=== PATIENT | male | born 1970 | race Caucasian/White ===

== ENCOUNTER 2016-12-31 16:00 | Outpatient (RCR) | payer MEDICARE, MEDICAID ==
[~2016-12-31 16:00] MED LIST: /TIOT18INH INH; ALBU17IN2 INH; RISP2TAB12 OR; TRAM50TA2 OR; ZOLO50TA OR
== END 2017-01-01 ==
LOC: M OUTALCOH 16:00
PROVIDERS: ATTEND Psychiatry & Neurology Psychiatry
DX: F10.20 Alcohol dependence, uncomplicated (principal); F19.10 Other psychoactive substance abuse, uncomplicated; F11.20 Opioid dependence, uncomplicated; F17.200 Nicotine dependence, unspecified, uncomplicated

== ENCOUNTER 2017-01-28 16:00 | Outpatient (RCR) | payer MEDICARE, MEDICAID | END 2017-01-29 | LOC: M OUTALCOH 16:00 | PROVIDERS: ATTEND Psychiatry & Neurology Psychiatry | DX: F19.10 Other psychoactive substance abuse, uncomplicated (principal); F11.20 Opioid dependence, uncomplicated; F10.20 Alcohol dependence, uncomplicated; F17.200 Nicotine dependence, unspecified, uncomplicated ==

== ENCOUNTER 2017-01-31 14:07 | Outpatient (RCR) | payer MEDICARE, MEDICAID | END 2017-03-01 | LOC: M OUTALCOH 14:07 | PROVIDERS: ATTEND Psychiatry & Neurology Psychiatry | DX: F19.10 Other psychoactive substance abuse, uncomplicated (principal); F11.20 Opioid dependence, uncomplicated; F10.20 Alcohol dependence, uncomplicated; F17.200 Nicotine dependence, unspecified, uncomplicated ==

== ENCOUNTER 2017-07-16 16:37 | Emergency (ER) | payer MEDICAID, MEDICARE ==
[~2017-07-16] VITALS: Ht 177.8 cm; Wt 155.0 kg
[2017-07-16 16:38] VITALS: BP 133/92
[2017-07-16] MEDS ORDERED: BREO1INH INH (16:47)
[2017-07-16] MEDS ORDERED: BUPR10TASR PO (16:47)
[2017-07-16] MEDS ORDERED: LITH300C PO (16:47)
[2017-07-16] MEDS ORDERED: PRED10TA2 PO (16:47)
[2017-07-16] MEDS ORDERED: INCR1INH IN (16:47)
[2017-07-16] MEDS ORDERED: ELIM5CRE2 TOP (17:36)
== END 2017-07-16 17:50 | disposition home or self-care (01) ==
LOC: M ED 16:37
DX: L29.9 Pruritus, unspecified (principal); J44.9 Chronic obstructive pulmonary disease, unspecified; F99 Mental disorder, not otherwise specified; F17.210 Nicotine dependence, cigarettes, uncomplicated; Z59.0 Homelessness; Z79.52 Long term (current) use of systemic steroids; Z79.899 Other long term (current) drug therapy

== ENCOUNTER 2017-07-17 19:15 | Emergency (ER) | payer MEDICAID, MEDICARE ==
[~2017-07-17] VITALS: Ht 180.3 cm; Wt 155.0 kg
[~2017-07-17 19:15] MED LIST changes: +BREO1INH INH; +BUPR10TASR PO; +ELIM5CRE2 TOP; +INCR1INH IN; +LITH300C PO; +PRED10TA2 PO
[2017-07-17 21:35] LABS: BASO # 0.1 K/mm3 (0.0-0.2); BASO % 0.7 % (0.0-1.0); EOS # 0.7 K/mm3 (0.0-0.50); EOS % 5.7 % (0.0-3.0); LARGE UNSTAINED CELL # 0.2 K/mm3 (0.0-0.4); LARGE UNSTAINED CELL % 1.5 % (0.0-4.0); LYMPH # 3.1 K/mm3 (1.5-4.5); LYMPH % 22.7 % (24.0-44.0); MEAN CORPUSCULAR HEMOGLOBIN 30.9 pg (27.0-33.0); MEAN CORPUSCULAR HGB CONC 33.7 g/dl (32.0-36.5); MEAN CORPUSCULAR VOLUME 91.5 fl (80.0-96.0); MONO # 0.7 K/mm3 (0.0-0.8); MONO % 5.2 % (0.0-5.0); NEUTROPHILS # 8.3 K/mm3 (1.8-7.7); NEUTROPHILS % 64.3 % (36.0-66.0); PLATELET COUNT, AUTOMATED 310 k/mm3 (150-450); RED CELL DISTRIBUTION WIDTH 12.9 % (11.5-14.5); WHITE BLOOD COUNT 12.9 K/mm3 (4.0-10.0)
[2017-07-17 22:03] LABS: ALBUMIN/GLOBULIN RATIO 1.38 (1.00-1.93); ALKALINE PHOSPHATASE 79 U/L (45-117); ALT/SGPT 23 U/L (12-78); ANION GAP 7 MEQ/L (8-16); AST/SGOT 15 U/L (15-37); BILIRUBIN,DIRECT 0.1 MG/DL (0.0-0.2); BILIRUBIN,TOTAL 0.4 MG/DL (0.2-1.0); BLOOD UREA NITROGEN 10 MG/DL (7-18); CALCIUM LEVEL 9.1 MG/DL (8.5-10.1); CARBON DIOXIDE LEVEL 29 MEQ/L (21-32); CHLORIDE LEVEL 105 MEQ/L (98-107); GLOMERULAR FILTRATION RATE > 60.0 (>60); GLUCOSE, FASTING 108 MG/DL (70-105); POTASSIUM SERUM 3.6 MEQ/L (3.5-5.1); SODIUM LEVEL 141 MEQ/L (136-145); TOTAL PROTEIN 6.9 GM/DL (6.4-8.2)
[2017-07-17 22:07] VITALS: BP 160/84
== END 2017-07-17 22:20 | disposition home or self-care (01) ==
LOC: M ED 19:15
DX: L29.9 Pruritus, unspecified (principal); R20.9 Unspecified disturbances of skin sensation; J44.9 Chronic obstructive pulmonary disease, unspecified; J45.909 Unspecified asthma, uncomplicated; F17.210 Nicotine dependence, cigarettes, uncomplicated; Z79.899 Other long term (current) drug therapy; Z79.52 Long term (current) use of systemic steroids; Z79.51 Long term (current) use of inhaled steroids
CPT/HCPCS: 80048; 80076; 84443; 85025; 99282; G0480

== ENCOUNTER 2017-07-24 08:58 | Emergency (ER) | payer MEDICARE ==
[~2017-07-24] VITALS: Ht 180.3 cm; Wt 70.5 kg
[2017-07-24 08:59] VITALS: BP 144/86
[2017-07-24] MEDS ORDERED: IBUP-1022 PO (09:19)
[2017-07-24] MEDS ORDERED: PENI25TA GT (09:19)
[2017-07-24] MEDS ORDERED: PENICILLIN V POTASSIUM 500 MG TAB PO ONE (09:30)
[2017-07-24] MEDS ORDERED: IBUPROFEN 800 MG TAB PO ONE (09:30)
== END 2017-07-24 09:47 | disposition home or self-care (01) ==
LOC: M ED 08:58
DX: K08.89 Other specified disorders of teeth and supporting structures (principal); Z72.0 Tobacco use

== ENCOUNTER 2017-09-22 19:51 | Emergency (ER) | payer MEDICARE ==
[~2017-09-22] VITALS: Ht 180.3 cm; Wt 65.9 kg
[~2017-09-22 19:51] MED LIST changes: +IBUP-1022 PO; +PENI25TA GT
[2017-09-22] MEDS ORDERED: OMEP20CA3 (20:11)
[2017-09-22] MEDS ORDERED: SUBO8MIS (20:11)
[2017-09-22] MEDS ORDERED: VARE1TA (20:11)
[2017-09-22] MEDS ORDERED: GEMF600T (20:11)
[2017-09-22] MEDS ORDERED: MONT10TA2 (20:11)
[2017-09-22] MEDS ORDERED: AUGM875T28 PO (21:57)
[2017-09-22 22:02] VITALS: BP 118/52
== END 2017-09-22 22:03 | disposition home or self-care (01) ==
LOC: M ED 19:51
DX: K08.89 Other specified disorders of teeth and supporting structures (principal); K05.00 Acute gingivitis, plaque induced; Z72.0 Tobacco use

== ENCOUNTER 2017-10-19 20:28 | Inpatient (IN) | payer MEDICARE ==
[~2017-10-19] VITALS: Ht 182.9 cm; Wt 68.0 kg
[~2017-10-19 20:28] MED LIST changes: +AUGM875T28 PO; +GEMF600T PO; -INCR1INH IN; +INCR1INH INH; +MONT10TA2 PO; +OMEP20CA3 PO; +SUBO8MIS SL; +VARE1TA PO
[2017-10-19 21:33] LABS: MEAN CORPUSCULAR HEMOGLOBIN 29.4 pg (27.0-33.0); MEAN CORPUSCULAR HGB CONC 32.5 g/dl (32.0-36.5); MEAN CORPUSCULAR VOLUME 90.4 fl (80.0-96.0); PLATELET COUNT, AUTOMATED 363 10^3/uL (150-450); RED CELL DISTRIBUTION WIDTH 12.7 % (11.5-14.5); WHITE BLOOD COUNT 11.3 10^3/uL (4.0-10.0)
[2017-10-19] MEDS ORDERED: LORazepam 1 MG TAB PO ONE (21:45)
--- NOTE | 2017-10-19 21:50 | REPUSA ---
CT of the head Clinical history: psychosis. Comparison: 06/18/2012. Technique: Multiple axial CT images were obtained through the head without administration of contrast . Findings: The ventricles and sulci are symmetric bilaterally. There is no evidence of acute hemorrhag e or infarct. There is no midline shift, mass effect, or extra-axial fluid collection. The osseous st ructures are unremarkable. The visualized paranasal sinuses and mastoid air cells are clear. Impression: Negative study.
[2017-10-19 22:10] LABS: ALBUMIN/GLOBULIN RATIO 1.25 (1.00-1.93); ALKALINE PHOSPHATASE 102 U/L (45-117); ALT/SGPT 22 U/L (12-78); ANION GAP 9 MEQ/L (8-16); AST/SGOT 24 U/L (7-37); BILIRUBIN,DIRECT 0.2 MG/DL (0.0-0.2); BILIRUBIN,TOTAL 0.7 MG/DL (0.2-1.0); BLOOD UREA NITROGEN 5 MG/DL (7-18); CALCIUM LEVEL 9.4 MG/DL (8.5-10.1); CARBON DIOXIDE LEVEL 25 MEQ/L (21-32); CHLORIDE LEVEL 105 MEQ/L (98-107); CREATININE FOR GFR 1.02 MG/DL (0.70-1.30); GLOMERULAR FILTRATION RATE > 60.0 (>60); GLUCOSE, FASTING 111 MG/DL (70-105); POTASSIUM SERUM 3.2 MEQ/L (3.5-5.1); SODIUM LEVEL 139 MEQ/L (136-145); TOTAL PROTEIN 7.2 GM/DL (6.4-8.2)
[2017-10-19 22:27] LABS: LITHIUM LEVEL 0.41 MEQ/L (0.60-1.20)
[2017-10-19] MEDS ORDERED: MAALOX 30 ML SUSP *UDC PO PRN (23:00)
[2017-10-19] MEDS ORDERED: MOM 30ML SUSPENSION UDC PO PRN (23:00)
[2017-10-19 23:05] LABS: METHADONE URINE NEGATIVE (NEGATIVE)
[2017-10-19] MEDS ORDERED: MAGN1TAB25 PO (23:21)
[2017-10-19] MEDS ORDERED: BUPR300T34 PO (23:21)
[2017-10-19] MEDS ORDERED: LITH45TASA PO (23:21)
[2017-10-20] MEDS: OLANZapine ORAL DISINTEGRATING TAB 5MG PO PRN (03:19)
[2017-10-20] MEDS: ACETAMINOPHEN TAB 650MG DOSE (2X325MG) PO PRN ×3 (04:32→21:19)
[2017-10-20 06:51] VITALS: BP 126/79
[2017-10-20] MEDS: PALIPERIDONE 3 MG ER TAB (INVEGA) PO SCH ×2 (08:06→20:02)
[2017-10-20] MEDS: LORazepam 1 MG TAB PO SCH ×3 (08:06→20:03)
[2017-10-20] MEDS ORDERED: ALBUTEROL 90 MCG/ACT 8GM HFA INHALER INH SCH (09:00)
[2017-10-20] MEDS: VARENICLINE 1 MG TABLET PO SCH ×2 (09:00→20:03)
--- NOTE | 2017-10-20 13:18 | MHHPEPDOC ---
General Date Of Admission: Oct 19, 2017 Legal Status: 9.39 Chief Complaint "My hands sting, i feel these bugs biting me, crawling on me". History of Present Illness HISTORY OF THE PRESENT ILLNESS: As per ED note: "Pt. states, "I'm going crazy and I need to be admitted." Pt reports over the past month, "bugs are crawling everywhere and I can't handle it." States he is unable to sleep due the severity of the sensation and is pacing throughout his house. Also presents with numerous somatic complaints and states, "nobody believes me"and is refusing to return home. Apparently, pt was seen in the ED last month for toothache and admitted to [place] "worms were coming out of my nose" Pt is requesting hospitalization due to unable to cope with tactile hallucinations and anxiety. He is a poor historian, therefore unable to obtain detailed hx. Pt is very disheveled and appears he has not been caring for himself. Pt has a hx of 2 previous hospitalizations to [facility] June and Jul(SI) mostly related to substance abuse(Bath Salts, ETOH, and Opiates) Pt adamantly denies SI and HI, able to CFS. States he was recently seen by [facility](Dr. Allen), however never informed MD of his concerns." Psychiatric Review of Systems Depression (2 or more weeks): depressed mood, anhedonia, insomnia/hypersomnia, feelings of worthlesness, decreased energy Aditi (4 or more days of): denies Psychosis: visual hallucination, delusions PTSD: denies Past Psychiatric History Previous Psychiatric Diagnosis: . Previous Psychiatric Admissions: . Suicide Attempts: . Psychiatric Follow-up: . Psychiatric medications: . 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 He suffered head trauma when he was 2 years old, he says he was in a coma for a long time. Head Injury: Yes Seizures: No Hospitalizations: Yes Surgeries: Yes Family Medical/Psychiatric HX Medical Problems Heart attacks and diabetes. Psychiatric Disorders: No Addiction: No Suicide Attemps/Completions: No Addiction History alcohol, cocaine, amphetamines, opioids, heroin Social History Childhood: He says he has been on his own since he was 13 because he didn't get along with his stepfather. he says his biological father and his mother were together only for about two years. He has two sisters, was close to them. Abuse/Trauma: Denies. Current Living Situation: Lives at a room with three other people. They are all [employer] clients. he gets charged $160.00/month and he sleeps in a loveset Education: Didn't finish HS and didn't get his GED Employment: Unemployed Social Support: None Legal: Child support. Marital: Has 2 daughters with his ex girlfriend. He says he didn't get to her because her mother interfered with everything they did. Her mother called the smocking machine operator because she went to their house to see the girls. he was 16 when his first daughter was born Mental Status Examination General Appearance: unkempt, disheveled, ds/not appear stated age, hospital scubs/clothing Build: thin Demeanor: average Eye Contact: poor Activity: slowed Behavior: cooperative Speech: reg/rate,rhythm,volume Mood: depressed Affect: constricted Thought Process: logical/linear Thought Content (Delusions): bizarre Thought Content (Other): none reported Thought Content (Aggressive): none reported Perception (Hallucinations): none reported Perception (Other): illusions Cognition (Impairment of): none reported Cognition(Intelligence Est.): average Oriented: Awake, Alert, Oriented times three Insight: poor Judgment: Poor Initial Treatment Plan 1. Patient was admitted on a [9.39] status. 2. Complete history was obtained. 3. With patients permission, family will be contacted and database will be expanded. 4. Patients medication regimen will be reviewed and changed accordingly. 5. Patient will be provided with protected environment. 6. Patient will be treated with individual, group, and milieu therapies. 7. Patient will receive supportive psych-education. 8. Discharge planning will commence immediately. 9. Outpatient follow-up treatment will be strongly recommended. 10. The initial treatment plan will focus initially on: * Depression. * Risk for suicide. * Substance abuse. ESTIMATED LENGTH OF STAY: - DAYS. TIME SPENT COUNSELING AND COORDINATING INITIAL CARE: minutes. Vital Signs Vital Signs Date Time Temp Pulse Resp B/P (MAP) Pulse Ox O2 Delivery O2 Flow Rate FiO2 10/20/17 09:51 Room Air 10/20/17 06:51 97.7 69 18 126/79 (95) 96 Laboratory Data 24H Labs Laboratory Tests 2 10/19/17 21:20: Nucleated Red Blood Cells % (auto) 0.0, Anion Gap 9, Glomerular Filtration Rate > 60.0, Calcium Level 9.4, Aspartate Amino Transf (AST/SGOT) 24, Alanine Aminotransferase (ALT/SGPT) 22, Alkaline Phosphatase 102, Total Bilirubin 0.7, Direct Bilirubin 0.2, Total Protein 7.2, Albumin 4.0, Albumin/Globulin Ratio 1.25, Thyroid Stimulating Hormone (TSH) 0.856, Salicylates Level 1.8L, Acetaminophen Level < 2.0L, [place] Level 0.41L, Ethyl Alcohol Level < 0.003 10/19/17 21:21: Urine Amphetamines Screen NEGATIVE, Urine Benzodiazepines Screen NEGATIVE, Urine Opiates Screen NEGATIVE, Urine Methadone Screen NEGATIVE, Urine Barbiturates Screen NEGATIVE, Urine Phencyclidine Screen NEGATIVE, Urine Cocaine Metabolite Screen NEGATIVE, Urine Cannabinoids Screen NEGATIVE CBC/BMP Laboratory Tests 10/19/17 21:20 Red Blood Count 4.80, Mean Corpuscular Volume 90.4, Mean Corpuscular Hemoglobin 29.4, Mean Corpuscular Hemoglobin Concent 32.5, Red Cell Distribution Width 12.7 Medications Scheduled (Incruse Ellipta) 62.5 Mcg/Inh Inh, 1 PUFF INH DAILY, (Reported) Buprenorphine/Naloxone (Suboxone 8-2 mg) 1 Mis Mis, 1 MIS SL QHS, (Reported) Bupropion HCl (Bupropion HCl Xl) 300 Mg Tab, 300 MG PO DAILY, (Reported) Fluticasone/Vilanterol (Breo Ellipta 100-25 Mcg/INH) 1 Inh Inh, 1 PUFF INH DAILY , (Reported) Gemfibrozil (Gemfibrozil) 600 Mg Tab, 600 MG PO DAILY, (Reported) [place] Carbonate ([place]ilex Carbonate ER) 450 Mg Tabcr, 900 MG PO QHS, (Reported) Magnesium Oxide (Magnesium) 400 Mg Tab, 400 MG PO DAILY, (Reported) Montelukast Sodium (Montelukast Sodium) 10 Mg Tab, 10 MG PO DAILY, (Reported) Omeprazole (Omeprazole) 20 Mg Cap, 20 MG PO DAILY, (Reported) Prednisone (Prednisone) 10 Mg Tab, 10 MG PO DAILY, (Reported) Varenicline (Chantix) 1 Mg Tab, 1 MG PO BID, (Reported) Scheduled PRN Albuterol Sulfate (Proventil Hfa) Aer, 2 PUFFS INH Q4H PRN for SHORTNESS OF BREATH, (Reported) Allergies Coded Allergies: No Known Allergies (Verified Allergy, 06/07/03) ELYSIA ROWE MD Oct 20, 2017 13:18
[2017-10-20] MEDS: predniSONE 10 MG TAB PO SCH (15:09)
[2017-10-20] MEDS: BUPRENORPHINE/NALOXONE 8-2MG SUBLINGUAL TABLET(SUBOXONE) SL SCH (15:09)
[2017-10-20] MEDS: MONTELUKAST 10 MG TAB PO SCH (15:10)
[2017-10-20] MEDS: MAGNESIUM OXIDE 400 MG TAB (MAG-OX) PO SCH (15:10)
[2017-10-20] MEDS: OMEPRAZOLE 20 MG CAP PO SCH (15:10)
[2017-10-20] MEDS: buPROPion **XL** TABLET 150MG (WELLBUTRIN XL) PO SCH (15:10)
[2017-10-20 18:00] VITALS: BP 140/80
[2017-10-20] MEDS: ALBUTEROL 90 MCG/ACT 8GM HFA INHALER INH PRN (19:55)
[2017-10-20] MEDS: FLUTICASONE HFA 110 MCG 12 GM INHALER (FLOVENT) INH SCH (20:02)
[2017-10-20] MEDS: LITHIUM CARBONATE 450 MG **CR** TAB PO SCH (20:03)
[2017-10-20] MEDS ORDERED: QUEtiapine FUMARATE 100 MG TAB PO SCH (21:00)
[2017-10-21] MEDS: ACETAMINOPHEN TAB 650MG DOSE (2X325MG) PO PRN ×2 (06:27→20:05)
[2017-10-21 06:47] VITALS: BP 141/72
[2017-10-21] MEDS: predniSONE 10 MG TAB PO SCH (08:31)
[2017-10-21] MEDS: BUPRENORPHINE/NALOXONE 8-2MG SUBLINGUAL TABLET(SUBOXONE) SL SCH (08:31)
[2017-10-21] MEDS: PALIPERIDONE 3 MG ER TAB (INVEGA) PO SCH ×2 (08:31→20:05)
[2017-10-21] MEDS: VARENICLINE 1 MG TABLET PO SCH ×2 (08:31→20:05)
[2017-10-21] MEDS: MONTELUKAST 10 MG TAB PO SCH (08:31)
[2017-10-21] MEDS: OMEPRAZOLE 20 MG CAP PO SCH (08:31)
[2017-10-21] MEDS: MAGNESIUM OXIDE 400 MG TAB (MAG-OX) PO SCH (08:31)
[2017-10-21] MEDS: LORazepam 1 MG TAB PO SCH (08:31)
[2017-10-21] MEDS: FLUTICASONE HFA 110 MCG 12 GM INHALER (FLOVENT) INH SCH ×2 (08:32→20:06)
[2017-10-21] MEDS: buPROPion **XL** TABLET 150MG (WELLBUTRIN XL) PO SCH (08:32)
[2017-10-21] MEDS: ALBUTEROL 90 MCG/ACT 8GM HFA INHALER INH PRN ×3 (08:34→20:08)
--- NOTE | 2017-10-21 09:04 | HPEPDOC ---
[facility] Medical History & Physical Date of Admission Oct 19, 2017 History and Physical PCP: COUNTS INCLUDE 234 BEDS AT THE [facility] ATTENDING: Dr. Tejas Patten Sound Equipment Mechanic. Dr Otto HPI: 46yoM admitted to [facility] for unspecified psychotic disorder, being medically examined today. No acute medical complaints today. The patient states his respiratory status is at his baseline. Denies any fevers, chills, weakness, fatigue, CANALES, CP, SOB, cough, palpitations, abdominal pain, N/V/D or changes in bowel or bladder habits. PMHx: COPD, steroid dependent. Patient does not use oxygen at home. Follows with . GERD Dyslipidemia History of substance use. On Suboxone. Dr Allen Tobacco use Anxiety Depression PSHX: Right knee arthroscopy SOCHX: Resides in: [facility] Marital Status: Single Kids: 2 Employment: Unemployed Tobacco use: Currently 3 cigarettes per day ETOH: Denies Illicit Drugs: History of opiates, marijuana. Patient states stopped 6-7 years ago. On Suboxone for the past 3-4 years. IV Drug Use: Denies Tattoos done unprofessionally: Denies FAMHX: Mother: Alive, diabetes Father: Unknown Siblings: 2 sisters Alive, well Children: Alive, well Unexpected deaths due to medical reasons: None. ROS: As noted in HPI, otherwise 11pt ROS of systems reviewed and remarkable. PE: GEN: 46 yoM, appears older than stated age. Well-nourished, well developed. No acute distress. Alert and oriented x 3. Pleasant, interactive. HEENT: Normocephalic, atraumatic. Pupils are equal, round, and reactive to light. Extraocular movements are intact. No nystagmus appreciated. Sclera are nonicteric. Conjunctiva without injection. Nose midline. Nasal turbinates without bogginess. EACs both patent BL. TMs both visualized and wang with good cone of light, no bulging or erythema. No facial asymmetry. Moist mucous membranes. Dentition fair. Pharynx pink and moist, no cobblestoning. Neck supple , trachea midline. No lymphadenopathy or thyromegaly appreciated. CHEST: Regular rate and rhythm, +S1, +S2 LUNGS: Wheezes noted scattered bilaterally. No rales, or rhonchi. Breathing appears symmetric and easy. Patient is speaking in full sentences. No accessory muscle use. ABD: Round, soft, non-tender, non-distended. +Bowel sounds throughout. No rebound or guarding. No costovertebral angle tenderness. EXT: Pulses 2+ bilaterally dorsalis pedis and radial. No lower extremity edema appreciated. SKIN: [place], dry, warm. Capillary refill <2sec. No rashes. NEURO: Alert and oriented x 3. Cranial nerves III-XII are intact. No focal deficits appreciated. EKG: Pending CT head 10/19/17 Negative study. A&P: 46yoM admitted to [facility] for unspecified psychotic disorder 1. Psych. Plan per Psychiatry. Obtain baseline EKG to assure the safety of psychiatric medications as they can prolong the QT interval. 2. Nicotine dependence. Patient remains on Chantix. 3. COPD, steroid dependent. Patient follows as outpatient with pulmonary, Dr. Otto. Continue prednisone 10 mg by mouth daily which the patient states is his baseline dose. Continue albuterol HFA 2 puffs every 4 hours as needed. Albuterol nebulizer every 2 hours if needed for shortness of breath. Continue Singulair 10 mg daily. Continue Flovent 1 puff twice a day. 4. Follow up with PCP on discharge. 5. History of Substance use. Per psychiatry. Patient remains on Suboxone. 6. Hypokalemia. Recheck BMP. 7. Leukocytosis. Possibly steroid effect. Possibly stress response. Patient is afebrile. Recheck CBC. 8. Staff member Ed present throughout exam. Vital Signs Vital Signs Date Time Temp Pulse Resp B/P (MAP) Pulse Ox O2 Delivery O2 Flow Rate FiO2 10/21/17 06:47 96.1 81 18 141/72 (95) 10/20/17 09:51 Room Air 10/20/17 06:51 96 Laboratory Data Labs 24H Item Value Date Time White Blood Count 11.3 10^3/uL H 10/19/172119 Red Blood Count 4.80 10^6/uL 10/19/172119 Hemoglobin 14.1 g/dl 10/19/172119 Hematocrit 43.4 % 10/19/172119 Mean Corpuscular Volume 90.4 fl 10/19/172119 Mean Corpuscular Hemoglobin 29.4 pg 10/19/172119 Mean Corpuscular Hemoglobin Concent 32.5 g/dl 10/19/172119 Red Cell Distribution Width 12.7 % 10/19/172119 Platelet Count 363 10^3/uL 10/19/172119 Sodium Level 139 MEQ/L 10/19/172119 Potassium Level 3.2 MEQ/L L 10/19/172119 Chloride Level 105 MEQ/L 10/19/172119 Carbon Dioxide Level 25 MEQ/L 10/19/172119 Anion Gap 9 MEQ/L 10/19/172119 Blood Urea Nitrogen 5 MG/DL L 10/19/172119 Creatinine 1.02 MG/DL 10/19/172119 Glomerular Filtration Rate > 60.0 10/19/172119 Fasting Glucose 111 MG/DL H 10/19/172119 Calcium Level 9.4 MG/DL 10/19/172119 Total Bilirubin 0.7 MG/DL 10/19/172119 Direct Bilirubin 0.2 MG/DL 10/19/172119 Aspartate Amino Transf (AST/SGOT) 24 U/L 10/19/172119 Alanine Aminotransferase (ALT/SGPT) 22 U/L 10/19/172119 Alkaline Phosphatase 102 U/L 10/19/172119 Total Protein 7.2 GM/DL 10/19/172119 Albumin 4.0 GM/DL 10/19/172119 Albumin/Globulin Ratio 1.25 10/19/172119 Thyroid Stimulating Hormone (TSH) 0.856 uIU/ML 10/19/172119 Salicylates Level 1.8 MG/DL L 10/19/172119 Urine Opiates Screen NEGATIVE 10/19/172120 Urine Methadone Screen NEGATIVE 10/19/172120 Acetaminophen Level < 2.0 UG/ML L 10/19/172119 Urine Barbiturates Screen NEGATIVE 10/19/172120 Urine Phencyclidine Screen NEGATIVE 10/19/172120 Urine Amphetamines Screen NEGATIVE 10/19/172120 Urine Benzodiazepines Screen NEGATIVE 10/19/172120 [place] Level 0.41 MEQ/L L 10/19/172119 Urine Cocaine Metabolite Screen NEGATIVE 10/19/172120 Urine Cannabinoids Screen NEGATIVE 10/19/172120 Ethyl Alcohol Level < 0.003 % 10/19/172119 Home Medications Scheduled (Incruse Ellipta) 62.5 Mcg/Inh Inh, 1 PUFF INH DAILY Buprenorphine/Naloxone (Suboxone 8-2 mg) 1 Mis Mis, 1 MIS SL QHS Bupropion HCl (Bupropion HCl Xl) 300 Mg Tab, 300 MG PO DAILY Fluticasone/Vilanterol (Breo Ellipta 100-25 Mcg/INH) 1 Inh Inh, 1 PUFF INH DAILY Gemfibrozil (Gemfibrozil) 600 Mg Tab, 600 MG PO DAILY [place] Carbonate ([place] Carbonate ER) 450 Mg Tabcr, 900 MG PO QHS Magnesium Oxide (Magnesium) 400 Mg Tab, 400 MG PO DAILY Montelukast Sodium (Montelukast Sodium) 10 Mg Tab, 10 MG PO DAILY Omeprazole (Omeprazole) 20 Mg Cap, 20 MG PO DAILY Prednisone (Prednisone) 10 Mg Tab, 10 MG PO DAILY Quetiapine Fumerate (Quetiapine Fumarate) 50 Mg Tab, 150 MG PO QHS for MOOD Varenicline (Chantix) 1 Mg Tab, 1 MG PO BID Scheduled PRN Albuterol Sulfate (Proventil Hfa) Aer, 2 PUFFS INH Q4H PRN for SHORTNESS OF BREATH Allergies Coded Allergies: No Known Allergies (Verified Allergy, 06/07/03) Diana De Leon Oct 21, 2017 09:04
[2017-10-21 10:48] LABS: MEAN CORPUSCULAR HEMOGLOBIN 29.5 pg (27.0-33.0); MEAN CORPUSCULAR HGB CONC 31.7 g/dl (32.0-36.5); PLATELET COUNT, AUTOMATED 301 10^3/uL (150-450); WHITE BLOOD COUNT 12.8 10^3/uL (4.0-10.0)
[2017-10-21 12:25] LABS: ANION GAP 6 MEQ/L (8-16); BLOOD UREA NITROGEN 12 MG/DL (7-18); CALCIUM LEVEL 8.8 MG/DL (8.5-10.1); CARBON DIOXIDE LEVEL 28 MEQ/L (21-32); CHLORIDE LEVEL 107 MEQ/L (98-107); CREATININE FOR GFR 0.82 MG/DL (0.70-1.30); GLOMERULAR FILTRATION RATE > 60.0 (>60); GLUCOSE, FASTING 113 MG/DL (70-105); POTASSIUM SERUM 3.5 MEQ/L (3.5-5.1); SODIUM LEVEL 141 MEQ/L (136-145)
[2017-10-21] MEDS: ALBUTEROL SULFATE 2.5 MG/0.5 ML INH NEB SOLN INH PRN (16:55)
[2017-10-21 18:00] VITALS: BP 136/86
--- NOTE | 2017-10-21 19:53 | IPN ---
DATE: 10/21/2017 HISTORY: 46-year-old male admitted for altered perception. The patient reported, "I am going crazy." The patient was having tactile hallucinations, feeling that bugs were crawling everywhere and he was unable to sleep. MEDICATIONS: - Seroquel 100 mg by mouth at night - Invega 3 mg by mouth twice a day - [place] 900 mg by mouth at night - Ativan 1 mg by mouth three times a day - Suboxone one tablet by mouth daily - Bupropion 300 mg by mouth in the morning SUBJECTIVE: "I am still having these feelings." OBJECTIVE: The patient is somewhat improved from the tactile hallucinations, although she continues to report them. The patient is drowsy. The patient denies using drugs or alcohol or being in withdrawal prior to admission. We discussed the fact that this tactile hallucinations are usually secondary to withdrawal from alcohol or benzodiazepine, but he denied. The patient is somewhat drowsy during the interview, although he states that he cannot sleep at night and that is the reason why he is drowsy. The patient has been taking Ativan 1 mg by mouth three times a day MENTAL STATUS EXAMINATION: The patient is dressed in [facility]. The patient is cooperative during the examination. The patient is drowsy with poor eye contact. Mood is depressed and anxious. Affect is restricted. No delusions. The patient continues to report tactile hallucinations. Memory, attention and concentration are somewhat impaired. The patient is able to contract for safety while in the hospital. Insight and judgment is limited. ASSESSMENT: 1. Altered perceptions/tactile hallucinations. 2. High anxiety. 3. Insomnia. PLAN: 1. Increase Seroquel to 200 mg by mouth at night. 2. Continue Invega 3 mg by mouth at night. 3. Discontinue Ativan. 4. Start Librium 25 mg by mouth twice a day. 5. Continue lithium 900 mg by mouth at night. 6. Continue Suboxone one tablet by mouth daily. 7. Continue Wellbutrin 300 mg by mouth in the morning.
[2017-10-21] MEDS: LITHIUM CARBONATE 450 MG **CR** TAB PO SCH (20:05)
[2017-10-21] MEDS: chlordiazePOXIDE 25 MG CAP PO SCH (20:05)
[2017-10-21] MEDS ORDERED: QUEtiapine FUMARATE 200 MG TAB PO SCH (21:00)
--- NOTE | 2017-10-21 21:19 | ECGEPIP ---
Stationary ECG Study [facility] Test Date: 2017-10-21 Pat Name: FLOYD BE Department: Room: [place] [address] Gender: M [employer]: : 1970 Requested By: Diana De Leon Order Number: [id number] Reading MD: Jarred Pryor Measurements Intervals [place] Rate: 83 P: 79 MS: 152 QRS: 37 QRSD: 106 T: 62 QT: 393 QTc: 463 Interpretive Statements Normal sinus rhythm with sinus arrhythmia Delayed anterior R wave progression Nonspecific T wave abnormality No significant change when compared to prior tracing of 07/23/2016 Electronically Signed On 10-21-2017 21:19:23 EST by Jarred Pryor
[2017-10-22] MEDS: diphenhydrAMINE 25 MG CAP PO PRN (01:12)
[2017-10-22 06:34] VITALS: BP 126/63
[2017-10-22 06:56] LABS: MEAN CORPUSCULAR HEMOGLOBIN 29.4 pg (27.0-33.0); MEAN CORPUSCULAR HGB CONC 31.6 g/dl (32.0-36.5); PLATELET COUNT, AUTOMATED 308 10^3/uL (150-450); WHITE BLOOD COUNT 11.2 10^3/uL (4.0-10.0)
[2017-10-22 07:28] LABS: ALBUMIN 3.5 GM/DL (3.2-5.2); ALBUMIN/GLOBULIN RATIO 1.25 (1.00-1.93); ALKALINE PHOSPHATASE 80 U/L (45-117); ALT/SGPT 30 U/L (12-78); ANION GAP 6 MEQ/L (8-16); AST/SGOT 54 U/L (7-37); BILIRUBIN,TOTAL 0.3 MG/DL (0.2-1.0); BLOOD UREA NITROGEN 11 MG/DL (7-18); CALCIUM LEVEL 8.8 MG/DL (8.5-10.1); CARBON DIOXIDE LEVEL 29 MEQ/L (21-32); CHLORIDE LEVEL 108 MEQ/L (98-107); CREATININE FOR GFR 0.77 MG/DL (0.70-1.30); GLOMERULAR FILTRATION RATE > 60.0 (>60); GLUCOSE, FASTING 83 MG/DL (70-105); POTASSIUM SERUM 3.4 MEQ/L (3.5-5.1); SODIUM LEVEL 143 MEQ/L (136-145); TOTAL PROTEIN 6.3 GM/DL (6.4-8.2)
[2017-10-22 07:39] LABS: LITHIUM LEVEL 0.62 MEQ/L (0.60-1.20)
[2017-10-22] MEDS: FLUTICASONE HFA 110 MCG 12 GM INHALER (FLOVENT) INH SCH ×2 (08:05→21:27)
[2017-10-22] MEDS: ALBUTEROL 90 MCG/ACT 8GM HFA INHALER INH PRN ×2 (08:09→14:19)
[2017-10-22] MEDS: BUPRENORPHINE/NALOXONE 8-2MG SUBLINGUAL TABLET(SUBOXONE) SL SCH (08:10)
[2017-10-22] MEDS: MONTELUKAST 10 MG TAB PO SCH (08:10)
[2017-10-22] MEDS: buPROPion **XL** TABLET 150MG (WELLBUTRIN XL) PO SCH (08:10)
[2017-10-22] MEDS: MAGNESIUM OXIDE 400 MG TAB (MAG-OX) PO SCH (08:10)
[2017-10-22] MEDS: OMEPRAZOLE 20 MG CAP PO SCH (08:10)
[2017-10-22] MEDS: chlordiazePOXIDE 25 MG CAP PO SCH (08:10)
[2017-10-22] MEDS: predniSONE 10 MG TAB PO SCH (08:10)
[2017-10-22] MEDS: VARENICLINE 1 MG TABLET PO SCH ×2 (08:10→20:25)
[2017-10-22] MEDS ORDERED: POTASSIUM CHLORIDE 10 MEQ SR TABLET PO ONE (10:15)
[2017-10-22] MEDS: ACETAMINOPHEN TAB 650MG DOSE (2X325MG) PO PRN (12:35)
--- NOTE | 2017-10-22 16:01 | IPN ---
DATE: 10/22/2017 HISTORY: 46-year-old male admitted for altered perception. The patient reported, "I am going crazy" and also having tactile hallucinations, feeling that bugs were crawling everywhere over his skin and he was unable to sleep. MEDICATIONS: - Seroquel 200 mg by mouth at night - Invega 3 mg by mouth twice a day - Librium 25 mg by mouth by mouth twice a day - [place] 900 mg by mouth at night - Suboxone one tablet by mouth daily - Wellbutrin 300 mg by mouth in the morning. SUBJECTIVE: "I am still feeling the bugs." OBJECTIVE: The patient has been improving slowly. The severity and frequency of the tactile hallucinations is decreasing. Patient is somewhat drowsy. Patient is denying the use of any drugs or alcohol or the fact that the is in withdrawal however the symptoms are typically due to withdrawal from alcohol or benzodiazepines. Patient is interacting a little better with other patients and the staff. MENTAL STATUS EXAMINATION: The patient is dressed in [facility]. The patient was cooperative, somewhat drowsy. He has fair eye contact. Mood is depressed and anxious. Affect is restricted. No delusions. The patient continues to report tactile hallucinations. Memory, attention and concentration are somewhat impaired. The patient is able to contract for safety while in the hospital. Insight and judgment is limited. ASSESSMENT: 1. Altered perceptions/tactile hallucinations. 2. High anxiety. 3. Insomnia. PLAN: 1. Decrease Seroquel to 150 mg by mouth at night. 2. Continue Invega 3 mg by mouth at night. 3. Decrease Librium to 10 mg by mouth twice a day. 4. Continue lithium 900 mg by mouth at night. 6. Continue Suboxone one tablet by mouth daily. 7. Continue Wellbutrin XR 300 mg by mouth in the morning.
[2017-10-22 18:00] VITALS: BP 138/86
[2017-10-22] MEDS: ALBUTEROL SULFATE 2.5 MG/0.5 ML INH NEB SOLN INH PRN ×2 (18:18→21:48)
[2017-10-22] MEDS: PALIPERIDONE 3 MG ER TAB (INVEGA) PO SCH (20:23)
[2017-10-22] MEDS: LITHIUM CARBONATE 450 MG **CR** TAB PO SCH (20:24)
[2017-10-22] MEDS: QUEtiapine FUMARATE 50 MG TAB PO SCH (20:25)
[2017-10-22] MEDS ORDERED: chlordiazePOXIDE 25 MG CAP PO SCH (21:00)
[2017-10-23] MEDS: ACETAMINOPHEN TAB 650MG DOSE (2X325MG) PO PRN ×2 (06:38→16:51)
[2017-10-23] MEDS: ALBUTEROL 90 MCG/ACT 8GM HFA INHALER INH PRN ×2 (06:48→12:35)
[2017-10-23 07:39] LABS: MEAN CORPUSCULAR HEMOGLOBIN 29.9 pg (27.0-33.0); MEAN CORPUSCULAR HGB CONC 31.5 g/dl (32.0-36.5); MEAN CORPUSCULAR VOLUME 95.1 fl (80.0-96.0); PLATELET COUNT, AUTOMATED 285 10^3/uL (150-450); RED CELL DISTRIBUTION WIDTH 13.4 % (11.5-14.5); WHITE BLOOD COUNT 15.9 10^3/uL (4.0-10.0)
[2017-10-23] MEDS: TIOTROPIUM INHALER/CAPSULE (SPIRIVA) INH SCH (08:00)
[2017-10-23] MEDS: FLUTICASONE HFA 110 MCG 12 GM INHALER (FLOVENT) INH SCH ×2 (08:04→20:39)
[2017-10-23] MEDS: MONTELUKAST 10 MG TAB PO SCH (08:04)
[2017-10-23] MEDS: buPROPion **XL** TABLET 150MG (WELLBUTRIN XL) PO SCH (08:04)
[2017-10-23] MEDS: BUPRENORPHINE/NALOXONE 8-2MG SUBLINGUAL TABLET(SUBOXONE) SL SCH (08:04)
[2017-10-23] MEDS: predniSONE 10 MG TAB PO SCH (08:04)
[2017-10-23] MEDS: VARENICLINE 1 MG TABLET PO SCH ×2 (08:04→20:38)
[2017-10-23] MEDS: OMEPRAZOLE 20 MG CAP PO SCH (08:04)
[2017-10-23] MEDS: MAGNESIUM OXIDE 400 MG TAB (MAG-OX) PO SCH (08:05)
[2017-10-23] MEDS: ADVAIR HFA 230/21MCG INHALER INH SCH ×2 (16:06→20:39)
[2017-10-23 18:11] VITALS: BP 122/71
[2017-10-23] MEDS: LITHIUM CARBONATE 450 MG **CR** TAB PO SCH (20:38)
[2017-10-23] MEDS: QUEtiapine FUMARATE 50 MG TAB PO SCH (20:38)
[2017-10-23] MEDS: diphenhydrAMINE 25 MG CAP PO PRN (21:51)
[2017-10-24] MEDS: ACETAMINOPHEN TAB 650MG DOSE (2X325MG) PO PRN ×2 (04:36→11:38)
[2017-10-24 06:40] VITALS: BP 133/58
[2017-10-24] MEDS: predniSONE 10 MG TAB PO SCH (08:27)
[2017-10-24] MEDS: BUPRENORPHINE/NALOXONE 8-2MG SUBLINGUAL TABLET(SUBOXONE) SL SCH (08:27)
[2017-10-24] MEDS: MONTELUKAST 10 MG TAB PO SCH (08:27)
[2017-10-24] MEDS: MAGNESIUM OXIDE 400 MG TAB (MAG-OX) PO SCH (08:27)
[2017-10-24] MEDS: buPROPion **XL** TABLET 150MG (WELLBUTRIN XL) PO SCH (08:27)
[2017-10-24] MEDS: OMEPRAZOLE 20 MG CAP PO SCH (08:27)
[2017-10-24] MEDS: VARENICLINE 1 MG TABLET PO SCH ×2 (08:28→20:54)
[2017-10-24] MEDS: ADVAIR HFA 230/21MCG INHALER INH SCH ×2 (08:28→20:54)
[2017-10-24] MEDS: FLUTICASONE HFA 110 MCG 12 GM INHALER (FLOVENT) INH SCH ×2 (08:28→20:54)
[2017-10-24] MEDS: TIOTROPIUM INHALER/CAPSULE (SPIRIVA) INH SCH (10:15)
[2017-10-24] MEDS: ALBUTEROL 90 MCG/ACT 8GM HFA INHALER INH PRN (13:44)
[2017-10-24 20:28] VITALS: BP 130/79
[2017-10-24] MEDS: LITHIUM CARBONATE 450 MG **CR** TAB PO SCH (20:53)
[2017-10-24] MEDS: QUEtiapine FUMARATE 50 MG TAB PO SCH (20:53)
[2017-10-24] MEDS: diphenhydrAMINE 25 MG CAP PO PRN (20:53)
[2017-10-24] MEDS: OLANZapine ORAL DISINTEGRATING TAB 5MG PO PRN (20:54)
[2017-10-25] MEDS: ACETAMINOPHEN TAB 650MG DOSE (2X325MG) PO PRN ×2 (05:10→14:34)
[2017-10-25 06:41] VITALS: BP 116/67
[2017-10-25] MEDS: BUPRENORPHINE/NALOXONE 8-2MG SUBLINGUAL TABLET(SUBOXONE) SL SCH (08:35)
[2017-10-25] MEDS: buPROPion **XL** TABLET 150MG (WELLBUTRIN XL) PO SCH (08:35)
[2017-10-25] MEDS: VARENICLINE 1 MG TABLET PO SCH ×2 (08:35→20:05)
[2017-10-25] MEDS: MONTELUKAST 10 MG TAB PO SCH (08:35)
[2017-10-25] MEDS: predniSONE 10 MG TAB PO SCH (08:35)
[2017-10-25] MEDS: TIOTROPIUM INHALER/CAPSULE (SPIRIVA) INH SCH (08:35)
[2017-10-25] MEDS: OMEPRAZOLE 20 MG CAP PO SCH (08:36)
[2017-10-25] MEDS: MAGNESIUM OXIDE 400 MG TAB (MAG-OX) PO SCH (08:36)
[2017-10-25] MEDS: ADVAIR HFA 230/21MCG INHALER INH SCH ×2 (08:36→20:06)
[2017-10-25] MEDS: FLUTICASONE HFA 110 MCG 12 GM INHALER (FLOVENT) INH SCH ×2 (08:36→20:06)
--- NOTE | 2017-10-25 11:35 | IPN ---
DATE OF SERVICE: 10/24/2017 HISTORY: 46 year old male admitted for altered perception. Patient stated that "was feeling bugs crawling everywhere over his skin and also feeing like going crazy". MEDICATIONS: - Seroquel 150 mg by mouth daily at bedtime - lithium 900 mg by mouth daily at bedtime - Suboxone one tablet by mouth daily - Wellbutrin 300 mg by mouth daily every morning SUBJECTIVE: "I am feeling a little better". Patient has improved significantly from the tactile hallucinations point of view. Patient still looks depressed with sad restricted facial expression and some psychomotor retardation. Patient reports pain in upper and lower extremities. There is no evidence of psychotic symptoms. No auditory or visual hallucinations or delusions. Patient is tolerating well the medication. MENTAL STATUS EXAMINATION: Patient is dressed in [facility]. Patient is cooperative during exam. Has fair eye contact. His speech is slow and monotone. Mood is depressed and anxious but improving. Affect is restricted. No delusions or hallucinations during the interview. Memory, attention and concentration are fair. Patient is able to contract for safety while in the hospital. Insight and judgment is limited. ASSESSMENT: 1. Altered perceptions. 2. High anxiety. 3. Insomnia. PLAN: 1. Continue lithium 900 mg by mouth daily at bedtime. 2. Continue Wellbutrin XR 300 mg by mouth daily every morning. 3. Continue Suboxone one tablet by mouth daily.
[2017-10-25 18:00] VITALS: BP 125/65
[2017-10-25] MEDS: ALBUTEROL 90 MCG/ACT 8GM HFA INHALER INH PRN (19:26)
[2017-10-25] MEDS: QUEtiapine FUMARATE 50 MG TAB PO SCH (20:05)
[2017-10-25] MEDS: diphenhydrAMINE 25 MG CAP PO PRN (20:05)
[2017-10-25] MEDS: OLANZapine ORAL DISINTEGRATING TAB 5MG PO PRN (20:05)
[2017-10-25] MEDS: LITHIUM CARBONATE 450 MG **CR** TAB PO SCH (20:06)
[2017-10-26] MEDS: ACETAMINOPHEN TAB 650MG DOSE (2X325MG) PO PRN ×2 (02:42→11:56)
--- NOTE | 2017-10-26 03:05 | MHIPN ---
DATE OF SERVICE: 10/25/2017 HISTORY: 46-year-old male admitted for altered perception. Patient was reporting bugs crawling over his skin and "feeing like going crazy." MEDICATIONS: - Seroquel 150 mg by mouth nightly - lithium 900 mg by mouth nightly - Suboxone one tablet by mouth daily - Wellbutrin 300 mg by mouth every morning SUBJECTIVE: "I am feeling a lot better." OBJECTIVE: Patient continues improving slowly. Patient does not have perceptual disturbances. Denies tactile hallucinations. Patient denies any feelings of paranoia. Denies auditory hallucinations. Patient is tolerating well the medication. MENTAL STATUS EXAMINATION: Patient is dressed in [facility]. Patient is cooperative, fair eye contact. Speech is slow and monotone. Mood is depressed and anxious, but improving. Affect is somewhat restricted. No delusions or hallucinations. Memory, attention and concentration are fair. Patient is able to contract for safety while in the hospital. Insight and judgment is fair. ASSESSMENT: 1. Altered perceptions. 2. High anxiety. 3. Insomnia. PLAN: 1. Continue lithium 900 mg by mouth nightly. 2. Wellbutrin XR 300 mg by mouth every morning. 3. Suboxone one tablet by mouth daily as per [facility] clinic.
[2017-10-26 06:29] VITALS: BP 130/82
[2017-10-26] MEDS: TIOTROPIUM INHALER/CAPSULE (SPIRIVA) INH SCH (08:13)
[2017-10-26] MEDS: OMEPRAZOLE 20 MG CAP PO SCH (08:14)
[2017-10-26] MEDS: VARENICLINE 1 MG TABLET PO SCH ×2 (08:14→20:16)
[2017-10-26] MEDS: predniSONE 10 MG TAB PO SCH (08:14)
[2017-10-26] MEDS: FLUTICASONE HFA 110 MCG 12 GM INHALER (FLOVENT) INH SCH ×2 (08:14→20:18)
[2017-10-26] MEDS: MONTELUKAST 10 MG TAB PO SCH (08:14)
[2017-10-26] MEDS: BUPRENORPHINE/NALOXONE 8-2MG SUBLINGUAL TABLET(SUBOXONE) SL SCH (08:14)
[2017-10-26] MEDS: MAGNESIUM OXIDE 400 MG TAB (MAG-OX) PO SCH (08:14)
[2017-10-26] MEDS: buPROPion **XL** TABLET 150MG (WELLBUTRIN XL) PO SCH (08:14)
[2017-10-26] MEDS: ADVAIR HFA 230/21MCG INHALER INH SCH ×2 (08:15→20:17)
[2017-10-26 18:00] VITALS: BP 128/72
[2017-10-26] MEDS: QUEtiapine FUMARATE 50 MG TAB PO SCH (20:17)
[2017-10-26] MEDS: LITHIUM CARBONATE 450 MG **CR** TAB PO SCH (20:17)
[2017-10-26] MEDS: diphenhydrAMINE 25 MG CAP PO PRN (20:21)
[2017-10-26] MEDS: OLANZapine ORAL DISINTEGRATING TAB 5MG PO PRN (21:31)
[2017-10-27] MEDS: ACETAMINOPHEN TAB 650MG DOSE (2X325MG) PO PRN ×3 (00:26→23:54)
[2017-10-27 06:36] VITALS: BP 122/81
[2017-10-27] MEDS: FLUTICASONE HFA 110 MCG 12 GM INHALER (FLOVENT) INH SCH ×2 (08:15→20:10)
[2017-10-27] MEDS: ADVAIR HFA 230/21MCG INHALER INH SCH ×2 (08:15→20:08)
[2017-10-27] MEDS: buPROPion **XL** TABLET 150MG (WELLBUTRIN XL) PO SCH (08:20)
[2017-10-27] MEDS: VARENICLINE 1 MG TABLET PO SCH ×2 (08:20→20:08)
[2017-10-27] MEDS: TIOTROPIUM INHALER/CAPSULE (SPIRIVA) INH SCH (08:20)
[2017-10-27] MEDS: OMEPRAZOLE 20 MG CAP PO SCH (08:20)
[2017-10-27] MEDS: MAGNESIUM OXIDE 400 MG TAB (MAG-OX) PO SCH (08:20)
[2017-10-27] MEDS: predniSONE 10 MG TAB PO SCH (08:20)
[2017-10-27] MEDS: MONTELUKAST 10 MG TAB PO SCH (08:20)
[2017-10-27] MEDS: BUPRENORPHINE/NALOXONE 8-2MG SUBLINGUAL TABLET(SUBOXONE) SL SCH (08:20)
--- NOTE | 2017-10-27 08:40 | MHIPN ---
DATE OF SERVICE: 10/23/2017 HISTORY: 46-year-old male admitted for altered perceptions. Patient reported feeling like "going crazy" and also reported tactile hallucinations. Patient was saying that the bugs were crawling everywhere on his skin and he was unable to sleep. MEDICATIONS: - Seroquel 150 mg by mouth nightly - Librium 10 mg by mouth twice a day - [place] 900 mg by mouth nightly - Invega 3 mg by mouth nightly - Suboxone one tablet by mouth daily - Wellbutrin XR 300 mg by mouth every morning SUBJECTIVE: "I have this feeling on the tip of my fingers." OBJECTIVE: Patient is improving slowly. The severity and frequency of the tactile hallucination has significantly decrease with the help of benzodiazepines. Patient is sleeping well with Seroquel. He is denying side effect. No evidence of delusions.. MENTAL STATUS EXAMINATION: Patient dressed in [facility]. Patient is cooperative during exam. He is less drowsy. Has fair eye contact. Mood is depressed and anxious. Affect is restricted. No delusions. Reports tactile hallucinations. Memory, attention and concentration are improving. Patient is able to contract for safety while in the hospital. Insight and judgment is still limited. ASSESSMENT: 1. Altered perceptions/tactile hallucinations. 2. High anxiety. 3. Insomnia. PLAN: 1. Continue Seroquel 150 mg by mouth at night. 2. Discontinue Invega. 3. Discontinue Librium. 4. Continue lithium 900 mg by mouth nightly. 5. Continue Suboxone one tablet by mouth daily. 6. Continue Wellbutrin XR 300 mg by mouth every morning. [facility]
[2017-10-27 18:00] VITALS: BP 152/80
[2017-10-27] MEDS: QUEtiapine FUMARATE 50 MG TAB PO SCH (20:08)
[2017-10-27] MEDS: LITHIUM CARBONATE 450 MG **CR** TAB PO SCH (20:08)
[2017-10-27] MEDS: OLANZapine ORAL DISINTEGRATING TAB 5MG PO PRN (20:12)
[2017-10-27] MEDS: diphenhydrAMINE 25 MG CAP PO PRN (20:12)
[2017-10-28 06:00] VITALS: BP 130/86
[2017-10-28] MEDS: TIOTROPIUM INHALER/CAPSULE (SPIRIVA) INH SCH (08:04)
[2017-10-28] MEDS: MONTELUKAST 10 MG TAB PO SCH (08:05)
[2017-10-28] MEDS: predniSONE 10 MG TAB PO SCH (08:05)
[2017-10-28] MEDS: MAGNESIUM OXIDE 400 MG TAB (MAG-OX) PO SCH (08:05)
[2017-10-28] MEDS: BUPRENORPHINE/NALOXONE 8-2MG SUBLINGUAL TABLET(SUBOXONE) SL SCH (08:05)
[2017-10-28] MEDS: buPROPion **XL** TABLET 150MG (WELLBUTRIN XL) PO SCH (08:05)
[2017-10-28] MEDS: VARENICLINE 1 MG TABLET PO SCH ×2 (08:05→20:06)
[2017-10-28] MEDS: OMEPRAZOLE 20 MG CAP PO SCH (08:05)
[2017-10-28] MEDS: FLUTICASONE HFA 110 MCG 12 GM INHALER (FLOVENT) INH SCH ×2 (08:06→20:09)
[2017-10-28] MEDS: ADVAIR HFA 230/21MCG INHALER INH SCH ×2 (08:06→20:08)
[2017-10-28] MEDS: ACETAMINOPHEN TAB 650MG DOSE (2X325MG) PO PRN ×2 (12:09→20:05)
[2017-10-28] MEDS: ALBUTEROL 90 MCG/ACT 8GM HFA INHALER INH PRN (14:38)
--- NOTE | 2017-10-28 16:57 | MHIPN ---
DATE: 10/28/2017 HISTORY: A 46-year-old male admitted for altered perception. The patient reported feeling like, "going crazy," and tactile hallucinations. The patient was saying that bugs were crawling everywhere on his skin and was unable to sleep. MEDICATIONS: - Seroquel 150 mg by mouth at bedtime - lithium 900 mg by mouth at bedtime - Suboxone one tablet by mouth daily - Wellbutrin XL 300 mg by mouth every morning SUBJECTIVE: "I am worried about going home." OBJECTIVE: The patient is significantly improved from admission. The patient no longer has perceptual or tactile hallucinations. The patient is euthymic, is denying suicidal or homicidal ideation. There is no evidence of other psychotic symptoms. He is tolerating well the medication. MENTAL STATUS EXAMINATION: The patient is dressed in [facility]. The patient is calm and cooperative. He has fair eye contact. Mood is euthymic. Affect is congruent with mood. No delusions. No hallucinations. Memory, attention and concentration are fair. Insight and judgment is fair. ASSESSMENT: 1. Altered perceptions/tactile hallucinations. 2. High anxiety. 3. Insomnia. PLAN: 1. Continue Seroquel 150 mg by mouth at bedtime. 2. Continue lithium 900 mg by mouth at bedtime. 3. Continue Suboxone one tablet by mouth daily. 4. Continue Wellbutrin XL 300 mg by mouth every morning.
[2017-10-28 18:07] VITALS: BP 130/79
[2017-10-28] MEDS: diphenhydrAMINE 25 MG CAP PO PRN (20:05)
[2017-10-28] MEDS: QUEtiapine FUMARATE 50 MG TAB PO SCH (20:05)
[2017-10-28] MEDS: LITHIUM CARBONATE 450 MG **CR** TAB PO SCH (20:05)
[2017-10-28] MEDS: OLANZapine ORAL DISINTEGRATING TAB 5MG PO PRN (20:05)
[2017-10-29] MEDS: ACETAMINOPHEN TAB 650MG DOSE (2X325MG) PO PRN (02:27)
[2017-10-29] MEDS: ALBUTEROL 90 MCG/ACT 8GM HFA INHALER INH PRN ×2 (05:02→10:02)
[2017-10-29 06:37] VITALS: BP 133/71
[2017-10-29] MEDS: buPROPion **XL** TABLET 150MG (WELLBUTRIN XL) PO SCH (08:28)
[2017-10-29] MEDS: MONTELUKAST 10 MG TAB PO SCH (08:28)
[2017-10-29] MEDS: predniSONE 10 MG TAB PO SCH (08:28)
[2017-10-29] MEDS: VARENICLINE 1 MG TABLET PO SCH (08:29)
[2017-10-29] MEDS: OLANZapine ORAL DISINTEGRATING TAB 5MG PO PRN (08:29)
[2017-10-29] MEDS: BUPRENORPHINE/NALOXONE 8-2MG SUBLINGUAL TABLET(SUBOXONE) SL SCH (08:30)
[2017-10-29] MEDS: OMEPRAZOLE 20 MG CAP PO SCH (08:30)
[2017-10-29] MEDS: MAGNESIUM OXIDE 400 MG TAB (MAG-OX) PO SCH (08:30)
[2017-10-29] MEDS: TIOTROPIUM INHALER/CAPSULE (SPIRIVA) INH SCH (08:31)
[2017-10-29] MEDS: FLUTICASONE HFA 110 MCG 12 GM INHALER (FLOVENT) INH SCH (08:32)
[2017-10-29] MEDS: ADVAIR HFA 230/21MCG INHALER INH SCH (08:34)
[2017-10-29] MEDS ORDERED: QUET5TAB PO (09:11)
--- NOTE | 2017-10-29 15:47 | MHDS ---
DATE OF ADMISSION: 10/19/2017 DATE OF DISCHARGE: 10/29/2017 LEGAL STATUS AT ADMISSION: 9.39 legal status. HISTORY OF PRESENT ILLNESS: The following information is according to the initial evaluation of Dr. Bansal, her progress note, and my own progress note. At admission Dr. Bansal wrote: The patient is stating "I'm going crazy." "Bugs are crawling everywhere, and I can't handle it." Patient reports that he is unable to sleep due to the severity of this sensation and is pacing through his house. Also presents with numerous medical complaints. States, "Nobody believes me." Apparently he was seen at emergency department (ED) last month, and at that time he admitted to the PA, "Worms were coming out of my nose." Patient was highly anxious, disheveled. Not appearing to be caring for himself. Patient had a history of admissions in 2011 but at that time were more related to substance abuse (bath salts, alcohol, and opiates), but he denies use of drugs or alcohol this time. He was unable to contract for safety. LABORATORY DATA AT ADMISSION: His CBC showed white blood cells of 11.3. CMP was unremarkable except potassium of 3.2. TSH within normal limits. Urine drug screen negative. Blood alcohol level negative. HOSPITAL COURSE: After the first evaluation, Dr. Basnal started the patient on Ativan 1 mg by mouth three times a day. Then was switched to Librium 25 mg by mouth three times a day that was tapered slowly and discontinued. He was restarted on Wellbutrin XL 300 mg by mouth every morning. Seroquel was slowly increased up to 150 mg by mouth at bedtime because of his insomnia, and he was also restarted on his lithium 900 mg by mouth at bedtime. With this dosage he is in a blood level of 0.6. With this medication he was stabilized. Patient also was receiving his Suboxone one tablet by mouth daily as prescribed at the Suboxone clinic. Patient's tactile hallucinations decreased slowly over the next 2-3 days. After that time, he denies the feelings that he has bugs but reports a sharp pain in distal bilateral upper and lower extremities compatible with neuropathic pain. The physician diver assistant has followed his labs, and his complete blood count (CBC) has shown a mild decline of red blood cells (RBC) from 480 to 3.91. Guaiac test was negative. His potassium was supplemented with 40 mEq of potassium chloride by mouth. Patient had no complications during his hospital admission. At the moment of discharge his perceptual disturbances/tactile hallucinations have completely disappeared. Patient has no psychotic symptoms. Patient has no auditory or visual hallucinations or delusions. His mood has significantly improved, although he is anxious about coming back to his apartment [facility] since he does not know the state of the apartment or who is he going to have to live. He was reporting that the apartment that he was living in had many deficiencies that were supposed to be fixed. He is discharged on 10/29/2017 in a stable condition with no auditory or visual hallucinations. No delusions or suicidal or homicidal ideation. MENTAL STATUS EXAMINATION AT DISCHARGE: Patient is dressed in [facility]. Patient is calm and cooperative. His speech is clear, coherent with normal rate and is spontaneous. Patient has good eye contact. Mood is euthymic. Affect is appropriate and congruent with mood. Patient is oriented to time, place, person, and situation. Maintains attention and concentration correctly. Instant recall, recent and remote memory are intact. Thought process are coherent, logical, and goal directed. Patient does not have auditory or visual hallucinations. Patient does not have paranoid, persecutory, somatic, grandiose, or restorationist delusions. Patient is denying suicidal or homicidal ideation. Judgment and insight are fair. DISCHARGE DIAGNOSES: Maupin I: Unspecified psychotic disorder, adjustment disorder with depressed and anxious mood, polysubstance dependency, by history. Maupin II: Deferred. Maupin III: Emphysema. Status post head trauma. CONDITION AT DISCHARGE: Stable. No auditory or visual hallucinations. No delusions. No suicidal or homicidal ideation. DISCHARGE MEDICATIONS: - Seroquel 150 mg by mouth at bedtime - lithium 900 mg by mouth at bedtime - Suboxone one tablet by mouth daily - Wellbutrin 300 mg by mouth every morning INSTRUCTIONS TO THE PATIENT: Patient is to continue taking his medications as prescribed and followup appointments. He is advised to maintain absolute sobriety from drugs and alcohol. Patient has scheduled appointment for medication management, individual psychotherapy, and primary care physician.
== END 2017-10-29 11:30 | disposition home or self-care (01) | DRG 885 ==
LOC: M ED 21:17 → M ED INP 23:02 → M PSY 10-20 01:56
PROVIDERS: ADMIT Psychiatry & Neurology Psychiatry; ATTEND Psychiatry & Neurology Psychiatry
DX: F29 Unspecified psychosis not due to a substance or known physiological condition (principal); F43.23 Adjustment disorder with mixed anxiety and depressed mood; J44.9 Chronic obstructive pulmonary disease, unspecified; K21.9 Gastro-esophageal reflux disease without esophagitis; E78.5 Hyperlipidemia, unspecified; F17.210 Nicotine dependence, cigarettes, uncomplicated; E87.6 Hypokalemia; Z79.899 Other long term (current) drug therapy; Z79.52 Long term (current) use of systemic steroids

== ENCOUNTER → 2017-10-31 | Outpatient (REF) | payer MEDICARE ==
[~2017-10-31] MED LIST changes: +BUPR300T34 PO; +LITH45TASA PO; +MAGN1TAB25 PO; +QUET5TAB PO
[2017-10-31 20:31] LABS: ALBUMIN 3.9 GM/DL (3.2-5.2); ALBUMIN/GLOBULIN RATIO 1.08 (1.00-1.93); ALKALINE PHOSPHATASE 108 U/L (45-117); ALT/SGPT 70 U/L (12-78); ANION GAP 5 MEQ/L (8-16); AST/SGOT 23 U/L (7-37); BILIRUBIN,TOTAL 0.4 MG/DL (0.2-1.0); BLOOD UREA NITROGEN 12 MG/DL (7-18); CALCIUM LEVEL 8.5 MG/DL (8.5-10.1); CARBON DIOXIDE LEVEL 30 MEQ/L (21-32); CHLORIDE LEVEL 102 MEQ/L (98-107); CHOLESTEROL LEVEL 209 MG/DL (<200); CREATININE FOR GFR 0.89 MG/DL (0.70-1.30); GLOMERULAR FILTRATION RATE > 60.0 (>60); GLUCOSE, FASTING 103 MG/DL (70-105); POTASSIUM SERUM 4.4 MEQ/L (3.5-5.1); SODIUM LEVEL 137 MEQ/L (136-145); TOTAL PROTEIN 7.5 GM/DL (6.4-8.2); TRIGLYCERIDES LEVEL 190 MG/DL (<150)
== END ==
LOC: M LAB REF 17:53
PROVIDERS: ATTEND Family Medicine Addiction Medicine
DX: E55.9 Vitamin D deficiency, unspecified (principal); E78.5 Hyperlipidemia, unspecified

== ENCOUNTER 2017-12-07 02:55 | Inpatient (IN) | payer MEDICARE ==
[2017-12-07 04:07] LABS: HEMATOCRIT 44.3 % (42.0-52.0); HEMOGLOBIN 14.3 g/dl (14.0-18.0); MEAN CORPUSCULAR HEMOGLOBIN 29.5 pg (27.0-33.0); MEAN CORPUSCULAR HGB CONC 32.3 g/dl (32.0-36.5); MEAN CORPUSCULAR VOLUME 91.3 fl (80.0-96.0); PLATELET COUNT, AUTOMATED 348 10^3/uL (150-450); RED BLOOD COUNT 4.85 10^6/uL (4.30-6.10); RED CELL DISTRIBUTION WIDTH 12.4 % (11.5-14.5); WHITE BLOOD COUNT 10.7 10^3/uL (4.0-10.0)
[2017-12-07 04:25] LABS: AMPHETAMINES LEVEL URINE NEGATIVE (NEGATIVE); BARBITURATES URINE NEGATIVE (NEGATIVE); BENZODIAZEPINES URINE NEGATIVE (NEGATIVE); CANNABINOIDS URINE NEGATIVE (NEGATIVE); COCAINE METABOLITE URINE NEGATIVE (NEGATIVE); METHADONE URINE NEGATIVE (NEGATIVE); OPIATES URINE NEGATIVE (NEGATIVE); PHENCYCLIDINE URINE NEGATIVE (NEGATIVE)
[2017-12-07 04:32] LABS: CPK CREATINE PHOSPHOKINASE 96 U/L (39-308)
[2017-12-07 04:35] LABS: LITHIUM LEVEL 1.34 MEQ/L (0.60-1.20)
[2017-12-07 04:36] LABS: ACETAMINOPHEN LEVEL < 2.0 UG/ML (10.0-30.0); ALBUMIN 4.2 GM/DL (3.2-5.2); ALKALINE PHOSPHATASE 87 U/L (45-117); ALT/SGPT 21 U/L (12-78); ANION GAP 5 MEQ/L (8-16); AST/SGOT 13 U/L (7-37); BILIRUBIN,DIRECT 0.1 MG/DL (0.0-0.2); BILIRUBIN,TOTAL 0.4 MG/DL (0.2-1.0); BLOOD UREA NITROGEN 9 MG/DL (7-18); CALCIUM LEVEL 9.1 MG/DL (8.5-10.1); CARBON DIOXIDE LEVEL 33 MEQ/L (21-32); CHLORIDE LEVEL 100 MEQ/L (98-107); CREATININE FOR GFR 0.99 MG/DL (0.70-1.30); ETHYL ALCOHOL (ETHANOL) 0.004 % (0.000-0.010); GLOMERULAR FILTRATION RATE > 60.0 (>60); GLUCOSE, FASTING 97 MG/DL (70-105); POTASSIUM SERUM 4.2 MEQ/L (3.5-5.1); SODIUM LEVEL 138 MEQ/L (136-145); TOTAL PROTEIN 7.7 GM/DL (6.4-8.2)
[2017-12-07] MEDS: NS 1,000 ML IV (04:55)
[2017-12-07] MEDS ORDERED: MAALOX 30 ML SUSP *UDC PO (05:15)
[2017-12-07] MEDS ORDERED: traZODone 50 MG TAB PO (05:15)
[2017-12-07] MEDS: buPROPion **XL** TABLET 150MG (WELLBUTRIN XL) PO (10:31)
[2017-12-07] MEDS: MONTELUKAST 10 MG TAB PO (10:31)
[2017-12-07] MEDS: OMEPRAZOLE 20 MG CAP PO (10:31)
[2017-12-07] MEDS: VITAMIN D 1,000 INTERNATIONAL UNITS TABLET PO ×2 (10:31→20:10)
[2017-12-07] MEDS: ALBUTEROL 90 MCG/ACT 8GM HFA INHALER INH ×2 (10:33→17:07)
[2017-12-07] MEDS: BUPRENORPHINE/NALOXONE 8-2MG SUBLINGUAL TABLET(SUBOXONE) SL (10:55)
[2017-12-07] MEDS: VARENICLINE 1 MG TABLET PO ×2 (12:52→20:10)
[2017-12-07] MEDS: GEMFIBROZIL 600 MG TAB PO (12:52)
[2017-12-07] MEDS: INCRUSE ELLIPTA 62.5 MCG INH (12:53)
[2017-12-07] MEDS: predniSONE 5 MG TAB PO (12:53)
[2017-12-07] MEDS: ACETAMINOPHEN TAB 650MG DOSE (2X325MG) PO (17:08)
[2017-12-07] MEDS ORDERED: BUPRENORPHINE/NALOXONE 8-2MG SUBLINGUAL TABLET(SUBOXONE) SL (21:00)
[2017-12-07] MEDS ORDERED: QUEtiapine FUMARATE 50 MG TAB PO (21:00)
[2017-12-07] MEDS: QUEtiapine FUMARATE 200 MG TAB PO (21:59)
[2017-12-08] MEDS: ACETAMINOPHEN TAB 650MG DOSE (2X325MG) PO ×3 (01:34→17:42)
[2017-12-08 07:28] LABS: LITHIUM LEVEL 0.55 MEQ/L (0.60-1.20)
[2017-12-08] MEDS: ALBUTEROL 90 MCG/ACT 8GM HFA INHALER INH ×3 (08:17→22:14)
[2017-12-08] MEDS: OMEPRAZOLE 20 MG CAP PO (08:20)
[2017-12-08] MEDS: INCRUSE ELLIPTA 62.5 MCG INH (08:20)
[2017-12-08] MEDS: GEMFIBROZIL 600 MG TAB PO (08:20)
[2017-12-08] MEDS: VITAMIN D 1,000 INTERNATIONAL UNITS TABLET PO ×2 (08:20→21:21)
[2017-12-08] MEDS: VARENICLINE 1 MG TABLET PO ×2 (08:21→21:20)
[2017-12-08] MEDS: MONTELUKAST 10 MG TAB PO (08:21)
[2017-12-08] MEDS: predniSONE 5 MG TAB PO (08:21)
[2017-12-08] MEDS: buPROPion **XL** TABLET 150MG (WELLBUTRIN XL) PO (08:21)
[2017-12-08] MEDS: BUPRENORPHINE/NALOXONE 8-2MG SUBLINGUAL TABLET(SUBOXONE) SL (08:22)
[2017-12-08] MEDS: LITHIUM CARBONATE 450 MG **CR** TAB PO (21:21)
[2017-12-08] MEDS: IPRATROPIUM 0.5MG/ALBUTEROL 2.5MG INH SOL UD 3ML (DUONEB)(J7620) NEB (22:15)
[2017-12-08] MEDS: QUEtiapine FUMARATE 50 MG TAB PO (22:34)
[2017-12-09] MEDS: ALBUTEROL 90 MCG/ACT 8GM HFA INHALER INH ×2 (04:08→16:06)
[2017-12-09] MEDS: IPRATROPIUM 0.5MG/ALBUTEROL 2.5MG INH SOL UD 3ML (DUONEB)(J7620) NEB (04:28)
[2017-12-09] MEDS: ACETAMINOPHEN TAB 650MG DOSE (2X325MG) PO ×3 (05:30→21:40)
[2017-12-09] MEDS: VARENICLINE 1 MG TABLET PO ×2 (08:14→20:30)
[2017-12-09] MEDS: OMEPRAZOLE 20 MG CAP PO (08:14)
[2017-12-09] MEDS: BUPRENORPHINE/NALOXONE 8-2MG SUBLINGUAL TABLET(SUBOXONE) SL (08:14)
[2017-12-09] MEDS: GEMFIBROZIL 600 MG TAB PO (08:14)
[2017-12-09] MEDS: buPROPion **XL** TABLET 150MG (WELLBUTRIN XL) PO (08:15)
[2017-12-09] MEDS: predniSONE 5 MG TAB PO (08:15)
[2017-12-09] MEDS: MONTELUKAST 10 MG TAB PO (08:15)
[2017-12-09] MEDS: VITAMIN D 1,000 INTERNATIONAL UNITS TABLET PO ×2 (08:15→20:29)
[2017-12-09] MEDS: INCRUSE ELLIPTA 62.5 MCG INH (08:17)
[2017-12-09] MEDS: QUEtiapine FUMARATE 50 MG TAB PO (20:30)
[2017-12-09] MEDS: LITHIUM CARBONATE 450 MG **CR** TAB PO (20:30)
[2017-12-10] MEDS: ALBUTEROL 90 MCG/ACT 8GM HFA INHALER INH ×3 (02:26→13:10)
[2017-12-10] MEDS: ACETAMINOPHEN TAB 650MG DOSE (2X325MG) PO ×2 (06:15→13:11)
[2017-12-10] MEDS: buPROPion **XL** TABLET 150MG (WELLBUTRIN XL) PO (08:11)
[2017-12-10] MEDS: INCRUSE ELLIPTA 62.5 MCG INH (08:11)
[2017-12-10] MEDS: predniSONE 5 MG TAB PO (08:11)
[2017-12-10] MEDS: GEMFIBROZIL 600 MG TAB PO (08:11)
[2017-12-10] MEDS: MONTELUKAST 10 MG TAB PO (08:11)
[2017-12-10] MEDS: VITAMIN D 1,000 INTERNATIONAL UNITS TABLET PO ×2 (08:11→21:18)
[2017-12-10] MEDS: OMEPRAZOLE 20 MG CAP PO (08:11)
[2017-12-10] MEDS: VARENICLINE 1 MG TABLET PO ×2 (08:12→21:18)
[2017-12-10] MEDS: BUPRENORPHINE/NALOXONE 8-2MG SUBLINGUAL TABLET(SUBOXONE) SL (09:31)
[2017-12-10] MEDS ORDERED: BENZOCAINE 7.5 % LIQ (BABY ORAJEL) TOP (15:15)
[2017-12-10] MEDS: CIPROFLOXACIN 500 MG TAB PO (15:17)
[2017-12-10] MEDS: LITHIUM CARBONATE 450 MG **CR** TAB PO (21:17)
[2017-12-10] MEDS: QUEtiapine FUMARATE 100 MG TAB PO (21:17)
[2017-12-11] MEDS: ALBUTEROL 90 MCG/ACT 8GM HFA INHALER INH ×2 (00:01→19:17)
[2017-12-11] MEDS: ACETAMINOPHEN TAB 650MG DOSE (2X325MG) PO ×4 (00:02→22:05)
[2017-12-11] MEDS: CIPROFLOXACIN 500 MG TAB PO (06:05)
[2017-12-11] MEDS: OMEPRAZOLE 20 MG CAP PO (09:24)
[2017-12-11] MEDS: VITAMIN D 1,000 INTERNATIONAL UNITS TABLET PO ×2 (09:24→22:02)
[2017-12-11] MEDS: BUPRENORPHINE/NALOXONE 8-2MG SUBLINGUAL TABLET(SUBOXONE) SL (09:24)
[2017-12-11] MEDS: predniSONE 5 MG TAB PO (09:24)
[2017-12-11] MEDS: INCRUSE ELLIPTA 62.5 MCG INH (09:24)
[2017-12-11] MEDS: VENLAFAXINE 25 MG TAB PO (09:24)
[2017-12-11] MEDS: GEMFIBROZIL 600 MG TAB PO (09:24)
[2017-12-11] MEDS: MONTELUKAST 10 MG TAB PO (09:24)
[2017-12-11] MEDS: VARENICLINE 1 MG TABLET PO ×2 (09:24→22:02)
[2017-12-11] MEDS: QUEtiapine FUMARATE 100 MG TAB PO (21:00)
[2017-12-11] MEDS: LITHIUM CARBONATE 450 MG **CR** TAB PO (22:02)
[2017-12-12] MEDS: ACETAMINOPHEN TAB 650MG DOSE (2X325MG) PO (04:06)
[2017-12-12] MEDS: CIPROFLOXACIN 500 MG TAB PO (05:54)
[2017-12-12] MEDS: MONTELUKAST 10 MG TAB PO (08:13)
[2017-12-12] MEDS: VITAMIN D 1,000 INTERNATIONAL UNITS TABLET PO ×2 (08:13→21:51)
[2017-12-12] MEDS: INCRUSE ELLIPTA 62.5 MCG INH (08:13)
[2017-12-12] MEDS: VARENICLINE 1 MG TABLET PO ×2 (08:13→21:51)
[2017-12-12] MEDS: predniSONE 5 MG TAB PO (08:13)
[2017-12-12] MEDS: GEMFIBROZIL 600 MG TAB PO (08:13)
[2017-12-12] MEDS: VENLAFAXINE 25 MG TAB PO (08:13)
[2017-12-12] MEDS: BUPRENORPHINE/NALOXONE 8-2MG SUBLINGUAL TABLET(SUBOXONE) SL (08:13)
[2017-12-12] MEDS: OMEPRAZOLE 20 MG CAP PO (08:13)
[2017-12-12] MEDS: ALBUTEROL 90 MCG/ACT 8GM HFA INHALER INH ×2 (11:17→18:13)
[2017-12-12 11:32] LABS: BASO # 0.2 10^3/uL (0.0-0.2); BASO % 1.3 % (0.0-1.0); EOS # 1.5 10^3/uL (0.0-0.50); EOS % 11.5 % (0.0-3.0); HEMATOCRIT 43.1 % (42.0-52.0); HEMOGLOBIN 13.7 g/dl (14.0-18.0); IMMATURE GRANULOCYTE # 0.2 10^3/uL (0-0); IMMATURE GRANULOCYTE % 1.3 % (0-0); LYMPH # 2.2 10^3/uL (1.5-4.5); MEAN CORPUSCULAR HEMOGLOBIN 29.5 pg (27.0-33.0); MEAN CORPUSCULAR HGB CONC 31.8 g/dl (32.0-36.5); MEAN CORPUSCULAR VOLUME 92.9 fl (80.0-96.0); MONO # 0.8 10^3/uL (0.0-0.8); MONO % 6.4 % (0.0-5.0); NEUTROPHILS # 7.9 10^3/uL (1.8-7.7); NEUTROPHILS % 62.5 % (36.0-66.0); PLATELET COUNT, AUTOMATED 333 10^3/uL (150-450); RED BLOOD COUNT 4.64 10^6/uL (4.30-6.10); WHITE BLOOD COUNT 12.7 10^3/uL (4.0-10.0)
[2017-12-12 12:01] LABS: ALBUMIN/GLOBULIN RATIO 1.11 (1.00-1.93); ALKALINE PHOSPHATASE 108 U/L (45-117); ALT/SGPT 21 U/L (12-78); ANION GAP 7 MEQ/L (8-16); AST/SGOT 19 U/L (7-37); BILIRUBIN,TOTAL 0.6 MG/DL (0.2-1.0); BLOOD UREA NITROGEN 17 MG/DL (7-18); CALCIUM LEVEL 9.4 MG/DL (8.5-10.1); CARBON DIOXIDE LEVEL 32 MEQ/L (21-32); CHLORIDE LEVEL 97 MEQ/L (98-107); CREATININE FOR GFR 0.87 MG/DL (0.70-1.30); GLOMERULAR FILTRATION RATE > 60.0 (>60); GLUCOSE, FASTING 123 MG/DL (70-105); POTASSIUM SERUM 4.7 MEQ/L (3.5-5.1); SODIUM LEVEL 136 MEQ/L (136-145); TOTAL PROTEIN 7.6 GM/DL (6.4-8.2)
[2017-12-12] MEDS: GABAPENTIN 100 MG CAP PO ×2 (13:38→21:51)
[2017-12-12] MEDS: QUEtiapine FUMARATE 100 MG TAB PO (21:51)
[2017-12-12] MEDS: LITHIUM CARBONATE 450 MG **CR** TAB PO (21:51)
[2017-12-13] MEDS: ACETAMINOPHEN TAB 650MG DOSE (2X325MG) PO ×3 (04:53→21:47)
[2017-12-13] MEDS: CIPROFLOXACIN 500 MG TAB PO (06:07)
[2017-12-13] MEDS: INCRUSE ELLIPTA 62.5 MCG INH (08:02)
[2017-12-13] MEDS: OMEPRAZOLE 20 MG CAP PO (08:02)
[2017-12-13] MEDS: GABAPENTIN 100 MG CAP PO ×2 (08:02→20:10)
[2017-12-13] MEDS: GEMFIBROZIL 600 MG TAB PO (08:03)
[2017-12-13] MEDS: VENLAFAXINE 25 MG TAB PO (08:03)
[2017-12-13] MEDS: predniSONE 5 MG TAB PO (08:03)
[2017-12-13] MEDS: VITAMIN D 1,000 INTERNATIONAL UNITS TABLET PO ×2 (08:03→20:10)
[2017-12-13] MEDS: VARENICLINE 1 MG TABLET PO ×2 (08:03→20:10)
[2017-12-13] MEDS: MONTELUKAST 10 MG TAB PO (08:03)
[2017-12-13] MEDS: BUPRENORPHINE/NALOXONE 8-2MG SUBLINGUAL TABLET(SUBOXONE) SL (08:43)
[2017-12-13] MEDS: ALBUTEROL 90 MCG/ACT 8GM HFA INHALER INH (12:01)
[2017-12-13] MEDS: MOM 30ML SUSPENSION UDC PO (15:24)
[2017-12-13] MEDS: LITHIUM CARBONATE 450 MG **CR** TAB PO (20:11)
[2017-12-13] MEDS: QUEtiapine FUMARATE 100 MG TAB PO (21:47)
[2017-12-14] MEDS: CIPROFLOXACIN 500 MG TAB PO (06:07)
[2017-12-14] MEDS: INCRUSE ELLIPTA 62.5 MCG INH (08:12)
[2017-12-14] MEDS: VENLAFAXINE 25 MG TAB PO (08:12)
[2017-12-14] MEDS: VARENICLINE 1 MG TABLET PO ×2 (08:12→20:08)
[2017-12-14] MEDS: MONTELUKAST 10 MG TAB PO (08:12)
[2017-12-14] MEDS: GABAPENTIN 100 MG CAP PO ×2 (08:13→20:08)
[2017-12-14] MEDS: OMEPRAZOLE 20 MG CAP PO (08:13)
[2017-12-14] MEDS: GEMFIBROZIL 600 MG TAB PO (08:13)
[2017-12-14] MEDS: predniSONE 5 MG TAB PO (08:13)
[2017-12-14] MEDS: VITAMIN D 1,000 INTERNATIONAL UNITS TABLET PO ×2 (08:13→20:09)
[2017-12-14] MEDS: ACETAMINOPHEN TAB 650MG DOSE (2X325MG) PO ×2 (09:53→16:33)
[2017-12-14] MEDS: BUPRENORPHINE/NALOXONE 8-2MG SUBLINGUAL TABLET(SUBOXONE) SL (11:57)
[2017-12-14] MEDS: LITHIUM CARBONATE 450 MG **CR** TAB PO (20:08)
[2017-12-14] MEDS: QUEtiapine FUMARATE 100 MG TAB PO (20:09)
[2017-12-14] MEDS: ALBUTEROL 90 MCG/ACT 8GM HFA INHALER INH (20:12)
[2017-12-15] MEDS: CIPROFLOXACIN 500 MG TAB PO (06:05)
[2017-12-15] MEDS: ACETAMINOPHEN TAB 650MG DOSE (2X325MG) PO ×2 (06:11→14:05)
[2017-12-15] MEDS: MONTELUKAST 10 MG TAB PO (08:17)
[2017-12-15] MEDS: GABAPENTIN 100 MG CAP PO ×2 (08:17→21:18)
[2017-12-15] MEDS: predniSONE 5 MG TAB PO (08:17)
[2017-12-15] MEDS: OMEPRAZOLE 20 MG CAP PO (08:17)
[2017-12-15] MEDS: VARENICLINE 1 MG TABLET PO ×2 (08:17→21:21)
[2017-12-15] MEDS: VITAMIN D 1,000 INTERNATIONAL UNITS TABLET PO ×2 (08:17→21:18)
[2017-12-15] MEDS: INCRUSE ELLIPTA 62.5 MCG INH (08:18)
[2017-12-15] MEDS: GEMFIBROZIL 600 MG TAB PO (08:18)
[2017-12-15] MEDS: VENLAFAXINE 25 MG TAB PO (08:18)
[2017-12-15] MEDS: BUPRENORPHINE/NALOXONE 8-2MG SUBLINGUAL TABLET(SUBOXONE) SL (08:47)
[2017-12-15] MEDS: QUEtiapine FUMARATE 100 MG TAB PO (21:18)
[2017-12-15] MEDS: LITHIUM CARBONATE 450 MG **CR** TAB PO (21:18)
[2017-12-16] MEDS: CIPROFLOXACIN 500 MG TAB PO (06:00)
[2017-12-16] MEDS: VARENICLINE 1 MG TABLET PO ×2 (08:18→20:07)
[2017-12-16] MEDS: VITAMIN D 1,000 INTERNATIONAL UNITS TABLET PO ×2 (08:18→20:07)
[2017-12-16] MEDS: VENLAFAXINE 25 MG TAB PO (08:18)
[2017-12-16] MEDS: predniSONE 5 MG TAB PO (08:19)
[2017-12-16] MEDS: OMEPRAZOLE 20 MG CAP PO (08:19)
[2017-12-16] MEDS: GABAPENTIN 100 MG CAP PO ×2 (08:19→20:07)
[2017-12-16] MEDS: BUPRENORPHINE/NALOXONE 8-2MG SUBLINGUAL TABLET(SUBOXONE) SL (08:19)
[2017-12-16] MEDS: GEMFIBROZIL 600 MG TAB PO (08:19)
[2017-12-16] MEDS: MONTELUKAST 10 MG TAB PO (08:19)
[2017-12-16] MEDS: INCRUSE ELLIPTA 62.5 MCG INH (08:22)
[2017-12-16] MEDS: VENLAFAXINE **XR** 37.5 MG CAPSULE PO (12:26)
[2017-12-16] MEDS: ALBUTEROL 90 MCG/ACT 8GM HFA INHALER INH (13:32)
[2017-12-16] MEDS: ACETAMINOPHEN TAB 650MG DOSE (2X325MG) PO (13:32)
[2017-12-16] MEDS: LITHIUM CARBONATE 450 MG **CR** TAB PO (20:07)
[2017-12-16] MEDS: QUEtiapine FUMARATE 100 MG TAB PO (20:07)
[2017-12-17] MEDS: OMEPRAZOLE 20 MG CAP PO (08:08)
[2017-12-17] MEDS: GABAPENTIN 100 MG CAP PO ×2 (08:08→20:33)
[2017-12-17] MEDS: GEMFIBROZIL 600 MG TAB PO (08:09)
[2017-12-17] MEDS: BUPRENORPHINE/NALOXONE 8-2MG SUBLINGUAL TABLET(SUBOXONE) SL (08:09)
[2017-12-17] MEDS: MONTELUKAST 10 MG TAB PO (08:09)
[2017-12-17] MEDS: predniSONE 5 MG TAB PO (08:09)
[2017-12-17] MEDS: VENLAFAXINE **XR** 37.5 MG CAPSULE PO (08:09)
[2017-12-17] MEDS: VITAMIN D 1,000 INTERNATIONAL UNITS TABLET PO ×2 (08:09→20:33)
[2017-12-17] MEDS: VARENICLINE 1 MG TABLET PO ×2 (08:09→20:33)
[2017-12-17] MEDS: INCRUSE ELLIPTA 62.5 MCG INH (08:12)
[2017-12-17] MEDS: ALBUTEROL 90 MCG/ACT 8GM HFA INHALER INH (11:31)
[2017-12-17] MEDS: ACETAMINOPHEN TAB 650MG DOSE (2X325MG) PO (11:32)
[2017-12-17 12:20] LABS: BASO # 0.2 10^3/uL (0.0-0.2); BASO % 1.1 % (0.0-1.0); EOS # 1.3 10^3/uL (0.0-0.50); EOS % 8.8 % (0.0-3.0); IMMATURE GRANULOCYTE # 0.4 10^3/uL (0-0); IMMATURE GRANULOCYTE % 2.4 % (0-0); LYMPH # 2.6 10^3/uL (1.5-4.5); LYMPH % 16.8 % (24.0-44.0); MEAN CORPUSCULAR HEMOGLOBIN 29.6 pg (27.0-33.0); MEAN CORPUSCULAR HGB CONC 31.7 g/dl (32.0-36.5); MEAN CORPUSCULAR VOLUME 93.4 fl (80.0-96.0); MONO # 0.7 10^3/uL (0.0-0.8); MONO % 4.5 % (0.0-5.0); NEUTROPHILS # 10.1 10^3/uL (1.8-7.7); NEUTROPHILS % 66.4 % (36.0-66.0); PLATELET COUNT, AUTOMATED 352 10^3/uL (150-450); RED BLOOD COUNT 4.39 10^6/uL (4.30-6.10); RED CELL DISTRIBUTION WIDTH 12.7 % (11.5-14.5); WHITE BLOOD COUNT 15.2 10^3/uL (4.0-10.0)
[2017-12-17] MEDS: NEPHRO-VIT TAB (NEPHROCAPS) PO (14:30)
[2017-12-17] MEDS: LITHIUM CARBONATE 450 MG **CR** TAB PO (20:33)
[2017-12-17] MEDS: QUEtiapine FUMARATE 100 MG TAB PO (20:33)
[2017-12-17] MEDS: AUGMENTIN 875 MG TAB GT (20:33)
[2017-12-18] MEDS: VENLAFAXINE **XR** 37.5 MG CAPSULE PO (08:23)
[2017-12-18] MEDS: INCRUSE ELLIPTA 62.5 MCG INH (08:23)
[2017-12-18] MEDS: GABAPENTIN 100 MG CAP PO (08:23)
[2017-12-18] MEDS: predniSONE 5 MG TAB PO (08:23)
[2017-12-18] MEDS: GEMFIBROZIL 600 MG TAB PO (08:23)
[2017-12-18] MEDS: BUPRENORPHINE/NALOXONE 8-2MG SUBLINGUAL TABLET(SUBOXONE) SL (08:23)
[2017-12-18] MEDS: AUGMENTIN 875 MG TAB GT (08:23)
[2017-12-18] MEDS: VARENICLINE 1 MG TABLET PO (08:23)
[2017-12-18] MEDS: OMEPRAZOLE 20 MG CAP PO (08:23)
[2017-12-18] MEDS: NEPHRO-VIT TAB (NEPHROCAPS) PO (08:23)
[2017-12-18] MEDS: MONTELUKAST 10 MG TAB PO (08:24)
[2017-12-18] MEDS: VITAMIN D 1,000 INTERNATIONAL UNITS TABLET PO (08:24)
[2017-12-18 08:31] LABS: LITHIUM LEVEL 0.93 MEQ/L (0.60-1.20)
[2017-12-18 09:24] LABS: REASON FOR REVIEW COMPREHENSIVE REVIEW; SLIDE REVIEW Report; SOURCE PERIPHERAL SMEAR
[2017-12-18 09:48] LABS: FOLATE 9.1 NG/ML (>5.4); VITAMIN B12 LEVEL 660 PG/ML (247-911)
[2017-12-18 09:49] LABS: FERRITIN 87 NG/ML (26-388); IRON (FE) 176 UG/DL (65-175); PERCENT SATURATION 49.9 % (19.7-50.0); TOTAL IRON BINDING CAPACITY 353 UG/DL (250-450)
== END 2017-12-18 12:10 | disposition home or self-care (01) | DRG 885 ==
LOC: M PSY 12-14 20:43 → M ED 02:55 → M ED INP 05:11 → M PSY 08:10
DX: F32.89 Other specified depressive episodes (principal); F10.10 Alcohol abuse, uncomplicated; F11.10 Opioid abuse, uncomplicated; J44.9 Chronic obstructive pulmonary disease, unspecified; E78.5 Hyperlipidemia, unspecified; F17.210 Nicotine dependence, cigarettes, uncomplicated; Z79.899 Other long term (current) drug therapy

== ENCOUNTER → 2018-06-05 | Outpatient (CLI) | payer MEDICARE | LOC: M RAD 14:43 | DX: J44.1 Chronic obstructive pulmonary disease with (acute) exacerbation (principal) | CPT/HCPCS: 71046 ==

== ENCOUNTER 2018-06-25 14:45 | Emergency (ER) | payer MEDICARE ==
[2018-06-25 15:53] LABS: BASO # 0.1 10^3/uL (0.0-0.2); BASO % 0.9 % (0.0-1.0); EOS # 1.2 10^3/uL (0.0-0.50); EOS % 14.1 % (0.0-3.0); HEMATOCRIT 40.2 % (42.0-52.0); IMMATURE GRANULOCYTE % 0.2 % (0-3.0); LYMPH # 1.7 10^3/uL (1.5-4.5); LYMPH % 19.8 % (24.0-44.0); MEAN CORPUSCULAR HEMOGLOBIN 29.7 pg (27.0-33.0); MEAN CORPUSCULAR HGB CONC 32.3 g/dl (32.0-36.5); MONO # 0.6 10^3/uL (0.0-0.8); MONO % 6.9 % (0.0-5.0); NEUTROPHILS # 5.1 10^3/uL (1.8-7.7); NEUTROPHILS % 58.1 % (36.0-66.0); PLATELET COUNT, AUTOMATED 253 10^3/uL (150-450); RED BLOOD COUNT 4.37 10^6/uL (4.30-6.10); RED CELL DISTRIBUTION WIDTH 12.4 % (11.5-14.5); WHITE BLOOD COUNT 8.8 10^3/uL (4.0-10.0)
[2018-06-25 16:16] LABS: ERYTHROCYTE SEDIMENTATION RATE 36 mm/hr (0-15)
[2018-06-25 16:21] LABS: ALBUMIN 3.4 GM/DL (3.2-5.2); ALBUMIN/GLOBULIN RATIO 1.03 (1.00-1.93); ALKALINE PHOSPHATASE 99 U/L (45-117); ALT/SGPT 21 U/L (12-78); ANION GAP 6 MEQ/L (8-16); AST/SGOT 14 U/L (7-37); BILIRUBIN,DIRECT 0.1 MG/DL (0.0-0.2); BILIRUBIN,TOTAL 0.3 MG/DL (0.2-1.0); BLOOD UREA NITROGEN 6 MG/DL (7-18); CALCIUM LEVEL 8.2 MG/DL (8.5-10.1); CARBON DIOXIDE LEVEL 29 MEQ/L (21-32); CHLORIDE LEVEL 105 MEQ/L (98-107); CREATININE FOR GFR 0.86 MG/DL (0.70-1.30); GLOMERULAR FILTRATION RATE > 60.0 (>60); GLUCOSE, FASTING 107 MG/DL (70-100); POTASSIUM SERUM 3.8 MEQ/L (3.5-5.1); SODIUM LEVEL 140 MEQ/L (136-145); TOTAL PROTEIN 6.7 GM/DL (6.4-8.2)
[2018-06-25] MEDS: CEPHALEXIN 500 MG CAP PO (16:50)
== END 2018-06-25 16:53 | disposition home or self-care (01) ==
LOC: M ED 14:45
DX: L03.116 Cellulitis of left lower limb (principal); R60.0 Localized edema; I10 Essential (primary) hypertension; J44.9 Chronic obstructive pulmonary disease, unspecified; K21.9 Gastro-esophageal reflux disease without esophagitis; F32.9 Major depressive disorder, single episode, unspecified; F41.9 Anxiety disorder, unspecified; F17.210 Nicotine dependence, cigarettes, uncomplicated; Z79.899 Other long term (current) drug therapy
CPT/HCPCS: 80076

== ENCOUNTER 2018-07-15 19:17 | Inpatient (IN) | payer MEDICARE ==
[2018-07-15 17:26] LABS: VENOUS HCO3 23.6 MEQ/L (23.0-27.0); VENOUS O2 SATURATION 97.5 % (60.0-80.0); VENOUS PARTIAL PRESSURE CO2 43.3 mmHg (38.0-50.0); VENOUS PARTIAL PRESSURE O2 101.3 mmHg (30.0-50.0); VENOUS PH 7.355 UNITS (7.330-7.430); VENOUS STANDARD HCO3 22.8 MEQ/L
[2018-07-15] MEDS: NS 1,000 ML IV ×2 (17:27→20:05)
[2018-07-15 17:29] LABS: BASO # 0.1 10^3/uL (0.0-0.2); BASO % 0.9 % (0.0-1.0); EOS # 1.6 10^3/uL (0.0-0.50); EOS % 11.9 % (0.0-3.0); HEMATOCRIT 44.8 % (42.0-52.0); HEMOGLOBIN 14.7 g/dl (13.5-17.5); IMMATURE GRANULOCYTE % 0.4 % (0-3.0); LYMPH # 3.6 10^3/uL (1.5-4.5); MEAN CORPUSCULAR HEMOGLOBIN 29.3 pg (27.0-33.0); MEAN CORPUSCULAR HGB CONC 32.8 g/dl (32.0-36.5); MEAN CORPUSCULAR VOLUME 89.4 fl (80.0-96.0); MONO # 0.7 10^3/uL (0.0-0.8); MONO % 4.9 % (0.0-5.0); NEUTROPHILS # 7.3 10^3/uL (1.8-7.7); NEUTROPHILS % 54.9 % (36.0-66.0); PLATELET COUNT, AUTOMATED 266 10^3/uL (150-450); RED BLOOD COUNT 5.01 10^6/uL (4.30-6.10); RED CELL DISTRIBUTION WIDTH 12.5 % (11.5-14.5); WHITE BLOOD COUNT 13.4 10^3/uL (4.0-10.0)
[2018-07-15 17:38] LABS: OSMOLALITY SERUM 295 MOSM/KG (275-295)
[2018-07-15 17:45] LABS: BEDSIDE GLUCOSE 88 MG/DL (70-105)
[2018-07-15 17:51] LABS: ALBUMIN 3.7 GM/DL (3.2-5.2); ALBUMIN/GLOBULIN RATIO 1.09 (1.00-1.93); ALKALINE PHOSPHATASE 106 U/L (45-117); ALT/SGPT 23 U/L (12-78); ANION GAP 9 MEQ/L (8-16); AST/SGOT 21 U/L (7-37); BILIRUBIN,DIRECT < 0.1 MG/DL (0.0-0.2); BILIRUBIN,TOTAL 0.3 MG/DL (0.2-1.0); BLOOD UREA NITROGEN 9 MG/DL (7-18); CALCIUM LEVEL 8.7 MG/DL (8.5-10.1); CARBON DIOXIDE LEVEL 25 MEQ/L (21-32); CHLORIDE LEVEL 109 MEQ/L (98-107); CPK CREATINE PHOSPHOKINASE 182 U/L (39-308); CREATININE FOR GFR 1.16 MG/DL (0.70-1.30); GLOMERULAR FILTRATION RATE > 60.0 (>60); GLUCOSE, FASTING 96 MG/DL (70-100); POTASSIUM SERUM 4.5 MEQ/L (3.5-5.1); SODIUM LEVEL 143 MEQ/L (136-145); THYROID STIMULATING HORMONE 0.636 uIU/ML (0.358-3.740); TOTAL PROTEIN 7.1 GM/DL (6.4-8.2)
[2018-07-15 17:54] LABS: ACETAMINOPHEN LEVEL < 2.0 UG/ML (10.0-30.0); ETHYL ALCOHOL (ETHANOL) < 0.003 % (0.000-0.010)
[2018-07-15 19:02] LABS: AMPHETAMINES LEVEL URINE NEGATIVE (NEGATIVE); BARBITURATES URINE NEGATIVE (NEGATIVE); BENZODIAZEPINES URINE POSITIVE (NEGATIVE); CANNABINOIDS URINE NEGATIVE (NEGATIVE); COCAINE METABOLITE URINE NEGATIVE (NEGATIVE); METHADONE URINE NEGATIVE (NEGATIVE); OPIATES URINE NEGATIVE (NEGATIVE); PHENCYCLIDINE URINE NEGATIVE (NEGATIVE)
[2018-07-15 20:11] LABS: LITHIUM LEVEL < 0.20 MEQ/L (0.60-1.20)
[2018-07-15] MEDS: GABAPENTIN 100 MG CAP PO (22:51)
[2018-07-15] MEDS: BUPRENORPHINE/NALOXONE 8-2MG SUBLINGUAL TABLET(SUBOXONE) SL (22:51)
[2018-07-15] MEDS: QUEtiapine FUMARATE 100 MG TAB PO (22:51)
[2018-07-15] MEDS: LITHIUM CARBONATE 300 MG **CR** TAB PO (22:52)
[2018-07-16] MEDS: NS 1,000 ML IV ×2 (05:29→16:10)
[2018-07-16] MEDS ORDERED: IPRATROPIUM 0.5MG/ALBUTEROL 2.5MG INH SOL UD 3ML (DUONEB)(J7620) NEB (08:15)
[2018-07-16 08:28] LABS: BASO # 0.1 10^3/uL (0.0-0.2); BASO % 0.9 % (0.0-1.0); EOS # 1.1 10^3/uL (0.0-0.50); EOS % 11.2 % (0.0-3.0); HEMATOCRIT 41.8 % (42.0-52.0); HEMOGLOBIN 13.4 g/dl (13.5-17.5); IMMATURE GRANULOCYTE % 0.3 % (0-3.0); LYMPH # 1.9 10^3/uL (1.5-4.5); LYMPH % 19.5 % (24.0-44.0); MEAN CORPUSCULAR HEMOGLOBIN 29.3 pg (27.0-33.0); MEAN CORPUSCULAR HGB CONC 32.1 g/dl (32.0-36.5); MEAN CORPUSCULAR VOLUME 91.5 fl (80.0-96.0); MONO # 0.5 10^3/uL (0.0-0.8); MONO % 5.1 % (0.0-5.0); NEUTROPHILS # 6.3 10^3/uL (1.8-7.7); PLATELET COUNT, AUTOMATED 220 10^3/uL (150-450); RED BLOOD COUNT 4.57 10^6/uL (4.30-6.10); RED CELL DISTRIBUTION WIDTH 12.9 % (11.5-14.5); WHITE BLOOD COUNT 9.9 10^3/uL (4.0-10.0)
[2018-07-16] MEDS: ADVAIR HFA 230/21MCG INHALER INH ×2 (08:45→20:33)
[2018-07-16] MEDS: GABAPENTIN 100 MG CAP PO (09:00)
[2018-07-16] MEDS ORDERED: VENLAFAXINE **XR** 75MG CAPSULE PO (09:00)
[2018-07-16] MEDS: THIAMINE 100 MG TAB PO (09:00)
[2018-07-16] MEDS: PANTOPRAZOLE 40MG TAB (PROTONIX) PO (09:00)
[2018-07-16] MEDS: MULTIVITAMINS/MINERALS THERAP 1 TAB PO (09:00)
[2018-07-16] MEDS: HEPARIN SOD (PORCINE) 5000 UNITS/ML VIAL SQ ×2 (09:00→20:46)
[2018-07-16] MEDS: MONTELUKAST 10 MG TAB PO (09:00)
[2018-07-16] MEDS: FOLIC ACID 1 MG TAB PO (09:00)
[2018-07-16] MEDS ORDERED: predniSONE 5 MG TAB PO (09:00)
[2018-07-16 09:02] LABS: ALBUMIN 3.3 GM/DL (3.2-5.2); ALKALINE PHOSPHATASE 89 U/L (45-117); ALT/SGPT 19 U/L (12-78); ANION GAP 4 MEQ/L (8-16); AST/SGOT 20 U/L (7-37); BILIRUBIN,TOTAL 0.6 MG/DL (0.2-1.0); BLOOD UREA NITROGEN 7 MG/DL (7-18); CALCIUM LEVEL 8.1 MG/DL (8.5-10.1); CARBON DIOXIDE LEVEL 28 MEQ/L (21-32); CHLORIDE LEVEL 111 MEQ/L (98-107); CREATININE FOR GFR 0.81 MG/DL (0.70-1.30); GLOMERULAR FILTRATION RATE > 60.0 (>60); GLUCOSE, FASTING 90 MG/DL (70-100); MAGNESIUM LEVEL 1.9 MG/DL (1.8-2.4); POTASSIUM SERUM 4.6 MEQ/L (3.5-5.1); SODIUM LEVEL 143 MEQ/L (136-145); TOTAL PROTEIN 6.3 GM/DL (6.4-8.2)
[2018-07-16] MEDS: FLUMAZENIL 0.5 MG/5 ML VIAL IV ×2 (09:13→09:37)
[2018-07-16 09:18] LABS: ABG BASE EXCESS -1.3 (-2.0-2.0); ABG HCO3 26.5 MEQ/L (22.0-26.0); ABG O2 SATURATION 94.9 % (95.0-99.0); ABG PARTIAL PRESSURE CO2 57.3 mmHg (35.0-45.0); ABG PARTIAL PRESSURE O2 80.7 mmHg (75.0-100.0); ABG STANDARD HCO3 23.4 MEQ/L (22.0-26.0); ABG TOTAL CO2 28.3 MEQ/L (22.0-29.0); ABG pH (ARTERIAL) 7.283 UNITS (7.350-7.450)
[2018-07-16 11:38] LABS: ABG BASE EXCESS -1.7 (-2.0-2.0); ABG HCO3 24.8 MEQ/L (22.0-26.0); ABG O2 SATURATION 91.3 % (95.0-99.0); ABG PARTIAL PRESSURE CO2 48.7 mmHg (35.0-45.0); ABG PARTIAL PRESSURE O2 62.7 mmHg (75.0-100.0); ABG STANDARD HCO3 22.9 MEQ/L (22.0-26.0); ABG TOTAL CO2 26.3 MEQ/L (22.0-29.0); ABG pH (ARTERIAL) 7.324 UNITS (7.350-7.450)
[2018-07-16] MEDS: IPRATROPIUM 0.5MG/ALBUTEROL 2.5MG INH SOL UD 3ML (DUONEB)(J7620) NEB ×2 (14:59→20:00)
[2018-07-16] MEDS: BUPRENORPHINE/NALOXONE 8-2MG SUBLINGUAL TABLET(SUBOXONE) SL (20:46)
[2018-07-16] MEDS: BUPRENORPHINE/NALOXONE 2-0.5MG SUBLINGUAL TABLET(SUBOXONE) SL (20:53)
[2018-07-17] MEDS: NS 1,000 ML IV (01:03)
[2018-07-17] MEDS: IPRATROPIUM 0.5MG/ALBUTEROL 2.5MG INH SOL UD 3ML (DUONEB)(J7620) NEB ×4 (01:55→20:00)
[2018-07-17 05:34] LABS: HEMATOCRIT 38.7 % (42.0-52.0); HEMOGLOBIN 12.1 g/dl (13.5-17.5); MEAN CORPUSCULAR HEMOGLOBIN 29.2 pg (27.0-33.0); MEAN CORPUSCULAR HGB CONC 31.3 g/dl (32.0-36.5); MEAN CORPUSCULAR VOLUME 93.3 fl (80.0-96.0); PLATELET COUNT, AUTOMATED 195 10^3/uL (150-450); RED BLOOD COUNT 4.15 10^6/uL (4.30-6.10); RED CELL DISTRIBUTION WIDTH 12.6 % (11.5-14.5); WHITE BLOOD COUNT 8.8 10^3/uL (4.0-10.0)
[2018-07-17 05:48] LABS: ANION GAP 5 MEQ/L (8-16); BLOOD UREA NITROGEN 6 MG/DL (7-18); CALCIUM LEVEL 7.6 MG/DL (8.5-10.1); CARBON DIOXIDE LEVEL 27 MEQ/L (21-32); CHLORIDE LEVEL 110 MEQ/L (98-107); CREATININE FOR GFR 0.88 MG/DL (0.70-1.30); GLOMERULAR FILTRATION RATE > 60.0 (>60); GLUCOSE, FASTING 123 MG/DL (70-100); MAGNESIUM LEVEL 1.6 MG/DL (1.8-2.4); POTASSIUM SERUM 3.9 MEQ/L (3.5-5.1); SODIUM LEVEL 142 MEQ/L (136-145)
[2018-07-17] MEDS: PANTOPRAZOLE 40MG TAB (PROTONIX) PO (08:23)
[2018-07-17] MEDS: MAG SULF 1GM/100ML (MAG RUN) 1 GM in APPROPRIATE DILUENT 1 EA IV (08:23)
[2018-07-17] MEDS: FOLIC ACID 1 MG TAB PO (08:23)
[2018-07-17] MEDS: MONTELUKAST 10 MG TAB PO (08:23)
[2018-07-17] MEDS: HEPARIN SOD (PORCINE) 5000 UNITS/ML VIAL SQ ×2 (08:23→21:00)
[2018-07-17] MEDS: MULTIVITAMINS/MINERALS THERAP 1 TAB PO (08:23)
[2018-07-17] MEDS: THIAMINE 100 MG TAB PO (08:23)
[2018-07-17] MEDS: ADVAIR HFA 230/21MCG INHALER INH ×2 (08:53→21:31)
[2018-07-17] MEDS: GABAPENTIN 100 MG CAP PO (17:37)
[2018-07-17] MEDS: BUPRENORPHINE/NALOXONE 8-2MG SUBLINGUAL TABLET(SUBOXONE) SL (20:59)
== END 2018-07-17 21:44 | DRG 917 ==
LOC: M ICU 07-16 11:42 → M ED 19:17 → M ED INP 19:50 → M MSPAV 21:37
DX: T42.4X1A Poisoning by benzodiazepines, accidental (unintentional), initial encounter (principal); J96.02 Acute respiratory failure with hypercapnia; F32.9 Major depressive disorder, single episode, unspecified; J44.9 Chronic obstructive pulmonary disease, unspecified; J45.909 Unspecified asthma, uncomplicated; Z87.891 Personal history of nicotine dependence; Z79.899 Other long term (current) drug therapy

== ENCOUNTER 2018-07-17 22:04 | Inpatient (IN) | payer MEDICARE ==
[2018-07-17] MEDS ORDERED: MOM 30ML SUSPENSION UDC PO (23:00)
[2018-07-17] MEDS ORDERED: MAALOX 30 ML SUSP *UDC PO (23:00)
[2018-07-17] MEDS ORDERED: traZODone 50 MG TAB PO (23:00)
[2018-07-17] MEDS: QUEtiapine FUMARATE 200 MG TAB PO (23:13)
[2018-07-17] MEDS: ACETAMINOPHEN TAB 650MG DOSE (2X325MG) PO (23:13)
[2018-07-17] MEDS: LITHIUM CARBONATE 300 MG **CR** TAB PO (23:13)
[2018-07-17] MEDS: IPRATROPIUM 0.5MG/ALBUTEROL 2.5MG INH SOL UD 3ML (DUONEB)(J7620) NEB (23:28)
[2018-07-18] MEDS: ACETAMINOPHEN TAB 650MG DOSE (2X325MG) PO ×2 (05:45→17:09)
[2018-07-18] MEDS: IPRATROPIUM 0.5MG/ALBUTEROL 2.5MG INH SOL UD 3ML (DUONEB)(J7620) NEB ×3 (08:00→20:00)
[2018-07-18] MEDS: PANTOPRAZOLE 40MG TAB (PROTONIX) PO (08:20)
[2018-07-18] MEDS: MULTIVITAMINS/MINERALS THERAP 1 TAB PO (08:20)
[2018-07-18] MEDS: MONTELUKAST 10 MG TAB PO (08:20)
[2018-07-18] MEDS: ADVAIR HFA 230/21MCG INHALER INH ×2 (08:20→22:06)
[2018-07-18] MEDS: FOLIC ACID 1 MG TAB PO (08:20)
[2018-07-18] MEDS: GABAPENTIN 100 MG CAP PO ×2 (08:21→22:05)
[2018-07-18] MEDS: THIAMINE 100 MG TAB PO (08:21)
[2018-07-18] MEDS: VENLAFAXINE **XR** 37.5 MG CAPSULE PO (12:03)
[2018-07-18] MEDS: BUPRENORPHINE/NALOXONE 8-2MG SUBLINGUAL TABLET(SUBOXONE) SL (12:03)
[2018-07-18] MEDS: QUEtiapine FUMARATE 200 MG TAB PO (22:05)
[2018-07-18] MEDS: LITHIUM CARBONATE 300 MG **CR** TAB PO (22:05)
[2018-07-19] MEDS: IPRATROPIUM 0.5MG/ALBUTEROL 2.5MG INH SOL UD 3ML (DUONEB)(J7620) NEB ×5 (01:48→22:15)
[2018-07-19] MEDS: ACETAMINOPHEN TAB 650MG DOSE (2X325MG) PO (03:23)
[2018-07-19] MEDS: GABAPENTIN 100 MG CAP PO ×2 (08:06→22:31)
[2018-07-19] MEDS: BUPRENORPHINE/NALOXONE 8-2MG SUBLINGUAL TABLET(SUBOXONE) SL (08:06)
[2018-07-19] MEDS: THIAMINE 100 MG TAB PO (08:06)
[2018-07-19] MEDS: MULTIVITAMINS/MINERALS THERAP 1 TAB PO (08:06)
[2018-07-19] MEDS: MONTELUKAST 10 MG TAB PO (08:06)
[2018-07-19] MEDS: VENLAFAXINE **XR** 37.5 MG CAPSULE PO (08:06)
[2018-07-19] MEDS: PANTOPRAZOLE 40MG TAB (PROTONIX) PO (08:06)
[2018-07-19] MEDS: FOLIC ACID 1 MG TAB PO (08:06)
[2018-07-19] MEDS ORDERED: BUPRENORPHINE/NALOXONE 8-2MG SUBLINGUAL TABLET(SUBOXONE) SL (09:00)
[2018-07-19] MEDS: ADVAIR HFA 230/21MCG INHALER INH ×2 (10:46→22:33)
[2018-07-19] MEDS: QUEtiapine FUMARATE 200 MG TAB PO (22:31)
[2018-07-19] MEDS: LITHIUM CARBONATE 300 MG **CR** TAB PO (22:31)
[2018-07-20] MEDS: IPRATROPIUM 0.5MG/ALBUTEROL 2.5MG INH SOL UD 3ML (DUONEB)(J7620) NEB ×5 (02:00→20:26)
[2018-07-20] MEDS: ACETAMINOPHEN TAB 650MG DOSE (2X325MG) PO ×2 (05:43→13:31)
[2018-07-20 07:56] LABS: LITHIUM LEVEL 0.48 MEQ/L (0.60-1.20)
[2018-07-20] MEDS: GABAPENTIN 100 MG CAP PO ×2 (08:10→21:49)
[2018-07-20] MEDS: FOLIC ACID 1 MG TAB PO (08:10)
[2018-07-20] MEDS: MULTIVITAMINS/MINERALS THERAP 1 TAB PO (08:10)
[2018-07-20] MEDS: PANTOPRAZOLE 40MG TAB (PROTONIX) PO (08:10)
[2018-07-20] MEDS: VENLAFAXINE **XR** 37.5 MG CAPSULE PO (08:10)
[2018-07-20] MEDS: MONTELUKAST 10 MG TAB PO (08:10)
[2018-07-20] MEDS: THIAMINE 100 MG TAB PO (08:10)
[2018-07-20] MEDS: BUPRENORPHINE/NALOXONE 8-2MG SUBLINGUAL TABLET(SUBOXONE) SL (08:10)
[2018-07-20] MEDS: ADVAIR HFA 230/21MCG INHALER INH ×2 (10:44→21:50)
[2018-07-20] MEDS: QUEtiapine FUMARATE 200 MG TAB PO (21:49)
[2018-07-20] MEDS: LITHIUM CARBONATE 300 MG **CR** TAB PO (21:50)
[2018-07-21] MEDS: IPRATROPIUM 0.5MG/ALBUTEROL 2.5MG INH SOL UD 3ML (DUONEB)(J7620) NEB ×4 (01:15→19:45)
[2018-07-21] MEDS: MONTELUKAST 10 MG TAB PO (08:03)
[2018-07-21] MEDS: PANTOPRAZOLE 40MG TAB (PROTONIX) PO (08:03)
[2018-07-21] MEDS: THIAMINE 100 MG TAB PO (08:03)
[2018-07-21] MEDS: VENLAFAXINE **XR** 37.5 MG CAPSULE PO (08:03)
[2018-07-21] MEDS: FOLIC ACID 1 MG TAB PO (08:03)
[2018-07-21] MEDS: MULTIVITAMINS/MINERALS THERAP 1 TAB PO (08:03)
[2018-07-21] MEDS: GABAPENTIN 100 MG CAP PO ×2 (08:03→20:59)
[2018-07-21] MEDS: ACETAMINOPHEN TAB 650MG DOSE (2X325MG) PO (09:09)
[2018-07-21] MEDS: ADVAIR HFA 230/21MCG INHALER INH ×2 (09:55→20:59)
[2018-07-21] MEDS: BUPRENORPHINE/NALOXONE 8-2MG SUBLINGUAL TABLET(SUBOXONE) SL (09:55)
[2018-07-21] MEDS ORDERED: PILL CRUSHER/CUTTER 1 EACH XX (10:45)
[2018-07-21] MEDS: QUEtiapine FUMARATE 200 MG TAB PO (20:59)
[2018-07-21] MEDS: LITHIUM CARBONATE 300 MG **CR** TAB PO (20:59)
[2018-07-22] MEDS: IPRATROPIUM 0.5MG/ALBUTEROL 2.5MG INH SOL UD 3ML (DUONEB)(J7620) NEB ×3 (00:45→14:21)
[2018-07-22] MEDS: ACETAMINOPHEN TAB 650MG DOSE (2X325MG) PO (03:49)
[2018-07-22] MEDS: VENLAFAXINE **XR** 37.5 MG CAPSULE PO (08:07)
[2018-07-22] MEDS: MULTIVITAMINS/MINERALS THERAP 1 TAB PO (08:07)
[2018-07-22] MEDS: FOLIC ACID 1 MG TAB PO (08:07)
[2018-07-22] MEDS: GABAPENTIN 100 MG CAP PO (08:07)
[2018-07-22] MEDS: THIAMINE 100 MG TAB PO (08:07)
[2018-07-22] MEDS: MONTELUKAST 10 MG TAB PO (08:07)
[2018-07-22] MEDS: PANTOPRAZOLE 40MG TAB (PROTONIX) PO (08:07)
[2018-07-22] MEDS: BUPRENORPHINE/NALOXONE 8-2MG SUBLINGUAL TABLET(SUBOXONE) SL (09:11)
[2018-07-22] MEDS: ADVAIR HFA 230/21MCG INHALER INH (09:24)
== END 2018-07-22 14:57 | disposition home or self-care (01) | DRG 881 ==
LOC: M PSY 22:04
PROVIDERS: Psychiatry & Neurology Psychiatry
DX: F32.9 Major depressive disorder, single episode, unspecified (principal); Z91.5 Personal history of self-harm; Z79.899 Other long term (current) drug therapy; J44.9 Chronic obstructive pulmonary disease, unspecified; K21.9 Gastro-esophageal reflux disease without esophagitis; E78.5 Hyperlipidemia, unspecified; M54.9 Dorsalgia, unspecified; F17.210 Nicotine dependence, cigarettes, uncomplicated; J30.9 Allergic rhinitis, unspecified

== ENCOUNTER 2019-08-21 13:16 | Inpatient (IN) | payer MEDICARE, MEDICAID ==
[~2019-08-21] VITALS: Ht 182.9 cm; Wt 62.5 kg
[~2019-08-21 13:16] MED LIST changes: -/TIOT18INH INH; +AMOX875T2 GT; +AMOX875T2 PO; +BREO1INH3 INH; +GABA-1171 PO; -GEMF600T PO; +GEMF600T5 PO; +IPRA0.00 INH; +KEFL500C17 PO; +LITH1TAB PO; -MAGN1TAB25 PO; +MAGN1TAB26 PO; +NEPH5CAP PO; -OMEP20CA3 PO; +OMEP20CA4 PO; +PANT40TA3 PO; +PRED5TA PO; +PROT1TAB2 PO; +QUET1TAB10 PO; +QUET1TAB8 PO; +SERO200T PO; +SERO50TA PO; +SPIR1CAP INH; +VENL150C43 PO; +VENL37.52 PO; +VENL37.598 PO; +VITA100066 PO
[2019-08-21] MEDS ORDERED: PRAZ2CAP (13:59)
[2019-08-21] MEDS ORDERED: [UNRECOGNIZED DRUG - OTHER] (13:59)
[2019-08-21] MEDS ORDERED: BUPR150T5 (13:59)
[2019-08-21] MEDS ORDERED: ZOLP5TAB PO (13:59)
[2019-08-21] MEDS ORDERED: GABA-843 PO (13:59)
[2019-08-21 14:06] LABS: HEMATOCRIT 44.2 % (42.0-52.0); HEMOGLOBIN 14.2 g/dl (13.5-17.5); MEAN CORPUSCULAR HEMOGLOBIN 30.7 pg (27.0-33.0); MEAN CORPUSCULAR HGB CONC 32.1 g/dl (32.0-36.5); MEAN CORPUSCULAR VOLUME 95.5 fl (80.0-96.0); PLATELET COUNT, AUTOMATED 318 10^3/uL (150-450); RED BLOOD COUNT 4.63 10^6/uL (4.30-6.10); WHITE BLOOD COUNT 10.3 10^3/uL (4.0-10.0)
[2019-08-21] MEDS ORDERED: IPRATROPIUM 0.5MG/ALBUTEROL 2.5MG INH SOL UD 3ML (DUONEB)(J7620) NEB ONE (14:45)
[2019-08-21 15:00] LABS: ACETAMINOPHEN LEVEL < 2.0 UG/ML (10.0-30.0); ALBUMIN 3.9 GM/DL (3.2-5.2); ALT/SGPT 20 U/L (12-78); BILIRUBIN,DIRECT < 0.1 MG/DL (0.0-0.2); BILIRUBIN,TOTAL 0.3 MG/DL (0.2-1.0); BLOOD UREA NITROGEN 9 MG/DL (7-18); CALCIUM LEVEL 8.8 MG/DL (8.5-10.1); CARBON DIOXIDE LEVEL 26 MEQ/L (21-32); CHLORIDE LEVEL 102 MEQ/L (98-107); CREATININE FOR GFR 0.93 MG/DL (0.70-1.30); ETHYL ALCOHOL (ETHANOL) < 0.003 % (0.000-0.010); GLOMERULAR FILTRATION RATE > 60.0 (>56); GLUCOSE, FASTING 169 MG/DL (70-100); POTASSIUM SERUM 3.9 MEQ/L (3.5-5.1); SALICYLATE LEVEL 2.7 MG/DL (5.0-30.0); SODIUM LEVEL 138 MEQ/L (136-145); TOTAL PROTEIN 7.3 GM/DL (6.4-8.2)
[2019-08-21 15:23] LABS: AMPHETAMINES LEVEL URINE NEGATIVE (NEGATIVE); BARBITURATES URINE NEGATIVE (NEGATIVE); BENZODIAZEPINES URINE NEGATIVE (NEGATIVE); CANNABINOIDS URINE NEGATIVE (NEGATIVE); COCAINE METABOLITE URINE NEGATIVE (NEGATIVE); METHADONE URINE NEGATIVE (NEGATIVE); OPIATES URINE NEGATIVE (NEGATIVE); PHENCYCLIDINE URINE NEGATIVE (NEGATIVE)
[2019-08-21] MEDS ORDERED: VENTAER INH (17:13)
[2019-08-21] MEDS ORDERED: SUBO8MIS SL (17:30)
[2019-08-21] MEDS ORDERED: BUPR-365 PO (17:30)
[2019-08-21] MEDS ORDERED: COMMENTS (17:32)
[2019-08-21] MEDS ORDERED: traZODone 50 MG TAB PO PRN (18:45)
[2019-08-21] MEDS ORDERED: MOM 30ML SUSPENSION UDC PO PRN (18:45)
[2019-08-21] MEDS ORDERED: MAALOX 30 ML SUSP *UDC PO PRN (18:45)
[2019-08-21] MEDS ORDERED: BUPRENORPHINE/NALOXONE 8-2MG SUBLINGUAL TABLET(SUBOXONE) SL ONE (21:30)
[2019-08-21 21:35] VITALS: BP 122/84
[2019-08-21] MEDS: ALBUTEROL 90 MCG/ACT 8GM HFA INHALER INH PRN (22:23)
[2019-08-22] MEDS: IPRATROPIUM 0.5MG/ALBUTEROL 2.5MG INH SOL UD 3ML (DUONEB)(J7620) INH PRN ×2 (04:01→18:03)
[2019-08-22] MEDS: ACETAMINOPHEN TAB 650MG DOSE (2X325MG) PO PRN (05:35)
[2019-08-22 06:16] VITALS: BP 122/61
[2019-08-22] MEDS: BUPRENORPHINE/NALOXONE 8-2MG SUBLINGUAL TABLET(SUBOXONE) SL SCH (08:32)
[2019-08-22] MEDS: ALBUTEROL 90 MCG/ACT 8GM HFA INHALER INH PRN ×2 (09:54→20:07)
[2019-08-22 11:01] VITALS: BP 110/74
[2019-08-22] MEDS: buPROPion **XL** TABLET 150MG (WELLBUTRIN XL) PO SCH (15:54)
[2019-08-22 16:24] VITALS: BP_SYST 116; BP_SYST 147; BP_DIAS 63; BP_DIAS 64
[2019-08-22] MEDS: GABAPENTIN 300 MG CAP PO SCH (21:00)
[2019-08-22] MEDS: ADVAIR HFA 115/21MCG INHALER INH SCH (22:02)
[2019-08-22] MEDS: zolPIDEM TARTRATE 5 MG TAB PO PRN (22:51)
[2019-08-23] MEDS: IPRATROPIUM 0.5MG/ALBUTEROL 2.5MG INH SOL UD 3ML (DUONEB)(J7620) INH PRN (05:20)
[2019-08-23 06:39] VITALS: BP 108/60
[2019-08-23] MEDS: TIOTROPIUM INHALER/CAPSULE (SPIRIVA) INH SCH (07:30)
[2019-08-23] MEDS: ACETAMINOPHEN TAB 650MG DOSE (2X325MG) PO PRN (07:30)
--- NOTE | 2019-08-23 08:36 | MHHPE ---
DATE OF ADMISSION: 08/21/2019 CHIEF COMPLAINT: Feels depressed. SUBJECTIVE: He is 48 years old, lives on his own, has a history of being depressed, says has been diagnosed with bipolar disorder, attends the outpatient [facility] ([facility]). He was there yesterday, for a scheduled visit, was depressed, suicidal, with plans, says had thought of overdosing, and they asked him to come over here for admission. He says he has not been doing well for a while now, vague on this, possibly months, concerned about his deteriorating health, has chronic obstructive pulmonary disease (COPD) as well as emphysema, has been seeing pulmonology, Dr. Otto. He says he does not expect getting better and has felt hopeless, increasingly so lately, which has not helped. Also suggests Dr. Otto had told him that if he continues to deteriorate, he may want to think in terms of a lung transplant, but he is not very hopeful about it. He stays on his own, says keeps to himself, and suggests he may have family in the area, but not much contact with them. PAST PSYCHIATRIC HISTORY: He has been hospitalized in the past, had taken an overdose in the past, as well, and was admitted here last year, Dr. Rosenberg saw him, please seen the summary for details. He is seen as an outpatient, at [facility], says is on lithium, is not sure of the dose, but he says he brought in a list from there, but somehow the staff has not been able to trace it. He thinks it may be 300 mg daily. He is also on Wellbutrin, has not taken it for the last couple of days, it was at 150 mg daily, and says doctor increased it to 300 mg daily, in the last few days, in the hope that it helps with his mood, as well as with stopping smoking. Says he continues to smoke, a few cigarettes a day. MEDICAL HISTORY: Has COPD, emphysema, sees Dr. Otto, does not have a primary home care companion. SOCIAL HISTORY: Stays on his own, says does not associate much with other people. He suggests he has family in the area, but is not in contact with them. MENTAL STATUS EXAMINATION: Fair hygiene. He is quite thin. Fair eye contact. Generally cooperative, no agitation. No psychomotor retardation. Mostly gives short but logical and coherent answers. Denies any thoughts of arming anyone else. No active suicidal thoughts at present, though they have been significant lately, and he denies any active plans as such. No evidence of any psychosis. Does not appear to be internally preoccupied. Cognition grossly intact. Intellect is average. Judgment is good. Insight is fair. ASSESSMENT: Bipolar disorder, current episode depressed, severe. Chronic obstructive pulmonary disease. Emphysema. Poor social supports. He is increasingly depressed, worried about deteriorating health, has poor socials support. PLAN: Admitted to the inpatient psychiatry unit, placed on relative precautions. The Wellbutrin is increased to 300 mg daily, which was the dose that he was supposed to be on since his last visit at the psychiatrist. We will look at obtaining the correct lithium dose, and also a lithium level. Further recommendations will be made depending on that, as with the others. I would suggest that he is involved in activities on the unit as best as possible. We will ask the hospitalist to see him during his stay here. It is also to help with coordinating what he should be on as regards the COPD. He will be discharged with followup once he is stable. I would anticipate a 5-7 day stay.
[2019-08-23] MEDS: ADVAIR HFA 115/21MCG INHALER INH SCH ×2 (08:42→22:09)
[2019-08-23] MEDS: buPROPion **XL** TABLET 150MG (WELLBUTRIN XL) PO SCH (08:42)
[2019-08-23] MEDS: BUPRENORPHINE/NALOXONE 8-2MG SUBLINGUAL TABLET(SUBOXONE) SL SCH (08:45)
[2019-08-23] MEDS ORDERED: FLUBLOK(EGG FREE)(QUAD)INFLUENZA VACC 0.5ML SYRINGE (90682)18YRS&OLDER IM ONE (09:00)
--- NOTE | 2019-08-23 10:50 | HPE ---
DATE OF ADMISSION: 08/21/2019 Date of consultation: 08/22/2019 at 4:30 pm CHIEF COMPLAINT: Patient is seen for inpatient psychiatry medical history and physical. HISTORY OF PRESENT ILLNESS: Mr. Ni is a 48-year-old gentleman who has history of non-oxygen or steroid dependent COPD. He still smokes a few cigarettes. He has history of hyperlipidemia, gastroesophageal reflux disease (GERD), substance abuse for which he is currently on Suboxone. He previously snorted heroin. He has not used in some months. He also has history of chronic depression, bipolar disorder. The patient presented to the emergency room with complaints of suicidal ideation, not feeling that his life is worth living and he wanted to end it all. He was admitted to inpatient psychiatry for further psychiatric care. We were asked to see him for medical evaluation. ALLERGIES: No known drug allergies. HOME MEDICATIONS: - albuterol inhaler - Suboxone - Wellbutrin XL - Breo Ellipta - gabapentin - DuoNebs - Incruse Ellipta - Ambien PAST MEDICAL HISTORY: Notable for GERD, hyperlipidemia, substance abuse, anxiety/depression, COPD, ongoing tobacco use disorder, bipolar disorder. PAST SURGICAL HISTORY: Notable for right knee arthroscopy. SOCIAL HISTORY: Patient currently lives with his friend. He is on Social Security Disability secondary to his COPD. He does not use alcohol or illicit drugs. Patient does not list a surrogate medical decision maker. Code status is unclear at this time. REVIEW OF SYSTEMS: Patient reports having shortness of breath with walking, which is his normal. He has a chronic smoker's cough. He denies having any fevers, chills, headaches, blurry vision, oral sores. He reports that he has lost a significant amount of weight over the last several years. He denies any trouble with his voice or hoarseness, denies any night sweats, fevers or hemoptysis. Denies any chest discomfort. Denies abdominal pain, nausea, vomiting, diarrhea, melena or hematochezia. Denies having trouble urinating. Denies having joint swelling or inflammation. Denies having any skin changes or nonhealing wounds. PHYSICAL EXAMINATION: The patient's temperature is 98.9, pulse is 84 and regular. Respirations 18. Blood pressure is 130/96, oxygen saturation is 95% on room air. GENERAL: The patient is a middle-aged appearing man who appears depressed. He is in no respiratory distress. He is acyanotic. HEAD: Atraumatic. His pupils are symmetric and reactive to light. He has no scleral icterus. Oropharynx is clear without exudate, erythema or thrush. NECK: Supple. No palpable lymphadenopathy. Trachea is midline. No audible stridor. No audible carotid bruits. LUNGS: Sounds appreciated bilaterally. He has end-expiratory mild wheezing. HEART: S1, S2, no audible rubs or gallops. ABDOMEN: Scaphoid in appearance, nontender, nondistended with active bowel sounds. No palpable organomegaly or masses. EXTREMITIES: Without any significant cyanosis, clubbing or edema. Dorsalis pedis pulses are 2+ and symmetric. NEUROLOGICAL: Cranial nerves II-XII appear to be grossly intact. No focal lateralizing neurological deficits. His speech is fluid. He has no facial asymmetry. Gait is normal. DIAGNOSTIC STUDIES: White count 10.3, hemoglobin is 14.2, hematocrit is 44.2, platelet count 318. Sodium 138, potassium 2.9, chloride 102, bicarbonate is 26. Na is 10, BUN is 9, creatinine is 0.93. Calcium is 8.8. AST is 14, ALT is 20, alkaline phosphatase is 111. Albumin is 3.9. TSH is 1.53. Urine drug screen was negative. Salicylates was 2.7. Acetaminophen was less than 2. ETOH was less than 0.003. No imaging studies were done in the ER prior to transfer to inpatient psychiatry. IMPRESSION: 1. Chronic COPD which is stable. 2. Chronic GERD. 3. Substance abuse. 4. Major depression. 5. Anxiety disorder. RECOMMENDATIONS: Resume the patient's Suboxone, therapeutic substitutions have been made for the patient's Incruse as well as Breo Ellipta. Patient is medically stable from my standpoint and does not necessitate acute treatment for his chronic conditions. Thank you for allowing me to participate in the care of this patient. Please contact me if there is any issue that arise during his hospitalization in the inpatient psych unit.
--- NOTE | 2019-08-23 14:08 | IPNPDOC ---
Subjective Date Seen The patient was seen on 08/23/19. Subjective Chief Complaint/HPI reports that his breathing is at baseline. Objective Physical Examination General Exam: Positive: Alert, Cooperative, No Acute Distress Chest Exam: Positive: Normal air movement, Wheezing Heart Exam: Positive: Regular Rhythm, Normal S1, Normal S2; Negative: Rate Normal, Tachycardic, Bradycardic, Irregular Rhythm, Gallops, Murmurs, Rubs, Other Abdomen Exam: Positive: Normal bowel sounds, Soft; Negative: Tenderness, Hepatospenomegaly Skin Exam: Positive: Nl turgor and temperature; Negative: Rash, Breakdown, Pruritus Neuro Exam: Positive: Normal Gait, Normal Speech, Strength at 5/5 X4 ext Psych Exam: Positive: Other (depression) Assessment /Plan Assessment 1. Chronic COPD which is stable. 2. Chronic GERD. 3. Substance abuse. 4. Major depression. 5. Anxiety disorder. Plan - add prednisone 10 mg daily, I will confirm with Dr. Otto office in the morning - continue ventolin and spirva, advair, and nebs - continue suboxone, no signs of withdrawals noted. - remainder of mgmt per psychiatry service Plan/VTE VTE Prophylaxis Ordered?: No VTE Exclusion Mechanical Proph: Low Risk for VTE VTE Exclusion Pharmacological: At Low Risk for VTE VS, I&O, 24H, Fishbone Vital Signs/I&O Vital Signs Date Time Temp Pulse Resp B/P (MAP) Pulse Ox O2 Delivery O2 Flow Rate FiO2 08/23/19 06:39 98.7 61 16 108/60 (76) 08/22/19 11:01 94 08/21/19 20:03 Room Air SENDY DOBBS MD Aug 23, 2019 14:08
--- NOTE | 2019-08-23 14:46 | MHIPN ---
DATE: 08/23/2019 CHIEF COMPLAINT: "I'm here." SUBJECTIVE: Seen for followup in the presence of staff. Says had a difficult night because of his breathing. Did receive a couple of treatments. Mood is low. Appetite fair. He does say he has had lithium, prednisone, prazosin, which he has not received here. We had tried finding out from the pharmacy yesterday and apparently he had not picked up any lithium since last October, but the patient suggests that he has been apparently getting it from a friend. Says gets the prednisone and the prazosin from the same friend as well. Suggests he himself has not had insurance, therefore had not got them, but that he has been taking them. MENTAL STATUS EXAMINATION: Neat, cooperative. He is neater than yesterday. He is coherent, affect a bit broader. Denies active suicidal thoughts or intents, but suggests feels hopeless. No homicidal ideas or intents. No evidence of any psychosis. Cognition grossly intact. His judgment is fair, as is insight. ASSESSMENT: 1. Bipolar disorder, current episode depressed, severe. 2. Chronic obstructive pulmonary disease. He is depressed, but I am concerned he suggests that he has been taking medications regularly from a friend and I would question the regularity. PLAN: Continue current care. Will obtain collateral information regarding his medication regimen and the hospitalist has seen him. Their help will be appreciated. We will defer to them whether he needs resumption of prednisone and further management. He ought to be referred to Dr. Otto as well upon discharge. He says he has not had any primary career specialist for a while and that ought to be looked at as well. He will be seeing the treatment team and the assigned psychiatrist tomorrow. VITAL SIGNS: Blood pressure 108/60, pulse 61, temperature 98.7.
[2019-08-23 16:02] VITALS: BP 108/66
[2019-08-23] MEDS: GABAPENTIN 300 MG CAP PO SCH (21:00)
[2019-08-23] MEDS: zolPIDEM TARTRATE 5 MG TAB PO PRN (22:17)
[2019-08-24] MEDS: ACETAMINOPHEN TAB 650MG DOSE (2X325MG) PO PRN ×2 (01:34→12:20)
[2019-08-24 06:23] VITALS: BP 113/87
[2019-08-24] MEDS ORDERED: predniSONE 10 MG TAB PO SCH (09:00)
[2019-08-24] MEDS: TIOTROPIUM INHALER/CAPSULE (SPIRIVA) INH SCH (09:06)
[2019-08-24] MEDS: BUPRENORPHINE/NALOXONE 8-2MG SUBLINGUAL TABLET(SUBOXONE) SL SCH (09:06)
[2019-08-24] MEDS: buPROPion **XL** TABLET 150MG (WELLBUTRIN XL) PO SCH (09:06)
[2019-08-24] MEDS: ADVAIR HFA 115/21MCG INHALER INH SCH ×2 (09:07→22:43)
[2019-08-24] MEDS: LITHIUM CARBONATE 300 MG **CR** TAB PO SCH (10:43)
--- NOTE | 2019-08-24 10:56 | MHIPNPDOC ---
[facility] Progress Note Progress Note DATE OF SERVICE: 08/24/19 HISTORY: He is 48 years old, lives on his own, has a history of being depressed, says has been diagnosed with bipolar disorder, attends the outpatient [facility] ([facility]). He was there yesterday, for a scheduled visit, was depressed, suicidal, with plans, says had thought of overdosing, and they asked him to come over here for admission. He says he has not been doing well for a while now, vague on this, possibly months, concerned about his deteriorating health, has chronic obstructive pulmonary disease (COPD) as well as emphysema, has been seeing pulmonology, Dr. Otto. He says he does not expect getting better and has felt hopeless, increasingly so lately, which has not helped. He stays on his own, says keeps to himself, and suggests he may have family in the area, but not much contact with them. He has been hospitalized in the past, had taken an overdose in the past, as well, and was admitted here last year, Dr. Rosenberg saw him, please seen the summary for details. He is seen as an outpatient, at [facility], says is on lithium, is not sure of the dose, but he says he brought in a list from there, but somehow the staff has not been able to trace it. He thinks it may be 300 mg daily. He is also on Wellbutrin, has not taken it for the last couple of days, it was at 150 mg daily, and says doctor increased it to 300 mg daily, in the last few days, in the hope that it helps with his mood, as well as with stopping smoking. Says he continues to smoke, a few cigarettes a day. Seen for followup in the presence of staff. Says had a difficult night because of his breathing. Did receive a couple of treatments. Mood is low. Appetite fair. He does say he has had lithium, prednisone, prazosin, which he has not received here. We had tried finding out from the pharmacy yesterday and apparently he had not picked up any lithium since last October, but the patient suggests that he has been apparently getting it from a friend. Says gets the prednisone and the prazosin from the same friend as well. Suggests he himself has not had insurance, therefore had not got them, but that he has been taking them. VITAL SIGNS: See below. NEW TEST RESULTS: see below. CURRENT MEDICATIONS: See below. MENTAL STATUS EXAMINATION: General Appearance: dishelved, unkempt, appears older than stated age Build: average Demeanor: withdrawn, guarded Eye Contact: fair Activity: slow Behavior: withdrawn, cooperative Speech: slow, low in volume Mood: depressed Mood "not great" Affect: flat, non-engaged Thought Process: slow, intact, appropriate Thought Content (Delusions): denies SI/HI/AVH Thought Content (Other): none reported Thought Content (Aggressive): none reported Perception (Hallucinations): none reported Perception (Other): none reported Cognition (Impairment of): none reported Cognition(Intelligence Est.): average Oriented: Awake, Alert, Oriented times three Insight: fair Judgment: fair Psychosis: Denies DIAGNOSES: 1. Bipolar disorder, current episode depressed, severe ASSESSMENT: Patient seen today and reports he is not feeling great. He is still depressed and reports he hasn't been sleeping well. He is tolerating the Wellbutrin, but does not feel much increase in mood. He has been attending and been active in groups and plans to continue attending group activities. He showed me pictures that he has been coloring which looked very nice, as though he had really taken his time on them. He is agreeable to starting Prozac for mood, and restarting his prazosin for sleep. He denies Si/HI/AVH, and feels safe here. MANAGEMENT PLAN: Wellbutrin 300 mg daily prazosin 2mg qhs prozac 20mg daily Garvin 600mg qhs TIME SPENT: 30 minutes. Vital Signs Vital Signs Date Time Temp Pulse Resp B/P (MAP) Pulse Ox O2 Delivery O2 Flow Rate FiO2 08/24/19 10:42 Room Air 08/24/19 06:23 97.7 72 17 113/87 (96) 08/23/19 16:02 94 Current Medications Current Medications Medications (Trade) Dose Ordered Sig/Donna Route PRN Reason Start Time Stop Time Status Last Admin Dose Admin Acetaminophen (Tylenol Tab) 650 mg Q6HP PRN PO HEADACHE or DISCOMFORT 08/21/19 18:45 08/24/19 01:34 Al Hydrox/Mg Hydrox/Simethicone (Mylanta) 30 ml Q4HP PRN PO HEARTBURN/INDIGESTION 08/21/19 18:45 Albuterol Sulfate (Proventil, Ventolin Hfa) 2 puff Q4H PRN INH wheezing 08/21/19 21:30 08/22/19 09:54 Albuterol/ Ipratropium (Duoneb (Ipr 0.5mg/Alb 2.5mg)) 3 ml QID PRN INH SHORTNESS OF BREATH 08/21/19 21:30 08/23/19 05:20 Buprenorphine/ Naloxone (Suboxone 8/2mg) 1 tab DAILY SL 08/22/19 09:00 08/24/19 09:06 Bupropion HCl (Wellbutrin Xl) 300 mg DAILY PO 08/22/19 16:00 08/24/19 09:06 Gabapentin (Neurontin) 600 mg QHS PO 08/22/19 21:00 Home Med (Med Rec Complete!) ASDIRECTED XX 08/21/19 17:45 08/21/19 17:45 DC Garvin Carbonate (Lithobid Cr) 600 mg DAILY PO 08/24/19 09:00 08/24/19 10:43 Magnesium Hydroxide (Milk Of Magnesia) 30 ml DAILYPRN PRN PO CONSTIPATION 08/21/19 18:45 Prazosin HCl (Minipress) 2 mg QHS PO 08/24/19 21:00 Prednisone (Deltasone) 10 mg DAILY PO 08/24/19 09:00 08/24/19 09:06 Salmeterol Xinafoate/ Fluticasone (Advair Hfa 115/ 21) 2 puff BID INH 08/22/19 21:00 08/24/19 09:07 Tiotropium Bison (Spiriva Handihaler) 1 inhalation DAILY@08 INH 08/23/19 08:00 08/24/19 09:06 Trazodone HCl (Desyrel) 50 mg QHSP PRN PO INSOMNIA 08/21/19 18:45 Cancel Zolpidem Tartrate (Ambien) 5 mg QHSP PRN PO INSOMNIA 08/21/19 21:30 08/23/19 22:17 Allergies Coded Allergies: No Known Allergies (Verified , 12/07/17) SHAYY GANN DO Aug 24, 2019 10:56
[2019-08-24] MEDS ORDERED: FLUoxetine 20 MG CAP PO ONE (12:00)
[2019-08-24 15:30] VITALS: BP 111/73
[2019-08-24] MEDS: ALBUTEROL 90 MCG/ACT 8GM HFA INHALER INH PRN (16:16)
[2019-08-24] MEDS: GABAPENTIN 300 MG CAP PO SCH (21:00)
[2019-08-24] MEDS: zolPIDEM TARTRATE 5 MG TAB PO PRN (22:44)
[2019-08-24] MEDS: PRAZOSIN 1 MG CAP PO SCH (22:45)
--- NOTE | 2019-08-24 22:49 | IPNPDOC ---
Text Note Date of Service The patient was seen on 08/24/19. NOTE I spoke to Dr. Otto and we reviewed Lobo's last office pulm note from 1 year ago, he had previously been on prednisone 5 mg daily. He lost his insurance and stopped making visits to the pulm office, he has been self- medicating with prednisone that he obtains from his friend. I will reduce his prednisone to 5 mg daily. He can follow up with Dr. Otto as an outpatient. SENDY DOBBS MD Aug 24, 2019 22:49
[2019-08-25 06:38] VITALS: BP 130/74
--- NOTE | 2019-08-25 08:54 | MHIPNPDOC ---
[facility] Progress Note Progress Note DATE OF SERVICE: 08/25/19 HISTORY: He is 48 years old, lives on his own, has a history of being depressed, says has been diagnosed with bipolar disorder, attends the outpatient [facility] ([facility] He was there yesterday, for a scheduled visit, was depressed, suicidal, with plans, says had thought of overdosing, and they asked him to come over here for admission. He says he has not been doing well for a while now, vague on this, possibly months, concerned about his deteriorating health, has chronic obstructive pulmonary disease (COPD) as well as emphysema, has been seeing pulmonology, Dr. Otto. He says he does not expect getting better and has felt hopeless, increasingly so lately, which has not helped. He stays on his own, says keeps to himself, and suggests he may have family in the area, but not much contact with them. He has been hospitalized in the past, had taken an overdose in the past, as well, and was admitted here last year, Dr. Rosenberg saw him, please seen the summary for details. He is seen as an outpatient, at [facility], says is on lithium, is not sure of the dose, but he says he brought in a list from there, but somehow the staff has not been able to trace it. He thinks it may be 300 mg daily. He is also on Wellbutrin, has not taken it for the last couple of days, it was at 150 mg daily, and says doctor increased it to 300 mg daily, in the last few days, in the hope that it helps with his mood, as well as with stopping smoking. Says he continues to smoke, a few cigarettes a day. Seen for followup in the presence of staff. Says had a difficult night because of his breathing. Did receive a couple of treatments. Mood is low. Appetite fair. He does say he has had lithium, prednisone, prazosin, which he has not received here. We had tried finding out from the pharmacy yesterday and apparently he had not picked up any lithium since last October, but the patient suggests that he has been apparently getting it from a friend. Says gets the prednisone and the prazosin from the same friend as well. Suggests he himself has not had insurance, therefore had not got them, but that he has been taking them. VITAL SIGNS: See below. NEW TEST RESULTS: see below. CURRENT MEDICATIONS: See below. MENTAL STATUS EXAMINATION: General Appearance: disheveled, unkempt, appears older than stated age Build: average Demeanor: withdrawn, guarded Eye Contact: poor Activity: slow Behavior: withdrawn, cooperative Speech: slow, low in volume Mood: depressed Mood "tired" Affect: flat, non-engaged, depressed, fatigued Thought Process: slow, intact, appropriate, depressed Thought Content (Delusions): denies SI/HI/AVH Thought Content (Other): none reported Thought Content (Aggressive): none reported Perception (Hallucinations): none reported Perception (Other): none reported Cognition (Impairment of): none reported Cognition(Intelligence Est.): average Oriented: Awake, Alert, Oriented times three Insight: fair Judgment: fair Psychosis: Denies DIAGNOSES: 1. Bipolar disorder, current episode depressed, severe ASSESSMENT: Patient seen today and reports he's been sleeping most of the day yesterday and feels very tired today, possibly due to one of his medications. Pt is not on any medications that are very sedating. He may be having some morning sedation from prozac, started yesterday, although it usually causes insomnia. Regardless, will change prozac to nightly dosing to see if morning fatigue improves. He is still depressed and appears depressed. He is tolerating the Wellbutrin, but does not feel much increase in mood. He has been attending and been active in groups and plans to continue attending group activities. HHe denies Si/HI/AVH, and feels safe here. MANAGEMENT PLAN: change prozac to nightly Wellbutrin 300 mg daily prazosin 2mg qhs prozac 20mg qhs [place] 600mg qhs suboxone 8/2 SL daily gabapentin 600mg qhs ambien 5mg qhs TIME SPENT: 30 minutes. Vital Signs Vital Signs Date Time Temp Pulse Resp B/P (MAP) Pulse Ox O2 Delivery O2 Flow Rate FiO2 08/25/19 06:38 97.2 65 16 130/74 (92) 08/24/19 10:42 Room Air 08/23/19 16:02 94 Current Medications Current Medications Medications (Trade) Dose Ordered Sig/Donna Route PRN Reason Start Time Stop Time Status Last Admin Dose Admin Acetaminophen (Tylenol Tab) 650 mg Q6HP PRN PO HEADACHE or DISCOMFORT 08/21/19 18:45 08/24/19 12:20 Al Hydrox/Mg Hydrox/Simethicone (Mylanta) 30 ml Q4HP PRN PO HEARTBURN/INDIGESTION 08/21/19 18:45 Albuterol Sulfate (Proventil, Ventolin Hfa) 2 puff Q4H PRN INH wheezing 08/21/19 21:30 08/24/19 16:16 Albuterol/ Ipratropium (Duoneb (Ipr 0.5mg/Alb 2.5mg)) 3 ml QID PRN INH SHORTNESS OF BREATH 08/21/19 21:30 08/23/19 05:20 Buprenorphine/ Naloxone (Suboxone 8/2mg) 1 tab DAILY SL 08/22/19 09:00 08/24/19 09:06 Bupropion HCl (Wellbutrin Xl) 300 mg DAILY PO 08/22/19 16:00 08/24/19 09:06 Fluoxetine HCl (PROzac) 20 mg DAILY PO 08/25/19 09:00 Gabapentin (Neurontin) 600 mg QHS PO 08/22/19 21:00 Home Med (Med Rec Complete!) ASDIRECTED XX 08/21/19 17:45 08/21/19 17:45 DC [place] Carbonate (Lithobid Cr) 600 mg DAILY PO 08/24/19 09:00 08/24/19 10:43 Magnesium Hydroxide (Milk Of Magnesia) 30 ml DAILYPRN PRN PO CONSTIPATION 08/21/19 18:45 Prazosin HCl (Minipress) 2 mg QHS PO 08/24/19 21:00 08/24/19 22:45 Prednisone (Deltasone) 5 mg DAILY PO 08/25/19 09:00 Prednisone (Deltasone) 10 mg DAILY PO 08/24/19 09:00 08/24/19 22:45 DC 08/24/19 09:06 Salmeterol Xinafoate/ Fluticasone (Advair Hfa 115/ 21) 2 puff BID INH 08/22/19 21:00 08/24/19 22:43 Tiotropium [place] (Spiriva Handihaler) 1 inhalation DAILY@08 INH 08/23/19 08:00 08/24/19 09:06 Trazodone HCl (Desyrel) 50 mg QHSP PRN PO INSOMNIA 08/21/19 18:45 Cancel Zolpidem Tartrate (Ambien) 5 mg QHSP PRN PO INSOMNIA 08/21/19 21:30 08/24/19 22:44 Allergies Coded Allergies: No Known Allergies (Verified , 12/07/17) SHAYY GANN DO Aug 25, 2019 8:54 am
[2019-08-25] MEDS: ALBUTEROL 90 MCG/ACT 8GM HFA INHALER INH PRN (08:58)
[2019-08-25] MEDS: BUPRENORPHINE/NALOXONE 8-2MG SUBLINGUAL TABLET(SUBOXONE) SL SCH (08:58)
[2019-08-25] MEDS: TIOTROPIUM INHALER/CAPSULE (SPIRIVA) INH SCH (08:58)
[2019-08-25] MEDS: predniSONE 10 MG TAB PO SCH (08:59)
[2019-08-25] MEDS: ADVAIR HFA 115/21MCG INHALER INH SCH ×2 (08:59→22:45)
[2019-08-25] MEDS: buPROPion **XL** TABLET 150MG (WELLBUTRIN XL) PO SCH (08:59)
[2019-08-25] MEDS ORDERED: FLUoxetine 20 MG CAP PO SCH (09:00)
[2019-08-25] MEDS: LITHIUM CARBONATE 300 MG **CR** TAB PO SCH (09:01)
[2019-08-25 16:02] VITALS: BP 115/59
[2019-08-25] MEDS: GABAPENTIN 300 MG CAP PO SCH (21:00)
[2019-08-25] MEDS: FLUoxetine 20 MG CAP PO SCH (21:27)
[2019-08-25] MEDS: PRAZOSIN 1 MG CAP PO SCH (21:28)
[2019-08-26 06:00] VITALS: BP 113/71
[2019-08-26] MEDS: LITHIUM CARBONATE 300 MG **CR** TAB PO SCH (08:39)
[2019-08-26] MEDS: ADVAIR HFA 115/21MCG INHALER INH SCH ×2 (08:39→21:23)
[2019-08-26] MEDS: BUPRENORPHINE/NALOXONE 8-2MG SUBLINGUAL TABLET(SUBOXONE) SL SCH (08:39)
[2019-08-26] MEDS: buPROPion **XL** TABLET 150MG (WELLBUTRIN XL) PO SCH (08:39)
[2019-08-26] MEDS: predniSONE 10 MG TAB PO SCH (08:39)
[2019-08-26] MEDS: TIOTROPIUM INHALER/CAPSULE (SPIRIVA) INH SCH (08:39)
[2019-08-26] MEDS: ALBUTEROL 90 MCG/ACT 8GM HFA INHALER INH PRN (11:36)
[2019-08-26 15:26] VITALS: BP 120/71
[2019-08-26] MEDS: GABAPENTIN 300 MG CAP PO SCH (21:00)
[2019-08-26] MEDS: PRAZOSIN 1 MG CAP PO SCH (21:24)
[2019-08-26] MEDS: FLUoxetine 20 MG CAP PO SCH (21:24)
[2019-08-27 06:24] VITALS: BP 109/58
[2019-08-27] MEDS: predniSONE 10 MG TAB PO SCH (08:06)
[2019-08-27] MEDS: buPROPion **XL** TABLET 150MG (WELLBUTRIN XL) PO SCH (08:06)
[2019-08-27] MEDS: LITHIUM CARBONATE 300 MG **CR** TAB PO SCH (08:06)
[2019-08-27] MEDS: BUPRENORPHINE/NALOXONE 8-2MG SUBLINGUAL TABLET(SUBOXONE) SL SCH (08:06)
[2019-08-27] MEDS: TIOTROPIUM INHALER/CAPSULE (SPIRIVA) INH SCH (08:06)
[2019-08-27] MEDS: ADVAIR HFA 115/21MCG INHALER INH SCH ×2 (08:07→21:04)
--- NOTE | 2019-08-27 10:39 | MHIPNPDOC ---
[facility] Progress Note Progress Note DATE OF SERVICE: 08/27/19 HISTORY: He is 48 years old, lives on his own, has a history of being depressed, says has been diagnosed with bipolar disorder, attends the outpatient [facility] ([facility]). He was there yesterday, for a scheduled visit, was depressed, suicidal, with plans, says had thought of overdosing, and they asked him to come over here for admission. He says he has not been doing well for a while now, vague on this, possibly months, concerned about his deteriorating health, has chronic obstructive pulmonary disease (COPD) as well as emphysema, has been seeing pulmonology, Dr. Otto. He says he does not expect getting better and has felt hopeless, increasingly so lately, which has not helped. He stays on his own, says keeps to himself, and suggests he may have family in the area, but not much contact with them. He has been hospitalized in the past, had taken an overdose in the past, as well, and was admitted here last year, Dr. Rosenberg saw him, please seen the summary for details. He is seen as an outpatient, at [facility], says is on lithium, is not sure of the dose, but he says he brought in a list from there, but somehow the staff has not been able to trace it. He thinks it may be 300 mg daily. He is also on Wellbutrin, has not taken it for the last couple of days, it was at 150 mg daily, and says doctor increased it to 300 mg daily, in the last few days, in the hope that it helps with his mood, as well as with stopping smoking. Says he continues to smoke, a few cigarettes a day. Seen for followup in the presence of staff. Says had a difficult night because of his breathing. Did receive a couple of treatments. Mood is low. Appetite fair. He does say he has had lithium, prednisone, prazosin, which he has not received here. We had tried finding out from the pharmacy yesterday and apparently he had not picked up any lithium since last October, but the patient suggests that he has been apparently getting it from a friend. Says gets the prednisone and the prazosin from the same friend as well. Suggests he himself has not had insurance, therefore had not got them, but that he has been taking them. VITAL SIGNS: See below. NEW TEST RESULTS: see below. CURRENT MEDICATIONS: See below. MENTAL STATUS EXAMINATION: General Appearance: disheveled, unkempt, appears older than stated age Build: average Demeanor: very figety Eye Contact: fair Activity: anxious Behavior: restless cooperative Speech: reg rate/rhythm/volume, clear Mood "tired" Affect: full, incongruent, anxious Thought Process: rapid, intact, appropriate Thought Content (Delusions): denies SI/HI/AVH Thought Content (Other): none reported Thought Content (Aggressive): none reported Perception (Hallucinations): none reported Perception (Other): none reported Cognition (Impairment of): none reported Cognition(Intelligence Est.): average Oriented: Awake, Alert, Oriented times three Insight: fair Judgment: fair Psychosis: Denies DIAGNOSES: 1. Bipolar disorder, current episode depressed, severe ASSESSMENT: Patient seen today and reports he feels "very tired and discouraged" today. He is concerned about his lithium level and when we will be checking it, because he believes this is what is causing him to be so tired. He is also anxious about his Suboxone and is med seeking for more. He reports he occasionally is able to get an extra one from a friend that he takes before bed, and wishes to be prescribed more than just one a day. He has been sleeping well at night, as well as through the day without having needed to take the Ambien. He also reports "screwed up" dreams. These dreams involve being chased, getting killed, nightmare like dreams. he is on prazosin which he states is beneficial for them. He is laughing at times and making jokes during the encounter and appears better mood hernandez. He has not noticed an improvement in the daytime sleepiness since switching the Prozac to qhs. He is tolerating the Wellbutrin, but does not feel much increase in mood. he endorses increased anxiety and is agreeable to start vistaril prn anxiety, risks/benefits discussed. He has been attending and been active in groups whenever he is not too tired to attend. He plans to continue attending group activities. He is very fidgety and has resting tremors in both hands. He denies SI/HI/AVH, and feels safe here. MANAGEMENT PLAN: start vistaril prn anxiety Wellbutrin 300 mg daily prazosin 2mg qhs prozac 20mg qhs [place] 600mg qhs suboxone 8/2 SL daily gabapentin 600mg qhs ambien 5mg qhs vistaril 50mg q4hr prn anxiety TIME SPENT: 30 minutes. Vital Signs Vital Signs Date Time Temp Pulse Resp B/P (MAP) Pulse Ox O2 Delivery O2 Flow Rate FiO2 08/27/19 08:46 Room Air 08/27/19 06:24 98.8 77 18 109/58 (75) 08/23/19 16:02 94 Current Medications Current Medications Medications (Trade) Dose Ordered Sig/Donna Route PRN Reason Start Time Stop Time Status Last Admin Dose Admin Acetaminophen (Tylenol Tab) 650 mg Q6HP PRN PO HEADACHE or DISCOMFORT 08/21/19 18:45 08/24/19 12:20 Al Hydrox/Mg Hydrox/Simethicone (Mylanta) 30 ml Q4HP PRN PO HEARTBURN/INDIGESTION 08/21/19 18:45 08/25/19 10:35 Albuterol Sulfate (Proventil, Ventolin Hfa) 2 puff Q4H PRN INH wheezing 08/21/19 21:30 08/26/19 11:36 Albuterol/ Ipratropium (Duoneb (Ipr 0.5mg/Alb 2.5mg)) 3 ml QID PRN INH SHORTNESS OF BREATH 08/21/19 21:30 08/23/19 05:20 Buprenorphine/ Naloxone (Suboxone 8/2mg) 1 tab DAILY SL 08/22/19 09:00 08/27/19 08:06 Bupropion HCl (Wellbutrin Xl) 300 mg DAILY PO 08/22/19 16:00 08/27/19 08:06 Fluoxetine HCl (PROzac) 20 mg DAILY PO 08/25/19 09:00 Cancel Fluoxetine HCl (PROzac) 20 mg QHS PO 08/25/19 21:00 08/26/19 21:24 Gabapentin (Neurontin) 600 mg QHS PO 08/22/19 21:00 Home Med (Med Rec Complete!) ASDIRECTED XX 08/21/19 17:45 08/21/19 17:45 DC [place] Carbonate (Lithobid Cr) 600 mg DAILY PO 08/24/19 09:00 08/27/19 08:06 Magnesium Hydroxide (Milk Of Magnesia) 30 ml DAILYPRN PRN PO CONSTIPATION 08/21/19 18:45 Prazosin HCl (Minipress) 2 mg QHS PO 08/24/19 21:00 08/26/19 21:24 Prednisone (Deltasone) 5 mg DAILY PO 08/25/19 09:00 08/27/19 08:06 Prednisone (Deltasone) 10 mg DAILY PO 08/24/19 09:00 08/24/19 22:45 DC 08/24/19 09:06 Salmeterol Xinafoate/ Fluticasone (Advair Hfa 115/ 21) 2 puff BID INH 08/22/19 21:00 08/27/19 08:07 Tiotropium [place] (Spiriva Handihaler) 1 inhalation DAILY@08 INH 08/23/19 08:00 08/27/19 08:06 Trazodone HCl (Desyrel) 50 mg QHSP PRN PO INSOMNIA 08/21/19 18:45 Cancel Zolpidem Tartrate (Ambien) 5 mg QHSP PRN PO INSOMNIA 08/21/19 21:30 08/24/19 22:44 Allergies Coded Allergies: No Known Allergies (Verified , 12/07/17) SHAYY GANN DO Aug 27, 2019 10:39 am
[2019-08-27] MEDS: ALBUTEROL 90 MCG/ACT 8GM HFA INHALER INH PRN (13:34)
[2019-08-27] MEDS: ACETAMINOPHEN TAB 650MG DOSE (2X325MG) PO PRN (15:36)
[2019-08-27 18:39] VITALS: BP 117/75
[2019-08-27] MEDS: GABAPENTIN 300 MG CAP PO SCH (21:00)
[2019-08-27] MEDS: FLUoxetine 20 MG CAP PO SCH (21:00)
[2019-08-27] MEDS: PRAZOSIN 1 MG CAP PO SCH (21:00)
[2019-08-27] MEDS: hydrOXYzine 50 MG TAB PO PRN (21:06)
[2019-08-28 03:01] VITALS: BP 120/72
[2019-08-28] MEDS: hydrOXYzine 50 MG TAB PO PRN ×4 (03:17→20:21)
[2019-08-28] MEDS: IPRATROPIUM 0.5MG/ALBUTEROL 2.5MG INH SOL UD 3ML (DUONEB)(J7620) INH PRN (03:34)
[2019-08-28 06:03] VITALS: BP 114/73
[2019-08-28] MEDS: buPROPion **XL** TABLET 150MG (WELLBUTRIN XL) PO SCH (08:10)
[2019-08-28] MEDS: BUPRENORPHINE/NALOXONE 8-2MG SUBLINGUAL TABLET(SUBOXONE) SL SCH (08:10)
[2019-08-28] MEDS: LITHIUM CARBONATE 300 MG **CR** TAB PO SCH (08:10)
[2019-08-28] MEDS: predniSONE 10 MG TAB PO SCH (08:10)
[2019-08-28] MEDS: TIOTROPIUM INHALER/CAPSULE (SPIRIVA) INH SCH (08:13)
[2019-08-28] MEDS: ADVAIR HFA 115/21MCG INHALER INH SCH ×2 (08:14→20:21)
--- NOTE | 2019-08-28 10:35 | MHIPNPDOC ---
[facility] Progress Note Progress Note DATE OF SERVICE: 08/28/19 HISTORY: He is 48 years old, lives on his own, has a history of being depressed, says has been diagnosed with bipolar disorder, attends the outpatient [facility] ([facility]). He was there yesterday, for a scheduled visit, was depressed, suicidal, with plans, says had thought of overdosing, and they asked him to come over here for admission. He says he has not been doing well for a while now, vague on this, possibly months, concerned about his deteriorating health, has chronic obstructive pulmonary disease (COPD) as well as emphysema, has been seeing pulmonology, Dr. Otto. He says he does not expect getting better and has felt hopeless, increasingly so lately, which has not helped. He stays on his own, says keeps to himself, and suggests he may have family in the area, but not much contact with them. He has been hospitalized in the past, had taken an overdose in the past, as well, and was admitted here last year, Dr. Rosenberg saw him, please seen the summary for details. He is seen as an outpatient, at [facility], says is on lithium, is not sure of the dose, but he says he brought in a list from there, but somehow the staff has not been able to trace it. He thinks it may be 300 mg daily. He is also on Wellbutrin, has not taken it for the last couple of days, it was at 150 mg daily, and says doctor increased it to 300 mg daily, in the last few days, in the hope that it helps with his mood, as well as with stopping smoking. Says he continues to smoke, a few cigarettes a day. Seen for followup in the presence of staff. Says had a difficult night because of his breathing. Did receive a couple of treatments. Mood is low. Appetite fair. He does say he has had lithium, prednisone, prazosin, which he has not received here. We had tried finding out from the pharmacy yesterday and apparently he had not picked up any lithium since last October, but the patient suggests that he has been apparently getting it from a friend. Says gets the prednisone and the prazosin from the same friend as well. Suggests he himself has not had insurance, therefore had not got them, but that he has been taking them. VITAL SIGNS: See below. NEW TEST RESULTS: see below. CURRENT MEDICATIONS: See below. MENTAL STATUS EXAMINATION: General Appearance: clean, appears older than stated age Build: average Demeanor: cooperative Eye Contact: fair Activity: less anxious Behavior: cooperative Speech: reg rate/rhythm/volume, clear Mood "alright" Affect: full, mildly flat yet anxious, congruent, Thought Process:linear/logical, intact, appropriate Thought Content (Delusions): denies SI/HI/AVH Thought Content (Other): none reported Thought Content (Aggressive): none reported Perception (Hallucinations): none reported Perception (Other): none reported Cognition (Impairment of): none reported Cognition(Intelligence Est.): average Oriented: Awake, Alert, Oriented times three Insight: fair Judgment: fair Psychosis: Denies DIAGNOSES: 1. Bipolar disorder, current episode depressed, severe ASSESSMENT: Patient seen today and reports he feels "alright" today. States he's tolerating his medication and feels the vistaril he started yesterday is beneficial for his anxiety. He states his mood improves thru out the day and is good in the afternoon. States he doesn't think his mood is as good in the morni ng as it is in the afternoon mostly due to mild morning fatigue due to getting up for day. Denies that he is overtly depressed though. Denies SI. He is on prazosin which he states is beneficial for his nightmares and is tolerating well. Denies any nightmares last night. He has not noticed an improvement in the daytime sleepiness since switching the Prozac to qhs. He is tolerating the Wellbutrin, and feels that it with prozac are benefiting his mood. He has been attending and been active in groups whenever he is not too tired to attend and finds them helpful. He plans to continue attending group activities. He denies SI/HI/AVH, and feels safe here. MANAGEMENT PLAN: start vistaril prn anxiety Wellbutrin 300 mg daily prazosin 2mg qhs prozac 20mg qhs [place] 600mg qhs suboxone 8/2 SL daily gabapentin 600mg qhs ambien 5mg qhs vistaril 50mg q4hr prn anxiety TIME SPENT: 30 minutes. Vital Signs Vital Signs Date Time Temp Pulse Resp B/P (MAP) Pulse Ox O2 Delivery O2 Flow Rate FiO2 08/28/19 06:03 97.4 66 16 114/73 (87) 08/28/19 03:01 94 08/27/19 08:46 Room Air Laboratory Data 24H Labs Laboratory Tests 2 08/28/19 06:57: Current Medications Current Medications Medications (Trade) Dose Ordered Sig/Donna Route PRN Reason Start Time Stop Time Status Last Admin Dose Admin Acetaminophen (Tylenol Tab) 650 mg Q6HP PRN PO HEADACHE or DISCOMFORT 08/21/19 18:45 08/27/19 15:36 Al Hydrox/Mg Hydrox/Simethicone (Mylanta) 30 ml Q4HP PRN PO HEARTBURN/INDIGESTION 08/21/19 18:45 08/25/19 10:35 Albuterol Sulfate (Proventil, Ventolin Hfa) 2 puff Q4H PRN INH wheezing 08/21/19 21:30 08/27/19 13:34 Albuterol/ Ipratropium (Duoneb (Ipr 0.5mg/Alb 2.5mg)) 3 ml QID PRN INH SHORTNESS OF BREATH 08/21/19 21:30 08/28/19 03:34 Buprenorphine/ Naloxone (Suboxone 8/2mg) 1 tab DAILY SL 08/22/19 09:00 08/28/19 08:10 Bupropion HCl (Wellbutrin Xl) 300 mg DAILY PO 08/22/19 16:00 08/28/19 08:10 Fluoxetine HCl (PROzac) 20 mg DAILY PO 08/25/19 09:00 Cancel Fluoxetine HCl (PROzac) 20 mg QHS PO 08/25/19 21:00 08/27/19 21:00 Gabapentin (Neurontin) 600 mg QHS PO 08/22/19 21:00 Home Med (Med Rec Complete!) ASDIRECTED XX 08/21/19 17:45 08/21/19 17:45 DC Hydroxyzine HCl (Atarax) 50 mg Q4HP PRN PO ANXIETY/AGITATION 08/27/19 10:45 08/28/19 08:10 [place] Carbonate (Lithobid Cr) 600 mg DAILY PO 08/24/19 09:00 08/28/19 08:10 Magnesium Hydroxide (Milk Of Magnesia) 30 ml DAILYPRN PRN PO CONSTIPATION 08/21/19 18:45 Prazosin HCl (Minipress) 2 mg QHS PO 08/24/19 21:00 08/27/19 21:00 Prednisone (Deltasone) 5 mg DAILY PO 08/25/19 09:00 08/28/19 08:10 Prednisone (Deltasone) 10 mg DAILY PO 08/24/19 09:00 08/24/19 22:45 DC 08/24/19 09:06 Salmeterol Xinafoate/ Fluticasone (Advair Hfa 115/ 21) 2 puff BID INH 08/22/19 21:00 08/28/19 08:14 Tiotropium [place] (Spiriva Handihaler) 1 inhalation DAILY@08 INH 08/23/19 08:00 08/28/19 08:13 Trazodone HCl (Desyrel) 50 mg QHSP PRN PO INSOMNIA 08/21/19 18:45 Cancel Zolpidem Tartrate (Ambien) 5 mg QHSP PRN PO INSOMNIA 08/21/19 21:30 08/24/19 22:44 Allergies Coded Allergies: No Known Allergies (Verified , 12/07/17) SHAYY GANN DO Aug 28, 2019 10:01 am
[2019-08-28] MEDS: ALBUTEROL 90 MCG/ACT 8GM HFA INHALER INH PRN (11:43)
[2019-08-28] MEDS: CEPACOL LOZENGE PO PRN ×3 (15:43→22:55)
[2019-08-28 18:15] VITALS: BP 129/70
[2019-08-28] MEDS: GABAPENTIN 300 MG CAP PO SCH (20:19)
[2019-08-28] MEDS: FLUoxetine 20 MG CAP PO SCH (20:21)
[2019-08-28] MEDS: PRAZOSIN 1 MG CAP PO SCH (20:23)
[2019-08-28] MEDS: zolPIDEM TARTRATE 5 MG TAB PO PRN (22:55)
[2019-08-29] MEDS: CEPACOL LOZENGE PO PRN ×3 (00:42→21:30)
[2019-08-29] MEDS: hydrOXYzine 50 MG TAB PO PRN ×4 (01:42→19:00)
[2019-08-29 06:32] VITALS: BP 115/73
[2019-08-29] MEDS: TIOTROPIUM INHALER/CAPSULE (SPIRIVA) INH SCH (07:17)
[2019-08-29] MEDS: ALBUTEROL 90 MCG/ACT 8GM HFA INHALER INH PRN (08:28)
[2019-08-29] MEDS: ADVAIR HFA 115/21MCG INHALER INH SCH ×2 (08:28→20:29)
[2019-08-29] MEDS: LITHIUM CARBONATE 300 MG **CR** TAB PO SCH (08:28)
[2019-08-29] MEDS: buPROPion **XL** TABLET 150MG (WELLBUTRIN XL) PO SCH (08:29)
[2019-08-29] MEDS: predniSONE 10 MG TAB PO SCH (08:29)
[2019-08-29] MEDS: BUPRENORPHINE/NALOXONE 8-2MG SUBLINGUAL TABLET(SUBOXONE) SL SCH (08:29)
[2019-08-29 15:50] VITALS: BP 135/83
[2019-08-29 20:27] VITALS: BP 113/63
[2019-08-29] MEDS: FLUoxetine 20 MG CAP PO SCH (20:28)
[2019-08-29] MEDS: PRAZOSIN 1 MG CAP PO SCH (20:28)
[2019-08-29] MEDS: GABAPENTIN 300 MG CAP PO SCH (20:28)
[2019-08-29] MEDS: zolPIDEM TARTRATE 5 MG TAB PO PRN (22:14)
[2019-08-30] MEDS: hydrOXYzine 50 MG TAB PO PRN ×4 (00:34→23:36)
[2019-08-30 06:36] VITALS: BP 125/63
[2019-08-30] MEDS: ADVAIR HFA 115/21MCG INHALER INH SCH ×2 (08:10→20:05)
[2019-08-30] MEDS: buPROPion **XL** TABLET 150MG (WELLBUTRIN XL) PO SCH (08:10)
[2019-08-30] MEDS: BUPRENORPHINE/NALOXONE 8-2MG SUBLINGUAL TABLET(SUBOXONE) SL SCH (08:10)
[2019-08-30] MEDS: TIOTROPIUM INHALER/CAPSULE (SPIRIVA) INH SCH (08:10)
[2019-08-30] MEDS: predniSONE 10 MG TAB PO SCH (08:11)
[2019-08-30] MEDS: LITHIUM CARBONATE 300 MG **CR** TAB PO SCH (08:11)
[2019-08-30] MEDS: ACETAMINOPHEN TAB 650MG DOSE (2X325MG) PO PRN (14:06)
[2019-08-30 15:38] VITALS: BP 117/60
--- NOTE | 2019-08-30 17:45 | CR.PDOC ---
General Date of Consultation: Aug 30, 2019 Consultation REASON FOR CONSULTATION/CHIEF COMPLAINT: Cough, shortness of breath, positive sputum culture HISTORY OF PRESENT ILLNESS: Patient is 48 years old male with past medical history of panlobular emphysema, opiod abuse on Suboxone, tobacco abuse, asthma presented hospital with acute depression. During hospital stay patient developed increased cough with greenish sputum production associated with weakness and subjective fever. Sputum culture was done and showed many gram negative coccobacillus, few gram-positive cocci in pairs and clusters. Patient denies headache, palpitations, diarrhea or dysuria ALLERGIES: Please see below. HOME MEDICATIONS: Please see below. PAST MEDICAL HISTORY: 1 panlobular emphysema Depression Asthma Tobacco abuse Opiod abuse PAST SURGICAL HISTORY: None FAMILY HISTORY: Father: Asthma Mother: Diabetes mellitus type 2 SOCIAL HISTORY: Current tobacco smoker Doesn't drink alcohol Opiod abuse on Suboxone 10 point review of system is negative except as listed above PHYSICAL EXAMINATION: Objective:VITAL SIGNS: Please see below. GENERAL APPEARANCE: not in apparent distress HEENT: Normocephalic, atraumatic. Mucous members moist and pink CARDIOVASCULAR: Regular rate and rhythm. No murmurs, rubs or gallops. Radial pulses are intact. There is no lower extremity edema LUNGS: . Diminished lung sounds, mildly coarse lung sounds bilaterally ABDOMEN: Bowel sounds are hypoactive. Abdomen is soft and nontender. MUSCULOSKELETAL: Range of motion is intact in all 4 extremities NEUROLOGICAL: Cranial nerves II-12 are grossly intact. Speech is not dysarthric LABORATORY DATA: Please see below. ASSESSMENT/PLAN: Patient is 48 years old male with past medical history of panlobular emphysema, opiod abuse on Suboxone, tobacco abuse, asthma presented hospital with acute depression. During hospital stay patient developed increased cough with greenish sputum production associated with weakness and subjective fever. COPD exacerbation Chest x-ray Repeat sputum culture Levaquin 750 mg daily Admitting Officer consult Incentive spirometry Acapella CBC, BMP, blood culture Respiratory panel Continue inhalers Urine antigen for Streptococcus and Legionella Vital Signs/I&O Vital Signs Date Time Temp Pulse Resp B/P (MAP) Pulse Ox O2 Delivery O2 Flow Rate FiO2 08/30/19 15:38 97.3 75 16 117/60 (79) 08/29/19 20:27 93 08/27/19 08:46 Room Air Laboratory Data Microbiology Microbiology 08/29/19 Gram Stain - Final, Resulted 08/29/19 Sputum Culture, Resulted Pending Allergies Coded Allergies: No Known Allergies (Verified , 12/07/17) Home Medications Scheduled Buprenorphine HCl/Naloxone HCl (Suboxone 8 mg-2 mg Sl Film) 1 Each Film, 1 STRIP SL DAILY, (Reported) PT STATES IT HAS BEEN "A COUPLE DAYS" SINCE LAST DOSE Bupropion HCl (Bupropion Xl) 150 Mg Tab.er.24h, 150 MG PO DAILY, (Reported) Fluticasone/Vilanterol (Breo Ellipta 200-25 Mcg INH) 1 Inh Inh, 1 PUFF INH D AILY, (Reported) Gabapentin (Gabapentin) 300 Mg Capsule, 600 MG PO QHS, (Reported) Umeclidinium [place] (Incruse Ellipta) 62.5 Mcg/Inh Inh, 1 PUFF INH DAILY, (Reported) Scheduled PRN Albuterol Sulfate (Ventolin Hfa) 18 Gm Hfa.aer.ad, 2 PUFF INH Q4H PRN for wheezing, (Reported) Ipratropium/Albuterol Sulfate (Iprat-Albut 0.5-3(2.5) mg/3 ml) 1 Radha Radha, 1 VIAL INH QID PRN for SHORTNESS OF BREATH, (Reported) Zolpidem Tartrate (Zolpidem Tartrate) 5 Mg Tablet, 5 MG PO QHS PRN for SLEEP, (Reported) Miscellaneous Medications [Comments] , (Reported) PT IS A POOR HISTORIAN. MED REC TAKEN FROM [facility]. WHEN ASKED ABOUT WHEN A LAST DOSE WAS TAKEN HE COULD NOT REMEMBER. MIGUEL KHALIL DO Aug 30, 2019 17:45
[2019-08-30] MEDS: LevoFLOXacin 750 MG TABLET PO SCH (18:24)
[2019-08-30] MEDS: FLUoxetine 20 MG CAP PO SCH (20:06)
[2019-08-30] MEDS: PRAZOSIN 1 MG CAP PO SCH (20:06)
[2019-08-30] MEDS: GABAPENTIN 300 MG CAP PO SCH (20:07)
[2019-08-30 20:50] LABS: BLOOD UREA NITROGEN 12 MG/DL (7-18); CALCIUM LEVEL 8.6 MG/DL (8.5-10.1); CARBON DIOXIDE LEVEL 28 MEQ/L (21-32); CHLORIDE LEVEL 105 MEQ/L (98-107); CREATININE FOR GFR 0.86 MG/DL (0.70-1.30); GLOMERULAR FILTRATION RATE > 60.0 (>56); GLUCOSE, FASTING 93 MG/DL (70-100); POTASSIUM SERUM 4.2 MEQ/L (3.5-5.1); SODIUM LEVEL 138 MEQ/L (136-145)
[2019-08-30] MEDS: zolPIDEM TARTRATE 5 MG TAB PO PRN (23:36)
[2019-08-31] MEDS: ALBUTEROL 90 MCG/ACT 8GM HFA INHALER INH PRN ×2 (02:38→21:56)
[2019-08-31] MEDS: hydrOXYzine 50 MG TAB PO PRN ×3 (03:55→21:35)
[2019-08-31 06:32] VITALS: BP 130/69
[2019-08-31] MEDS: TIOTROPIUM INHALER/CAPSULE (SPIRIVA) INH SCH (07:28)
[2019-08-31] MEDS: ADVAIR HFA 115/21MCG INHALER INH SCH ×2 (08:08→21:56)
[2019-08-31] MEDS: BUPRENORPHINE/NALOXONE 8-2MG SUBLINGUAL TABLET(SUBOXONE) SL SCH (08:09)
[2019-08-31] MEDS: LITHIUM CARBONATE 300 MG **CR** TAB PO SCH (08:09)
[2019-08-31] MEDS: predniSONE 5 MG TAB PO SCH (08:09)
[2019-08-31] MEDS: buPROPion **XL** TABLET 150MG (WELLBUTRIN XL) PO SCH (08:09)
--- NOTE | 2019-08-31 08:35 | REP ---
CHEST PA AND LATERAL: 08/30/2019: Clinical history: COPD with exacerbation. Comparison: Chest 06/05/2018, 08/14/2016; CT 08/16/2014. Findings: There is hyperinflation with flattening of the diaphragms, increased AP diameter and prominence of retrosternal clear space. A mild pectus carinatum appearance is suggested on the lateral view. There is emphysematous changes in the mid and upper lung zones. Some underlying minor fibrotic change and peribronchial thickening is noted that may reflect reactive airway disease or bronchitis. Some apical pleuroparenchymal scarring is again seen. This is unchanged. Heart size not enlarged. Aorta is normal for age. Airway intact. No widened mediastinum. The bony thorax shows no focal lesion. Impression: 1. COPD with pulmonary artery hypertension, emphysematous changes and fibrotic appearance. There is peribronchial thickening that may reflect bronchitis or reactive airway disease. No dense consolidation, effusion, edema or other acute finding. 2. Hyperinflation with increased AP diameter and prominence of the retrosternal clear space along with a pectus carinatum appearance. Electronically Signed by Baldev Carranza MD 08/31/2019 10:07 A
--- NOTE | 2019-08-31 08:52 | MHIPNPDOC ---
[facility] Progress Note Progress Note DATE OF SERVICE: 08/31/19 HISTORY: He is 48 years old, lives on his own, has a history of being depressed, says has been diagnosed with bipolar disorder, attends the outpatient [facility] of [facility] ([facility]). He was there yesterday, for a scheduled visit, was depressed, suicidal, with plans, says had thought of overdosing, and they asked him to come over here for admission. He says he has not been doing well for a while now, vague on this, possibly months, concerned about his deteriorating health, has chronic obstructive pulmonary disease (COPD) as well as emphysema, has been seeing pulmonology, Dr. Otto. He says he does not expect getting better and has felt hopeless, increasingly so lately, which has not helped. He stays on his own, says keeps to himself, and suggests he may have family in the area, but not much contact with them. He has been hospitalized in the past, had taken an overdose in the past, as well, and was admitted here last year, Dr. Rosenberg saw him, please seen the summary for details. He is seen as an outpatient, at [facility], says is on lithium, is not sure of the dose, but he says he brought in a list from there, but somehow the staff has not been able to trace it. He thinks it may be 300 mg daily. He is also on Wellbutrin, has not taken it for the last couple of days, it was at 150 mg daily, and says doctor increased it to 300 mg daily, in the last few days, in the hope that it helps with his mood, as well as with stopping smoking. Says he continues to smoke, a few cigarettes a day. Seen for followup in the presence of staff. Says had a difficult night because of his breathing. Did receive a couple of treatments. Mood is low. Appetite fair. He does say he has had lithium, prednisone, prazosin, which he has not received here. We had tried finding out from the pharmacy yesterday and apparently he had not picked up any lithium since last October, but the patient suggests that he has been apparently getting it from a friend. Says gets the prednisone and the prazosin from the same friend as well. Suggests he himself has not had insurance, therefore had not got them, but that he has been taking them. VITAL SIGNS: See below. NEW TEST RESULTS: see below. CURRENT MEDICATIONS: See below. MENTAL STATUS EXAMINATION: General Appearance: clean, appears older than stated age, appears very upset and depressed Build: average Demeanor: cooperative Eye Contact: fair Activity: slow Behavior: cooperative Speech: reg rate/rhythm/volume, clear Mood "really down" Affect: very dysthymic Thought Process:linear/logical, intact Thought Content (Delusions): denies HI/AVH, positive passive SI with no plan/intent Thought Content (Other): none reported Thought Content (Aggressive): none reported Perception (Hallucinations): none reported Perception (Other): none reported Cognition (Impairment of): none reported Cognition(Intelligence Est.): average Oriented: Awake, Alert, Oriented times three Insight: poor Judgment: poor Psychosis: Denies DIAGNOSES: 1. Bipolar disorder, current episode depressed, severe ASSESSMENT: Patient seen today and reports he feels "very down" today after meeting with Medical doctor yesterday for f/u on COPD exasperation with gram-pos sputum production who told him he may need a lung transplant, only has 6 yrs to live, and is basically dying in the pt's words even though not written in the medical doctor's note. Feels like "what's the point in living" today and very depressed along with also having bronchial congestion and feeling like he can't breathe well. He appears very depressed and upset today with positive passive SI. States he's tolerating his psychiatric medication and feels it's beneficial. States Vistaril helping his anxiety. He is on prazosin which he states is beneficial for his nightmares and is tolerating well. Denies any nightmares last night. He has not noticed an improvement in the daytime sleepiness since switching the Prozac to qhs. He is tolerating the Wellbutrin, and feels that it with prozac are benefiting his mood. He has been attending and been active in groups whenever he is not too tired to attend and finds them helpful. He plans to continue attending group activities. He denies SI/HI/AVH, and feels safe here. MANAGEMENT PLAN: continue plan. Pt awaiting pulmonary consult per medical doctor order. Wellbutrin 300 mg daily prazosin 2mg qhs prozac 20mg qhs [place] 600mg qhs suboxone 8/2 SL daily gabapentin 600mg qhs ambien 5mg qhs vistaril 50mg q4hr prn anxiety TIME SPENT: 30 minutes. Vital Signs Vital Signs Date Time Temp Pulse Resp B/P (MAP) Pulse Ox O2 Delivery O2 Flow Rate FiO2 08/31/19 06:32 97.9 78 14 130/69 (89) 08/29/19 20:27 93 08/27/19 08:46 Room Air Laboratory Data 24H Labs Laboratory Tests 2 08/30/19 20:26: Anion Gap 5L, Glomerular Filtration Rate > 60.0, Blood Urea Nitrogen 12, Creatinine 0.86, Sodium Level 138, Potassium Level 4.2, Chloride Level 105, Carbon Dioxide Level 28, Calcium Level 8.6 CBC/BMP Laboratory Tests 08/30/19 20:26 Calcium Level 8.6 Current Medications Current Medications Medications (Trade) Dose Ordered Sig/Donna Route PRN Reason Start Time Stop Time Status Last Admin Dose Admin Acetaminophen (Tylenol Tab) 650 mg Q6HP PRN PO HEADACHE or DISCOMFORT 08/21/19 18:45 08/30/19 14:06 Al Hydrox/Mg Hydrox/Simethicone (Mylanta) 30 ml Q4HP PRN PO HEARTBURN/INDIGESTION 08/21/19 18:45 08/25/19 10:35 Albuterol Sulfate (Proventil, Ventolin Hfa) 2 puff Q4H PRN INH wheezing 08/21/19 21:30 08/31/19 02:38 Albuterol/ Ipratropium (Duoneb (Ipr 0.5mg/Alb 2.5mg)) 3 ml QID PRN INH SHORTNESS OF BREATH 08/21/19 21:30 08/28/19 03:34 Buprenorphine/ Naloxone (Suboxone 8/2mg) 1 tab DAILY SL 08/22/19 09:00 08/31/19 08:09 Bupropion HCl (Wellbutrin Xl) 300 mg DAILY PO 08/22/19 16:00 08/31/19 08:09 Cetylpyridinium Chloride (Cepacol) 1 dax Q2HP PRN PO SORE THROAT 08/28/19 15:45 08/29/19 21:30 Fluoxetine HCl (PROzac) 20 mg DAILY PO 08/25/19 09:00 Cancel Fluoxetine HCl (PROzac) 20 mg QHS PO 08/25/19 21:00 08/30/19 20:06 Gabapentin (Neurontin) 600 mg QHS PO 08/22/19 21:00 Home Med (Med Rec Complete!) ASDIRECTED XX 08/21/19 17:45 08/21/19 17:45 DC Hydroxyzine HCl (Atarax) 50 mg Q4HP PRN PO ANXIETY/AGITATION 08/27/19 10:45 08/31/19 03:55 Levofloxacin (Levaquin) 750 mg DAILY@1800 PO 08/30/19 18:00 08/30/19 18:24 [place] Carbonate (Lithobid Cr) 600 mg DAILY PO 08/24/19 09:00 08/31/19 08:09 Magnesium Hydroxide (Milk Of Magnesia) 30 ml DAILYPRN PRN PO CONSTIPATION 08/21/19 18:45 Prazosin HCl (Minipress) 2 mg QHS PO 08/24/19 21:00 08/30/19 20:06 Prednisone (Deltasone) 5 mg DAILY PO 08/25/19 09:00 08/30/19 17:58 DC 08/30/19 08:11 Prednisone (Deltasone) 5 mg DAILY PO 08/31/19 09:00 08/31/19 08:09 Prednisone (Deltasone) 10 mg DAILY PO 08/24/19 09:00 08/24/19 22:45 DC 08/24/19 09:06 Salmeterol Xinafoate/ Fluticasone (Advair Hfa 115/ 21) 2 puff BID INH 08/22/19 21:00 08/31/19 08:08 Tiotropium [place] (Spiriva Handihaler) 1 inhalation DAILY@08 INH 08/23/19 08:00 08/31/19 07:28 Trazodone HCl (Desyrel) 50 mg QHSP PRN PO INSOMNIA 08/21/19 18:45 Cancel Zolpidem Tartrate (Ambien) 5 mg QHSP PRN PO INSOMNIA 08/21/19 21:30 08/30/19 23:36 Allergies Coded Allergies: No Known Allergies (Verified , 12/07/17) SHAYY GANN DO Aug 31, 2019 8:52 am
[2019-08-31] MEDS: LevoFLOXacin 750 MG TABLET PO SCH (17:31)
[2019-08-31 18:00] VITALS: BP 127/83
[2019-08-31] MEDS: GABAPENTIN 300 MG CAP PO SCH (21:00)
[2019-08-31] MEDS: FLUoxetine 20 MG CAP PO SCH (21:36)
[2019-08-31] MEDS: PRAZOSIN 1 MG CAP PO SCH (21:37)
[2019-08-31] MEDS: zolPIDEM TARTRATE 5 MG TAB PO PRN (22:54)
[2019-09-01 06:39] VITALS: BP 110/69
[2019-09-01] MEDS: BUPRENORPHINE/NALOXONE 8-2MG SUBLINGUAL TABLET(SUBOXONE) SL SCH (08:00)
[2019-09-01] MEDS: predniSONE 5 MG TAB PO SCH (08:00)
[2019-09-01] MEDS: LITHIUM CARBONATE 300 MG **CR** TAB PO SCH (08:00)
[2019-09-01] MEDS: buPROPion **XL** TABLET 150MG (WELLBUTRIN XL) PO SCH (08:00)
[2019-09-01] MEDS: hydrOXYzine 50 MG TAB PO PRN ×3 (08:03→17:06)
[2019-09-01] MEDS: ALBUTEROL 90 MCG/ACT 8GM HFA INHALER INH PRN (08:05)
[2019-09-01] MEDS: TIOTROPIUM INHALER/CAPSULE (SPIRIVA) INH SCH (08:48)
[2019-09-01] MEDS: ADVAIR HFA 115/21MCG INHALER INH SCH ×2 (08:48→20:38)
--- NOTE | 2019-09-01 09:56 | MHIPNPDOC ---
[facility] Progress Note Progress Note DATE OF SERVICE: 09/01/19 HISTORY: He is 48 years old, lives on his own, has a history of being depressed, says has been diagnosed with bipolar disorder, attends the outpatient [facility] ([facility]). He was there yesterday, for a scheduled visit, was depressed, suicidal, with plans, says had thought of overdosing, and they asked him to come over here for admission. He says he has not been doing well for a while now, vague on this, possibly months, concerned about his deteriorating health, has chronic obstructive pulmonary disease (COPD) as well as emphysema, has been seeing pulmonology, Dr. Otto. He says he does not expect getting better and has felt hopeless, increasingly so lately, which has not helped. He stays on his own, says keeps to himself, and suggests he may have family in the area, but not much contact with them. He has been hospitalized in the past, had taken an overdose in the past, as well, and was admitted here last year, Dr. Rosenberg saw him, please seen the summary for details. He is seen as an outpatient, at [facility], says is on lithium, is not sure of the dose, but he says he brought in a list from there, but somehow the staff has not been able to trace it. He thinks it may be 300 mg daily. He is also on Wellbutrin, has not taken it for the last couple of days, it was at 150 mg daily, and says doctor increased it to 300 mg daily, in the last few days, in the hope that it helps with his mood, as well as with stopping smoking. Says he continues to smoke, a few cigarettes a day. Seen for followup in the presence of staff. Says had a difficult night because of his breathing. Did receive a couple of treatments. Mood is low. Appetite fair. He does say he has had lithium, prednisone, prazosin, which he has not received here. We had tried finding out from the pharmacy yesterday and apparently he had not picked up any lithium since last October, but the patient suggests that he has been apparently getting it from a friend. Says gets the prednisone and the prazosin from the same friend as well. Suggests he himself has not had insurance, therefore had not got them, but that he has been taking them. VITAL SIGNS: See below. NEW TEST RESULTS: see below. CHEST PA AND LATERAL: 08/30/2019: Clinical history: COPD with exacerbation. Comparison: Chest 06/05/2018, 08/14/2016; CT 08/16/2014. Findings: There is hyperinflation with flattening of the diaphragms, increased AP diameter and prominence of retrosternal clear space. A mild pectus carinatum appearance is suggested on the lateral view. There is emphysematous changes in the mid and upper lung zones. Some underlying minor fibrotic change and peribronchial thickening is noted that may reflect reactive airway disease or bronchitis. Some apical pleuroparenchymal scarring is again seen. This is unchanged. Heart size not enlarged. Aorta is normal for age. Airway intact. No widened mediastinum. The bony thorax shows no focal lesion. Impression: 1. COPD with pulmonary artery hypertension, emphysematous changes and fibrotic appearance. There is peribronchial thickening that may reflect bronchitis or reactive airway disease. No dense consolidation, effusion, edema or other acute finding. 2. Hyperinflation with increased AP diameter and prominence of the retrosternal clear space along with a pectus carinatum appearance. CURRENT MEDICATIONS: See below. MENTAL STATUS EXAMINATION: General Appearance: clean, appears older than stated age, appears very upset and depressed Build: average Demeanor: cooperative Eye Contact: fair Activity: trembling visibly when seen by myself but when not being seen by me was not trembling at all but sitting calmly Behavior: cooperative Speech: reg rate/rhythm/volume, clear Mood "I feel shaky" Affect: anxious, euthymic Thought Process:linear/logical, intact Thought Content (Delusions): denies HI/AVH, positive passive SI with no plan/intent Thought Content (Other): none reported Thought Content (Aggressive): none reported Perception (Hallucinations): none reported Perception (Other): none reported Cognition (Impairment of): none reported Cognition(Intelligence Est.): average Oriented: Awake, Alert, Oriented times three Insight: poor Judgment: poor Psychosis: Denies DIAGNOSES: 1. Bipolar disorder, current episode depressed, severe ASSESSMENT: Patient seen today and reports he feels "very shaky" today and is still having difficulty breathing (doesn't appear to have difficulty breathing and was sitting in groups calmly prior to being seen and not tremulous) due to COPD exasperation. Continues to endorse depressed mood and passive SI (appears euthymic though). Pt possibly malingering at this point. States he's tolerating his psychiatric medication and feels it's beneficial. States Vistaril helping his anxiety. He is on prazosin which he states is beneficial for his nightmares and is tolerating well. Denies any nightmares last night. He is tolerating the Wellbutrin, and feels that it with prozac are benefiting his mood. He has been attending and been active in groups and finds them helpful. He plans to continue attending group activities. He denies SI/HI/AVH, and feels safe here. MANAGEMENT PLAN: continue plan. Pt awaiting pulmonary consult per medical doctor order. Wellbutrin 300 mg daily prazosin 2mg qhs prozac 20mg qhs [place] 600mg qhs suboxone 8/2 SL daily gabapentin 600mg qhs ambien 5mg qhs vistaril 50mg q4hr prn anxiety TIME SPENT: 30 minutes. Vital Signs Vital Signs Date Time Temp Pulse Resp B/P (MAP) Pulse Ox O2 Delivery O2 Flow Rate FiO2 09/01/19 06:39 97.3 63 16 110/69 (83) 08/31/19 13:35 Room Air 08/29/19 20:27 93 Current Medications Current Medications Medications (Trade) Dose Ordered Sig/Donna Route PRN Reason Start Time Stop Time Status Last Admin Dose Admin Acetaminophen (Tylenol Tab) 650 mg Q6HP PRN PO HEADACHE or DISCOMFORT 08/21/19 18:45 08/30/19 14:06 Al Hydrox/Mg Hydrox/Simethicone (Mylanta) 30 ml Q4HP PRN PO HEARTBURN/INDIGESTION 08/21/19 18:45 08/25/19 10:35 Albuterol Sulfate (Proventil, Ventolin Hfa) 2 puff Q4H PRN INH wheezing 08/21/19 21:30 09/01/19 08:05 Albuterol/ Ipratropium (Duoneb (Ipr 0.5mg/Alb 2.5mg)) 3 ml QID PRN INH SHORTNESS OF BREATH 08/21/19 21:30 08/28/19 03:34 Buprenorphine/ Naloxone (Suboxone 8/2mg) 1 tab DAILY SL 08/22/19 09:00 09/01/19 08:00 Bupropion HCl (Wellbutrin Xl) 300 mg DAILY PO 08/22/19 16:00 09/01/19 08:00 Cetylpyridinium Chloride (Cepacol) 1 dax Q2HP PRN PO SORE THROAT 08/28/19 15:45 08/29/19 21:30 Fluoxetine HCl (PROzac) 20 mg DAILY PO 08/25/19 09:00 Cancel Fluoxetine HCl (PROzac) 20 mg QHS PO 08/25/19 21:00 08/31/19 21:36 Gabapentin (Neurontin) 600 mg QHS PO 08/22/19 21:00 Home Med (Med Rec Complete!) ASDIRECTED XX 08/21/19 17:45 08/21/19 17:45 DC Hydroxyzine HCl (Atarax) 50 mg Q4HP PRN PO ANXIETY/AGITATION 08/27/19 10:45 09/01/19 08:03 Levofloxacin (Levaquin) 750 mg DAILY@1800 PO 08/30/19 18:00 08/31/19 17:31 [place] Carbonate (Lithobid Cr) 600 mg DAILY PO 08/24/19 09:00 09/01/19 08:00 Magnesium Hydroxide (Milk Of Magnesia) 30 ml DAILYPRN PRN PO CONSTIPATION 08/21/19 18:45 Prazosin HCl (Minipress) 2 mg QHS PO 08/24/19 21:00 08/31/19 21:37 Prednisone (Deltasone) 5 mg DAILY PO 08/25/19 09:00 08/30/19 17:58 DC 08/30/19 08:11 Prednisone (Deltasone) 5 mg DAILY PO 08/31/19 09:00 09/01/19 08:00 Prednisone (Deltasone) 10 mg DAILY PO 08/24/19 09:00 08/24/19 22:45 DC 08/24/19 09:06 Salmeterol Xinafoate/ Fluticasone (Advair Hfa 115/ 21) 2 puff BID INH 08/22/19 21:00 09/01/19 08:48 Tiotropium [place] (Spiriva Handihaler) 1 inhalation DAILY@08 INH 08/23/19 08:00 09/01/19 08:48 Trazodone HCl (Desyrel) 50 mg QHSP PRN PO INSOMNIA 08/21/19 18:45 Cancel Zolpidem Tartrate (Ambien) 5 mg QHSP PRN PO INSOMNIA 08/21/19 21:30 08/31/19 22:54 Allergies Coded Allergies: No Known Allergies (Verified , 12/07/17) SHAYY GANN DO Sep 01, 2019 9:03 am
[2019-09-01] MEDS: ACETAMINOPHEN TAB 650MG DOSE (2X325MG) PO PRN ×2 (10:53→17:13)
[2019-09-01] MEDS: LEVALBUTEROL 1.25 MG/0.5 ML CONCENTRATE NEB INH SCH ×2 (16:00→19:44)
--- NOTE | 2019-09-01 16:39 | IPNPDOC ---
Text Note Date of Service The patient was seen on 09/01/19. NOTE Subjective: Patient is 48 -year-old male with a PMHx of Panlobular emphysema, Opioid abuse on Suboxone, Tobacco abuse, Asthma presented hospital with acute Depression. During hospital stay patient developed increased cough with greenish sputum production associated with weakness and subjective fever. Sputum culture was done and showed many gram negative coccobacillus, few gram-positive cocci in pairs and clusters. Patient denies headache, palpitations, diarrhea or dysuria Patient was seen and examined at the bedside. Patient reports that he still experiences some shortness of breath. Denies any significant cough. Denies chest pain or palpitations. Has not experience any nausea, vomiting, abdominal pain, diarrhea, or urinary discomfort. Objective: Vitals (See below) General: Lying in bed, no acute distress, comfortable, AAOx3 HEENT: NC, AT CVS: RRR, +S1S2 Lungs: Fair air entry b/l, mild wheezing at bases appreciated Abdomen: Soft, ND, NT Extremities: No evidence of LE edema, - Calf tenderness Assessment and plan: COPD exacerbation / Bronchitis - likely 2/2 haemophilus influenza - Patient reports shortness of breath without any significant productive cough - Sensory well on room air is able to ambulate without any difficulty - Sputum cultures positive for Haemophilus influenza - CXR 08/31: 1. COPD with pulmonary artery hypertension, emphysematous changes and fibrotic appearance. There is peribronchial thickening that may reflect bronchitis or reactive airway disease. No dense consolidation, effusion, edema or other acute finding. 2. Hyperinflation with increased AP diameter and prominence of the retrosternal clear space along with a pectus carinatum appearance. - Will adjust antibiotic coverage for narrow spectrum treatment of Haemophilus influenza - Will increase corticosteroid therapy and continue taper - Will just inhaled therapy with Xopenex - Continue with additional inhaled therapy as ordered - Continue with Acapella and incentive spirometry Please contact hospitalist service as needed VS,Olenae, I+O VS, Olenae, I+O Vital Signs Date Time Temp Pulse Resp B/P (MAP) Pulse Ox O2 Delivery O2 Flow Rate FiO2 09/01/19 09:00 Room Air 09/01/19 06:39 97.3 63 16 110/69 (83) 08/29/19 20:27 93 LETTY HILLS MD Sep 01, 2019 16:39
[2019-09-01 16:42] VITALS: BP 131/93
[2019-09-01] MEDS: predniSONE 20 MG TAB PO SCH (17:10)
[2019-09-01] MEDS: LEVALBUTEROL 1.25 MG/0.5 ML CONCENTRATE NEB INH PRN (17:30)
[2019-09-01] MEDS: GABAPENTIN 300 MG CAP PO SCH (20:33)
[2019-09-01] MEDS: FLUoxetine 20 MG CAP PO SCH (20:39)
[2019-09-01] MEDS: AUGMENTIN 875 MG TAB PO SCH (20:39)
[2019-09-01] MEDS: PRAZOSIN 1 MG CAP PO SCH (20:41)
[2019-09-02] MEDS: LEVALBUTEROL 1.25 MG/0.5 ML CONCENTRATE NEB INH PRN ×4 (00:04→05:53)
[2019-09-02] MEDS: ACETAMINOPHEN TAB 650MG DOSE (2X325MG) PO PRN ×3 (00:07→23:44)
[2019-09-02] MEDS: zolPIDEM TARTRATE 5 MG TAB PO PRN ×2 (00:23→23:06)
[2019-09-02] MEDS: hydrOXYzine 50 MG TAB PO PRN ×4 (00:23→23:07)
[2019-09-02 06:23] VITALS: BP 146/88
[2019-09-02] MEDS: TIOTROPIUM INHALER/CAPSULE (SPIRIVA) INH SCH (07:50)
[2019-09-02] MEDS: LEVALBUTEROL 1.25 MG/0.5 ML CONCENTRATE NEB INH SCH ×5 (08:05→22:30)
[2019-09-02] MEDS: AUGMENTIN 875 MG TAB PO SCH ×2 (08:29→20:17)
[2019-09-02] MEDS: buPROPion **XL** TABLET 150MG (WELLBUTRIN XL) PO SCH (08:29)
[2019-09-02] MEDS: predniSONE 20 MG TAB PO SCH (08:29)
[2019-09-02] MEDS: LITHIUM CARBONATE 300 MG **CR** TAB PO SCH (08:30)
--- NOTE | 2019-09-02 08:54 | MHIPNPDOC ---
[facility] Progress Note Progress Note DATE OF SERVICE: 09/02/19 HISTORY: He is 48 years old, lives on his own, has a history of being depressed, says has been diagnosed with bipolar disorder, attends the outpatient [facility] ([facility] He was there yesterday, for a scheduled visit, was depressed, suicidal, with plans, says had thought of overdosing, and they asked him to come over here for admission. He says he has not been doing well for a while now, vague on this, possibly months, concerned about his deteriorating health, has chronic obstructive pulmonary disease (COPD) as well as emphysema, has been seeing pulmonology, Dr. Otto. He says he does not expect getting better and has felt hopeless, increasingly so lately, which has not helped. He stays on his own, says keeps to himself, and suggests he may have family in the area, but not much contact with them. He has been hospitalized in the past, had taken an overdose in the past, as well, and was admitted here last year, Dr. Rosenberg saw him, please seen the summary for details. He is seen as an outpatient, at [facility], says is on lithium, is not sure of the dose, but he says he brought in a list from there, but somehow the staff has not been able to trace it. He thinks it may be 300 mg daily. He is also on Wellbutrin, has not taken it for the last couple of days, it was at 150 mg daily, and says doctor increased it to 300 mg daily, in the last few days, in the hope that it helps with his mood, as well as with stopping smoking. Says he continues to smoke, a few cigarettes a day. Seen for followup in the presence of staff. Says had a difficult night because of his breathing. Did receive a couple of treatments. Mood is low. Appetite fair. He does say he has had lithium, prednisone, prazosin, which he has not received here. We had tried finding out from the pharmacy yesterday and apparently he had not picked up any lithium since last October, but the patient suggests that he has been apparently getting it from a friend. Says gets the prednisone and the prazosin from the same friend as well. Suggests he himself has not had insurance, therefore had not got them, but that he has been taking them. VITAL SIGNS: See below. NEW TEST RESULTS: see below. CHEST PA AND LATERAL: 08/30/2019: Clinical history: COPD with exacerbation. Comparison: Chest 06/05/2018, 08/14/2016; CT 08/16/2014. Findings: There is hyperinflation with flattening of the diaphragms, increased AP diameter and prominence of retrosternal clear space. A mild pectus carinatum appearance is suggested on the lateral view. There is emphysematous changes in the mid and upper lung zones. Some underlying minor fibrotic change and peribronchial thickening is noted that may reflect reactive airway disease or bronchitis. Some apical pleuroparenchymal scarring is again seen. This is unchanged. Heart size not enlarged. Aorta is normal for age. Airway intact. No widened mediastinum. The bony thorax shows no focal lesion. Impression: 1. COPD with pulmonary artery hypertension, emphysematous changes and fibrotic appearance. There is peribronchial thickening that may reflect bronchitis or reactive airway disease. No dense consolidation, effusion, edema or other acute finding. 2. Hyperinflation with increased AP diameter and prominence of the retrosternal clear space along with a pectus carinatum appearance. CURRENT MEDICATIONS: See below. MENTAL STATUS EXAMINATION: General Appearance: clean, appears older than stated age, appears very upset and depressed Build: average Demeanor: cooperative Eye Contact: fair Activity: trembling visibly when seen by myself but when not being seen by me was not trembling at all but sitting calmly Behavior: cooperative Speech: reg rate/rhythm/volume, clear Mood "I feel shaky" Affect: anxious, euthymic Thought Process:linear/logical, intact Thought Content (Delusions): denies HI/AVH, positive passive SI with no plan/intent Thought Content (Other): none reported Thought Content (Aggressive): none reported Perception (Hallucinations): none reported Perception (Other): none reported Cognition (Impairment of): none reported Cognition(Intelligence Est.): average Oriented: Awake, Alert, Oriented times three Insight: poor Judgment: poor Psychosis: Denies DIAGNOSES: 1. Bipolar disorder, current episode depressed, severe ASSESSMENT: Patient seen today and shaking with anger stating "I had to wait for my breathing treatments when I couldn't breath last night and they (respiratory team) took my inhaler to help me!" Attempted to explain to pt that the respiratory team are caring for respiratory problems thru out the hospital so treatment can be delayed if someone is in need of them more emergently than he is (ICU pts). This made him more upset and appears to want what he wants when he wants it with no exceptions. States he's going to figure everything out with plan to d/c home tomorrow. Continues to endorse depressed mood and passive SI (appears euthymic though) mostly due to respiratory problems. Pt possibly malingering at this point for respiratory treatment and care. States he's tolerating his psychiatric medication and feels it's beneficial. States Vistaril helping his anxiety. He is on prazosin which he states is beneficial for his nightmares and is tolerating well. Denies any nightmares last night. He is tolerating the Wellbutrin, and feels that it with prozac are benefiting his mood. He has been attending and been active in groups and finds them helpful. He plans to continue attending group activities. He denies HI/AVH, and feels safe here. MANAGEMENT PLAN: continue plan. Will reorder albuterol inhaler 4hr SOB for pt. Wellbutrin 300 mg daily prazosin 2mg qhs prozac 20mg qhs [place] 600mg qhs suboxone / SL daily gabapentin 600mg qhs ambien 5mg qhs vistaril 50mg q4hr prn anxiety TIME SPENT: 30 minutes. Vital Signs Vital Signs Date Time Temp Pulse Resp B/P (MAP) Pulse Ox O2 Delivery O2 Flow Rate FiO2 09/02/19 06:23 97.9 82 16 146/88 (107) 09/01/19 09:00 Room Air 08/29/19 20:27 93 Current Medications Current Medications Medications (Trade) Dose Ordered Sig/Donna Route PRN Reason Start Time Stop Time Status Last Admin Dose Admin Acetaminophen (Tylenol Tab) 650 mg Q6HP PRN PO HEADACHE or DISCOMFORT 08/21/19 18:45 09/02/19 06:24 Al Hydrox/Mg Hydrox/Simethicone (Mylanta) 30 ml Q4HP PRN PO HEARTBURN/INDIGESTION 08/21/19 18:45 08/25/19 10:35 Albuterol Sulfate (Proventil, Ventolin Hfa) 2 puff Q4H PRN INH wheezing 08/21/19 21:30 09/01/19 16:32 DC 09/01/19 08:05 Albuterol/ Ipratropium (Duoneb (Ipr 0.5mg/Alb 2.5mg)) 3 ml QID PRN INH SHORTNESS OF BREATH 08/21/19 21:30 09/01/19 16:32 DC 08/28/19 03:34 Amoxicillin/ Clavulanate Potassium (Augmentin) 875 mg BID PO 09/01/19 21:00 09/02/19 08:29 Buprenorphine/ Naloxone (Suboxone 8/2mg) 1 tab DAILY SL 08/22/19 09:00 09/01/19 08:00 Bupropion HCl (Wellbutrin Xl) 300 mg DAILY PO 08/22/19 16:00 09/02/19 08:29 Cetylpyridinium Chloride (Cepacol) 1 dax Q2HP PRN PO SORE THROAT 08/28/19 15:45 08/29/19 21:30 Fluoxetine HCl (PROzac) 20 mg DAILY PO 08/25/19 09:00 Cancel Fluoxetine HCl (PROzac) 20 mg QHS PO 08/25/19 21:00 09/01/19 20:39 Gabapentin (Neurontin) 600 mg QHS PO 08/22/19 21:00 Home Med (Med Rec Complete!) ASDIRECTED XX 08/21/19 17:45 08/21/19 17:45 DC Hydroxyzine HCl (Atarax) 50 mg Q4HP PRN PO ANXIETY/AGITATION 08/27/19 10:45 09/02/19 05:06 Levalbuterol HCl (Xopenex Neb) 1.25 mg Q2HP PRN INH SOB/WHEEZING 09/01/19 16:30 09/02/19 05:53 Levalbuterol HCl (Xopenex Neb) 1.25 mg RQID INH 09/01/19 16:00 09/02/19 08:05 Levofloxacin (Levaquin) 750 mg DAILY@1800 PO 08/30/19 18:00 09/01/19 14:28 DC 08/31/19 17:31 Castana Carbonate (Lithobid Cr) 600 mg DAILY PO 08/24/19 09:00 09/02/19 08:30 Magnesium Hydroxide (Milk Of Magnesia) 30 ml DAILYPRN PRN PO CONSTIPATION 08/21/19 18:45 Prazosin HCl (Minipress) 2 mg QHS PO 08/24/19 21:00 09/01/19 20:41 Prednisone (Deltasone) 5 mg DAILY PO 08/25/19 09:00 08/30/19 17:58 DC 08/30/19 08:11 Prednisone (Deltasone) 5 mg DAILY PO 08/31/19 09:00 09/01/19 16:32 DC 09/01/19 08:00 Prednisone (Deltasone) 10 mg DAILY PO 08/24/19 09:00 08/24/19 22:45 DC 08/24/19 09:06 Prednisone (Deltasone) 10 mg DAILY PO 09/10/19 09:00 09/12/19 09:01 Prednisone (Deltasone) 20 mg DAILY PO 09/07/19 09:00 09/09/19 09:01 Prednisone (Deltasone) 40 mg DAILY PO 09/04/19 09:00 09/06/19 09:01 Prednisone (Deltasone) 60 mg DAILY PO 09/01/19 09:00 09/03/19 09:01 09/02/19 08:29 Salmeterol Xinafoate/ Fluticasone (Advair Hfa 115/ 21) 2 puff BID INH 08/22/19 21:00 09/01/19 20:38 Tiotropium [place] (Spiriva Handihaler) 1 inhalation DAILY@08 INH 08/23/19 08:00 09/02/19 07:50 Trazodone HCl (Desyrel) 50 mg QHSP PRN PO INSOMNIA 08/21/19 18:45 Cancel Zolpidem Tartrate (Ambien) 5 mg QHSP PRN PO INSOMNIA 08/21/19 21:30 09/02/19 00:23 Allergies Coded Allergies: No Known Allergies (Verified , 12/07/17) SHAYY GANN DO Sep 02, 2019 08:54
[2019-09-02] MEDS ORDERED: ALBUTEROL 90 MCG/ACT 8GM HFA INHALER INH PRN (09:00)
[2019-09-02] MEDS: BUPRENORPHINE/NALOXONE 8-2MG SUBLINGUAL TABLET(SUBOXONE) SL SCH (09:54)
[2019-09-02] MEDS: ADVAIR HFA 115/21MCG INHALER INH SCH ×2 (09:54→20:17)
[2019-09-02 16:09] VITALS: BP 136/80
[2019-09-02 20:17] VITALS: BP 136/80
[2019-09-02] MEDS: GABAPENTIN 300 MG CAP PO SCH (20:17)
[2019-09-02] MEDS: FLUoxetine 20 MG CAP PO SCH (20:17)
[2019-09-02] MEDS: PRAZOSIN 1 MG CAP PO SCH (20:17)
[2019-09-02] MEDS: CEPACOL LOZENGE PO PRN (21:28)
[2019-09-03] MEDS: LEVALBUTEROL 1.25 MG/0.5 ML CONCENTRATE NEB INH PRN ×3 (00:34→06:20)
[2019-09-03 06:00] VITALS: BP 140/83
[2019-09-03] MEDS: hydrOXYzine 50 MG TAB PO PRN (06:30)
[2019-09-03] MEDS: ACETAMINOPHEN TAB 650MG DOSE (2X325MG) PO PRN (06:31)
[2019-09-03] MEDS: ADVAIR HFA 115/21MCG INHALER INH SCH (08:13)
[2019-09-03] MEDS: AUGMENTIN 875 MG TAB PO SCH (08:13)
[2019-09-03] MEDS: buPROPion **XL** TABLET 150MG (WELLBUTRIN XL) PO SCH (08:13)
[2019-09-03] MEDS: LITHIUM CARBONATE 300 MG **CR** TAB PO SCH (08:14)
[2019-09-03] MEDS: TIOTROPIUM INHALER/CAPSULE (SPIRIVA) INH SCH (08:14)
[2019-09-03] MEDS: predniSONE 20 MG TAB PO SCH (08:14)
[2019-09-03] MEDS: BUPRENORPHINE/NALOXONE 8-2MG SUBLINGUAL TABLET(SUBOXONE) SL SCH (08:14)
[2019-09-03] MEDS ORDERED: MEDR1TAB PO (08:43)
[2019-09-03] MEDS ORDERED: HYDR50TA70 PO (08:43)
[2019-09-03] MEDS ORDERED: LITH1TAB PO (08:43)
[2019-09-03] MEDS ORDERED: BUPR150T3 PO (08:43)
[2019-09-03] MEDS ORDERED: MINI1CAP PO (08:43)
[2019-09-03] MEDS ORDERED: FLUO20CA19 PO (08:43)
[2019-09-03] MEDS ORDERED: AMOX875T2 PO (08:43)
--- NOTE | 2019-09-03 08:44 | MHDSPDOC ---
[facility] Discharge Summary Discharge Summary DATE OF ADMISSION: Aug 21, 2019 at 6:39 pm DATE OF DISCHARGE: Sep 03, 2019 DISCHARGE DIAGNOSES: 1. Bipolar disorder, current episode depressed, severe REASON FOR ADMISSION: He is 48 years old, lives on his own, has a history of being depressed, says has been diagnosed with bipolar disorder, attends the outpatient [facility]). He was there yesterday, for a scheduled visit, was depressed, suicidal, with plans, says had thought of overdosing, and they asked him to come over here for admission. He says he has not been doing well for a while now, vague on this, possibly months, concerned about his deteriorating health, has chronic obstructive pulmonary disease (COPD) as well as emphysema, has been seeing pulmonology, Dr. Otto. He says he does not expect getting better and has felt hopeless, increasingly so lately, which has not helped. He stays on his own, says keeps to himself, and suggests he may have family in the area, but not much contact with them. He has been hospitalized in the past, had taken an overdose in the past, as well, and was admitted here last year, Dr. Rosenbegr saw him, please seen the summary for details. He is seen as an outpatient, at [facility], says is on lithium, is not sure of the dose, but he says he brought in a list from there, but somehow the staff has not been able to trace it. He thinks it may be 300 mg daily. He is also on Wellbutrin, has not taken it for the last couple of days, it was at 150 mg daily, and says doctor increased it to 300 mg daily, in the last few days, in the hope that it helps with his mood, as well as with stopping smoking. Says he continues to smoke, a few cigarettes a day. Seen for followup in the presence of staff. Says had a difficult night because of his breathing. Did receive a couple of treatments. Mood is low. Appetite fair. He does say he has had lithium, prednisone, prazosin, which he has not received here. We had tried finding out from the pharmacy yesterday and apparently he had not picked up any lithium since last October, but the patient suggests that he has been apparently getting it from a friend. Says gets the prednisone and the prazosin from the same friend as well. Suggests he himself has not had insurance, therefore had not got them, but that he has been taking them. CONSULTANTS INVOLVED: medicine and pulmonoogy for COPD exacerbation TEST RESULTS: see below. CHEST PA AND LATERAL: 08/30/2019: Clinical history: COPD with exacerbation. Comparison: Chest 06/05/2018, 08/14/2016; CT 08/16/2014. Findings: There is hyperinflation with flattening of the diaphragms, increased AP diameter and prominence of retrosternal clear space. A mild pectus carinatum appearance is suggested on the lateral view. There is emphysematous changes in the mid and upper lung zones. Some underlying minor fibrotic change and peribronchial thickening is noted that may reflect reactive airway disease or bronchitis. Some apical pleuroparenchymal scarring is again seen. This is unchanged. Heart size not enlarged. Aorta is normal for age. Airway intact. No widened mediastinum. The bony thorax shows no focal lesion. Impression: 1. COPD with pulmonary artery hypertension, emphysematous changes and fibrotic appearance. There is peribronchial thickening that may reflect bronchitis or reactive airway disease. No dense consolidation, effusion, edema or other acute finding. 2. Hyperinflation with increased AP diameter and prominence of the retrosternal clear space along with a pectus carinatum appearance. TREATMENT AND PROGRESS ON THE UNIT : Pt was admitted to [facility], seen for psychiatric assessment and restarted on his outpatient medication prazosin 2mg qhs, [place] 600mg qhs, suboxone 8/2 SL daily, gabapentin 600mg qhs, and ambien 5mg qhs. His Wellbutrin XL with increased to 300mg daily and he was started on prozac 20mg daily for mood. He was provided vistaril 5mg q6hr prn anxiety. Pt found his medications beneficial and tolerated them well. Pt was seen by medicine who consulted pulmonology regarding COPD exacerbation and they started him on nebulizer treaments daily, prednisone, and and antibiotic for gram neg bacteria found in his sputum and his symptoms of SOB improved with treatment. He attended groups daily during his stay. His depression symptoms improved with treatment. On day of discharge he denied depression, anxiety, insomnia, SI/HI, hallucinations, delusions. He was discharged home with follow-up at [facility]. He felt safe for discharge. DISCHARGE ASSESSMENT: Patient seen today and states he feels "fine, I'm breathing better," and is looking forward to going home today. States his depression has improved with treatment, denies SI, and feels like his medications for mood are beneficial and he's tolerating them well. States Vistaril helping his anxiety. Denies any nightmares and is sleeping well at night. He is tolerating the Wellbutrin, and feels that it with prozac are benefiting his mood. He has been attending and active in groups and finds them helpful. He denies depression, anxiety, insomnia, SI/HI, hallucinations, delusions. He felt safe for discharge home today. MENTAL STATUS EXAMINATION ON DISCHARGE: General Appearance: clean, appears older than stated age Build: average Demeanor: cooperative Eye Contact: fair Activity: trembling visibly when seen by myself but when not being seen by me was not trembling at all but sitting calmly Behavior: cooperative Speech: reg rate/rhythm/volume, clear Mood "fine" Affect: less anxious, euthymic, full Thought Process:linear/logical, intact Thought Content (Delusions): denies HI/AVH, positive passive SI with no plan/intent Thought Content (Other): none reported Thought Content (Aggressive): none reported Perception (Hallucinations): none reported Perception (Other): none reported Cognition (Impairment of): none reported Cognition(Intelligence Est.): average Oriented: Awake, Alert, Oriented times three Insight: fair-good Judgment: fair-good Psychosis: Denies MEDICATIONS ON DISCHARGE: Wellbutrin 300 mg daily prazosin 2mg qhs prozac 20mg qhs [place] 600mg qhs suboxone 8/2 SL daily gabapentin 600mg qhs ambien 5mg qhs vistaril 50mg q4hr prn anxiety Medical meds foro COPD exacerbation PLAN/FOLLOWUP ARRANGEMENTS: D/c home with follow-up at [facility]. The amount of time spent in the coordination of care for this patient was approximately 30 minutes. Vital Signs/I&Os Vital Signs Date Time Temp Pulse Resp B/P (MAP) Pulse Ox O2 Delivery O2 Flow Rate FiO2 09/03/19 06:00 98.3 97 18 140/83 (102) 09/03/19 00:10 Room Air 09/02/19 16:09 95 Laboratory Data Labs 24H Laboratory Tests 2 09/03/19 07:25: Bedside Glucose (Misc Panel) 120H Microbiology Microbiology 08/30/19 Blood Culture - Preliminary, Resulted No Growth after 72 hours. All specime... 08/29/19 Gram Stain - Final, Complete 08/29/19 Sputum Culture - Final, Complete Haemophilus Influenzae Medications Scheduled Buprenorphine HCl/Naloxone HCl (Suboxone 8 mg-2 mg Sl Film) 1 Each Film, 1 STRIP SL DAILY, (Reported) PT STATES IT HAS BEEN "A COUPLE DAYS" SINCE LAST DOSE Bupropion HCl (Bupropion Xl) 150 Mg Tab.er.24h, 150 MG PO DAILY, (Reported) Fluticasone/Vilanterol (Breo Ellipta 200-25 Mcg INH) 1 Inh Inh, 1 PUFF INH DAILY, (Reported) Gabapentin (Gabapentin) 300 Mg Capsule, 600 MG PO QHS, (Reported) Umeclidinium [place] (Incruse Ellipta) 62.5 Mcg/Inh Inh, 1 PUFF INH DAILY, (Reported) Scheduled PRN Albuterol Sulfate (Ventolin Hfa) 18 Gm Hfa.aer.ad, 2 PUFF INH Q4H PRN for wheezing, (Reported) Ipratropium/Albuterol Sulfate (Iprat-Albut 0.5-3(2.5) mg/3 ml) 1 Radha Radha, 1 VIAL INH QID PRN for SHORTNESS OF BREATH, (Reported) Zolpidem Tartrate (Zolpidem Tartrate) 5 Mg Tablet, 5 MG PO QHS PRN for SLEEP, (Reported) Miscellaneous Medications [Comments] , (Reported) PT IS A POOR HISTORIAN. MED REC TAKEN FROM [facility]. WHEN ASKED ABOUT WHEN A LAST DOSE WAS TAKEN HE COULD NOT REMEMBER. Allergies Coded Allergies: No Known Allergies (Verified , 12/07/17) SHAYY GANN DO Sep 03, 2019 8:44 am
[2019-09-04] MEDS ORDERED: predniSONE 20 MG TAB PO SCH (09:00)
[2019-09-07] MEDS ORDERED: predniSONE 20 MG TAB PO SCH (09:00)
[2019-09-10] MEDS ORDERED: predniSONE 10 MG TAB PO SCH (09:00)
== END 2019-09-03 11:45 | disposition home or self-care (01) | DRG 885 ==
LOC: M ED 13:16 → M ED INP 18:39 → M PSY 20:29
PROVIDERS: ADMIT Psychiatry & Neurology Psychiatry; ATTEND Psychiatry & Neurology Psychiatry
DX: F31.4 Bipolar disorder, current episode depressed, severe, without psychotic features (principal); R45.851 Suicidal ideations; J44.9 Chronic obstructive pulmonary disease, unspecified; Z60.9 Problem related to social environment, unspecified; Z91.5 Personal history of self-harm; Z79.899 Other long term (current) drug therapy; F17.210 Nicotine dependence, cigarettes, uncomplicated; Z91.14 Patient's other noncompliance with medication regimen; K21.9 Gastro-esophageal reflux disease without esophagitis; E78.5 Hyperlipidemia, unspecified; F11.11 Opioid abuse, in remission; Z79.891 Long term (current) use of opiate analgesic; F41.9 Anxiety disorder, unspecified; B96.3 Hemophilus influenzae [H. influenzae] as the cause of diseases classified elsewhere

== ENCOUNTER → 2019-11-17 | Outpatient (CLI) | payer MEDICAID, MEDICARE ==
[~2019-11-17] MED LIST changes: +BUPR-365 PO; +BUPR150T3 PO; +BUPR150T5; +COMMENTS; +FLUO20CA19 PO; +GABA-843 PO; +HYDR50TA70 PO; +MEDR1TAB PO; +MINI1CAP PO; +OMEP-172 PO; -OMEP20CA4 PO; +PRAZ2CAP; +VENTAER INH; +ZOLP5TAB PO; +[UNRECOGNIZED DRUG - OTHER]
--- NOTE | 2019-11-17 13:11 | REP ---
CT CHEST WITHOUT IV CONTRAST: CT chest performed without IV contrast. Sagittal and coronal reconstruction images are performed. Comparison made with prior study 08/16/2014. Once again there are scattered areas of pleural thickening similar to prior exam, predominantly in the apices bilaterally. There are areas of parenchymal scarring which for the most part appear unchanged. There is diffuse bronchiectasis. There is diffuse mild thickening of the [place] of the bronchioles. Inspissated secretions are seen in peripheral left lower lobe bronchioles, but this has improved since the prior study. There is mild increase in the mild interstitial parenchymal opacities in the left lower lobe. No suspicious nodule or mass is seen. No definite mediastinal adenopathy or axillary adenopathy is seen. Thoracic aorta is normal in caliber with no aneurysm. There is no evidence of cardiomegaly. There is no pleural or pericardial effusion. There is increased AP diameter of the chest again noted. Visualized upper abdominal structures are grossly unremarkable. IMPRESSION: No suspicious mass or adenopathy identified. Chronic pleural and parenchymal changes in both lungs with bronchiectasis. For the most part these findings are stable. However, there is decreased amount of inspissated secretions in the dilated left lower lobe bronchioles. There is mild increase in the mild left lower lobe interstitial opacities. Electronically Signed by Roman Spear MD 11/17/2019 04:23 P
== END ==
LOC: M RAD 09:50
PROVIDERS: ATTEND Internal Medicine Pulmonary Disease
DX: R63.4 Abnormal weight loss (principal); J47.9 Bronchiectasis, uncomplicated

== ENCOUNTER → 2019-11-26 | Outpatient (CLI) | payer MEDICARE ==
[2019-12-02 00:10] LABS: ASPERGILLUS FLAVUS ABY Negative (Neg:<1:1); ASPERGILLUS FUMIGATUS ABY Negative (Neg:<1:1); ASPERGILLUS NIGER ABY Negative (Neg:<1:1)
[2019-12-04 00:06] LABS: A1A FOR PHENOTYPE 149 mg/dL (101-187)
== END ==
LOC: M LAB 12:11
PROVIDERS: ATTEND Internal Medicine Pulmonary Disease
DX: J43.1 Panlobular emphysema (principal)

== ENCOUNTER → 2020-01-07 | Outpatient (CLI) | payer MEDICARE ==
[~2020-01-07] MED LIST changes: -BUPR300T34 PO; +BUPR300T92 PO; -OMEP-172 PO; +OMEP1CAP73 PO
[2020-01-07 12:05] LABS: HEMATOCRIT 41.7 % (42.0-52.0); HEMOGLOBIN 12.5 g/dl (13.5-17.5); MEAN CORPUSCULAR HEMOGLOBIN 28.9 pg (27.0-33.0); MEAN CORPUSCULAR VOLUME 96.5 fl (80.0-96.0); PLATELET COUNT, AUTOMATED 329 10^3/uL (150-450); RED BLOOD COUNT 4.32 10^6/uL (4.30-6.10); WHITE BLOOD COUNT 15.2 10^3/uL (4.0-10.0)
[2020-01-07 12:55] LABS: ALT/SGPT 18 U/L (12-78); BILIRUBIN,TOTAL 0.4 MG/DL (0.2-1.0); BLOOD UREA NITROGEN 21 MG/DL (7-18); CALCIUM LEVEL 9.3 MG/DL (8.5-10.1); CARBON DIOXIDE LEVEL 30 MEQ/L (21-32); CHLORIDE LEVEL 101 MEQ/L (98-107); CREATININE FOR GFR 0.78 MG/DL (0.70-1.30); GLOMERULAR FILTRATION RATE > 60.0 (>56); GLUCOSE, FASTING 88 MG/DL (70-100); POTASSIUM SERUM 4.8 MEQ/L (3.5-5.1); SODIUM LEVEL 137 MEQ/L (136-145); TOTAL PROTEIN 7.6 GM/DL (6.4-8.2)
[2020-01-07 13:33] LABS: CHLAMYDIA DNA AMPLIFICATION NEGATIVE (NEGATIVE); GC DNA AMPLIFICATION NEGATIVE (NEGATIVE)
[2020-01-08 13:17] LABS: HEPATITIS B SURFACE ANTIGEN NEGATIVE (NEGATIVE)
[2020-01-08 13:45] LABS: HEPATITIS C VIRUS ABY INDEX < 0.0 INDEX (<0.8)
[2020-01-08 13:46] LABS: HIV 1&2 SCREEN CENTAUR NEGATIVE (NEGATIVE)
--- NOTE | 2020-01-08 20:05 | ECGEPIP ---
[facility] Test Date: 2020-01-07 Pat Name: FLOYD BE Department: Room: - Gender: Male Director Blood Bank: TATIANA : 1970 Requested By: Roman Garcia Order Number: [id number] Reading MD: Jaimie Woo Measurements Intervals [place] Rate: 77 P: 85 GA: 151 QRS: -87 QRSD: 87 T: 72 QT: 383 QTc: 435 Interpretive Statements SINUS RHYTHM WITH OCCASIONAL SUPRAVENTRICULAR PREMATURE COMPLEXES MARKED LEFT AXIS DEVIATION POOR R WAVE PROGRESSION SIMILAR TO 07/15/18 Electronically Signed on 01-08-2020 20:05:34 EST by Jaimie Woo
== END ==
LOC: M LAB 10:28
PROVIDERS: ATTEND Family Medicine
DX: F11.20 Opioid dependence, uncomplicated (principal); I49.1 Atrial premature depolarization

== ENCOUNTER 2021-03-20 13:18 | Inpatient (IN) | payer MEDICARE ==
[2021-03-20] VITALS (8 sets, daily range): BP systolic 119–138; BP diastolic 75–98
[~2021-03-20] VITALS: Ht 182.9 cm; Wt 59.0 kg
[~2021-03-20 13:18] MED LIST changes: +BUPR150T12 PO; -BUPR150T3 PO; -FLUO20CA19 PO; +FLUO20CA22 PO; +GABA-282 PO; -GABA-843 PO; +MONT10TA10 PO; -MONT10TA2 PO; +PANT40TA29 PO; -PANT40TA3 PO; +QUET100T2 PO; -QUET1TAB10 PO; -QUET1TAB8 PO; +QUET300T2 PO; +QUET50TA3 PO; -QUET5TAB PO
[2021-03-20] MEDS ORDERED: PRED10TA2 PO (14:07)
[2021-03-20] MEDS ORDERED: CEFD1CAP8 (14:07)
[2021-03-20 14:10] LABS: BASO # 0.1 10^3/uL (0.0-0.2); BASO % 0.7 % (0.0-1.0); EOS # 0.6 10^3/uL (0.0-0.5); EOS % 5.7 % (0.0-3.0); HEMATOCRIT 49.8 % (42.0-52.0); HEMOGLOBIN 15.3 g/dl (13.5-17.5); LYMPH # 1.7 10^3/uL (1.5-5.0); LYMPH % 16.2 % (24.0-44.0); MEAN CORPUSCULAR HEMOGLOBIN 30.1 pg (27.0-33.0); MEAN CORPUSCULAR HGB CONC 30.7 g/dl (32.0-36.5); MEAN CORPUSCULAR VOLUME 97.8 fl (80.0-96.0); MONO # 0.6 10^3/uL (0.0-0.8); MONO % 5.6 % (2.0-8.0); NEUTROPHILS # 7.5 10^3/uL (1.5-8.5); NEUTROPHILS % 71.4 % (36.0-66.0); PLATELET COUNT, AUTOMATED 293 10^3/uL (150-450); RED BLOOD COUNT 5.09 10^6/uL (4.30-6.10); WHITE BLOOD COUNT 10.5 10^3/uL (4.0-10.0)
--- NOTE | 2021-03-20 14:15 | REP ---
INDICATION: DYSPNEA/COUGH COMPARISON: 08/30/2019 TECHNIQUE: Portable AP view of the chest FINDINGS: Advanced chronic COPD/emphysematous changes with scattered scarring. Left-sided pneumothorax with contralateral mediastinal shift versus large left-sided bullae cannot be excluded or differentiated. IMPRESSION: 1. Advanced COPD/emphysematous changes. 2. Findings suspicious for irregular large left pneumothorax with suspected contralateral mediastinal shift. <Electronically signed by Sudheer Jaeger > 03/20/21 [id number]
[2021-03-20 14:42] LABS: ALBUMIN 3.3 GM/DL (3.2-5.2); ALT/SGPT 23 U/L (12-78); BILIRUBIN,DIRECT 0.1 MG/DL (0.0-0.2); BILIRUBIN,TOTAL 0.4 MG/DL (0.2-1.0); BLOOD UREA NITROGEN 22 MG/DL (7-18); CALCIUM LEVEL 8.7 MG/DL (8.5-10.1); CARBON DIOXIDE LEVEL 32 MEQ/L (21-32); CHLORIDE LEVEL 106 MEQ/L (98-107); CK-MB VALUE MASS 12.6 NG/ML (<3.6); CPK CREATINE PHOSPHOKINASE 113 U/L (39-308); GLOMERULAR FILTRATION RATE > 60.0 (>56); GLUCOSE, FASTING 118 MG/DL (70-100); MB/CK RELATIVE INDEX 11.15 (< OR =4); POTASSIUM SERUM 4.7 MEQ/L (3.5-5.1); SODIUM LEVEL 140 MEQ/L (136-145); TOTAL PROTEIN 6.9 GM/DL (6.4-8.2); TROPONIN I < 0.02 NG/ML (< 0.10)
[2021-03-20] MEDS ORDERED: BUPRENORPHINE/NALOXONE 8-2MG SUBLINGUAL TABLET(SUBOXONE) SL STA (14:44)
--- NOTE | 2021-03-20 15:44 | ECGEPIP ---
[facility] - ED Test Date: 2021-03-20 Pat Name: FLOYD BE Department: Room: - Gender: Male [employer]: ALFREDA : [id number] Requested By: Rome Leiva Order Number: [id number] Reading MD: Tejas Patten Measurements Intervals [place] Rate: 97 P: 84 HI: 128 QRS: 259 QRSD: 72 T: 73 QT: 352 QTc: 447 Interpretive Statements Normal sinus rhythm Delayed anterior R wave progression Similar to tracing done 01-07-20 Electronically Signed on 03-20-2021 15:44:23 EDT by Tejas Patten
[2021-03-20] MEDS ORDERED: ISOVUE-370 76% 100ML VIAL As Ordered ONE (15:52)
--- NOTE | 2021-03-20 16:31 | REP ---
INDICATION: further evaluate SOB; ?left pneumothorax COMPARISON: None TECHNIQUE: Axial contrast enhanced images from the thoracic inlet to the upper abdomen with coronal and sagittal reformations using 75 ml Isovue 370 intravenous contrast material. This CT examination was performed using the following dose reduction techniques: Automated exposure control, adjustment of mA and/or kv according to the patient's size, and use of iterative reconstruction technique. FINDINGS: There is a large left pneumothorax with mild contralateral mediastinal shift. Lung pedraza demonstrate diffuse underlying chronic COPD/emphysematous changes with scattered bronchiectasis and scarring/interstitial changes. Mediastinum demonstrates atherosclerotic changes to the thoracic aorta and coronary arteries without aortic aneurysm, dissection or cardiomegaly. No pericardial effusion. No significant axillary, hilar, or mediastinal adenopathy. Musculoskeletal structures appear intact. IMPRESSION: 1. Large left pneumothorax with mild contralateral mediastinal shift. 2. Underlying diffuse chronic COPD/emphysematous changes with scattered bronchiectasis, scarring and interstitial changes. <Electronically signed by Sudheer Jaeger > 03/20/21 [id number]
[2021-03-20] MEDS ORDERED: BISACODYL 10 MG SUPP PR PRN (16:55)
[2021-03-20] MEDS ORDERED: ONDANSETRON 4MG/2ML VIAL IV PRN (16:55)
[2021-03-20] MEDS ORDERED: LEVALBUTEROL 1.25 MG/0.5 ML CONCENTRATE NEB NEB PRN (16:55)
[2021-03-20] MEDS ORDERED: PERCOCET 5MG/325MG TAB PO PRN ×2 (16:55)
[2021-03-20] MEDS ORDERED: KCL 20MEQ IN D5/NS 1000ML 1,000 ML IV SCH (16:55)
[2021-03-20] MEDS ORDERED: NORCO, ANEXSIA 5/325MG TABLET (HYDROcodone/ACETAMINOPHEN) PO PRN (16:55)
[2021-03-20] MEDS ORDERED: flumazeniL 0.5 MG/5 ML VIAL As Ordered ONE (17:15)
[2021-03-20] MEDS ORDERED: MIDAZOLAM INJ 2MG/2ML VIAL (J2250 PER 1MG) As Ordered ONE (17:16)
[2021-03-20] MEDS ORDERED: LIDOCAINE 1% MDV 20ML VIAL As Ordered ONE (17:17)
[2021-03-20 17:26] LABS: ABG BASE EXCESS 4.2 (-2.0-2.0); ABG HCO3 33.8 MEQ/L (22.0-26.0); ABG O2 SATURATION 93.9 % (95.0-99.0); ABG PARTIAL PRESSURE O2 76.4 mmHg (75.0-100.0); ABG STANDARD HCO3 28.1 MEQ/L (22.0-26.0); ABG TOTAL CO2 36.2 MEQ/L (22.0-29.0); ABG pH (ARTERIAL) 7.266 UNITS (7.350-7.450)
[2021-03-20 17:28] LABS: ABG PARTIAL PRESSURE CO2 76.1 mmHg (35.0-45.0)
[2021-03-20] MEDS ORDERED: LIDOCAINE 1% MDV 20ML VIAL SC ONE (18:05)
[2021-03-20] MEDS ORDERED: MIDAZOLAM INJ 2MG/2ML VIAL (J2250 PER 1MG) IV ONE (18:05)
[2021-03-20] MEDS: KETOROLAC 30 MG/ML 1ML VIAL IV SCH (18:31)
--- NOTE | 2021-03-20 18:45 | REP ---
INDICATION: after chest tube inserrtion COMPARISON: 03/20/2021 at 1:59 p.m. TECHNIQUE: Portable AP view of the chest FINDINGS: A left-sided chest tube has been placed and there has been subsequent re-expansion to the previously noted large left pneumothorax with normal position to the mediastinal structures. Diffuse chronic COPD/emphysematous changes are noted. Left lower lobe/retrocardiac atelectasis cannot be excluded. No effusion. Skeletal structures intact. IMPRESSION: 1. Left chest tube placement with resolution to the previous left pneumothorax. 2. Chronic COPD/emphysematous changes. Cannot exclude left lower lobe/retrocardiac atelectasis. <Electronically signed by Sudheer Jaeger > 03/20/21 [id number]
[2021-03-20] MEDS: ADVAIR HFA 115/21MCG INHALER INH SCH (20:00)
[2021-03-20] MEDS: LEVALBUTEROL 1.25 MG/0.5 ML CONCENTRATE NEB NEB SCH (20:20)
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
[2021-03-20] MEDS: HEPARIN SOD (PORCINE) 5000UNITS/ML 1ML VIAL/SYRINGE SC SCH (20:30)
[2021-03-20] MEDS: DOCUSATE SODIUM 100MG CAPSULE PO SCH (20:31)
[2021-03-20] MEDS ORDERED: FLUoxetine 20 MG CAP PO SCH (21:00)
[2021-03-21] VITALS (7 sets, daily range): BP systolic 118–131; BP diastolic 55–78
[2021-03-21] MEDS: KETOROLAC 30 MG/ML 1ML VIAL IV SCH ×4 (00:45→18:00)
[2021-03-21] MEDS: LEVALBUTEROL 1.25 MG/0.5 ML CONCENTRATE NEB NEB SCH ×4 (01:40→20:00)
[2021-03-21 05:54] LABS: BASO # 0.1 10^3/uL (0.0-0.2); BASO % 0.9 % (0.0-1.0); EOS # 0.9 10^3/uL (0.0-0.5); EOS % 7.7 % (0.0-3.0); HEMATOCRIT 48.3 % (42.0-52.0); HEMOGLOBIN 14.4 g/dl (13.5-17.5); LYMPH # 2.1 10^3/uL (1.5-5.0); LYMPH % 18.3 % (24.0-44.0); MEAN CORPUSCULAR HEMOGLOBIN 29.5 pg (27.0-33.0); MEAN CORPUSCULAR HGB CONC 29.8 g/dl (32.0-36.5); MONO # 1.1 10^3/uL (0.0-0.8); MONO % 9.6 % (2.0-8.0); NEUTROPHILS # 7.1 10^3/uL (1.5-8.5); NEUTROPHILS % 63.2 % (36.0-66.0); PLATELET COUNT, AUTOMATED 262 10^3/uL (150-450); RED BLOOD COUNT 4.88 10^6/uL (4.30-6.10); WHITE BLOOD COUNT 11.2 10^3/uL (4.0-10.0)
[2021-03-21 06:14] LABS: BLOOD UREA NITROGEN 21 MG/DL (7-18); CALCIUM LEVEL 8.2 MG/DL (8.5-10.1); CARBON DIOXIDE LEVEL 36 MEQ/L (21-32); CHLORIDE LEVEL 105 MEQ/L (98-107); CREATININE FOR GFR 0.71 MG/DL (0.70-1.30); GLOMERULAR FILTRATION RATE > 60.0 (>56); GLUCOSE, FASTING 101 MG/DL (70-100); POTASSIUM SERUM 5.1 MEQ/L (3.5-5.1); SODIUM LEVEL 140 MEQ/L (136-145)
[2021-03-21] MEDS: TIOTROPIUM INHALER/CAPSULE (SPIRIVA) INH SCH (08:00)
[2021-03-21] MEDS: ADVAIR HFA 115/21MCG INHALER INH SCH ×2 (08:14→20:27)
--- NOTE | 2021-03-21 08:19 | REP ---
INDICATION: after chest tube inserrtion COMPARISON: 03/20/2021 TECHNIQUE: PA and lateral. FINDINGS: Left-sided chest tube in stable position. Satisfactory re-expansion to the left hemithorax without obvious residual pneumothorax. Diffuse bilateral COPD/emphysematous changes noted. No obvious effusion. Mediastinum and cardiac silhouette stable. IMPRESSION: 1. No obvious residual left pneumothorax. 2. Advanced chronic diffuse COPD/emphysematous disease. <Electronically signed by Sudheer Jaeger > 03/21/21 [id number]
--- NOTE | 2021-03-21 08:29 | CR ---
CONSULTATION DATE: 03/20/2021 REASON FOR CONSULTATION: The patient is seen at the request of the emergency room for a pneumothorax. I received a call and I was told that he was in stable condition. When I got to see him, he was in near respiratory arrest hardly able to speak in half sentences. I immediately placed a chest tube in him with relief of his extreme dyspnea. As a result, the history is abbreviated. HISTORY OF PRESENT ILLNESS: Mr. Ni is a 50-year-old white male who in actuality is not very cooperative; however, I suspect it is because he is very short of breath. I asked him what happened to him today and he said he could not breathe. I then asked him how long has that been going on and he said since 1967. He would not elaborate any further on that. He also has accompanying chest pain, which he says has been around for a couple of weeks. He is brought to the emergency room by EMS upon the request of his brother. On chest x-ray, he has a pneumothorax with a mediastinal shift to the right. He denies fevers, chills, or sweats. He looks cachectic, but denies weight loss. PAST MEDICAL HISTORY: 1. Psychiatric history of bipolar disorder with depression. 2. Narcotic drug abuse now on Suboxone. 3. COPD. 4. Asthma by his mother's report. PAST SURGICAL HISTORY: None that he recalls. HABITS: Smokes cigarettes all of his life he says now four to five a day. Denies alcohol intake. Denies current use of illicit drugs. EMPLOYMENT HISTORY: He worked as a [employer] for nearly 40 years. 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 No convincing asbestos exposure. ALLERGIES: None. EXPOSURES: No dogs, birds, or cats at home. TRAVEL HISTORY: Not taken. HOME MEDICATIONS: 1. Ventolin two puffs q. 4 hours p.r.n. wheezing. 2. Suboxone 8 mg film one strip q. day. 3. Bupropion XL 300 mg q. day. 4. Cefdinir 300 mg given in the emergency room. 5. Fluoxetine 20 mg q. h.s. 6. Breo Ellipta 200/25 one puff q. day. 7. Ipratropium. 8. Albuterol one nebulizer q.i.d. p.r.n. shortness of breath. 9. Methylprednisolone 4 mg q. day for five days. 10. Prednisone 10 mg q. day as a new order. 11. Incruse Ellipta 62.5 mg inhaled one q. day. FAMILY HISTORY: Not pertinent to the acute situation. REVIEW OF SYSTEMS: Not obtainable. PHYSICAL EXAMINATION: GENERAL: An underweight cachectic white male in severe respiratory distress. Not able to speak in full sentences. VITAL SIGNS: Heart rate of 82 in a sinus rhythm. Respiratory rate that is recorded as 22, but it is more like 40. Blood pressure is 148/86. He is 97% saturated on 2 liters nasal cannula and his temperature is 95.8. HEAD: Normocephalic. EYES: Pupils equal, round, reactive to light. Extraocular movements intact. Sclerae nonicteric. NOSE: Without deformity. MOUTH: Edentulous. Mucous membranes are pink and moist. Lips and commisures without lesions and no thrush. NECK: Supple. There is no jugular venous distention and no subcutaneous emphysema. Trachea is midline. He has 2+ carotid upstrokes. LUNGS: Show markedly decreased breath sounds on the left side with expiratory wheezing on both sides. His chest is hyperresonant to percussion on both sides, more on the left than the right. CARDIAC: Shows distant heart sounds. I cannot feel his PMI. S1, S2 are normal. Her has pectus carinatum. ABDOMEN: Soft and nontender. Bowel sounds are hypoactive, but positive. EXTREMITIES: Show no pretibial edema and no calf tenderness. SKIN: Cool, but dry with some mottling around the knees. NEUROLOGIC: Shows 2 through 12 intact. Normal gross motor. Gross sensation intact. Gait is not tested. PSYCHIATRIC: Shows him to be in acute respiratory distress and fairly uncooperative with regards to giving me a history. INVESTIGATIONS: White count is 10.5 with a hemoglobin and hematocrit of 15.3 and 49.8 with a platelet count of 293,000. Differential shows 31% neutrophils, 16% lymphocytes, and 5% monocytes. There are no immature forms and no toxic granulations. Electrolytes are normal with a BUN and creatinine of 22 and 0.70. Calcium is 8.7 with an albumin of 3.3. Blood gases after the chest tube shows a pH of 7.26, pCO2 of 76, pO2 of also 76 with base excess of 4.2. Chest x-ray shows a left-sided pneumothorax with a mediastinal shift to the right with hyperinflated lungs. Chest CT was obtained in the emergency room, which confirms the pneumothorax on the right side. He has numerous emphysematous and bullous changes. There is compression of vessels on the left side secondary to the pneumothorax and lung compression. The pectus carinatum is well seen on the CT scan. IMPRESSION: 1. Near respiratory failure. 2. Tension pneumothorax. 3. Emphysema. 4. Probable chronic obstructive pulmonary disease (COPD). 5. History of narcotic drug abuse now on Suboxone. 6. Bipolar disorder. PLAN AND DISCUSSION: I will place a chest tube immediately. We will treat him with nebulizers. Depending upon how long he has been on his prednisone, I would like to discontinue that unless it has been a long time and then it will have to be weaned. It will only interfere with the inflammatory response that I will need for the chest tube to adhere to the chest wall. I think this is his first pneumothorax and hopefully this will seal and he will escape a trip to the operating room.
--- NOTE | 2021-03-21 08:38 | RO ---
OPERATIVE NOTE DATE OF OPERATION: 03/20/2021 PREPROCEDURE DIAGNOSIS: Left tension pneumothorax. POSTPROCEDURE DIAGNOSIS: Left tension pneumothorax. PROCEDURE: Insertion of an anterior-superior chest tube with conscious sedation. SURGEON: Jordan Lynne M.D. HADOOP DEVELOPER: None. ANESTHESIA: Conscious sedation 2 mg Versed. DESCRIPTION OF PROCEDURE: Under satisfactory conscious sedation achieved with 2 mg of Versed, the patient was prepped and draped in the usual sterile fashion. Incision was made over the second rib with a tunnel being created into the first intercostal space. A large hiss of air was obtained after creating the tunnel. A #20 chest tube was placed without difficulty. It was secured to the chest wall with a #2 Tevdek suture and attached to the Pleur-Evac. There was a very large air leak, which after the first gush continued. The patient tolerated the procedure well and a chest x-ray is pending.
[2021-03-21] MEDS ORDERED: BUPRENORPHINE/NALOXONE 8-2MG SUBLINGUAL TABLET(SUBOXONE) SL SCH (09:00)
[2021-03-21] MEDS ORDERED: buPROPion **XL** TABLET 150MG (WELLBUTRIN XL) PO SCH (09:00)
[2021-03-21] MEDS: DOCUSATE SODIUM 100MG CAPSULE PO SCH ×2 (09:47→21:00)
[2021-03-21] MEDS: PANTOPRAZOLE 40MG TAB (PROTONIX) PO SCH (09:47)
[2021-03-21] MEDS: MOM 30ML SUSPENSION UDC PO SCH (09:47)
[2021-03-21] MEDS: HEPARIN SOD (PORCINE) 5000UNITS/ML 1ML VIAL/SYRINGE SC SCH ×2 (09:48→20:11)
--- NOTE | 2021-03-21 16:34 | IPN ---
PROGRESS NOTE DATE: 03/21/2021 Mr. Ni continues to have an air leak. It is fairly significant. Looks to be continuous. He is complaining of pain at the chest tube insertion site. He is taking minimal pain medications for it, however, and refusing them. His vital signs show a maximum temperature of 98.5 with a heart rate that ranges between 70-83 in a sinus rhythm, respiratory rate of 18-22 without the use of accessory muscles, who is 92%-100% saturated on 2 liters nasal cannula and whose blood pressure is ranging between 130/67 to 118/55. His intake and output for the past 24 hours has been recorded as 475 in and nothing out. He has not put out anything from the chest tube up until 12 midnight and only 15 mL since midnight. His weight today is 58.8 kg compared to 73.73 kg yesterday. I think one of the weighs is spurious. PHYSICAL EXAMINATION: He has bilateral wheezing, particularly during expiration, on either side. Percussion note is full to the diaphragm. Cardiac exam is without murmurs, clicks, gallops, or rubs. I cannot feel his point of maximal impulse (PMI). S1 and S2 are normal. Abdomen is soft and nontender. Bowel sounds are positive. There is no hepatomegaly. No costovertebral angle (CVA) tenderness. Extremities show no pretibial edema, no calf tenderness, no differential swelling of the upper extremities. Skin is warm, dry, and perfused without cyanosis or mottling, including that of the nailbeds and knees. Neck is supple. There is no jugular venous distention. No subcutaneous emphysema. Trachea is midline. Mouth shows the mucous membranes to be pink and moist. Lips and commissures without lesions. No thrush. Eyes show his pupils to be equal and reactive. Extraocular motion intact. Sclerae anicteric. Neurologic shows II-XII intact. Normal gross motor, gross sensation intact. Gait is not tested. Psychiatric shows him to be awake, alert, and oriented times three with appropriate mood and affect and conversational. His white count today is 11.2 with hemoglobin and hematocrit of 14.4 and 48.3, respectively. Platelet count is 262. Differential shows 63% neutrophils, 18% lymphocytes, and 9% monocytes. There are no immature forms or toxic granulations. He does have an eosinophilia of 7.7. Electrolytes are normal with a total CO2 elevated to 36. BUN and creatinine are 21 and 0.71 with a glucose of 101 and a calcium of 8.2. His blood gases were not drawn today, I suspect because he probably refused. His chest x-ray showed his lung fully expanded to the chest wall. There is not a lot of parenchymal tissue left in his lungs, either on the right or the left side, more in the left than the right, however. He has post compression atelectasis in the upper left hemithorax. I see no subcutaneous emphysema. IMPRESSION: 1. Spontaneous pneumothorax, left side, resolve with chest tube. 2. Bronchopleural fistula, continuing. 3. Psychiatric history of bipolar disorder with depression. 4. Narcotic drug abuse, now on Suboxone. 5. Chronic obstructive pulmonary disease (COPD). PLAN AND DISCUSSION: I will continue him on suction. I have indicated to him today that I will give him 5 days to stop the leak, and if not my hand will be forced to take him to the operating room. I will obtain a CT of his chest tomorrow to look at the underlying parenchyma. Judging from his overall attitude, I do not think he is going to be a very cooperative patient. I have asked the nurses to place the pulsatile sequential stockings on him. He still has his jeans on from yesterday.
[2021-03-21] MEDS ORDERED: BUPRENORPHINE/NALOXONE 8-2MG SUBLINGUAL TABLET(SUBOXONE) SL ONE (18:20)
--- NOTE | 2021-03-21 20:22 | IPNPDOC ---
Subjective Date Seen The patient was seen on 03/21/21. Subjective Chief Complaint/HPI Mr. Ni is a 50 year old long time smoker who presents with worsening dyspnea. Patient was seen in the morning. He tells me he feels able the same. Otherwise, he has a leak. Dr. Lynne is aware. Will be watching for 5 days before deciding on OR. Objective Physical Examination General Exam: Positive: Alert Eye Exam: Positive: EOMI; Negative: Sclera icteric ENT Exam: Positive: Atraumatic Neck Exam: Positive: Supple Chest Exam: Positive: Other (course) Heart Exam: Positive: Tachycardic, Regular Rhythm Abdomen Exam: Negative: Soft (gaurding) Extremity Exam: Negative: Edema Neuro Exam: Positive: Normal Speech, Strength at 5/5 X4 ext, Cranial Nerves 3- 12 NL Psych Exam: Positive: Mental status NL, Anxiety Assessment /Plan Assessment Mr. Ni is a 50 year old long time smoker who presents with worsening dyspnea and found to have a large left pneumothorax. Patient is a long time smoker and has blebs which may have caused his pneumothorax. Dr. Lynne has been consulted and placed a chest tube on 03/20/2021. If he continues to have a leak for 5 days, he may need to go down to the OR. Plan/VTE VTE Prophylaxis Ordered?: Yes Plan 1. Large right pneumothorax -Dr. Lynne consulted, recommendations appreciated -Chest tube placed on 03/20/2021 -CXR daily 2. Opioid abuse -Continue Suboxone 3. COPD -Substitute Breo Ellipta with Advair -Substitute Incruse Ellipta with Spiriva -Xopenex as needed 4. Anxiety/Depression -Continue Bupropion and Fluoxetine 5. DVT ppx -Heparin subQ Disposition: pending clinical improvement. May need to go to OR if continues to leak for 5 days VS, I&O, 24H, Fishbone Vital Signs/I&O Vital Signs Date Time Temp Pulse Resp B/P (MAP) Pulse Ox O2 Delivery O2 Flow Rate FiO2 03/21/21 19:21 98.0 82 19 129/71 (90) 95 Nasal Cannula 4.0 I&O- Last 24 Hours up to 6 AM 03/21/21 06:00 Intake Total 1275 ml Output Total 0 ml Balance 1275 ml Laboratory Data 24H LABS Laboratory Tests 2 03/21/21 05:33: Immature Granulocyte % (Auto) 0.3, Neutrophils (%) (Auto) 63.2, Lymphocytes (%) (Auto) 18.3L, Monocytes (%) (Auto) 9.6H, Eosinophils (%) (Auto) 7.7H, Basophils (%) (Auto) 0.9, Neutrophils # (Auto) 7.1, Lymphocytes # (Auto) 2.1, Monocytes # (Auto) 1.1H, Eosinophils # (Auto) 0.9H, Basophils # (Auto) 0.1, Nucleated Red Blood Cells % (auto) 0.0, Anion Gap , Glomerular Filtration Rate > 60.0, Calcium Level 8.2L CBC/BMP Laboratory Tests 03/21/21 05:33 Microbiology Microbiology 03/20/21 Respiratory Virus Panel (PCR) ([facility]) - Final, Complete MASTER DAVALOS DO Mar 21, 2021 20:22
[2021-03-21 22:20] LABS: ABG BASE EXCESS 9.4 (-2.0-2.0); ABG HCO3 39.4 MEQ/L (22.0-26.0); ABG O2 SATURATION 98.5 % (95.0-99.0); ABG STANDARD HCO3 33.2 MEQ/L (22.0-26.0); ABG TOTAL CO2 41.9 MEQ/L (22.0-29.0); ABG pH (ARTERIAL) 7.292 UNITS (7.350-7.450)
--- NOTE | 2021-03-21 22:23 | REPVR ---
PROCEDURE INFORMATION: Exam: XR Chest Exam date and time: 03/21/2021 10:14 PM Age: 50 years old Clinical indication: Other: Hypoxia TECHNIQUE: Imaging protocol: XR of the chest. Views: 1 view. COMPARISON: CR Chest, 2 view PA, Lat 03/21/2021 7:52 AM FINDINGS: Tubes, catheters and devices: Left chest tube extending into the left thoracic apex is unchanged. Lungs: Pulmonary interstitial scarring is unchanged. Small airspace infiltrate in the left mid lung zone is unchanged. Pleural spaces: No pneumothorax. Heart/Mediastinum: No cardiomegaly. Bones/joints: Unremarkable. IMPRESSION: Stable chest. No residual pneumothorax. Electronically signed by: Tima Lewis On 03/21/2021 22:23:04 PM
[2021-03-21 22:25] LABS: ABG PARTIAL PRESSURE CO2 83.4 mmHg (35.0-45.0)
[2021-03-22] MEDS: LEVALBUTEROL 1.25 MG/0.5 ML CONCENTRATE NEB NEB SCH ×4 (02:19→20:00)
[2021-03-22 04:00] VITALS: BP 137/88
[2021-03-22] MEDS: KETOROLAC 30 MG/ML 1ML VIAL IV SCH ×4 (06:08→18:12)
[2021-03-22 06:09] LABS: BASO # 0.1 10^3/uL (0.0-0.2); BASO % 0.4 % (0.0-1.0); EOS % 6.5 % (0.0-3.0); HEMATOCRIT 46.1 % (42.0-52.0); HEMOGLOBIN 13.7 g/dl (13.5-17.5); LYMPH # 1.7 10^3/uL (1.5-5.0); MEAN CORPUSCULAR HEMOGLOBIN 29.8 pg (27.0-33.0); MEAN CORPUSCULAR HGB CONC 29.7 g/dl (32.0-36.5); MEAN CORPUSCULAR VOLUME 100.2 fl (80.0-96.0); MONO % 6.6 % (2.0-8.0); NEUTROPHILS # 11.2 10^3/uL (1.5-8.5); NEUTROPHILS % 75.1 % (36.0-66.0); PLATELET COUNT, AUTOMATED 262 10^3/uL (150-450)
[2021-03-22 06:33] LABS: BLOOD UREA NITROGEN 18 MG/DL (7-18); CALCIUM LEVEL 8.9 MG/DL (8.5-10.1); CARBON DIOXIDE LEVEL 35 MEQ/L (21-32); CHLORIDE LEVEL 100 MEQ/L (98-107); CREATININE FOR GFR 0.63 MG/DL (0.70-1.30); GLOMERULAR FILTRATION RATE > 60.0 (>56); GLUCOSE, FASTING 97 MG/DL (70-100); POTASSIUM SERUM 5.4 MEQ/L (3.5-5.1); SODIUM LEVEL 138 MEQ/L (136-145)
[2021-03-22 08:00] VITALS: BP 127/80
[2021-03-22] MEDS: ADVAIR HFA 115/21MCG INHALER INH SCH ×2 (08:32→20:00)
[2021-03-22] MEDS: TIOTROPIUM INHALER/CAPSULE (SPIRIVA) INH SCH (08:33)
[2021-03-22] MEDS: HEPARIN SOD (PORCINE) 5000UNITS/ML 1ML VIAL/SYRINGE SC SCH ×4 (09:00→21:08)
[2021-03-22] MEDS: DOCUSATE SODIUM 100MG CAPSULE PO SCH ×2 (09:07→21:00)
[2021-03-22] MEDS: MOM 30ML SUSPENSION UDC PO SCH (09:07)
[2021-03-22] MEDS: PANTOPRAZOLE 40MG TAB (PROTONIX) PO SCH (09:07)
--- NOTE | 2021-03-22 10:05 | REP ---
INDICATION: after chest tube inserrtion COMPARISON: 03/21/2021 TECHNIQUE: PA and lateral. FINDINGS: Left chest tube in stable position. Small residual left apical pneumothorax suggested. Subtle bibasilar atelectasis and small pleural effusions are suggested on current examination. Underlying stable chronic interstitial changes. Mediastinum and cardiac silhouette stable and within normal limits. Skeletal structures intact. IMPRESSION: Current examination suggests small residual left apical pneumothorax and minimal new bibasilar atelectasis and small pleural effusions (left greater than right). <Electronically signed by Sudheer Jaeger > 03/22/21 1002
[2021-03-22] MEDS: BUPRENORPHINE/NALOXONE 8-2MG SUBLINGUAL TABLET(SUBOXONE) SL SCH (10:16)
[2021-03-22] MEDS: ACETAMINOPHEN TAB 650MG DOSE (2X325MG) PO PRN (10:16)
--- NOTE | 2021-03-22 11:56 | IPN ---
PROGRESS NOTE DATE: 03/22/2021 Mr. Ni had some difficulty breathing last night. He is reticent to use his face mask. His saturations dropped last night. Blood gases show him to have severe CO2 retention. Today he is sitting up comfortably. His vital signs show a maximum temperature of 98.0 with a heart rate that ranges between 88-97 with a respiratory rate that varies between 18-19 without the use of accessory muscles, who is 91%-97% saturated now on 5 liters nasal cannula. He was up to 10 liters non-rebreather face mask last night. His intake and output for the past 24 hours have been recorded as 1250 in and 765 out for a positivity of 485 mL. He has put 15 mL out the chest tube, and there is still a continuous air leak on suction. His weight is pending today. PHYSICAL EXAMINATION: His lung show equal breath sounds on either side. He still has expiratory wheezing, but it is better than it was yesterday. Wheezing is noted on both sides. Percussion note is full to the diaphragm. There is no subcutaneous emphysema over the chest wall. Cardiac exam is without murmurs, clicks, gallops, or rubs. I cannot feel his point of maximal impulse (PMI). S1 and S2 are normal. Abdomen is soft and nontender. Bowel sounds are positive. There is no hepatomegaly. No costovertebral angle (CVA) tenderness. Extremities show no pretibial edema, no calf tenderness, no differential swelling of the upper extremities. Skin is warm, dry, and perfused without cyanosis or mottling, including that of the nailbeds and knees. Neck is supple. There is no jugular venous distention. No subcutaneous emphysema. Trachea is midline. Mouth shows his mucous membranes to be pink and moist. Lips and commissures without lesions. No thrush. Eyes show his pupils to be equal and reactive. Extraocular motion intact. Sclerae anicteric. Neurologic shows II-XII intact. Normal gross motor, gross sensation intact. Gait is not tested. Psychiatric shows him to be awake, alert, and oriented times three with appropriate mood and affect and conversational. His white count today is 15.0 with a hemoglobin and hematocrit of 13.7 and 46.1, respectively. Platelet count is 262 and stable, and differential shows 75% neutrophils, 11% lymphocytes, 6% monocytes, and 6% eosinophils. His chemistries today show a sodium of 138 with a potassium of 5.4. BUN and creatinine are 18 and 0.63, respectively, with a glucose of 97 and a calcium 8.9. Blood gases last night showed a pH of 7.29 with a pCO2 of 83, a pO2 of 125 on 10 liters non-rebreather with a base excess of 9.4. His chest x-ray today shows the lung fully expanded to the chest wall. Chest tube is in good place. I do not see any subcutaneous emphysema. Costophrenic angles are sharp. I do not see any overt infiltrates. Cardiac silhouette is normal. IMPRESSION: 1. Spontaneous pneumothorax, left side, resolved with a chest tube. 2. Bronchopleural fistula, continuing. 3. Psychiatric history of bipolar disorder and depression. 4. Narcotic drug abuse, now on Suboxone. 5. Severe chronic obstructive pulmonary disease (COPD). PLAN AND DISCUSSION: I will again continue his chest tube on suction. Mr. iN is a bit obstreperous, and I have encouraged him to wear his oxygen. I am giving him a full 5 days from the presentation of his pneumothorax to make a decision as to whether to take him to the operating room. I am quite reticent to take him to the operating room (OR). I will obtain a CT scan on him today to look at the underlying lung parenchyma.
[2021-03-22 11:57] VITALS: BP 112/66
--- NOTE | 2021-03-22 12:42 | REP ---
INDICATION: status of underlying lung parachyma. COMPARISON: Multiple the latest 03/20/2021 TECHNIQUE: Standard helical technique without the administration of intravenous contrast FINDINGS: Although the mediastinum and pulmonary vinicio are seen in a limited fashion without the administration of intravenous contrast there does not appear to be a significant change compared to the prior exam. No gross mass or adenopathy has developed. Borderline hilar lymph nodes were seen on the prior exam which was performed after the administration of intravenous contrast. Small pleural effusions are seen bilaterally. There is no evidence of a pericardial effusion. There is no significant change in the appearance of the imaged upper abdomen or imaged osseous structures. Evaluation of the lung pedraza shows significant improvement in the previously present left-sided pneumothorax. Only a small residual pneumothorax is seen anteriorly. A thoracotomy tube has been placed in the left hemithorax the tip of which is in the apical region medially. Once again, there are chronic emphysematous lung changes status quo and seen in conjunction with bronchiectasis primarily of the cylindrical type. There are patchy bibasilar opacities with nodularity and having the appearance of inspissated mucus within multiple bronchioles. IMPRESSION: 1. Significantly improved left pneumothorax status post chest tube placement as described above. 2. Small bilateral pleural effusions left greater than right. 3. Chronic lung field changes as described above. 4. Abnormal appearing basilar bronchioles as described above. <Electronically signed by Robert Culelar > 03/22/21 [id number]
[2021-03-22 16:00] VITALS: BP 129/74
[2021-03-22] MEDS ORDERED: FUROSEMIDE 20MG/2ML VIAL (J1940) IV ONE (16:50)
[2021-03-22] MEDS ORDERED: SOD POLYSTYRENE SULFONATE SUSP 15 GM/60 ML UD PO ONE (16:50)
--- NOTE | 2021-03-22 16:51 | IPNPDOC ---
Subjective Date Seen The patient was seen on 03/22/21. Subjective Chief Complaint/HPI Mr. Ni is a 50 year old long time smoker who presents with worsening dyspnea and found to have large left pneumothorax. Chest tube placed on 03/20/2021. Last evening, patient's oxygen dropped, but patient has been non- compliant with nasal canula. Using non-rebreather to provide oxygen. Otherwise, his lungs do not sound wheezy, but course and rhonchus. Objective Physical Examination General Exam: Positive: Alert Eye Exam: Positive: EOMI; Negative: Sclera icteric ENT Exam: Positive: Atraumatic Neck Exam: Positive: Supple Chest Exam: Positive: Other (course) Heart Exam: Positive: Rate Normal, Regular Rhythm Abdomen Exam: Negative: Soft (gaurding) Extremity Exam: Negative: Edema Neuro Exam: Positive: Normal Speech, Strength at 5/5 X4 ext, Cranial Nerves 3- 12 NL Psych Exam: Positive: Mental status NL, Anxiety Assessment /Plan Assessment Mr. Ni is a 50 year old long time smoker who presents with worsening dyspnea and found to have a large left pneumothorax. Patient is a long time smoker and has blebs which may have caused his pneumothorax. Dr. Lynne has been consulted and placed a chest tube on 03/20/2021. If he continues to have a leak for 5 days, he may need to go down to the OR. Plan/VTE VTE Prophylaxis Ordered?: Yes Plan 1. Large right pneumothorax -Dr. Lynne consulted, recommendations appreciated -Chest tube placed on 03/20/2021 -CXR daily 2. Opioid abuse -Continue Suboxone 3. COPD -Substitute Breo Ellipta with Advair -Substitute Incruse Ellipta with Spiriva -Xopenex as needed 4. Anxiety/Depression -Continue Bupropion and Fluoxetine 5. DVT ppx -Heparin subQ Disposition: pending clinical improvement. May need to go to OR if continues to leak for 5 days VS, I&O, 24H, Fishbone Vital Signs/I&O Vital Signs Date Time Temp Pulse Resp B/P (MAP) Pulse Ox O2 Delivery O2 Flow Rate FiO2 03/22/21 16:00 97.5 70 18 129/74 (92) 96 Non-Rebreather 03/22/21 12:15 5.0 03/21/21 21:30 33 I&O- Last 24 Hours up to 6 AM 03/22/21 06:00 Intake Total 450 ml Output Total 1475 ml Balance -1025 ml Laboratory Data 24H LABS Laboratory Tests 2 03/21/21 22:15: Blood Gas Bicarbonate Standard 33.2H, Arterial Blood pH 7.292L, Arterial Blood Partial Pressure CO2 83.4*H, Arterial Blood Partial Pressure O2 125.0H, Arterial Blood Total CO2 41.9H, Arterial Blood HCO3 39.4H, Arterial Blood Base Excess 9.4H, Arterial Blood Oxygen Saturation 98.5 03/22/21 05:42: Immature Granulocyte % (Auto) 0.4, Neutrophils (%) (Auto) 75.1H, Lymphocytes (%) (Auto) 11.0L, Monocytes (%) (Auto) 6.6, Eosinophils (%) (Auto) 6.5H, Basophils (%) (Auto) 0.4, Neutrophils # (Auto) 11.2H, Lymphocytes # (Auto) 1.7, Monocytes # (Auto) 1.0H, Eosinophils # (Auto) 1.0H, Basophils # (Auto) 0.1, Nucleated Red Blood Cells % (auto) 0.0, Anion Gap 3L, Glomerular Filtration Rate > 60.0, Calcium Level 8.9 CBC/BMP Laboratory Tests 03/22/21 05:42 Microbiology Microbiology 03/20/21 Respiratory Virus Panel (PCR) ([facility]) - Final, Complete MASTER DAVALOS DO Mar 22, 2021 16:51
[2021-03-22 20:00] VITALS: BP 105/63
[2021-03-23] VITALS (8 sets, daily range): BP systolic 100–147; BP diastolic 55–77; PULSE 81
[2021-03-23] MEDS: KETOROLAC 30 MG/ML 1ML VIAL IV SCH ×5 (00:08→23:36)
[2021-03-23] MEDS: LEVALBUTEROL 1.25 MG/0.5 ML CONCENTRATE NEB NEB SCH ×4 (02:00→20:45)
[2021-03-23 07:05] LABS: BASO # 0.1 10^3/uL (0.0-0.2); BASO % 0.3 % (0.0-1.0); EOS # 0.8 10^3/uL (0.0-0.5); EOS % 4.1 % (0.0-3.0); HEMOGLOBIN 13.3 g/dl (13.5-17.5); LYMPH # 0.7 10^3/uL (1.5-5.0); LYMPH % 3.3 % (24.0-44.0); MEAN CORPUSCULAR HEMOGLOBIN 29.2 pg (27.0-33.0); MEAN CORPUSCULAR HGB CONC 29.6 g/dl (32.0-36.5); MEAN CORPUSCULAR VOLUME 98.9 fl (80.0-96.0); MONO # 1.2 10^3/uL (0.0-0.8); MONO % 6.1 % (2.0-8.0); NEUTROPHILS # 17.1 10^3/uL (1.5-8.5); NEUTROPHILS % 85.7 % (36.0-66.0); PLATELET COUNT, AUTOMATED 219 10^3/uL (150-450); RED BLOOD COUNT 4.55 10^6/uL (4.30-6.10); WHITE BLOOD COUNT 19.9 10^3/uL (4.0-10.0)
[2021-03-23 07:24] LABS: BLOOD UREA NITROGEN 14 MG/DL (7-18); CALCIUM LEVEL 8.4 MG/DL (8.5-10.1); CARBON DIOXIDE LEVEL 43 MEQ/L (21-32); CHLORIDE LEVEL 99 MEQ/L (98-107); CREATININE FOR GFR 0.49 MG/DL (0.70-1.30); GLOMERULAR FILTRATION RATE > 60.0 (>56); GLUCOSE, FASTING 92 MG/DL (70-100); POTASSIUM SERUM 4.7 MEQ/L (3.5-5.1); SODIUM LEVEL 140 MEQ/L (136-145)
[2021-03-23] MEDS: TIOTROPIUM INHALER/CAPSULE (SPIRIVA) INH SCH (07:27)
[2021-03-23] MEDS: ADVAIR HFA 115/21MCG INHALER INH SCH ×2 (07:27→20:45)
[2021-03-23] MEDS: MOM 30ML SUSPENSION UDC PO SCH (08:26)
[2021-03-23] MEDS: PANTOPRAZOLE 40MG TAB (PROTONIX) PO SCH (08:26)
[2021-03-23] MEDS: BUPRENORPHINE/NALOXONE 8-2MG SUBLINGUAL TABLET(SUBOXONE) SL SCH (08:26)
[2021-03-23] MEDS: HEPARIN SOD (PORCINE) 5000UNITS/ML 1ML VIAL/SYRINGE SC SCH ×2 (08:26→20:04)
[2021-03-23] MEDS: DOCUSATE SODIUM 100MG CAPSULE PO SCH ×2 (08:26→20:03)
--- NOTE | 2021-03-23 08:38 | REP ---
INDICATION: after chest tube inserrtion. COMPARISON: Comparison chest x-ray 03/22/2021. TECHNIQUE: Two views.. FINDINGS: A left chest tube remains in place. There is a tiny sliver of left apical pleural air and some type small amount of fluid is seen at the left lateral pleural angle. Platelike atelectasis versus fibrosis left base. Pleural angle blunting is improved from yesterday's radiograph. There increased markings in the lower lobes bilaterally seen on lateral radiograph unchanged. An area of pleuroparenchymal fibrosis is seen in the right mid lung zone unchanged. IMPRESSION: Left chest tube in place. Decreased amount of pleural fluid at the left lateral pleural angle. Increased markings in the lower lobes unchanged.. <Electronically signed by Sukhdev Savage > 03/23/21 [id number]
--- NOTE | 2021-03-23 11:10 | REP ---
INDICATION: chest pain. COMPARISON: Earlier today TECHNIQUE: Portable FINDINGS: The technique utilized in obtaining the radiograph has magnified the cardiac silhouette and accentuated the interstitial markings. The cardiomediastinal silhouette appears unchanged. There is a left-sided thoracotomy tube which is unchanged. The left pleural effusion seen previously has decreased. Patchy lung field opacities appear stable with a slight increase in curvilinear opacities seen in the left lower lobe. There is no change in the osseous structures. IMPRESSION: 1. Decreased left pleural effusion. 2. Abnormal lung field opacities as described above. Interstitial lung disease again noted. Whether there is concomitant pneumonia would need to be evaluated for clinically. The curvilinear left lower lobe opacities seen are likely secondary to subsegmental atelectatic changes. 3. Unchanged left-sided thoracotomy tube. 4. Chronic pulmonary arterial enlargement. <Electronically signed by Robert Cuellar > 03/23/21 [id number]
--- NOTE | 2021-03-23 14:21 | IPNPDOC ---
Subjective Date Seen The patient was seen on 03/23/21. Subjective Chief Complaint/HPI Mr. Ni is a 50 year old long time smoker who presents with worsening dyspnea and found to have large left pneumothorax. This morning, patient reported chest pain and lightheadedness. 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 He could not describe the pain. Not pleuritic. He said the pain was where the chest tube was. He did not have the pain before. Ordered EKG. Appears similar to previous EKG. Initial troponin negative. Repeated a portable CXR which did not demonstrate any new changes around the chest tube. Objective Physical Examination General Exam: Positive: Alert Eye Exam: Positive: EOMI; Negative: Sclera icteric ENT Exam: Positive: Atraumatic Neck Exam: Positive: Supple Chest Exam: Positive: Other (course) Heart Exam: Positive: Rate Normal, Regular Rhythm Abdomen Exam: Negative: Soft (gaurding) Extremity Exam: Negative: Edema Neuro Exam: Positive: Normal Speech, Strength at 5/5 X4 ext, Cranial Nerves 3- 12 NL Psych Exam: Positive: Mental status NL, Anxiety Assessment /Plan Assessment Mr. Ni is a 50 year old long time smoker who presents with worsening dyspnea and found to have a large left pneumothorax. Patient is a long time smoker and has blebs which may have caused his pneumothorax. Dr. Lynne has been consulted and placed a chest tube on 03/20/2021. If he continues to have a leak for 5 days, he may need to go down to the OR. Plan/VTE VTE Prophylaxis Ordered?: Yes Plan 1. Large right pneumothorax -Dr. Lynne consulted, recommendations appreciated -Chest tube placed on 03/20/2021 -CXR daily 2. Opioid abuse -Continue Suboxone 3. COPD -Substitute Breo Ellipta with Advair -Substitute Incruse Ellipta with Spiriva -Xopenex as needed 4. Anxiety/Depression -Continue Bupropion and Fluoxetine 5. DVT ppx -Heparin subQ Disposition: pending clinical improvement. May need to go to OR if continues to leak for 5 days VS, I&O, 24H, Fishbone Vital Signs/I&O Vital Signs Date Time Temp Pulse Resp B/P (MAP) Pulse Ox O2 Delivery O2 Flow Rate FiO2 03/23/21 12:00 97.6 77 18 108/70 (83) 95 Nasal Cannula 4.0 03/21/21 21:30 33 I&O- Last 24 Hours up to 6 AM 03/23/21 06:00 Intake Total 960 ml Output Total 1123 ml Balance -163 ml Laboratory Data 24H LABS Laboratory Tests 2 03/23/21 06:08: Immature Granulocyte % (Auto) 0.5, Neutrophils (%) (Auto) 85.7H, Lymphocytes (%) (Auto) 3.3L, Monocytes (%) (Auto) 6.1, Eosinophils (%) (Auto) 4.1H, Basophils (%) (Auto) 0.3, Neutrophils # (Auto) 17.1H, Lymphocytes # (Auto) 0.7L, Monocytes # (Auto) 1.2H, Eosinophils # (Auto) 0.8H, Basophils # (Auto) 0.1, Nucleated Red Blood Cells % (auto) 0.0, Anion Gap , Glomerular Filtration Rate > 60.0, Calcium Level 8.4L 03/23/21 10:48: Troponin I < 0.02 CBC/BMP Laboratory Tests 03/23/21 06:08 Microbiology Microbiology 03/20/21 Respiratory Virus Panel (PCR) ([facility]) - Final, Complete MASTER DAVALOS DO Mar 23, 2021 14:21
[2021-03-23] MEDS ORDERED: MIRALAX *UNIT DOSE* 17GM PACKET PO PRN (14:25)
--- NOTE | 2021-03-23 20:29 | ECGEPIP ---
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
[2021-03-24] VITALS: BP 115/62
[2021-03-24] MEDS: LEVALBUTEROL 1.25 MG/0.5 ML CONCENTRATE NEB NEB SCH ×4 (02:00→20:00)
[2021-03-24 04:00] VITALS: BP 111/68
[2021-03-24 05:47] LABS: BASO # 0.1 10^3/uL (0.0-0.2); BASO % 0.4 % (0.0-1.0); EOS # 1.1 10^3/uL (0.0-0.5); EOS % 8.9 % (0.0-3.0); HEMATOCRIT 41.9 % (42.0-52.0); HEMOGLOBIN 12.7 g/dl (13.5-17.5); LYMPH # 1.3 10^3/uL (1.5-5.0); LYMPH % 10.8 % (24.0-44.0); MEAN CORPUSCULAR HEMOGLOBIN 29.7 pg (27.0-33.0); MEAN CORPUSCULAR HGB CONC 30.3 g/dl (32.0-36.5); MEAN CORPUSCULAR VOLUME 98.1 fl (80.0-96.0); MONO # 1.1 10^3/uL (0.0-0.8); NEUTROPHILS # 8.5 10^3/uL (1.5-8.5); NEUTROPHILS % 70.6 % (36.0-66.0); PLATELET COUNT, AUTOMATED 206 10^3/uL (150-450); RED BLOOD COUNT 4.27 10^6/uL (4.30-6.10); WHITE BLOOD COUNT 12.1 10^3/uL (4.0-10.0)
[2021-03-24] MEDS: KETOROLAC 30 MG/ML 1ML VIAL IV SCH ×3 (05:51→18:00)
[2021-03-24 06:15] LABS: BLOOD UREA NITROGEN 18 MG/DL (7-18); CALCIUM LEVEL 8.7 MG/DL (8.5-10.1); CARBON DIOXIDE LEVEL 40 MEQ/L (21-32); CHLORIDE LEVEL 98 MEQ/L (98-107); CREATININE FOR GFR 0.51 MG/DL (0.70-1.30); GLOMERULAR FILTRATION RATE > 60.0 (>56); GLUCOSE, FASTING 134 MG/DL (70-100); POTASSIUM SERUM 4.3 MEQ/L (3.5-5.1); SODIUM LEVEL 138 MEQ/L (136-145)
[2021-03-24] MEDS: TIOTROPIUM INHALER/CAPSULE (SPIRIVA) INH SCH (07:58)
[2021-03-24] MEDS: ADVAIR HFA 115/21MCG INHALER INH SCH ×2 (07:58→20:29)
[2021-03-24 08:00] VITALS: BP 122/85
--- NOTE | 2021-03-24 08:49 | REP ---
INDICATION: after chest tube inserrtion. COMPARISON: Comparison March 22 and March 23 2021. TECHNIQUE: Two views.. FINDINGS: A left apical chest tube remains in place. There is a small quantity of left ache apical pleural air again noted. There is slight blunting of the left lateral pleural angle. Interstitial markings remain prominent in the bases on the lateral radiograph and there is some streaky opacity suspected in the left upper lobe. Heart is not enlarged. IMPRESSION: Left chest tube remains in place. Small apical collection pleural air persists. Interstitial markings remain prominent in the bases and suspected in the left upper lobe. Basilar interstitial markings may be somewhat improved from March 23, 2021.. <Electronically signed by Sukhdev Savage > 03/24/21 [id number]
[2021-03-24] MEDS: MOM 30ML SUSPENSION UDC PO SCH (09:00)
--- NOTE | 2021-03-24 09:18 | IPN ---
PROGRESS NOTE DATE: 03/23/2021 SUBJECTIVE: Mr. Ni is still leaking from his chest tube on the left side. It is a fairly constant leak exacerbated with exhalation and coughing up. His pain is fairly well-controlled at the chest tube insertion site although he does complain of some pain. OBJECTIVE: His vital signs shows a T-max of 99.0 with a heart rate that ranges between 77 and 93, is in sinus rhythm, respiratory rate is 18 to 20 without any use of accessory muscles. He was 89 to 97% saturated on 2 liters nasal cannula. His blood pressure is ranging between 125/88 to 100/58. His intake and output over the past 24 hours has been recorded as 960 in and 1273 out for a negative of 313 ml. He has put out 23 ml out of the chest tube and there is still an air leak. His weight is pending today. On physical examination he has equal breath sounds on either side. He still has the expiratory wheezing towards the end of expiration with very coarse rhonchi throughout the respiratory cycle. Percussion is full to the diaphragm. I feel no subcutaneous emphysema. Cardiac exam is without murmurs, clicks, gallops or rubs. I cannot feel his PMI. S1 and S2 are normal. Abdomen is soft, nontender. Bowel sounds are positive. There is no hepatomegaly. No CVA tenderness. Extremities show no pretibial edema. No calf tenderness. No differential swelling of the upper extremities. Skin is warm, dry and perfused without cyanosis or mottling including the nailbeds and knees. Neck is supple. There is no jugular venous distention. No subcutaneous emphysema. Trachea is midline. Mouth shows the mucous membranes to be pink and moist, lips without scabs or lesions and no thrush. Eyes show pupils were equal and reactive. Extraocular movements intact. Sclerae nonicteric. Neuro: Shows II-XII intact. Normal gross motor, gross sensation. Gait is not tested. Psychiatric shows he is awake, alert, oriented x3 with appropriate mood and affect and conversational. LABORATORY DATA: His white count today is 19.9 with a hemoglobin and hematocrit of 13.3 and 45 respectively. Platelet count is 219,000 stable. Differential shows 85% neutrophils, 3% lymphocytes and 6% monocytes. He has 4% eosinophils. His chemistries shows normal electrolytes except for an elevated total CO2 of 43. BUN and creatinine are 14 and 0.49 with a glucose of 92 and a calcium of 8.4. In response to his complaints of chest pain, the Hospitalist service ordered troponins which were all negative, less than 0.02. His pain is secondary to his chest tubes and inflammation. His chest x-ray shows his lung fully expanded to the chest wall. Costophrenic angles are sharp but his diaphragms are flat. There looks to be a small pleural effusion at the very base of the left lung. The anterior chest tube would not drain that as it is not posterior. There may be some residual compression atelectasis in the lower left hemithorax on the lateral film posteriorly. IMPRESSION: 1. Spontaneous pneumothorax left side resolved with chest tube. 2. Bronchopleural fistula continuing. 3. Psychiatric history of bipolar disorder and depression. 4. Narcotic drug abuse, now on Suboxone. 5. Severe COPD. PLAN AND DISCUSSION: I did obtain a CT of his chest today. He has apical bulla more on the left than the right. I suspect this is where he is leaking. I really would like to avoid taking him to the Operating Room as he is a high risk candidate. Nonetheless, if he does not stop leaking by the beginning of next week I will be forced to take him to the OR. I have scheduled him for Saturday and I have reserved a spot for him should I need to take him to the OR. At that point, I would undertake a stapled wedge resection of bulla and a talc pleurodesis.
[2021-03-24] MEDS: HEPARIN SOD (PORCINE) 5000UNITS/ML 1ML VIAL/SYRINGE SC SCH ×2 (09:20→20:43)
[2021-03-24] MEDS: BUPRENORPHINE/NALOXONE 8-2MG SUBLINGUAL TABLET(SUBOXONE) SL SCH (09:20)
[2021-03-24] MEDS: DOCUSATE SODIUM 100MG CAPSULE PO SCH ×2 (09:20→20:42)
[2021-03-24] MEDS: PANTOPRAZOLE 40MG TAB (PROTONIX) PO SCH (09:20)
--- NOTE | 2021-03-24 10:55 | IPN ---
PROGRESS NOTE DATE: 03/24/2021 SUBJECTIVE: Mr. Ni is still leaking from his chest tube. He is breathing well and is understandably frustrated. OBJECTIVE: VITAL SIGNS: Show a T-max of 98.1 with a heart rate that ranges between 80 to 84 in sinus rhythm. Respiratory rate of 17 to 20 without the use of accessory muscles who is 94% to 98% saturated on 2 liters nasal cannula and whose blood pressure is ranging between 122/85 to 111/68. INTAKE AND OUTPUT: Over the past 24 hours has been recorded as 590 in and 1115 out for a negativity of 525 mL. He has put out 15 mL in the chest tube and there is still the above aforementioned air leak. RESPIRATORY: He still has some expiratory wheezing, although it is improving on both sides. Percussion notes are full to the diaphragm. There is no subcutaneous emphysema over the chest wall. CARDIAC: Without murmurs, clicks, gallops, or rubs. I cannot feel his PMI. S1 and S2 are normal. ABDOMEN: Soft and nontender. Bowel sounds are positive. There is no hepatomegaly. No CVA tenderness. EXTREMITIES: Show no pretibial edema. No calf tenderness. No differential swelling of the upper extremities. SKIN: Warm, dry, and perfused without cyanosis or mottling, including that of the nail beds and knees. NECK: Supple. There is no jugular venous distention. No subcutaneous emphysema. Trachea is midline. MOUTH: Shows his mucous membranes to be pink and moist. Lips and commisures are without lesions and no thrush. EYES: Show his pupils equal and reactive. Extraocular muscles are intact. Sclerae nonicteric. NEUROLOGIC: Shows II through XII intact. Normal gross motor, gross sensation intact. Gait is not tested. PSYCHIATRIC: Shows him to be awake, alert, and oriented x3 with appropriate mood and affect and conversational. LABORATORY DATA: His white count today is 12.1 down from 19.9 yesterday. Hemoglobin and hematocrit are 12.7 and 41.9 slightly down from 13.3 and 45.0 yesterday. Platelet count is 206,000 and differential shows 70% neutrophils, 10% lymphocytes, 9% monocytes, and 8% eosinophils. There are no immature forms and no toxic granulations. His electrolytes show normal except for an increased total CO2 of 40 consistent with his COPD. BUN and creatinine are 18 and 0.51 respectively with a glucose of 134 and a calcium of 8.7. IMAGING DATA: His chest x-ray today shows the lungs fully expand to the chest wall. There is a small, a very, very small, almost imperceptible, airspace in the medial cupula of the left lung. He does have what looks to be an air fluid level at the very bottom of his hemithorax consistent with a small pleural effusion, which is not being drained as the chest tube is anterior. IMPRESSION: 1. Spontaneous pneumothorax left side resolved with a chest tube. 2. Bronchopleural fistula continuing. 3. Psychiatric history of bipolar and depression. 4. Narcotic drug abuse now on Suboxone. 5. Severe chronic obstructive pulmonary disease (COPD). PLAN AND DISCUSSION: I will continue him on -20 cm of suction. I do have that sinking feeling that he is not going to resolve and I have therefore, booked him in the OR for talc pleurodesis and wedge resection on Saturday should he not stop by then.
[2021-03-24 12:00] VITALS: BP 112/70
--- NOTE | 2021-03-24 14:05 | IPNPDOC ---
Subjective Date Seen The patient was seen on 03/24/21. Subjective Chief Complaint/HPI Mr. Ni is a 50 year old long time smoker who presents with worsening dyspnea and found to have large left pneumothorax. This morning, he feels about the same, still has chest discomfort. There is still a leak. Objective Physical Examination General Exam: Positive: Alert Eye Exam: Positive: EOMI; Negative: Sclera icteric ENT Exam: Positive: Atraumatic Neck Exam: Positive: Supple Chest Exam: Positive: Other (course) Heart Exam: Positive: Rate Normal, Regular Rhythm Abdomen Exam: Negative: Soft (gaurding) Extremity Exam: Negative: Edema Neuro Exam: Positive: Normal Speech, Strength at 5/5 X4 ext, Cranial Nerves 3- 12 NL Psych Exam: Positive: Mental status NL, Anxiety Assessment /Plan Assessment Mr. Ni is a 50 year old long time smoker who presents with worsening dyspnea and found to have a large left pneumothorax. Patient is a long time smoker and has blebs which may have caused his pneumothorax. Dr. Lynne has been consulted and placed a chest tube on 03/20/2021. If he continues to leak, plan to go to OR on Saturday. Plan/VTE VTE Prophylaxis Ordered?: Yes Plan 1. Large right pneumothorax -Dr. Lynne consulted, recommendations appreciated -Chest tube placed on 03/20/2021 -CXR daily 2. Opioid abuse -Continue Suboxone 3. COPD -Substitute Breo Ellipta with Advair -Substitute Incruse Ellipta with Spiriva -Xopenex as needed 4. Anxiety/Depression -Continue Bupropion and Fluoxetine 5. DVT ppx -Heparin subQ Disposition: Pending clinical improvement. Leak is still present. If continues to be present, plan for OR on Saturday. VS, I&O, 24H, Fishbone Vital Signs/I&O Vital Signs Date Time Temp Pulse Resp B/P (MAP) Pulse Ox O2 Delivery O2 Flow Rate FiO2 03/24/21 12:00 3.0 03/24/21 12:00 96.9 77 20 112/70 (84) 97 Nasal Cannula 03/21/21 21:30 33 I&O- Last 24 Hours up to 6 AM 03/24/21 06:00 Intake Total 830 ml Output Total 936 ml Balance -106 ml Laboratory Data 24H LABS Laboratory Tests 2 03/23/21 15:41: Troponin I < 0.02 03/24/21 05:26: Immature Granulocyte % (Auto) 0.3, Neutrophils (%) (Auto) 70.6H, Lymphocytes (%) (Auto) 10.8L, Monocytes (%) (Auto) 9.0H, Eosinophils (%) (Auto) 8.9H, Basophils (%) (Auto) 0.4, Neutrophils # (Auto) 8.5, Lymphocytes # (Auto) 1.3L, Monocytes # (Auto) 1.1H, Eosinophils # (Auto) 1.1H, Basophils # (Auto) 0.1, Nucleated Red Blood Cells % (auto) 0.0, Anion Gap 0L, Glomerular Filtration Rate > 60.0, Calcium Level 8.7 CBC/BMP Laboratory Tests 03/24/21 05:26 Microbiology Microbiology 03/20/21 Respiratory Virus Panel (PCR) ([facility]) - Final, Complete MASTER DAVALOS DO Mar 24, 2021 14:05
[2021-03-24 16:00] VITALS: BP 138/75
[2021-03-24 20:00] VITALS: BP 139/79
[2021-03-25] VITALS: BP 113/69
[2021-03-25] MEDS: LEVALBUTEROL 1.25 MG/0.5 ML CONCENTRATE NEB NEB SCH ×4 (01:45→19:50)
[2021-03-25 04:00] VITALS: BP 125/82
[2021-03-25 05:11] LABS: BASO # 0.1 10^3/uL (0.0-0.2); BASO % 0.5 % (0.0-1.0); EOS # 1.1 10^3/uL (0.0-0.5); EOS % 10.9 % (0.0-3.0); HEMATOCRIT 44.5 % (42.0-52.0); HEMOGLOBIN 13.5 g/dl (13.5-17.5); LYMPH # 1.4 10^3/uL (1.5-5.0); LYMPH % 13.6 % (24.0-44.0); MEAN CORPUSCULAR HEMOGLOBIN 29.5 pg (27.0-33.0); MEAN CORPUSCULAR HGB CONC 30.3 g/dl (32.0-36.5); MEAN CORPUSCULAR VOLUME 97.2 fl (80.0-96.0); MONO # 0.9 10^3/uL (0.0-0.8); MONO % 9.1 % (2.0-8.0); NEUTROPHILS # 6.6 10^3/uL (1.5-8.5); NEUTROPHILS % 65.5 % (36.0-66.0); PLATELET COUNT, AUTOMATED 223 10^3/uL (150-450); RED BLOOD COUNT 4.58 10^6/uL (4.30-6.10)
[2021-03-25 05:31] LABS: BLOOD UREA NITROGEN 16 MG/DL (7-18); CALCIUM LEVEL 9.4 MG/DL (8.5-10.1); CARBON DIOXIDE LEVEL 37 MEQ/L (21-32); CHLORIDE LEVEL 100 MEQ/L (98-107); CREATININE FOR GFR 0.51 MG/DL (0.70-1.30); GLOMERULAR FILTRATION RATE > 60.0 (>56); GLUCOSE, FASTING 99 MG/DL (70-100); POTASSIUM SERUM 4.8 MEQ/L (3.5-5.1); SODIUM LEVEL 138 MEQ/L (136-145)
[2021-03-25] MEDS: KETOROLAC 30 MG/ML 1ML VIAL IV SCH ×3 (05:53→13:41)
[2021-03-25] MEDS: ADVAIR HFA 115/21MCG INHALER INH SCH ×2 (08:00→19:51)
[2021-03-25] MEDS: TIOTROPIUM INHALER/CAPSULE (SPIRIVA) INH SCH (08:00)
[2021-03-25 08:03] VITALS: BP 124/71
--- NOTE | 2021-03-25 08:07 | REP ---
INDICATION: after chest tube inserrtion COMPARISON: 03/24/2020 TECHNIQUE: PA and lateral. FINDINGS: Left-sided chest tube in stable position. No obvious residual pneumothorax identified. Diffuse bilateral pleuroparenchymal changes primarily noted in the right upper lobe and bilateral lower lobes (right greater than left) remain essentially stable. The diaphragmatic surfaces demonstrate improved appearance to the left costophrenic angle suggesting decreased left pleural effusion. IMPRESSION: 1. Mildly decreased left pleural fluid suggested. 2. Otherwise stable appearance of the bilateral lung pedraza. <Electronically signed by Sudheer Jaeger > 03/25/21 0885
[2021-03-25] MEDS: DOCUSATE SODIUM 100MG CAPSULE PO SCH ×2 (09:00→20:41)
[2021-03-25] MEDS: MOM 30ML SUSPENSION UDC PO SCH (09:00)
[2021-03-25] MEDS: BUPRENORPHINE/NALOXONE 8-2MG SUBLINGUAL TABLET(SUBOXONE) SL SCH (09:04)
[2021-03-25] MEDS: PANTOPRAZOLE 40MG TAB (PROTONIX) PO SCH (09:04)
[2021-03-25] MEDS: HEPARIN SOD (PORCINE) 5000UNITS/ML 1ML VIAL/SYRINGE SC SCH ×2 (09:05→20:41)
[2021-03-25] MEDS: ACETAMINOPHEN TAB 650MG DOSE (2X325MG) PO PRN (09:12)
--- NOTE | 2021-03-25 10:09 | IPNPDOC ---
Subjective Date Seen The patient was seen on 03/25/21. Subjective Chief Complaint/HPI Mr. Ni is a 50 year old long time smoker who presents with worsening dyspnea and found to have large left pneumothorax. No events overnight. Chest discomfort and dyspnea unchanged. Still has air leak Objective Physical Examination General Exam: Positive: Alert Eye Exam: Positive: EOMI; Negative: Sclera icteric ENT Exam: Positive: Atraumatic Neck Exam: Positive: Supple Chest Exam: Positive: Other (course) Heart Exam: Positive: Rate Normal, Regular Rhythm Abdomen Exam: Negative: Soft (gaurding) Extremity Exam: Negative: Edema Neuro Exam: Positive: Normal Speech, Strength at 5/5 X4 ext, Cranial Nerves 3- 12 NL Psych Exam: Positive: Mental status NL, Anxiety Assessment /Plan Assessment Mr. Ni is a 50 year old long time smoker who presents with worsening dyspnea and found to have a large left pneumothorax. Patient is a long time smoker and has blebs which may have caused his pneumothorax. Dr. Lynne has been consulted and placed a chest tube on 03/20/2021. If he continues to leak, plan to go to OR on Saturday. Plan/VTE VTE Prophylaxis Ordered?: Yes Plan 1. Large right pneumothorax -Dr. Lynne consulted, recommendations appreciated -Chest tube placed on 03/20/2021 -CXR daily 2. Opioid abuse -Continue Suboxone 3. COPD -Substitute Breo Ellipta with Advair -Substitute Incruse Ellipta with Spiriva -Xopenex as needed 4. Anxiety/Depression -Continue Bupropion and Fluoxetine 5. DVT ppx -Heparin subQ Disposition: Pending clinical improvement. Leak is still present, most likely will need to go to OR on Saturday. VS, I&O, 24H, Fishbone Vital Signs/I&O Vital Signs Date Time Temp Pulse Resp B/P (MAP) Pulse Ox O2 Delivery O2 Flow Rate FiO2 03/25/21 08:03 98.5 90 20 124/71 (88) 96 Nasal Cannula 3.0 03/21/21 21:30 33 I&O- Last 24 Hours up to 6 AM 03/25/21 06:00 Intake Total 360 ml Output Total 712 ml Balance -352 ml Laboratory Data 24H LABS Laboratory Tests 2 03/25/21 04:50: Immature Granulocyte % (Auto) 0.4, Neutrophils (%) (Auto) 65.5, Lymphocytes (%) (Auto) 13.6L, Monocytes (%) (Auto) 9.1H, Eosinophils (%) (Auto) 10.9H, Basophils (%) (Auto) 0.5, Neutrophils # (Auto) 6.6, Lymphocytes # (Auto) 1.4L, Monocytes # (Auto) 0.9H, Eosinophils # (Auto) 1.1H, Basophils # (Auto) 0.1, Nucleated Red Blood Cells % (auto) 0.0, Anion Gap 1L, Glomerular Filtration Rate > 60.0, Calcium Level 9.4 CBC/BMP Laboratory Tests 03/25/21 04:50 Microbiology Microbiology 03/20/21 Respiratory Virus Panel (PCR) ([facility]) - Final, Complete MASTER DAVALOS DO Mar 25, 2021 10:09
[2021-03-25 12:00] VITALS: BP 120/84
--- NOTE | 2021-03-25 12:29 | IPN ---
PROGRESS NOTE DATE: 03/25/2021 Mr. Ni is physiologically doing well, except he still has his air leak. Nurses have come to me noting that he is abusing them with a lot of foul language. I have therefore had a very house talk with Mr. Ni. He is not very happy. He claims that he does not understand why he is leaking. I have explained to him the situation numerous times. I just do not know if he is listening. His vital signs show a maximum temperature of 98.5 with a heart rate that ranges between 70-90 in a sinus rhythm, respiratory rate 18-20 without the use of accessory muscles, who is 94%-96% saturated on 3 liters nasal cannula and whose blood pressure is ranging between 125/82 to 113/69. His intake and output for the past 24 hours is recorded as 610 in and 1093 out, for a negativity of 493 mL. He has put 18 mL out of the chest tube, and he weighs 57.2 kg today compared to 59.1 kg yesterday. PHYSICAL EXAMINATION: He has some faint wheezing on the right side. Percussion note is full to the diaphragm. Cardiac exam is without murmurs, clicks, gallops, or rubs. I cannot feel his point of maximal impulse (PMI). S1 and S2 are normal. Abdomen is soft and nontender. Bowel sounds are positive. There is no hepatomegaly. No costovertebral angle (CVA) tenderness. Extremities show no pretibial edema, no calf tenderness, no differential swelling of the upper extremities. Skin is warm, dry, and perfused without cyanosis or mottling, including that of the nailbeds and knees. Neck is supple. There is no jugular venous distention. No subcutaneous emphysema. Trachea is midline. Mouth shows his mucous membranes to be pink and moist. Lips and commissures without lesions. No thrush. Eyes show his pupils to be equal and reactive. Extraocular motion intact. Sclerae anicteric. Neurologic shows II-XII intact. Normal gross motor, gross sensation intact. Gait is not tested. Psychiatric shows him to be awake, alert, and oriented times three with appropriate mood and affect and conversational. His white count today is 10.0 with a hemoglobin and hematocrit of 13.5 and 44.5, respectively. Platelet count is 223. His differential shows 65% neutrophils, 13% lymphocytes, 9% monocytes. There are no immature forms or toxic granulations. His electrolytes are normal except for an elevated total CO2 of 37. BUN and creatinine are 16 and 0.51 with a glucose of 99 and a calcium of 9.4. His chest x-ray shows his lungs to be fully expanded to the chest wall. There is no subcutaneous emphysema. Costophrenic angles are sharp. IMPRESSION: 1. Spontaneous pneumothorax, left side, resolved with a chest tube. 2. Bronchopleural fistula, continuing. 3. Psychiatric history of bipolar and depression. 4. Narcotic abuse, now on Suboxone. 5. Severe chronic obstructive pulmonary disease (COPD). 6. Exposure to COVID. PLAN AND DISCUSSION: In addition to his suboptimal behavior, he has been exposed to COVID by a staff member. He claims that no one answers his call robin, and if they do it is after about 15 minutes. I have indicated to Mr. Ni that the nurses are not his handmaidens. He is to curb his foul language. I am concerned that I now have an adversarial relationship with Mr. Ni, and I am facing having to take him to the operating room on Saturday, because his air leak has not stopped. This could be an untenable situation for him and me, and it might be best if we transfer him to [facility] for treatment of his underlying bronchopleural fistula. I will make that decision some time over the weekend.
[2021-03-25 16:00] VITALS: BP 113/77
[2021-03-25 20:00] VITALS: BP 122/82
[2021-03-26] VITALS (7 sets, daily range): BP systolic 109–122; BP diastolic 67–79
[2021-03-26] MEDS: ACETAMINOPHEN TAB 650MG DOSE (2X325MG) PO PRN ×2 (00:38→08:00)
[2021-03-26] MEDS: LEVALBUTEROL 1.25 MG/0.5 ML CONCENTRATE NEB NEB SCH ×4 (01:21→20:54)
[2021-03-26 06:11] LABS: BASO # 0.1 10^3/uL (0.0-0.2); BASO % 0.7 % (0.0-1.0); EOS # 1.2 10^3/uL (0.0-0.5); EOS % 12.2 % (0.0-3.0); HEMATOCRIT 44.8 % (42.0-52.0); HEMOGLOBIN 13.6 g/dl (13.5-17.5); LYMPH # 1.4 10^3/uL (1.5-5.0); MEAN CORPUSCULAR HEMOGLOBIN 28.9 pg (27.0-33.0); MEAN CORPUSCULAR HGB CONC 30.4 g/dl (32.0-36.5); MEAN CORPUSCULAR VOLUME 95.3 fl (80.0-96.0); MONO # 0.8 10^3/uL (0.0-0.8); MONO % 8.7 % (2.0-8.0); NEUTROPHILS # 6.2 10^3/uL (1.5-8.5); NEUTROPHILS % 64.1 % (36.0-66.0); PLATELET COUNT, AUTOMATED 264 10^3/uL (150-450); WHITE BLOOD COUNT 9.7 10^3/uL (4.0-10.0)
[2021-03-26 06:39] LABS: BLOOD UREA NITROGEN 27 MG/DL (7-18); CALCIUM LEVEL 8.9 MG/DL (8.5-10.1); CARBON DIOXIDE LEVEL 36 MEQ/L (21-32); CHLORIDE LEVEL 100 MEQ/L (98-107); CREATININE FOR GFR 0.62 MG/DL (0.70-1.30); GLOMERULAR FILTRATION RATE > 60.0 (>56); GLUCOSE, FASTING 88 MG/DL (70-100); POTASSIUM SERUM 4.8 MEQ/L (3.5-5.1); SODIUM LEVEL 138 MEQ/L (136-145)
[2021-03-26] MEDS: ADVAIR HFA 115/21MCG INHALER INH SCH ×2 (07:48→20:54)
[2021-03-26] MEDS: TIOTROPIUM INHALER/CAPSULE (SPIRIVA) INH SCH (07:48)
[2021-03-26] MEDS: BUPRENORPHINE/NALOXONE 8-2MG SUBLINGUAL TABLET(SUBOXONE) SL SCH (07:59)
[2021-03-26] MEDS: DOCUSATE SODIUM 100MG CAPSULE PO SCH ×2 (08:00→20:30)
[2021-03-26] MEDS: MOM 30ML SUSPENSION UDC PO SCH (08:00)
[2021-03-26] MEDS: PANTOPRAZOLE 40MG TAB (PROTONIX) PO SCH (08:00)
[2021-03-26] MEDS: HEPARIN SOD (PORCINE) 5000UNITS/ML 1ML VIAL/SYRINGE SC SCH ×2 (08:00→20:30)
--- NOTE | 2021-03-26 09:10 | REP ---
INDICATION: after chest tube inserrtion COMPARISON: 03/25/2021 TECHNIQUE: PA and lateral. FINDINGS: Left-sided chest tube and diffuse bilateral pleuroparenchymal changes are again noted and relatively unchanged. The cardiac silhouette is stable and within normal limits. Skeletal structures are intact. IMPRESSION: Stable chest x-ray. No obvious new acute process appreciated. <Electronically signed by Sudheer Jaeger > 03/26/21 0906
[2021-03-26] MEDS: methylPREDNISolone 40MG 1ML VIAL IV SCH (12:26)
[2021-03-26] MEDS: KETOROLAC 30 MG/ML 1ML VIAL IV SCH ×2 (12:26→18:00)
--- NOTE | 2021-03-26 14:09 | IPNPDOC ---
Subjective Date Seen The patient was seen on 03/26/21. Subjective Chief Complaint/HPI Mr. Ni is a 50 year old long time smoker who presents with worsening dyspnea and found to have large left pneumothorax. This morning, he feels about the same in terms of his chest pain and dyspnea. He still has an air leak. Objective Physical Examination General Exam: Positive: Alert Eye Exam: Positive: EOMI; Negative: Sclera icteric ENT Exam: Positive: Atraumatic Neck Exam: Positive: Supple Chest Exam: Positive: Other (course) Heart Exam: Positive: Rate Normal, Regular Rhythm Abdomen Exam: Negative: Soft (gaurding) Extremity Exam: Negative: Edema Neuro Exam: Positive: Normal Speech, Strength at 5/5 X4 ext, Cranial Nerves 3- 12 NL Psych Exam: Positive: Mental status NL, Anxiety Assessment /Plan Assessment Mr. Ni is a 50 year old long time smoker who presents with worsening dyspnea and found to have a large left pneumothorax. Patient is a long time smoker and has blebs which may have caused his pneumothorax. Dr. Lynne has been consulted and placed a chest tube on 03/20/2021. If he continues to leak, plan to go to OR on Saturday. Plan/VTE VTE Prophylaxis Ordered?: Yes Plan 1. Large right pneumothorax -Dr. Lynne consulted, recommendations appreciated -Chest tube placed on 03/20/2021 -CXR daily 2. Opioid abuse -Continue Suboxone 3. COPD -Substitute Breo Ellipta with Advair -Substitute Incruse Ellipta with Spiriva -Xopenex as needed 4. Anxiety/Depression -Continue Bupropion and Fluoxetine 5. DVT ppx -Heparin subQ Disposition: Pending clinical improvement. Leak is still present, most likely will need to go to OR on Saturday. VS, I&O, 24H, Benjibone Vital Signs/I&O Vital Signs Date Time Temp Pulse Resp B/P (MAP) Pulse Ox O2 Delivery O2 Flow Rate FiO2 03/26/21 12:00 3.0 03/26/21 12:00 98.3 73 18 114/68 (83) 93 Nasal Cannula 03/21/21 21:30 33 I&O- Last 24 Hours up to 6 AM 03/26/21 05:59 Intake Total 660 ml Output Total 1158 ml Balance -498 ml Laboratory Data 24H LABS Laboratory Tests 2 03/26/21 05:35: Immature Granulocyte % (Auto) 0.3, Neutrophils (%) (Auto) 64.1, Lymphocytes (%) (Auto) 14.0L, Monocytes (%) (Auto) 8.7H, Eosinophils (%) (Auto) 12.2H, Basophils (%) (Auto) 0.7, Neutrophils # (Auto) 6.2, Lymphocytes # (Auto) 1.4L, Monocytes # (Auto) 0.8, Eosinophils # (Auto) 1.2H, Basophils # (Auto) 0.1, Nucleated Red Blood Cells % (auto) 0.0, Anion Gap 2L, Glomerular Filtration Rate > 60.0, Calcium Level 8.9 CBC/BMP Laboratory Tests 03/26/21 05:35 Microbiology Microbiology 03/20/21 Respiratory Virus Panel (PCR) ([facility]) - Final, Complete MASTER DAVALOS DO Mar 26, 2021 14:09
[2021-03-27] MEDS: methylPREDNISolone 40MG 1ML VIAL IV SCH ×3 (00:59→23:32)
[2021-03-27] MEDS: KETOROLAC 30 MG/ML 1ML VIAL IV SCH ×3 (01:00→17:55)
[2021-03-27] MEDS: LEVALBUTEROL 1.25 MG/0.5 ML CONCENTRATE NEB NEB SCH ×4 (02:13→20:00)
[2021-03-27 03:59] VITALS: BP 107/61
[2021-03-27 05:32] LABS: HEMATOCRIT 44.8 % (42.0-52.0); HEMOGLOBIN 13.9 g/dl (13.5-17.5); MEAN CORPUSCULAR HEMOGLOBIN 29.4 pg (27.0-33.0); MEAN CORPUSCULAR VOLUME 94.9 fl (80.0-96.0); PLATELET COUNT, AUTOMATED 289 10^3/uL (150-450); RED BLOOD COUNT 4.72 10^6/uL (4.30-6.10); WHITE BLOOD COUNT 14.9 10^3/uL (4.0-10.0)
[2021-03-27 05:50] LABS: BLOOD UREA NITROGEN 34 MG/DL (7-18); CALCIUM LEVEL 9.6 MG/DL (8.5-10.1); CARBON DIOXIDE LEVEL 32 MEQ/L (21-32); CHLORIDE LEVEL 98 MEQ/L (98-107); CREATININE FOR GFR 0.74 MG/DL (0.70-1.30); GLOMERULAR FILTRATION RATE > 60.0 (>56); GLUCOSE, FASTING 214 MG/DL (70-100); POTASSIUM SERUM 4.9 MEQ/L (3.5-5.1); SODIUM LEVEL 136 MEQ/L (136-145)
[2021-03-27 06:11] VITALS: O2SAT 95
[2021-03-27] MEDS: TIOTROPIUM INHALER/CAPSULE (SPIRIVA) INH SCH (06:11)
[2021-03-27] MEDS: ADVAIR HFA 115/21MCG INHALER INH SCH ×2 (06:11→20:34)
[2021-03-27 07:16] VITALS: BP 119/72
--- NOTE | 2021-03-27 07:53 | IPN ---
PROGRESS NOTE DATE: 03/26/2021 SUBJECTIVE: The nurses tell me that Mr. Ni is behaving a lot better since yesterday. He is still leaking from his chest tube. He is very frustrated and understandably so. OBJECTIVE: VITAL SIGNS: Show a T-max of 97.6 with a heart rate that ranges between 70 and 82 in sinus rhythm. Respiratory rate of 18 to 20 without the use of accessory muscles who is 92% to 96% saturated on 3 liters nasal cannula and whose blood pressure is ranging between 122/75 to 109/67. INTAKE AND OUTPUT: Over the past 24 hours has been recorded as 669 in and 1158out for a negativity of 500 mL. He has put 8 mL out the chest tube and there is still an air leak. He weights 56.1 kg today compared to 57.2 kg yesterday. RESPIRATORY: He has bilateral wheezing on either side. The wheezing is heard at mid to end expiration. Percussion notes are full to the diaphragm. There is no subcutaneous emphysema over the chest wall. CARDIAC: Without murmurs, clicks, gallops, or rubs. I cannot feel his PMI. S1 and S2 are normal. ABDOMEN: Soft and nontender. Bowel sounds are positive. There is no hepatomegaly. No CVA tenderness. EXTREMITIES: Show no pretibial edema. No calf tenderness. No differential swelling of the upper extremities. SKIN: Warm, dry, and perfused without cyanosis or mottling, including that of the nail beds and knees. NECK: Supple. There is no jugular venous distention. No subcutaneous emphysema. Trachea is midline. MOUTH: Shows his mucous membranes to be pink and moist. Lips and commisures are without lesions and no thrush. EYES: Show his pupils equal and reactive. Extraocular muscles are intact. Sclerae nonicteric. NEUROLOGIC: Shows II through XII intact. Normal gross motor, gross sensation intact. Gait is not tested. PSYCHIATRIC: Shows him to be awake, alert, and oriented x3 with appropriate mood and affect and conversational. LABORATORY DATA: His white count today is 9.7 with a hemoglobin and hematocrit of 13.6 and 44.8, platelets is 267,000, and differential shows 64% neutrophils, 14% lymphocytes, and 8% monocytes. There are no immature forms and no toxic granulations. His chemistries today show normal electrolytes except for an increased total CO2 of 36. BUN and creatinine are 27 and 0.62 respectively. Glucose is 88 with a calcium of 8.9. IMAGING DATA: His chest x-ray shows his lungs fully expand to the chest wall. Costophrenic angle angles are flat and he shows hyperinflation. IMPRESSION: 1. Spontaneous pneumothorax left side resolved with a chest tube. 2. Bronchopleural fistula continuing. 3. Psychiatric history of bipolar and depression. 4. Narcotic abuse now on Suboxone. 5. Severe chronic obstructive pulmonary disease (COPD). 6. Exposure to COVID. PLAN AND DISCUSSION: I have had again an extensive talk with Mr. Ni regarding the planned operation. I have offered to send him down to [place] if he did not want to stay here at the hospital and he declines to do so and wishes to proceed. I have explained to him the procedure including the complications of bleeding, infection, and mortality along with continued air leak. He will be here a minimum of six days after the surgery. He is scheduled for 8:30 on Saturday. We will use an epidural. I am a bit concerned about his wheezing and I am going to start him on steroids today.
--- NOTE | 2021-03-27 08:49 | IPNPDOC ---
Subjective Date Seen The patient was seen on 03/27/21. Subjective Chief Complaint/HPI Mr. Ni is a 50 year old long time smoker who presents with worsening dyspnea and found to have large left pneumothorax. He still has an air leak. Plan to go to OR tomorrow morning with Dr. Lynne. Otherwise, he feels the same. No change in dyspnea or chest pain. Objective Physical Examination General Exam: Positive: Alert Eye Exam: Positive: EOMI; Negative: Sclera icteric ENT Exam: Positive: Atraumatic Neck Exam: Positive: Supple Chest Exam: Positive: Other (course) Heart Exam: Positive: Rate Normal, Regular Rhythm Abdomen Exam: Negative: Soft (gaurding) Extremity Exam: Negative: Edema Neuro Exam: Positive: Normal Speech, Strength at 5/5 X4 ext, Cranial Nerves 3- 12 NL Psych Exam: Positive: Mental status NL, Anxiety Assessment /Plan Assessment Mr. Ni is a 50 year old long time smoker who presents with worsening dyspnea and found to have a large left pneumothorax. Patient is a long time smoker and has blebs which may have caused his pneumothorax. Dr. Lynne has been consulted and placed a chest tube on 03/20/2021. OR tomorrow. He will be staying here a minimum of 6 days after OR. Plan/VTE VTE Prophylaxis Ordered?: Yes Plan 1. Large right pneumothorax -Dr. Lynne consulted, recommendations appreciated -Chest tube placed on 03/20/2021 -CXR daily -Still has leak, OR tomorrow 2. Opioid abuse -Continue Suboxone 3. COPD -Substitute Breo Ellipta with Advair -Substitute Incruse Ellipta with Spiriva -Xopenex as needed -IV solumedrol 4. Anxiety/Depression -Continue Bupropion and Fluoxetine 5. DVT ppx -Heparin subQ Disposition: Leak still present. Plan for OR tomorrow. Minimum of 6 day stay after OR per Dr. Lynne VS, I&O, 24H, Fishbone Vital Signs/I&O Vital Signs Date Time Temp Pulse Resp B/P (MAP) Pulse Ox O2 Delivery O2 Flow Rate FiO2 03/27/21 07:16 97.4 88 18 119/72 (88) 94 Nasal Cannula 3.0 03/21/21 21:30 33 I&O- Last 24 Hours up to 6 AM 03/27/21 05:59 Intake Total 690 ml Output Total 1409 ml Balance -719 ml Laboratory Data 24H LABS Laboratory Tests 2 03/27/21 04:59: Nucleated Red Blood Cells % (auto) 0.0, Anion Gap 6L, Glomerular Filtration Rate > 60.0, Calcium Level 9.6 CBC/BMP Laboratory Tests 03/27/21 04:59 Microbiology Microbiology 03/20/21 Respiratory Virus Panel (PCR) ([facility]) - Final, Complete MASTER DAVALOS DO Mar 27, 2021 08:49
[2021-03-27] MEDS: MOM 30ML SUSPENSION UDC PO SCH ×2 (09:00→09:24)
--- NOTE | 2021-03-27 09:04 | REP ---
INDICATION: after chest tube inserrtion. COMPARISON: 04/24/2021 TECHNIQUE: PA and lateral FINDINGS: The cardiomediastinal silhouette is unchanged. Left-sided thoracotomy tube is stable. The lung pedraza are unchanged. There are no new abnormal opacities. IMPRESSION: No significant change <Electronically signed by Robert Cuellar > 03/27/21 0900
[2021-03-27] MEDS: BUPRENORPHINE/NALOXONE 8-2MG SUBLINGUAL TABLET(SUBOXONE) SL SCH (09:24)
[2021-03-27] MEDS: PANTOPRAZOLE 40MG TAB (PROTONIX) PO SCH (09:24)
[2021-03-27] MEDS: HEPARIN SOD (PORCINE) 5000UNITS/ML 1ML VIAL/SYRINGE SC SCH ×2 (09:24→23:32)
[2021-03-27] MEDS: DOCUSATE SODIUM 100MG CAPSULE PO SCH ×2 (09:24→21:00)
[2021-03-27 11:36] VITALS: BP 104/61
--- NOTE | 2021-03-27 14:01 | IPN ---
PROGRESS NOTE DATE: 03/27/2021 SUBJECTIVE: Mr. Ni is feeling a bit tired today, but he is doing well. There is no shortness of breath. He still has his air leak. OBJECTIVE: VITAL SIGNS: Show a T-max of 97.8 with a heart rate that ranges between 76 and 88 in sinus rhythm. Respiratory rate of 16 to 18 without the use of accessory muscles who is 90% to 96% saturated on 3 liters nasal cannula and whose blood pressure is ranging between 104/61 to 119/71. INTAKE AND OUTPUT: Over the past 24 hours has been recorded as 550 in and 125 out for a negativity of 700 mL. He has put 9 mL out the chest tube and there is the above air leak, which has not abated. RESPIRATORY: His lungs show equal breath sounds on either side. His wheezing is gone. Percussion notes are full to the diaphragm. CARDIAC: Without murmurs, clicks, gallops, or rubs. I cannot feel his PMI. S1 and S2 are normal. ABDOMEN: Soft and nontender. Bowel sounds are positive. There is no hepatomegaly. No CVA tenderness. EXTREMITIES: Show no pretibial edema. No calf tenderness. No differential swelling of the upper extremities. SKIN: Warm, dry, and perfused without cyanosis or mottling, including that of the nail beds and knees. NECK: Supple. There is no jugular venous distention. No subcutaneous emphysema. Trachea is midline. MOUTH: Shows the mucous membranes to be pink and moist. Lips and commisures are without lesions and no thrush. EYES: Show his pupils equal and reactive. Extraocular muscles are intact. Sclerae nonicteric. NEUROLOGIC: Shows II through XII intact. Normal gross motor, gross sensation intact. Gait is not tested. PSYCHIATRIC: Shows him to be awake, alert, and oriented x3 with appropriate mood and affect and conversational. LABORATORY DATA: His white count today is 14.9 up from 9.7 yesterday. Hemoglobin and hematocrit are 13.9 and 44.8 respectively with a platelet count of 289,000. Electrolytes are normal with normalization of his total CO2. BUN and creatinine are 34 and 0.74 respectively with a glucose of 214 and a calcium of 9.6. IMAGING DATA: His chest x-ray shows his lungs fully expand to the chest wall. Costophrenic angles are sharp, but his diaphragms are quite flat. I see no infiltrates. IMPRESSION: 1. Spontaneous pneumothorax left side resolved with a chest tube. 2. Bronchopleural fistula continuing. 3. Psychiatric history of bipolar disease and depression. 4. Narcotic abuse now on Suboxone. 5. Chronic obstructive pulmonary disease (COPD), severe. 6. Exposure to COVID. PLAN: I will take him to the operating room tomorrow and undertake a talc pleurodesis and a wedge resection of his bulla in the cupula of the left upper lobe. Yesterday I fully explained the risks and benefits and he wishes to proceed.
[2021-03-27 15:19] VITALS: BP 114/63
[2021-03-27 20:00] VITALS: BP 127/61
[2021-03-28] VITALS: BP 111/62
[2021-03-28] MEDS: LEVALBUTEROL 1.25 MG/0.5 ML CONCENTRATE NEB NEB SCH ×3 (02:00→14:00)
[2021-03-28] MEDS: KETOROLAC 30 MG/ML 1ML VIAL IV SCH ×3 (03:23→18:32)
[2021-03-28 04:00] VITALS: BP 115/66
[2021-03-28 05:15] LABS: HEMATOCRIT 42.2 % (42.0-52.0); MEAN CORPUSCULAR HEMOGLOBIN 29.2 pg (27.0-33.0); MEAN CORPUSCULAR HGB CONC 30.8 g/dl (32.0-36.5); MEAN CORPUSCULAR VOLUME 94.8 fl (80.0-96.0); PLATELET COUNT, AUTOMATED 281 10^3/uL (150-450); RED BLOOD COUNT 4.45 10^6/uL (4.30-6.10); WHITE BLOOD COUNT 12.4 10^3/uL (4.0-10.0)
[2021-03-28 05:44] LABS: BLOOD UREA NITROGEN 33 MG/DL (7-18); CARBON DIOXIDE LEVEL 33 MEQ/L (21-32); CHLORIDE LEVEL 99 MEQ/L (98-107); CREATININE FOR GFR 0.64 MG/DL (0.70-1.30); GLOMERULAR FILTRATION RATE > 60.0 (>56); GLUCOSE, FASTING 117 MG/DL (70-100); POTASSIUM SERUM 5.4 MEQ/L (3.5-5.1); SODIUM LEVEL 136 MEQ/L (136-145)
[2021-03-28] MEDS ORDERED: ceFAZolin SOD 2 GM in IV 1 EA IV ONE (06:00)
[2021-03-28] MEDS ORDERED: fentaNYL 100 MCG/2 ML INJECTION (J3010) IV PRN (07:01)
[2021-03-28] MEDS ORDERED: MIDAZOLAM INJ 2MG/2ML VIAL (J2250 PER 1MG) IV PRN (07:01)
[2021-03-28] MEDS ORDERED: LACRILUBE (AKWA TEARS) OPHTH OINT 3.5 GM As Ordered ONE (07:18)
[2021-03-28] MEDS ORDERED: LIDOCAINE 1% MDV 20ML VIAL IM ONE (07:25)
[2021-03-28] MEDS ORDERED: propofoL 200 MG/20 ML VIAL As Ordered ONE ×2 (07:29→10:45)
[2021-03-28] MEDS ORDERED: ROCURONIUM BROMIDE 50 MG/5 ML VIAL As Ordered ONE ×3 (07:29→10:49)
[2021-03-28] MEDS ORDERED: LIDOCAINE 2% 100MG/5ML SDV (FOR ANES.) As Ordered ONE (07:29)
[2021-03-28] MEDS ORDERED: ONDANSETRON 4MG/2ML VIAL As Ordered ONE (07:30)
[2021-03-28] MEDS ORDERED: dexameTHASONE 4 MG/ML 1ML VIAL (J1100 PER 1MG) As Ordered ONE (07:30)
[2021-03-28] MEDS ORDERED: fentaNYL 100 MCG/2 ML INJECTION (J3010) As Ordered ONE (07:30)
[2021-03-28] MEDS ORDERED: BUPIVACAINE HCL 0.25% 30ML VIAL As Ordered ONE (07:31)
[2021-03-28] MEDS ORDERED: CETACAINE SPRAY 5GM As Ordered ONE ×2 (07:33→09:21)
[2021-03-28] MEDS ORDERED: BUPIVACAINE LIPOSOME/PF 1.3% 20ML VIAL (13.3MG/ML)(EXPAREL)(C9290 PER1MG) As Ordered ONE (07:33)
[2021-03-28] MEDS ORDERED: BUPIVACAINE HCL 0.5% 10ML VIAL As Ordered ONE (07:33)
[2021-03-28] MEDS: ADVAIR HFA 115/21MCG INHALER INH SCH ×2 (08:00→20:00)
[2021-03-28] MEDS: TIOTROPIUM INHALER/CAPSULE (SPIRIVA) INH SCH (08:00)
[2021-03-28] MEDS ORDERED: MUPIROCIN 2% OINT 22 GM TUBE As Ordered ONE (08:32)
[2021-03-28 08:40] LABS: BLOOD UREA NITROGEN 32 MG/DL (7-18); CALCIUM LEVEL 8.9 MG/DL (8.5-10.1); CARBON DIOXIDE LEVEL 34 MEQ/L (21-32); CHLORIDE LEVEL 100 MEQ/L (98-107); GLOMERULAR FILTRATION RATE > 60.0 (>56); GLUCOSE, FASTING 99 MG/DL (70-100); POTASSIUM SERUM 5.5 MEQ/L (3.5-5.1); SODIUM LEVEL 137 MEQ/L (136-145)
[2021-03-28] MEDS: BUPRENORPHINE/NALOXONE 8-2MG SUBLINGUAL TABLET(SUBOXONE) SL SCH (09:00)
[2021-03-28] MEDS: PANTOPRAZOLE 40MG TAB (PROTONIX) PO SCH (09:00)
[2021-03-28] MEDS: HEPARIN SOD (PORCINE) 5000UNITS/ML 1ML VIAL/SYRINGE SC SCH ×2 (09:00→20:29)
[2021-03-28] MEDS ORDERED: EPIDURAL/PCA KEYS XX PRN (09:00)
[2021-03-28] MEDS ORDERED: WALLBOXKEY XX PRN (09:00)
[2021-03-28] MEDS: DOCUSATE SODIUM 100MG CAPSULE PO SCH ×2 (09:00→20:29)
[2021-03-28] MEDS: MOM 30ML SUSPENSION UDC PO SCH (09:00)
[2021-03-28] MEDS ORDERED: ONDANSETRON 4MG/2ML VIAL IV PRN ×2 (09:00→14:30)
[2021-03-28] MEDS ORDERED: METOCLOPRAMIDE INJ 10MG/2ML VIAL (J2765 PER 1) IV PRN ×2 (09:00→14:30)
[2021-03-28] MEDS ORDERED: NALOXONE INJ 0.4MG/1ML VIAL (J2310 PER 1MG) IV PRN (09:00)
--- NOTE | 2021-03-28 10:05 | REP ---
INDICATION: RULE OUT PNEUMO FOR SURGICAL PROCEDURE. COMPARISON: 03/27/2021. TECHNIQUE: SINGLE PORTABLE AP VIEW OF THE CHEST WAS PERFORMED. FINDINGS: A left chest tube is again noted. There is no pneumothorax. The lungs appear essentially unchanged. The heart and mediastinum are unchanged. There is an endotracheal tube with the distal tip in the left mainstem bronchus. IMPRESSION: No pneumothorax, lung pedraza appear unchanged. Endotracheal tube tip is in the left mainstem bronchus. <Electronically signed by Roman Spear > 03/28/21 1001
[2021-03-28] MEDS ORDERED: PHENYLephrine 500MCG 5ML (100MCG/ML) SYRINGE As Ordered ONE (10:29)
[2021-03-28] MEDS ORDERED: ePHEDrine SULFATE 25 MG/5 ML(5MG/ML) SYRINGE As Ordered ONE ×3 (10:29→13:32)
[2021-03-28] MEDS ORDERED: ACETAMINOPHEN 1000MG 100ML IV BTL (OFIRMEV) (J0131 PER 10MG) As Ordered ONE (11:29)
[2021-03-28] MEDS ORDERED: SUGAMMADEX SODIUM 500 MG/5 ML VIAL (BRIDION) As Ordered ONE (11:44)
[2021-03-28] MEDS: TALCAIR POWDER BLOWER (CAN ONLY BE USED WITH 3GM TALC VIAL) XX ONE ×2 (11:58→12:37)
[2021-03-28] MEDS: STERILE TALC POWDER 3GM VIAL As Ordered ONE ×2 (11:58→12:37)
[2021-03-28] MEDS ORDERED: KCL 20MEQ IN D5/NS 1000ML 1,000 ML IV SCH (13:10)
[2021-03-28] MEDS ORDERED: ALBUTEROL 6.7GM INHALER **FOR ANES. CART/OMNICELL ONLY As Ordered ONE (13:46)
[2021-03-28 14:19] LABS: ABG O2 SATURATION 99.7 % (95.0-99.0); ABG PARTIAL PRESSURE O2 254.7 mmHg (75.0-100.0); ABG STANDARD HCO3 25.4 MEQ/L (22.0-26.0); ABG TOTAL CO2 30.8 MEQ/L (22.0-29.0); ABG pH (ARTERIAL) 7.293 UNITS (7.350-7.450)
[2021-03-28 14:22] LABS: ABG PARTIAL PRESSURE CO2 61.2 mmHg (35.0-45.0)
--- NOTE | 2021-03-28 14:25 | REP ---
INDICATION: pneumothx. COMPARISON: Comparison radiographs are March 26, 2021 and March 27 and 06/20/2021. The most recent exam is from 28 March 2021 at 9:44 a.m.. TECHNIQUE: Two views. Upright portable sitting chest x-ray time stamp 2:09 p.m... FINDINGS: There are 2 left apical chest tubes noted. There is pleural air at the left apex and left base consistent with left-sided pneumothorax. There are surgical sutures at the apex of the lung on the pleural margin consistent with resection. There is discoid atelectasis in the left base. The right lung shows mildly prominent interstitial markings. No right-sided pneumothorax is seen. There is an epidural catheter noted in place. Monitoring electrodes are seen. The endotracheal tube is withdrawn.. IMPRESSION: Left-sided pneumothorax at the apex and base postthoracotomy changes on the left with 2 left apical chest tubes.. <Electronically signed by Sukhdev Savage > 03/28/21 [id number]
--- NOTE | 2021-03-28 14:28 | RO ---
OPERATIVE NOTE DATE OF OPERATION: 03/28/2021 PREOPERATIVE DIAGNOSES: 1. Bronchopleural fistula. 2. Chronic obstructive pulmonary disease. 3. Spontaneous pneumothorax. POSTOPERATIVE DIAGNOSES: 1. Bronchopleural fistula. 2. Chronic obstructive pulmonary disease. 3. Spontaneous pneumothorax. PROCEDURES: Thoracoscopic wedge resection of bullae, extensive lysis of adhesions, 5-level rib block, bronchoscopy, talc pleurodesis. SURGEON: Dr. Jordan Lynne FINDINGS: The bronchoscopy revealed an intact and normal branching tracheobronchial tree. He had increased secretions. These were suction aspirated. There were no mucous plugs. The thoracoscopy showed the upper cupula in and around the large bullae to be densely adherent to the chest wall, which had to be taken down before I could resect the bullae. He had an additional bulla in the posterior segment, which was also stapled and resected. Talc was uniformly insufflated into the chest. At the end of the procedure he still had a very large air leak. Furthermore, anesthesia noted that inhalation and expiration volumes were quite different with inhalation being more and exhalation being less. Therefore, the ports were replaced and the chest thoroughly explored with the lung being covered with water and it being inflated under insufflation. I could not find an air leak. He did have a large air leak from the anterior-superior chest tube, which was removed prior to the surgery, and that was stapled with the air leak stopping. Anesthesia's imbalance in inspiration and expiration also equalized. DESCRIPTION OF PROCEDURE: After satisfactory general anesthesia and single-lumen tube endotracheal intubation, bronchoscope was placed in the tracheobronchial tree. Patient was suction aspirated. The above findings were noted. He had normal branching segmental anatomy. Each segment and subsegment was thoroughly inspected, and there were no endobronchial lesions. There were no true mucous plugs but copious amounts of thin secretions. The patient then underwent double-lumen tube intubation, being confirmed with a bronchoscope. Patient was then turned into the right lateral decubitus position and prepped and draped in the usual sterile fashion. Four thoracoscopy incisions were made eventually, two of each in the midline and anterior and posterior axillary lines and one more inferior, as his chest deformity from the pectus carinatum precluded getting a good angle for the Harmonic scalpel and graspers. The above findings were noted after placement of the ports, and therein a long dissection, removing the very adherent cupular adhesions, was undertaken with the Harmonic scalpel. Eventually these were all removed. There were some adhesions right up against the subclavian artery, which were carefully divided without injuring the artery itself. After lysing these adhesions, which took quite a long time, the lung was grasped with a grasper, and a very generous wedge resection was undertaken of the upper lobe to include all the bullae and dissected areas. There was an additional bulla in the posterior segment of the upper lobe, and that was also stapled. Surprisingly, this last bulla bled and was cauterized with the Harmonic scalpel. Talc was insufflated to cover the entire chest wall surface. Two chest tubes were placed, #24 curved and straight, and the lung reinflated. The incisions were closed with running 0 Vicryl suture and running 4-0 Monopril subcuticular suture. We then noted a very large air leak from both the chest tube, Pleur-evac, and the imbalance of inspiration/expiration that anesthesia noted. Therefore two of the incisions were reopened and ports replaced and the lung thoroughly inspected, as noted above. Tisseel was used to cover the staple lines. Talc was reinsufflated, as I had covered the lung with water to look for active air leaks, and it resulted in washing away the previously insuflfated talc. Talc was again reinsufflated and the two chest tubes replaced. Lung was then again reinflated with an equalization of inspiration and expiration volumes. The air leak was also much less after having stapled the skin on the previously placed anterior-superior chest tube. A 5-level rib block was then undertaken with a mixture of Marcaine and Exparel. Patient tolerated the procedure well and left the operating room in satisfactory condition to the recovery room. CLAY
[2021-03-28] MEDS ORDERED: LR 1,000 ML IV SCH (14:30)
[2021-03-28] MEDS ORDERED: KETOROLAC 30 MG/ML 1ML VIAL IV PRN (14:30)
[2021-03-28] MEDS ORDERED: ACETAMINOPHEN 500 MG TAB PO SCH (14:35)
[2021-03-28 14:56] LABS: HEMATOCRIT 41.8 % (42.0-52.0); HEMOGLOBIN 13.3 g/dl (13.5-17.5); MEAN CORPUSCULAR HEMOGLOBIN 30.6 pg (27.0-33.0); MEAN CORPUSCULAR HGB CONC 31.8 g/dl (32.0-36.5); MEAN CORPUSCULAR VOLUME 96.1 fl (80.0-96.0); PLATELET COUNT, AUTOMATED 284 10^3/uL (150-450); RED BLOOD COUNT 4.35 10^6/uL (4.30-6.10); WHITE BLOOD COUNT 18.4 10^3/uL (4.0-10.0)
[2021-03-28 15:21] LABS: ALT/SGPT 53 U/L (12-78); BILIRUBIN,TOTAL 0.3 MG/DL (0.2-1.0); BLOOD UREA NITROGEN 33 MG/DL (7-18); CALCIUM LEVEL 8.8 MG/DL (8.5-10.1); CARBON DIOXIDE LEVEL 34 MEQ/L (21-32); CHLORIDE LEVEL 100 MEQ/L (98-107); CREATININE FOR GFR 0.68 MG/DL (0.70-1.30); GLOMERULAR FILTRATION RATE > 60.0 (>56); GLUCOSE, FASTING 105 MG/DL (70-100); POTASSIUM SERUM 5.4 MEQ/L (3.5-5.1); SODIUM LEVEL 137 MEQ/L (136-145); TOTAL PROTEIN 6.8 GM/DL (6.4-8.2)
[2021-03-28 16:20] VITALS: BP 141/67
[2021-03-28] MEDS: BUPIVACAINE/NACL BAG 250 ML EPIDURAL SCH (16:31)
[2021-03-28] MEDS: methylPREDNISolone 40MG 1ML VIAL IV SCH (16:52)
[2021-03-28] MEDS: D5W/0.9% SODIUM CHLORIDE 1,000 ML IV SCH (16:53)
[2021-03-28] MEDS: ceFAZolin SOD 1 GM in D5W MINI-BAG PLUS 50 ML IV SCH ×2 (17:01→20:29)
[2021-03-28 18:00] VITALS: BP 144/65
--- NOTE | 2021-03-28 18:55 | IPNPDOC ---
Text Note Date of Service The patient was seen on 03/28/21. NOTE Subjective: Patient was seen in the ICU after thoracoscopic wedge resection of bullae, extensive lysis of adhesions. Objective: GENERAL APPEARANCE: NAD HEENT: no scleral icterus, no JVD, EOMI CARDIOVASCULAR: S1S2 LUNGS: Diminished lung sounds bilaterally, left chest pain in place ABDOMEN: soft & not tender w palpitation MUSCULOSKELETAL: no cyanosis, no swelling INTEGUMENT: no generalized pallor NEUROLOGICAL: cranial nerve function from 2-12 intact intact, follows commands, speech not dysarthric Assessment and plan Pt is a 50 year old long time smoker who presents with worsening dyspnea and found to have a large left pneumothorax. Patient is a long time smoker and has blebs which may have caused his pneumothorax. Dr. Lynne has been consulted and placed a chest tube on 03/20/2021. Thoracoscopic wedge resection of bullae, extensive lysis of adhesions, 5-level rib block, bronchoscopy, talc pleurodesis was done on 03/28/21. Large right pneumothorax Thoracoscopic wedge resection of bullae, extensive lysis of adhesions, 5-level rib block, bronchoscopy, talc pleurodesis was done on 03/28/21. Day [address] Lynne follows the patient Opioid abuse Continue Suboxone Dyspnea Most likely secondary to pneumothorax and advanced COPD Continue inhalers, by mouth prednisone Anxiety/depression Continue bupropion and fluoxetine Exposure to COVID 2 tests was negative Continue isolation VS,Fishbone, I+O VS, Fishbone, I+O Laboratory Tests 03/28/21 04:54 03/28/21 08:02 03/28/21 14:00 Vital Signs Date Time Temp Pulse Resp B/P (MAP) Pulse Ox O2 Delivery O2 Flow Rate FiO2 03/28/21 18:00 99.0 76 22 144/65 (91) 97 Nasal Cannula 2.0 I&O- Last 24 Hours up to 6 AM 03/28/21 06:00 Intake Total 1600 ml Output Total 509 ml Balance 1091 ml MIGUEL KHALIL DO Mar 28, 2021 18:55
[2021-03-28 20:00] VITALS: BP 146/67
[2021-03-28] MEDS ORDERED: BUPRENORPHINE/NALOXONE 8-2MG SUBLINGUAL TABLET(SUBOXONE) SL ONE (21:15)
[2021-03-28 22:00] VITALS: BP 131/52
[2021-03-29] VITALS (9 sets, daily range): BP systolic 107–143; BP diastolic 50–80; O2SAT 98
[2021-03-29] MEDS: KETOROLAC 30 MG/ML 1ML VIAL IV SCH ×4 (01:34→21:48)
[2021-03-29 05:03] LABS: ABG BASE EXCESS 3.9 (-2.0-2.0); ABG HCO3 31.2 MEQ/L (22.0-26.0); ABG O2 SATURATION 95.3 % (95.0-99.0); ABG PARTIAL PRESSURE CO2 59.9 mmHg (35.0-45.0); ABG PARTIAL PRESSURE O2 79.1 mmHg (75.0-100.0); ABG STANDARD HCO3 27.9 MEQ/L (22.0-26.0); ABG pH (ARTERIAL) 7.334 UNITS (7.350-7.450)
[2021-03-29] MEDS ORDERED: ceFAZolin 1GM VIAL (J0690 PER 500MG) As Ordered ONE (05:03)
[2021-03-29 05:17] LABS: HEMATOCRIT 36.1 % (42.0-52.0); MEAN CORPUSCULAR HEMOGLOBIN 29.8 pg (27.0-33.0); PLATELET COUNT, AUTOMATED 257 10^3/uL (150-450); RED BLOOD COUNT 3.76 10^6/uL (4.30-6.10); WHITE BLOOD COUNT 16.9 10^3/uL (4.0-10.0)
[2021-03-29] MEDS: ceFAZolin SOD 1 GM in D5W MINI-BAG PLUS 50 ML IV SCH ×3 (05:21→21:49)
[2021-03-29] MEDS: D5W/0.9% SODIUM CHLORIDE 1,000 ML IV SCH ×2 (05:21→18:05)
[2021-03-29 05:31] LABS: HEMOGLOBIN 11.2 g/dl (13.5-17.5)
[2021-03-29 05:42] LABS: BLOOD UREA NITROGEN 27 MG/DL (7-18); CALCIUM LEVEL 8.1 MG/DL (8.5-10.1); CARBON DIOXIDE LEVEL 32 MEQ/L (21-32); CHLORIDE LEVEL 102 MEQ/L (98-107); CREATININE FOR GFR 0.59 MG/DL (0.70-1.30); GLOMERULAR FILTRATION RATE > 60.0 (>56); GLUCOSE, FASTING 128 MG/DL (70-100); MAGNESIUM LEVEL 1.6 MG/DL (1.8-2.4); POTASSIUM SERUM 4.4 MEQ/L (3.5-5.1); SODIUM LEVEL 138 MEQ/L (136-145)
[2021-03-29] MEDS: ADVAIR HFA 115/21MCG INHALER INH SCH ×2 (07:57→19:46)
[2021-03-29] MEDS: TIOTROPIUM INHALER/CAPSULE (SPIRIVA) INH SCH (07:57)
[2021-03-29] MEDS: MOM 30ML SUSPENSION UDC PO SCH (09:00)
[2021-03-29] MEDS: DOCUSATE SODIUM 100MG CAPSULE PO SCH ×2 (09:29→20:11)
[2021-03-29] MEDS: BUPRENORPHINE/NALOXONE 8-2MG SUBLINGUAL TABLET(SUBOXONE) SL SCH ×2 (09:29→20:11)
[2021-03-29] MEDS: predniSONE 20 MG TAB PO SCH (09:29)
[2021-03-29] MEDS: MAGNESIUM GLUCONATE 500 MG TAB PO SCH (09:30)
[2021-03-29] MEDS: HEPARIN SOD (PORCINE) 5000UNITS/ML 1ML VIAL/SYRINGE SC SCH ×2 (09:30→20:11)
[2021-03-29] MEDS: PANTOPRAZOLE 40MG TAB (PROTONIX) PO SCH (09:30)
--- NOTE | 2021-03-29 09:31 | REP ---
INDICATION: pneumothx. COMPARISON: Comparison chest x-ray 03/28/2021. TECHNIQUE: Two views.. FINDINGS: Two left apical chest tubes remain in place. Small left apical and small left posterior base pneumothorax. Blunting of the left lateral and posterior pleural angles is seen. Interstitial infiltrates persist. Heart is not enlarged. No new infiltrate is seen. An epidural catheter an EKG monitoring electrodes are seen. IMPRESSION: Small left-sided pneumothorax somewhat improved from yesterday's radiograph. Two left chest tubes remain in place.. <Electronically signed by Sukhdev Savage > 03/29/21 0933
--- NOTE | 2021-03-29 12:44 | IPN ---
PROGRESS NOTE DATE: 03/29/2021 SUBJECTIVE: This is now the first postoperative day for Mr. Ni who had had a stable night after surgery. He is complaining of pain throughout his left chest. The epidural only contains bupivacaine as his Suboxone counteracts narcotic analgesia. He remains on Toradol, which I have increased to q. 6 hours. Yesterday, he was found with a quantity of Cocaine, which was turned over to the police for destruction. The reported observation was that this was a quantity of more than needed for personal use. OBJECTIVE: VITAL SIGNS: Show a T-max of 98.9 with a heart rate that ranges between 81 and 69 in sinus rhythm. Respiratory rate of 20 to 22 without the use of accessory muscles who is 93% to 98% saturated on 2 liters nasal cannula. His blood pressure is ranging between 143/70 to 121/50. INTAKE AND OUTPUT: Over the past 24 hours has been recorded as 3190 in and 1095 out for a positivity of 2095 mL. He has put 195 out the chest tube and he still has considerable air leak. Weight today is 59 kg compared to 56.1 kg on 03/26. RESPIRATORY: He is still on COVID precautions as he was exposed. He has bilateral wheezing on either side with rales and rhonchi throughout the entire respiratory cycle. He cannot have nebulizers. He is on Advair and Spiriva, but no short-acting inhaler. I will put him on Ventolin. ABDOMEN: Soft and nontender. Bowel sounds are positive. There is no hepatomegaly. No CVA tenderness. EXTREMITIES: Show no pretibial edema. No calf tenderness. No differential swelling of the upper extremities. SKIN: Warm, dry, and perfused without cyanosis or mottling, including that of the nail beds and knees. NECK: Supple. There is no jugular venous distention. No subcutaneous emphysema. Trachea is midline. MOUTH: Shows the mucous membranes to be pink and moist. Lips and commisures are without lesions and no thrush. EYES: Show his pupils equal and reactive. Extraocular muscles are intact. Sclerae nonicteric. NEUROLOGIC: Shows II through XII intact. Normal gross motor, gross sensation intact. Gait is not tested. PSYCHIATRIC: Shows him to be awake, alert, and oriented x3 with appropriate mood and affect and conversational. LABORATORY DATA: His white count is 16.9 with hemoglobin and hematocrit of 11.2 and 36.1. Platelet count is 257,000. Chemistries today show normal electrolytes including a normalized total CO2 of 32. BUN and creatinine are 27 and 0.59 respectively with a glucose of 128 and a calcium of 8.1. Magnesium is 1.6. Blood gases this morning show a pH of 7.33, pCO2 of 59, and a pO2 of 79 on the 3 liters nasal cannula. Base excess is 3.9. IMAGING DATA: His chest x-ray shows an apical airspace on the top of the left lung adjacent to the staple lines. Otherwise, the lungs fully expand to the chest wall. Chest tubes are in good place. There is no subcutaneous emphysema. I see no infiltrates. IMPRESSION: 1. Spontaneous pneumothorax left side resolved with a chest tube. Bronchopleural fistula addressed with talc pleurodesis and wedge resection still continuing. 2. Psychiatric history of bipolar disease and depression. 3. Narcotic abuse now on Suboxone. 4. Cocaine abuse. 5. Chronic obstructive pulmonary disease (COPD) severe. 6. Exposure to COVID. PLAN AND DISCUSSION: I will continue his chest tube on suction. I will not diurese him today. I have increased his Toradol for better pain control. I will start him on Ventolin as a short-acting inhaler. I will leave his Suboxone management to the medical service.
[2021-03-29] MEDS: BUPIVACAINE/NACL BAG 250 ML EPIDURAL SCH (14:11)
--- NOTE | 2021-03-29 14:57 | IPNPDOC ---
Text Note Date of Service The patient was seen on 03/29/21. NOTE Subjective: No any acute events overnight. Patient complains of left-sided chest pain. He remains afebrile. Objective: GENERAL APPEARANCE: NAD HEENT: no scleral icterus, no JVD, EOMI CARDIOVASCULAR: S1S2 LUNGS: Diminished lung sounds bilaterally, coarse lung sounds on the left side, left chest tube in place, mild wheezes bilaterally ABDOMEN: soft & not tender w palpitation MUSCULOSKELETAL: no cyanosis, no swelling INTEGUMENT: no generalized pallor NEUROLOGICAL: cranial nerve function from 2-12 intact intact, follows commands, speech not dysarthric Assessment and plan Pt is a 50 year old long time smoker who presents with worsening dyspnea and found to have a large left pneumothorax. Patient is a long time smoker and has blebs which may have caused his pneumothorax. Dr. Lynne has been consulted and placed a chest tube on 03/20/2021. Thoracoscopic wedge resection of bullae, extensive lysis of adhesions, 5-level rib block, bronchoscopy, talc pleurodesis was done on 03/28/21. Large right pneumothorax Thoracoscopic wedge resection of bullae, extensive lysis of adhesions, 5-level rib block, bronchoscopy, talc pleurodesis was done on 03/28/21. Day [address] Lynne follows the patient Continue chest tube on suction The Toradol dose was increased I increased the dose of Suboxone for better pain control as Suboxone partial agonist antagonist of mu and kappa receptors Opioid abuse Continue Suboxone Dyspnea Most likely secondary to pneumothorax and advanced COPD Continue inhalers, by mouth prednisone Anxiety/depression Continue bupropion and fluoxetine Exposure to COVID 2 tests was negative Continue isolation VS,Fishbone, I+O VS, Fishbone, I+O Laboratory Tests 03/29/21 04:51 Vital Signs Date Time Temp Pulse Resp B/P (MAP) Pulse Ox O2 Delivery O2 Flow Rate FiO2 03/29/21 12:00 98.5 100 20 129/61 (83) 91 Nasal Cannula 2.0 03/29/21 08:27 33 I&O- Last 24 Hours up to 6 AM 03/29/21 06:00 Intake Total 4580 ml Output Total 2295 ml Balance 2285 ml MIGUEL KHALIL DO Mar 29, 2021 14:57
[2021-03-29] MEDS: diphenhydrAMINE 50MG/ML VIAL (J1200) IV PRN (20:13)
[2021-03-30] VITALS: BP 127/74
[2021-03-30 04:00] VITALS: BP 127/74
[2021-03-30] MEDS: KETOROLAC 30 MG/ML 1ML VIAL IV SCH ×4 (04:18→21:09)
[2021-03-30 05:06] LABS: HEMATOCRIT 36.6 % (42.0-52.0); MEAN CORPUSCULAR HEMOGLOBIN 29.1 pg (27.0-33.0); MEAN CORPUSCULAR HGB CONC 30.1 g/dl (32.0-36.5); MEAN CORPUSCULAR VOLUME 96.8 fl (80.0-96.0); PLATELET COUNT, AUTOMATED 249 10^3/uL (150-450); RED BLOOD COUNT 3.78 10^6/uL (4.30-6.10); WHITE BLOOD COUNT 15.3 10^3/uL (4.0-10.0)
[2021-03-30 05:27] LABS: BLOOD UREA NITROGEN 26 MG/DL (7-18); CALCIUM LEVEL 8.1 MG/DL (8.5-10.1); CARBON DIOXIDE LEVEL 35 MEQ/L (21-32); CHLORIDE LEVEL 103 MEQ/L (98-107); CREATININE FOR GFR 0.45 MG/DL (0.70-1.30); GLOMERULAR FILTRATION RATE > 60.0 (>56); GLUCOSE, FASTING 78 MG/DL (70-100); MAGNESIUM LEVEL 1.8 MG/DL (1.8-2.4); POTASSIUM SERUM 4.3 MEQ/L (3.5-5.1); SODIUM LEVEL 139 MEQ/L (136-145)
[2021-03-30] MEDS: ceFAZolin SOD 1 GM in D5W MINI-BAG PLUS 50 ML IV SCH ×3 (06:02→21:08)
[2021-03-30 08:00] VITALS: BP 114/74
[2021-03-30] MEDS: LEVALBUTEROL 1.25 MG/0.5 ML CONCENTRATE NEB NEB SCH (08:00)
[2021-03-30] MEDS: ADVAIR HFA 115/21MCG INHALER INH SCH ×2 (08:00→20:05)
[2021-03-30] MEDS: TIOTROPIUM INHALER/CAPSULE (SPIRIVA) INH SCH (08:00)
[2021-03-30] MEDS: MOM 30ML SUSPENSION UDC PO SCH (08:48)
[2021-03-30] MEDS: PANTOPRAZOLE 40MG TAB (PROTONIX) PO SCH (08:50)
[2021-03-30] MEDS: DOCUSATE SODIUM 100MG CAPSULE PO SCH ×2 (08:50→19:59)
[2021-03-30] MEDS: MAGNESIUM GLUCONATE 500 MG TAB PO SCH (08:50)
[2021-03-30] MEDS: predniSONE 20 MG TAB PO SCH (08:50)
[2021-03-30] MEDS: BUPRENORPHINE/NALOXONE 8-2MG SUBLINGUAL TABLET(SUBOXONE) SL SCH ×2 (08:51→19:59)
[2021-03-30] MEDS: HEPARIN SOD (PORCINE) 5000UNITS/ML 1ML VIAL/SYRINGE SC SCH ×2 (08:51→19:59)
--- NOTE | 2021-03-30 09:21 | REP ---
INDICATION: pneumothx. COMPARISON: Comparison chest x-ray 29 March 2021. TECHNIQUE: Two views.. FINDINGS: Epidural catheter, 2 left chest tubes, and EKG leads are again noted. There is a small left apical pneumothorax slightly increased in size from yesterday's chest x-ray on the frontal view. A tiny air-fluid level is visible in the lateral pleural angle and posteriorly in the left chest. The right lower lobe infiltrate appears somewhat improved today. Increased markings in the left lower lobe are unchanged. No new infiltrate is seen. IMPRESSION: Postoperative changes on the left with 2 left chest tubes. Small left-sided hydropneumothorax.. <Electronically signed by Sukhdev Savage > 03/30/21 0918
[2021-03-30] MEDS: BUPIVACAINE/NACL BAG 250 ML EPIDURAL SCH (11:54)
[2021-03-30 12:00] VITALS: BP 119/68
[2021-03-30] MEDS ORDERED: FUROSEMIDE 40MG/4ML VIAL (J1940) IV ONE (12:30)
[2021-03-30] MEDS: ALBUTEROL 90 MCG/ACT 8GM HFA INHALER INH SCH ×3 (12:59→20:00)
--- NOTE | 2021-03-30 13:57 | IPN ---
PROGRESS NOTE DATE: 03/30/2021 This is now the second postoperative day for Mr. Ni. He is still complaining of discomfort. The bupivacaine in the epidural was running, and the medicine service has increased the Suboxone. His vital signs show a maximum temperature of 99.0 with a heart rate that ranges between 77-98 in a sinus rhythm, respiratory rate of 16-20 without the use of accessory muscles, who is 92%-97% saturated on 2 liters nasal cannula and whose blood pressure is ranging between 127/74 to 114/74. His intake and output for the past 24 hours has been recorded as 4212 in and 2155 out, for a positivity of 2 liters. He has put out 430 mL from the chest tube, and he still has an air leak. His weight today is 60.7 kg compared to 59 kg yesterday. PHYSICAL EXAMINATION: He has bilateral expiratory wheezing. Percussion note is full to the diaphragm. Cardiac exam is without murmurs, clicks, gallops, or rubs. I cannot feel his point of maximal impulse (PMI). S1 and S2 are normal. Abdomen is soft and nontender. Bowel sounds are positive. There is no hepatomegaly. No costovertebral angle (CVA) tenderness. Extremities show no pretibial edema, no calf tenderness, no differential swelling of the upper extremities. Skin is warm, dry, and perfused without cyanosis or mottling, including that of the nailbeds and knees. Neck is supple. There is no jugular venous distention. No subcutaneous emphysema. Trachea is midline. Mouth shows the mucous membranes to be pink and moist. Lips and commissures without lesions. No thrush. Eyes show his pupils to be equal and reactive. Extraocular motion intact. Sclerae anicteric. Neurologic shows II-XII intact. Normal gross motor, gross sensation intact. Gait is not tested. Psychiatric shows him to be awake, alert, and oriented times three with appropriate mood and affect and conversational. His white count today is 15.3 with a hemoglobin and hematocrit of 11.0 and 36.6, respectively. This is essentially unchanged from yesterday. Platelet count is 249. Electrolytes are normal except for a marginally elevated total CO2 of 35. BUN and creatinine are 26 and 0.45, and he remains on Toradol. Glucose is 78 with a calcium of 8.1 and a magnesium of 1.8. His chest x-ray today shows an apical airspace in the left upper lobe secondary to the generous wedge resection. There is no subcutaneous emphysema. I see no infiltrates. Costophrenic angle is minimally blunted on the left side, sharp on the right side. IMPRESSION: 1. Postoperative day #2, status post talc pleurodesis and generous wedge resection of left upper lobe. 2. Severe chronic obstructive pulmonary disease (COPD). 3. Psychiatric history of bipolar disease. 4. Bronchopleural fistula, continuing, probably now from the staple lines. 5. Narcotic abuse, on Suboxone. 6. Cocaine abuse. 7. COPD. 8. Exposure to COVID. PLAN AND DISCUSSION: I will continue on suction today. I will also diurese him today. I will start Ventolin today, as I did not write the order yesterday.
--- NOTE | 2021-03-30 15:45 | IPNPDOC ---
Text Note Date of Service The patient was seen on 03/30/21. NOTE Subjective: Patient complains of left-sided chest pain, stated that 6 out of 10. No fever or chills overnight. Postoperative day 2 Objective: GENERAL APPEARANCE: Cachectic male HEENT: no scleral icterus, no JVD, EOMI CARDIOVASCULAR: S1S2 LUNGS: Diminished lung sounds bilaterally, coarse lung sounds on the left side, left chest tube in place, mild wheezes bilaterally ABDOMEN: soft & not tender w palpitation MUSCULOSKELETAL: no cyanosis, no swelling INTEGUMENT: no generalized pallor NEUROLOGICAL: cranial nerve function from 2-12 intact intact, follows commands, speech not dysarthric Assessment and plan Pt is a 50 year old long time smoker who presents with worsening dyspnea and found to have a large left pneumothorax. Patient is a long time smoker and has blebs which may have caused his pneumothorax. Dr. Lynne has been consulted and placed a chest tube on 03/20/2021. Thoracoscopic wedge resection of bullae, extensive lysis of adhesions, 5-level rib block, bronchoscopy, talc pleurodesis was done on 03/28/21. Large right pneumothorax Thoracoscopic wedge resection of bullae, extensive lysis of adhesions, 5-level rib block, bronchoscopy, talc pleurodesis was done on 03/28/21. Day [address] 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
[2021-03-30 16:00] VITALS: BP 125/77
[2021-03-30 20:00] VITALS: BP 129/76
[2021-03-31] VITALS (7 sets, daily range): BP systolic 123–138; BP diastolic 69–99; O2SAT 98
[2021-03-31] MEDS: diphenhydrAMINE 50MG/ML VIAL (J1200) IV PRN ×2 (01:03→16:36)
[2021-03-31] MEDS: ACETAMINOPHEN TAB 650MG DOSE (2X325MG) PO PRN (01:03)
[2021-03-31] MEDS: KETOROLAC 30 MG/ML 1ML VIAL IV SCH ×4 (04:14→21:42)
[2021-03-31] MEDS: ceFAZolin SOD 1 GM in D5W MINI-BAG PLUS 50 ML IV SCH ×3 (05:07→21:42)
[2021-03-31 05:24] LABS: HEMATOCRIT 35.6 % (42.0-52.0); HEMOGLOBIN 10.7 g/dl (13.5-17.5); MEAN CORPUSCULAR HEMOGLOBIN 29.2 pg (27.0-33.0); MEAN CORPUSCULAR HGB CONC 30.1 g/dl (32.0-36.5); PLATELET COUNT, AUTOMATED 275 10^3/uL (150-450); RED BLOOD COUNT 3.67 10^6/uL (4.30-6.10); WHITE BLOOD COUNT 15.7 10^3/uL (4.0-10.0)
[2021-03-31 05:50] LABS: BLOOD UREA NITROGEN 28 MG/DL (7-18); CALCIUM LEVEL 8.4 MG/DL (8.5-10.1); CARBON DIOXIDE LEVEL 35 MEQ/L (21-32); CHLORIDE LEVEL 101 MEQ/L (98-107); CREATININE FOR GFR 0.57 MG/DL (0.70-1.30); GLOMERULAR FILTRATION RATE > 60.0 (>56); GLUCOSE, FASTING 75 MG/DL (70-100); MAGNESIUM LEVEL 1.8 MG/DL (1.8-2.4); POTASSIUM SERUM 4.1 MEQ/L (3.5-5.1); SODIUM LEVEL 139 MEQ/L (136-145)
[2021-03-31] MEDS: TIOTROPIUM INHALER/CAPSULE (SPIRIVA) INH SCH (07:36)
[2021-03-31] MEDS: ALBUTEROL 90 MCG/ACT 8GM HFA INHALER INH SCH ×4 (07:37→20:43)
[2021-03-31] MEDS: ADVAIR HFA 115/21MCG INHALER INH SCH ×2 (07:37→20:43)
[2021-03-31] MEDS: BUPRENORPHINE/NALOXONE 8-2MG SUBLINGUAL TABLET(SUBOXONE) SL SCH (08:02)
[2021-03-31] MEDS: predniSONE 20 MG TAB PO SCH (08:03)
[2021-03-31] MEDS: DOCUSATE SODIUM 100MG CAPSULE PO SCH ×2 (08:03→20:08)
[2021-03-31] MEDS: MAGNESIUM GLUCONATE 500 MG TAB PO SCH (08:03)
[2021-03-31] MEDS: MOM 30ML SUSPENSION UDC PO SCH ×2 (08:04→09:00)
[2021-03-31] MEDS: HEPARIN SOD (PORCINE) 5000UNITS/ML 1ML VIAL/SYRINGE SC SCH ×2 (08:04→20:08)
[2021-03-31] MEDS: PANTOPRAZOLE 40MG TAB (PROTONIX) PO SCH (08:04)
--- NOTE | 2021-03-31 08:59 | REP ---
INDICATION: pneumothx. COMPARISON: Comparison chest x-ray March 30, 2021. TECHNIQUE: Two views.. FINDINGS: Two left apical chest tubes remain in place unchanged. Small left-sided pneumothorax is a gradually decreasing. There is blunting of the left lateral pleural angle. Platelike atelectasis is seen in the right base today. Sutures are noted in the left apex and amy project in the left perihilar region. IMPRESSION: Left-sided pneumothorax gradually decreasing. Two left chest tubes remain in place.. <Electronically signed by Sukhdev Savage > 03/31/21 [id number]
[2021-03-31] MEDS ORDERED: FUROSEMIDE 40MG/4ML VIAL (J1940) IV ONE (09:25)
[2021-03-31] MEDS: BUPIVACAINE/NACL BAG 250 ML EPIDURAL SCH (10:19)
--- NOTE | 2021-03-31 12:24 | IPN ---
PROGRESS NOTE DATE: 03/31/2021 SUBJECTIVE: This is now the third postoperative day for Mr. Ni. He is still complaining of some pain and difficulty sleeping after his Suboxone dose in the evening. His Suboxone dose is helping his pain, however. OBJECTIVE: VITAL SIGNS: Show a T-max of 99.5 with a heart rate that ranges between 78 and 96 in sinus rhythm. Respiratory rate that is constant 18 who is 94% to 95% saturated on 2 liters nasal cannula and whose blood pressure is ranging between 123/69 to 131/83. INTAKE AND OUTPUT: Over the past 24 hours has been recorded as 2876 in and 2965 out for a negativity of 90 mL. He has put 255 mL out the chest tube and there is still a considerable air leak. Weight today is 60.1 kg compared to 60.7 kg yesterday. He has put out 2700 mL in urine and taken in 2400 mL in oral intake. RESPIRATORY: He has bilateral wheezes and rhonchi throughout the respiratory cycle with the wheezes occurring during expiration. Percussion notes are full to the diaphragm. There is no subcutaneous emphysema over the chest wall. CARDIAC: Without murmurs, clicks, gallops, or rubs. I cannot feel his PMI. S1 and S2 are normal. ABDOMEN: Soft and nontender. Bowel sounds are positive. There is no hepatomegaly. No CVA tenderness. EXTREMITIES: Show no pretibial edema. No calf tenderness. No differential swelling of the upper extremities. SKIN: Warm, dry, and perfused without cyanosis or mottling, including that of the nail beds and knees. NECK: Supple. There is no jugular venous distention. No subcutaneous emphysema. Trachea is midline. MOUTH: Shows the mucous membranes to be pink and moist. Lips and commisures are without lesions and no thrush. EYES: Show his pupils equal and reactive. Extraocular muscles are intact. Sclerae nonicteric. NEUROLOGIC: Shows II through XII intact. Normal gross motor, gross sensation intact. Gait is not tested. PSYCHIATRIC: Shows him to be awake, alert, and oriented x3 with appropriate mood and affect and conversational. LABORATORY DATA: His white count today is 15.7 unchanged from yesterday with a hemoglobin and hematocrit of 10.7 and 35.6; again essentially unchanged from yesterday. Platelet count is 275,000 and stable. His electrolytes are normal except for an elevated total CO2 of 35. BUN and creatinine are 28 and 0.57 and he remains on Toradol. Glucose is 75 with a calcium of 8.4 and magnesium 1.8. IMAGING DATA: His chest x-ray still shows an apical airspace in the upper left hemithorax. There is no subcutaneous emphysema. The left costophrenic angle is slightly blunted. I see no other infiltrates. IMPRESSION: 1. Postoperative day #3 status post wedge resections and talc pleurodesis for alveolopleural fistula. 2. Severe chronic obstructive pulmonary disease (COPD). 3. Psychiatric history of bipolar disease. 4. Bronchopleural fistula continuing probably now from staple lines. 5. Narcotic abuse on Suboxone. 6. Cocaine abuse. 7. Exposure to COVID. PLAN AND DISCUSSION: I will again continue his chest tubes on suction. I have written him for a transfer to the PCU, but there are no beds. We will increase his epidural from 11 to 13 mL as his blood pressure is perfectly adequate and he is not feeling any paresthesias in his arms. It is going to be a matter of time for his air leak to stop.
[2021-03-31] MEDS ORDERED: BUPRENORPHINE/NALOXONE 8-2MG SUBLINGUAL TABLET(SUBOXONE) SL SCH (16:00)
--- NOTE | 2021-03-31 18:00 | IPNPDOC ---
Text Note Date of Service The patient was seen on 03/31/21. NOTE Subjective: No any acute events overnight. No fever or chills overnight. Post operative day 3. Patient complains of insomnia after Suboxone Objective: GENERAL APPEARANCE: Cachectic male HEENT: no scleral icterus, no JVD, EOMI CARDIOVASCULAR: S1S2 LUNGS: Diminished lung sounds bilaterally, coarse lung sounds on the left side, left chest tube in place, mild wheezes bilaterally ABDOMEN: soft & not tender w palpitation MUSCULOSKELETAL: no cyanosis, no swelling INTEGUMENT: no generalized pallor NEUROLOGICAL: cranial nerve function from 2-12 intact intact, follows commands, speech not dysarthric Assessment and plan Pt is a 50 year old long time smoker who presents with worsening dyspnea and found to have a large left pneumothorax. Patient is a long time smoker and has blebs which may have caused his pneumothorax. Dr. Lynne has been consulted and placed a chest tube on 03/20/2021. Thoracoscopic wedge resection of bullae, extensive lysis of adhesions, 5-level rib block, bronchoscopy, talc pleurodesis was done on 03/28/21. Large right pneumothorax Thoracoscopic wedge resection of bullae, extensive lysis of adhesions, 5-level rib block, bronchoscopy, talc pleurodesis was done on 03/28/21. Day 3 Dr[address] Lynne follows the patient Continue chest tube on suction The Toradol dose was increased I increased the dose of Suboxone for better pain control as Suboxone partial agonist antagonist of mu and kappa receptors. 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
[2021-04-01] VITALS (7 sets, daily range): BP systolic 101–137; BP diastolic 58–83
[2021-04-01] MEDS: KETOROLAC 30 MG/ML 1ML VIAL IV SCH ×4 (04:07→21:10)
[2021-04-01 05:05] LABS: MAGNESIUM LEVEL 1.7 MG/DL (1.8-2.4)
[2021-04-01] MEDS: ceFAZolin SOD 1 GM in D5W MINI-BAG PLUS 50 ML IV SCH (05:34)
[2021-04-01] MEDS: BUPIVACAINE/NACL BAG 250 ML EPIDURAL SCH ×3 (06:35→21:49)
[2021-04-01 07:06] LABS: BLOOD UREA NITROGEN 29 MG/DL (7-18); CALCIUM LEVEL 8.8 MG/DL (8.5-10.1); CARBON DIOXIDE LEVEL 35 MEQ/L (21-32); CHLORIDE LEVEL 101 MEQ/L (98-107); CREATININE FOR GFR 0.64 MG/DL (0.70-1.30); GLOMERULAR FILTRATION RATE > 60.0 (>56); GLUCOSE, FASTING 111 MG/DL (70-100); POTASSIUM SERUM 4.2 MEQ/L (3.5-5.1); SODIUM LEVEL 141 MEQ/L (136-145)
[2021-04-01 07:25] LABS: HEMATOCRIT 36.2 % (42.0-52.0); HEMOGLOBIN 10.8 g/dl (13.5-17.5); MEAN CORPUSCULAR HEMOGLOBIN 29.6 pg (27.0-33.0); MEAN CORPUSCULAR HGB CONC 29.8 g/dl (32.0-36.5); MEAN CORPUSCULAR VOLUME 99.2 fl (80.0-96.0); PLATELET COUNT, AUTOMATED 330 10^3/uL (150-450); RED BLOOD COUNT 3.65 10^6/uL (4.30-6.10)
[2021-04-01 07:27] LABS: WHITE BLOOD COUNT 18.5 10^3/uL (4.0-10.0)
[2021-04-01 07:56] LABS: BASOPHILS 1 % (0-1); EOSINOPHILS 4 % (0-3); LYMPHOCYTES 15 % (16-44); MONOCYTES 5 % (0-5); NEUTROPHILS 74 % (28-66); PLATELET ESTIMATE NORMAL (NORMAL)
[2021-04-01 07:57] LABS: ANISOCYTOSIS 1+
[2021-04-01] MEDS: ALBUTEROL 90 MCG/ACT 8GM HFA INHALER INH SCH ×4 (08:00→19:42)
--- NOTE | 2021-04-01 08:01 | REP ---
INDICATION: pneumothx COMPARISON: 03/31/2021 TECHNIQUE: PA and lateral. FINDINGS: Two left-sided chest tubes are again identified in stable position, and there is minimal improvement to the left pneumothorax. Bilateral pleuroparenchymal changes are otherwise relatively stable. Small amounts of pleural fluid are suggested at the lung bases along with right basilar atelectasis and patchy bilateral airspace disease. No new pulmonary parenchymal process identified. The mediastinum and cardiac silhouette are stable. IMPRESSION: 1. Minimal improvement to the left pneumothorax. 2. Otherwise relatively stable bilateral pleuroparenchymal changes. 3. No new acute process identified. <Electronically signed by Sudheer Jaeger > 04/01/21 [id number]
[2021-04-01] MEDS: MOM 30ML SUSPENSION UDC PO SCH (08:10)
[2021-04-01] MEDS: PANTOPRAZOLE 40MG TAB (PROTONIX) PO SCH (08:11)
[2021-04-01] MEDS: MAGNESIUM GLUCONATE 500 MG TAB PO SCH (08:11)
[2021-04-01] MEDS: DOCUSATE SODIUM 100MG CAPSULE PO SCH ×2 (08:11→21:09)
[2021-04-01] MEDS: HEPARIN SOD (PORCINE) 5000UNITS/ML 1ML VIAL/SYRINGE SC SCH ×2 (08:11→21:10)
[2021-04-01] MEDS: BUPRENORPHINE/NALOXONE 8-2MG SUBLINGUAL TABLET(SUBOXONE) SL SCH ×2 (08:11→21:09)
[2021-04-01] MEDS: ADVAIR HFA 115/21MCG INHALER INH SCH ×2 (08:13→19:42)
[2021-04-01] MEDS: TIOTROPIUM INHALER/CAPSULE (SPIRIVA) INH SCH (08:13)
[2021-04-01] MEDS ORDERED: predniSONE 20 MG TAB PO SCH (09:00)
[2021-04-01] MEDS ORDERED: PILL CUTTER 1 EACH XX PRN (09:25)
[2021-04-01] MEDS ORDERED: FUROSEMIDE 40MG/4ML VIAL (J1940) IV ONE (10:00)
[2021-04-01] MEDS: HYDROmorphone 2 MG TAB PO PRN ×2 (11:05→15:42)
--- NOTE | 2021-04-01 15:27 | IPNPDOC ---
Text Note Date of Service The patient was seen on 04/01/21. NOTE Subjective: No any acute events overnight. Patient continues to have left chest discomfort around chest tube. Patient was afebrile and normotensive for past 24 hours Objective: GENERAL APPEARANCE: Cachectic male HEENT: no scleral icterus, no JVD, EOMI CARDIOVASCULAR: S1S2 LUNGS: Diminished lung sounds bilaterally, coarse lung sounds on the left side, left chest tube in place, mild wheezes bilaterally ABDOMEN: soft & not tender w palpitation MUSCULOSKELETAL: no cyanosis, no swelling INTEGUMENT: no generalized pallor NEUROLOGICAL: cranial nerve function from 2-12 intact intact, follows commands, speech not dysarthric Assessment and plan Pt is a 50 year old long time smoker who presents with worsening dyspnea and found to have a large left pneumothorax. Patient is a long time smoker and has blebs which may have caused his pneumothorax. Dr. Lynne has been consulted and placed a chest tube on 03/20/2021. Thoracoscopic wedge resection of bullae, extensive lysis of adhesions, 5-level rib block, bronchoscopy, talc pleurodesis was done on 03/28/21. Large right pneumothorax Thoracoscopic wedge resection of bullae, extensive lysis of adhesions, 5-level rib block, bronchoscopy, talc pleurodesis was done on 03/28/21. Day 5 Dr[address] Lynne follows the patient Continue chest tube on suction The Toradol dose was increased I increased the dose of Suboxone for better pain control as Suboxone partial agonist antagonist of mu and kappa receptors. The time of Suboxone was changed in order to improve his sleeping cycle On 04/01/21 x-ray showed Minimal improvement to the left pneumothorax Today patient developed leukocytosis of 18. 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
[2021-04-01] MEDS: diphenhydrAMINE 50MG/ML VIAL (J1200) IV PRN (21:36)
[2021-04-02] VITALS (7 sets, daily range): BP systolic 95–133; BP diastolic 51–77
[2021-04-02] MEDS: HYDROmorphone 2 MG TAB PO PRN ×3 (00:23→23:41)
[2021-04-02] MEDS: KETOROLAC 30 MG/ML 1ML VIAL IV SCH ×2 (04:58→09:59)
[2021-04-02] MEDS: BUPRENORPHINE/NALOXONE 8-2MG SUBLINGUAL TABLET(SUBOXONE) SL SCH ×3 (05:00→21:11)
[2021-04-02 05:24] LABS: BASO # 0.1 10^3/uL (0.0-0.2); BASO % 0.3 % (0.0-1.0); EOS % 4.9 % (0.0-3.0); HEMATOCRIT 35.9 % (42.0-52.0); HEMOGLOBIN 10.8 g/dl (13.5-17.5); LYMPH # 3.6 10^3/uL (1.5-5.0); MEAN CORPUSCULAR HEMOGLOBIN 29.8 pg (27.0-33.0); MEAN CORPUSCULAR HGB CONC 30.1 g/dl (32.0-36.5); MEAN CORPUSCULAR VOLUME 99.2 fl (80.0-96.0); MONO # 1.3 10^3/uL (0.0-0.8); NEUTROPHILS # 13.2 10^3/uL (1.5-8.5); NEUTROPHILS % 63.3 % (36.0-66.0); PLATELET COUNT, AUTOMATED 350 10^3/uL (150-450); RED BLOOD COUNT 3.62 10^6/uL (4.30-6.10); WHITE BLOOD COUNT 20.9 10^3/uL (4.0-10.0)
[2021-04-02 05:40] LABS: BLOOD UREA NITROGEN 30 MG/DL (7-18); CALCIUM LEVEL 9.4 MG/DL (8.5-10.1); CARBON DIOXIDE LEVEL 38 MEQ/L (21-32); CHLORIDE LEVEL 98 MEQ/L (98-107); CREATININE FOR GFR 0.69 MG/DL (0.70-1.30); GLOMERULAR FILTRATION RATE > 60.0 (>56); GLUCOSE, FASTING 108 MG/DL (70-100); MAGNESIUM LEVEL 1.7 MG/DL (1.8-2.4); POTASSIUM SERUM 4.3 MEQ/L (3.5-5.1); SODIUM LEVEL 139 MEQ/L (136-145)
[2021-04-02] MEDS: ALBUTEROL 90 MCG/ACT 8GM HFA INHALER INH SCH ×4 (07:53→20:00)
[2021-04-02] MEDS: TIOTROPIUM INHALER/CAPSULE (SPIRIVA) INH SCH (07:53)
[2021-04-02] MEDS: ADVAIR HFA 115/21MCG INHALER INH SCH ×2 (07:53→19:17)
--- NOTE | 2021-04-02 08:45 | REP ---
INDICATION: pneumothx COMPARISON: 04/01/2021 TECHNIQUE: PA and lateral. FINDINGS: Two left-sided chest tubes are again identified and the left pneumothorax has decreased in size and near completely resolved. Mediastinum and cardiac silhouette are stable. Lung pedraza demonstrate diffuse chronic interstitial changes with superimposed bilateral airspace disease, bibasilar atelectasis, and small pleural effusions. Findings are relatively unchanged as compared with prior examination. IMPRESSION: 1. Left pneumothorax has decreased and near completely resolved. 2. Chronic changes with superimposed airspace disease, bibasilar atelectasis and small pleural effusions remain essentially unchanged. <Electronically signed by Sudheer Jaeger > 04/02/21 0830
[2021-04-02] MEDS ORDERED: FUROSEMIDE 40MG/4ML VIAL (J1940) IV ONE (09:00)
[2021-04-02] MEDS: MOM 30ML SUSPENSION UDC PO SCH (09:59)
[2021-04-02] MEDS: predniSONE 10 MG TAB PO SCH (09:59)
[2021-04-02] MEDS: PANTOPRAZOLE 40MG TAB (PROTONIX) PO SCH (09:59)
[2021-04-02] MEDS: HEPARIN SOD (PORCINE) 5000UNITS/ML 1ML VIAL/SYRINGE SC SCH ×2 (09:59→21:09)
[2021-04-02] MEDS: DOCUSATE SODIUM 100MG CAPSULE PO SCH ×2 (10:00→21:09)
[2021-04-02] MEDS: MAGNESIUM GLUCONATE 500 MG TAB PO SCH (10:00)
[2021-04-02] MEDS: PIPERACILLIN/TAZOBACTAM SOD 3.375 GM in D5W MINI-BAG PLUS 50 ML IV SCH ×3 (10:05→21:09)
[2021-04-02] MEDS: BUPIVACAINE/NACL BAG 250 ML EPIDURAL SCH (12:08)
--- NOTE | 2021-04-02 16:26 | IPN ---
PROGRESS NOTE DATE: 04/01/2021 SUBJECTIVE: Mr. Ni is complaining of increased pain today. He is quite miserable. I am therefore going to change all of his pain management around. Please see discussion below. OBJECTIVE: VITAL SIGNS: Show a T-max of 99.1 with a heart rate that ranges between 107 and 73 in sinus rhythm. Respiratory rate of 17 to 23 without the use of accessory muscles who is 92% to 96% saturated on 2 liters nasal cannula and whose blood pressure is ranging between 137/83 to 101/63. INTAKE AND OUTPUT: Over the past 24 hours has been recorded as 2969 in and 1825 out for a positivity of 1144 mL. He has put 300 mL out the chest tube and he has a considerable air leak. He weighs 60.2 kg today, which is nearly the same as yesterday of 60.1 kg. RESPIRATORY: His expiratory wheezing is somewhat improved. Percussion notes are full to the diaphragm. He has coarse rhonchi throughout not all of which clear with coughing. CARDIAC: Without murmurs, clicks, gallops, or rubs. I cannot feel his PMI. S1 and S2 are normal. ABDOMEN: Soft and nontender, but he is fairly firm in the lower portion of his abdomen. He has not yet had a bowel movement today. There is no hepatomegaly. EXTREMITIES: Show no pretibial edema. No calf tenderness. No differential swelling of the upper extremities. SKIN: Warm, dry, and perfused without cyanosis or mottling, including that of the nail beds and knees. NECK: Supple. There is no jugular venous distention. No subcutaneous emphysema. Trachea is midline. MOUTH: Shows the mucous membranes to be pink and moist. Lips and commisures are without lesions and no thrush. EYES: Show his pupils to be equal and reactive. Extraocular muscles are intact. Sclerae nonicteric. NEUROLOGIC: Shows II through XII intact. Normal gross motor, gross sensation intact. Gait is not tested. PSYCHIATRIC: Shows him to be awake, alert, and oriented x3 and conversational. LABORATORY DATA: His white count today is 18.5 with a hemoglobin and hematocrit of 10.8 and 36.2. White count is slightly up from 15.7 yesterday. Platelet count is 330,000 and stable. Differential shows 74% neutrophils, 1% bands, 15% lymphocytes, 5% monocytes, and 4% eosinophils. There are no toxic granulations. Chemistries today showed normal electrolytes with an elevated total CO2 to 35, consistent with COPD. BUN and creatinine are 29 and 0.64 with a glucose of 111 and a calcium of 8.8. Magnesium is 1.7. IMAGING DATA: His chest x-ray today shows the lung closer to the chest wall cupula, but still with an approximate 1 cm airspace. There is no subcutaneous emphysema. There is slight blunting of the right costophrenic angle. Diaphragms are flat. I see no other infiltrates. IMPRESSION: 1. 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 2. Severe chronic obstructive pulmonary disease (COPD). 3. Psychiatric history of bipolar disease. 4. 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 5. Narcotic abuse on Suboxone. 6. Cocaine abuse. 7. Exposure to COVID. 8. Inadequate pain control. PLAN AND DISCUSSION: Anesthesia has reevaluated his epidural and I have turned it up to a maximum dose of 16 mL/hour of bupivacaine. I am therefore going to change his oral pain management around. I will give him three equal doses of Suboxone q. 8 hours and supplement that with Dilaudid q. 4 hours of 1 mg. I will increase the Dilaudid as necessary with the caveat that his Suboxone certainly cannot be discontinued while he is on narcotic analgesia. He is already on a continuous pulse ox monitoring. I will keep him in the ICU. I will continue his suction at -40 to try to get his lung to the chest wall. I would expect fever over the next two days from the talc inflammatory response. I am not too concerned about his elevated white count today and I am going to discontinue his Ancef.
--- NOTE | 2021-04-02 16:39 | IPN ---
PROGRESS NOTE DATE: 04/02/2021 SUBJECTIVE: This is now the fifth postoperative day for Mr. Ni. He still has the lung leak, but the lung is now much closer to the chest wall than it has been. He remains on 40 cm of suction. The pain strategies from yesterday seem to be much better for him. He is on equally spaced Suboxone q. 8 hours along with 1 mg Dilaudid q. 4 hours for acute pain control. He also remains on Toradol. OBJECTIVE: VITAL SIGNS: Show a T-max of 99.0 with a heart rate that ranges between 74 and 93 in sinus rhythm. Respiratory rate of 11 to 24 without the use of accessory muscles who is 93% to 96% saturated on 2 liters nasal cannula and whose blood pressure is ranging between 115/69 to 95/51. INTAKE AND OUTPUT: Over the past 24 hours has been recorded as 1918 in and 1935 out for a near equality. He has put 280 mL out the chest tube and there is still an air leak. His weight today is 60.1 kg almost identical to yesterday 60.2 kg. RESPIRATORY: His wheezing is now almost gone. I can hear normal vesicular sounds beneath coarse rhonchi on either side. Percussion notes are full to the diaphragm. CARDIAC: Without murmurs, clicks, gallops, or rubs. I cannot feel his PMI. S1 and S2 are normal. ABDOMEN: Soft and nontender. Bowel sounds are positive. There is no hepatomegaly. No CVA tenderness on the right. On the left, CVA tenderness is referable to the chest tubes. He had a bowel movement. EXTREMITIES: Show trace to 1+ pretibial edema on the right and none on the left. No calf tenderness. No differential swelling of the upper extremities. SKIN: Warm, dry, and perfused without cyanosis or mottling, including that of the nail beds and knees. NECK: Supple. There is no jugular venous distention. No subcutaneous emphysema. Trachea is midline. MOUTH: Shows the mucous membranes to be pink and moist. Lips and commisures are without lesions and no thrush. EYES: Show his pupils equal and reactive. Extraocular muscles are intact. Sclerae nonicteric. NEUROLOGIC: Shows II through XII intact. Normal gross motor, gross sensation intact. Gait is not tested. PSYCHIATRIC: Shows him to be awake, alert, and oriented x3 with appropriate mood and affect and conversational. LABORATORY DATA: His white count is up to 20.9 today. Hemoglobin and hematocrit are 10.8 and 35.9 unchanged from yesterday with a platelet count of 350,000 and stable. Differential shows 63% neutrophils, 17% lymphocytes, and 16% monocytes. There are no immature forms and no toxic granulations. Chemistries today show normal electrolytes with an elevated total CO2 of 38 secondary to his severe COPD and chronic CO2 retention. BUN and creatinine are 30 and 0.69 essentially unchanged from yesterday with a glucose of 106 and a calcium of 9.4. Magnesium 1.7. Lactic acid was drawn on him yesterday, which was 2.9 and it is now 1.7. IMAGING DATA: His chest x-ray today shows much better expansion of the chest wall with just a very small airspace of 1-2 mm at the cupula. There are no infiltrates. IMPRESSION: 1. 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 2. Severe chronic obstructive pulmonary disease (COPD). 3. Psychiatric history of bipolar disease. 4. 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 5. Narcotic abuse on Suboxone. 6. Cocaine abuse. 7. Exposure to COVID. 8. Inadequate pain control, improving. 9. Leukocytosis. PLAN AND DISCUSSION: Leukocytosis and his low-grade fever are probably secondary to his talc inflammatory response. He was started on Zosyn by the medical service today. He still has his air leak for which I will continue the 40 cm of suction. I am gratified that the lung is now expanding to the chest wall. He is continuing on his lung expansion therapy. I have not needed to increase the Dilaudid as he seems to be relatively comfortable and I will keep it at 1 mg q. 4 hours as needed along with Toradol. He is not having any paresthesias in his arms.
[2021-04-03] VITALS (25 sets, daily range): BP systolic 108–166; BP diastolic 55–89
[2021-04-03] MEDS: ACETAMINOPHEN TAB 650MG DOSE (2X325MG) PO PRN (01:04)
[2021-04-03] MEDS: PIPERACILLIN/TAZOBACTAM SOD 3.375 GM in D5W MINI-BAG PLUS 50 ML IV SCH ×3 (02:24→15:47)
[2021-04-03] MEDS ORDERED: KETOROLAC 30 MG/ML 1ML VIAL IV ONE (03:40)
[2021-04-03] MEDS: HYDROmorphone 2 MG TAB PO PRN ×3 (03:56→21:07)
[2021-04-03] MEDS: BUPIVACAINE/NACL BAG 250 ML EPIDURAL SCH ×2 (03:57→17:33)
[2021-04-03] MEDS: diphenhydrAMINE 50MG/ML VIAL (J1200) IV PRN ×2 (04:50→22:12)
[2021-04-03] MEDS: BUPRENORPHINE/NALOXONE 8-2MG SUBLINGUAL TABLET(SUBOXONE) SL SCH ×3 (06:21→21:07)
[2021-04-03] MEDS: ADVAIR HFA 115/21MCG INHALER INH SCH ×2 (07:16→19:44)
[2021-04-03] MEDS: TIOTROPIUM INHALER/CAPSULE (SPIRIVA) INH SCH (07:16)
[2021-04-03] MEDS: ALBUTEROL 90 MCG/ACT 8GM HFA INHALER INH SCH ×4 (07:16→20:00)
[2021-04-03 07:32] LABS: BASO # 0.1 10^3/uL (0.0-0.2); BASO % 0.4 % (0.0-1.0); EOS # 1.1 10^3/uL (0.0-0.5); EOS % 4.8 % (0.0-3.0); LYMPH # 3.5 10^3/uL (1.5-5.0); LYMPH % 14.9 % (24.0-44.0); MEAN CORPUSCULAR HGB CONC 30.6 g/dl (32.0-36.5); MEAN CORPUSCULAR VOLUME 98.1 fl (80.0-96.0); MONO # 1.3 10^3/uL (0.0-0.8); MONO % 5.4 % (2.0-8.0); NEUTROPHILS # 15.1 10^3/uL (1.5-8.5); NEUTROPHILS % 64.8 % (36.0-66.0); PLATELET COUNT, AUTOMATED 324 10^3/uL (150-450); RED BLOOD COUNT 3.67 10^6/uL (4.30-6.10); WHITE BLOOD COUNT 23.4 10^3/uL (4.0-10.0)
[2021-04-03 07:51] LABS: BLOOD UREA NITROGEN 31 MG/DL (7-18); CALCIUM LEVEL 9.2 MG/DL (8.5-10.1); CARBON DIOXIDE LEVEL 39 MEQ/L (21-32); CHLORIDE LEVEL 97 MEQ/L (98-107); CREATININE FOR GFR 0.74 MG/DL (0.70-1.30); GLOMERULAR FILTRATION RATE > 60.0 (>56); GLUCOSE, FASTING 87 MG/DL (70-100); POTASSIUM SERUM 4.9 MEQ/L (3.5-5.1); SODIUM LEVEL 139 MEQ/L (136-145)
--- NOTE | 2021-04-03 08:51 | REP ---
INDICATION: pneumothx COMPARISON: 04/02/2021 TECHNIQUE: PA and lateral. FINDINGS: Two left-sided chest tubes are in stable position and small left apical pneumothorax along with bibasilar opacities suggesting atelectasis and small pleural effusions remain essentially unchanged. IMPRESSION: No significant change from prior examination. Small residual left apical pneumothorax and bibasilar opacities again noted. No new acute process appreciated. <Electronically signed by Sudheer Jaeger > 04/03/21 [id number]
[2021-04-03] MEDS: HEPARIN SOD (PORCINE) 5000UNITS/ML 1ML VIAL/SYRINGE SC SCH ×2 (09:30→20:19)
[2021-04-03] MEDS: MOM 30ML SUSPENSION UDC PO SCH (09:30)
[2021-04-03] MEDS: MAGNESIUM GLUCONATE 500 MG TAB PO SCH (09:30)
[2021-04-03] MEDS: predniSONE 10 MG TAB PO SCH (09:31)
[2021-04-03] MEDS: PANTOPRAZOLE 40MG TAB (PROTONIX) PO SCH (09:31)
[2021-04-03] MEDS: DOCUSATE SODIUM 100MG CAPSULE PO SCH ×2 (09:31→20:19)
[2021-04-03] MEDS ORDERED: MIDAZOLAM INJ 2MG/2ML VIAL (J2250 PER 1MG) IV ONE (10:40)
[2021-04-03] MEDS: KETOROLAC 30 MG/ML 1ML VIAL IV SCH ×3 (10:57→22:12)
[2021-04-03] MEDS ORDERED: flumazeniL 0.5 MG/5 ML VIAL As Ordered ONE (11:05)
[2021-04-03] MEDS ORDERED: LIDOCAINE 1% MDV 20ML VIAL As Ordered ONE (11:12)
[2021-04-03] MEDS: NS 1,000 ML IV SCH ×2 (11:15→21:34)
--- NOTE | 2021-04-03 11:57 | REP ---
INDICATION: verify TLC placement. COMPARISON: 04/03/2021, 8:22 a.m.. TECHNIQUE: Single portable AP view of the chest was performed. FINDINGS: There has been placement of the left subclavian central venous catheter. The tip is in the superior vena cava. 2 left chest tubes remain in place. The lungs, heart and mediastinum have not significantly changed. IMPRESSION: Left central venous catheter, tip in superior vena cava. No other acute change. <Electronically signed by Roman Spear > 04/03/21 0715
--- NOTE | 2021-04-03 16:27 | IPNPDOC ---
Text Note Date of Service The patient was seen on 04/03/21. NOTE Subjective: Patient stated that he is tired and didn't sleep well. Patient re ported hematuria. Patient was afebrile and normotensive. Objective: GENERAL APPEARANCE: Cachectic male HEENT: no scleral icterus, no JVD, EOMI CARDIOVASCULAR: S1S2 LUNGS: Diminished lung sounds bilaterally, coarse lung sounds on the left side, left chest tube in place, mild wheezes bilaterally ABDOMEN: soft & not tender w palpitation MUSCULOSKELETAL: no cyanosis, no swelling INTEGUMENT: no generalized pallor NEUROLOGICAL: cranial nerve function from 2-12 intact intact, follows commands, speech not dysarthric Assessment and plan Pt is a 50 year old long time smoker who presents with worsening dyspnea and found to have a large left pneumothorax. Patient is a long time smoker and has blebs which may have caused his pneumothorax. Dr. Lynne has been consulted and placed a chest tube on 03/20/2021. Thoracoscopic wedge resection of bullae, extensive lysis of adhesions, 5-level rib block, bronchoscopy, talc pleurodesis was done on 03/28/21. Large right pneumothorax Thoracoscopic wedge resection of bullae, extensive lysis of adhesions, 5-level rib block, bronchoscopy, talc pleurodesis was done on 03/28/21. Day 6. Dr. Lynne follows the patient Continue chest tube on suction I increased the dose of Suboxone for better pain control as Suboxone partial agonist antagonist of mu and kappa receptors. The time of Suboxone was changed in order to improve his sleeping cycle On 04/01/21 x-ray showed Minimal improvement to the left pneumothorax Today patient developed leukocytosis of 23, pro calcitonin negative, blood culture negative. Most likely leukocytosis reactive. I will discontinue Zosyn On 04/03/21 x-ray showed Small residual left apical pneumothorax and bibasilar opacities again noted. No new acute process appreciated. 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
--- NOTE | 2021-04-03 16:51 | RO ---
OPERATIVE NOTE DATE OF OPERATION: 04/03/2021 PREPROCEDURE DIAGNOSIS: Need for vascular access. POSTPROCEDURE DIAGNOSIS: Need for vascular access. PROCEDURE: Insertion of left subclavian central line. SURGEON: Jordan Lynne M.D. FINANCE ACCOUNTING INTERNSHIP: None. ANESTHESIA: 2 mg Versed. DESCRIPTION OF PROCEDURE: Under satisfactory moderate sedation achieved with 2 mg of Versed, the patient was prepped and draped in the usual sterile fashion. The infraclavicular fossa was infiltrated with 1% Lidocaine. The vein was found on the third pass. The first two passes I could get a flash of blood, but I could not thread the catheter. The third pass there was a considerable flash of blood and I was able to thread the catheter. Skin was massaged and tract was dilated. A triple lumen catheter was then placed over the wire. Ports were aspirated and flushed and the catheter was secured to the chest wall with two 3-0 silk sutures. The patient tolerated the procedure well and a chest x-ray is pending.
--- NOTE | 2021-04-03 16:51 | IPN ---
PROGRESS NOTE DATE: 04/03/2021 SUBJECTIVE: This is now the sixth postoperative day for Mr. Ni. He is complaining of increased pain. His Toradol ran out and the medical service did not renew it. I have therefore renewed it, as we are monitoring his creatinine each day. OBJECTIVE: VITAL SIGNS: Show a T-max of 99.8 with a heart rate that ranges between 70 and 75 in sinus rhythm. Respiratory rate of 18 to 24 without the use of accessory muscles who is 91% to 93% saturated now on 1 liter nasal cannula and whose blood pressure is ranging between 112/82 to 133/65. INTAKE AND OUTPUT: Over the past 24 hours has been recorded as 2658 in and 2695 out for a near equality. He has put 185 mL out the chest tube. His weight today is pending. RESPIRATORY: His lungs show some scattered rhonchi, which clear with coughing. I hear normal vesicular sounds. There is no wheezing. Percussion notes are full to the diaphragm. CARDIAC: Without murmurs, clicks, gallops, or rubs. I cannot feel his PMI. S1 and S2 are normal. ABDOMEN: Soft and nontender. Bowel sounds are positive. There is no hepatomegaly. No CVA tenderness. EXTREMITIES: Show no pretibial edema. No calf tenderness. No differential swelling of the upper extremities. SKIN: Warm, dry, and perfused without cyanosis or mottling, including that of the nail beds and knees. NECK: Supple. There is no jugular venous distention. No subcutaneous emphysema. Trachea is midline. MOUTH: Shows the mucous membranes to be pink and moist. Lips and commisures are without lesions and no thrush. EYES: Show his pupils equal and reactive. Extraocular muscles are intact. Sclerae nonicteric. NEUROLOGIC: Shows II through XII intact. Normal gross motor, gross sensation intact. Gait is not tested. PSYCHIATRIC: Shows him to be awake, alert, and oriented x3 with appropriate mood and affect and conversational. LABORATORY DATA: His white count today is up to 23.4 with a hemoglobin and hematocrit of 11.0 and 36.0 respectively unchanged from yesterday. His platelet count is 324,000 and stable. Differential is nearly normal with 64% neutrophils, 14% lymphocytes, and 5% monocytes. There are no immature forms and no toxic granulations. His chemistries today show normal electrolytes except for an elevated total CO2 of 39 consistent with his CO2 retention secondary to his severe COPD. BUN and creatinine are 31 and 0.74. Glucose is 87 with a calcium of 9.2. IMAGING DATA: His chest x-ray shows just a minimal airspace at the cupula. He is on 40 cm of suction, however. I do not see any infiltrates. There is some blunting of the left costophrenic angle. IMPRESSION: 1. 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 2. Severe chronic obstructive pulmonary disease (COPD). 3. Psychiatric history of bipolar disease. 4. 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 5. Narcotic abuse on Suboxone. 6. Cocaine abuse. 7. Exposure to COVID. 8. Inadequate pain control worse today. 9. Leukocytosis probably secondary to the talc pleurodesis and inflammatory pleural response. PLAN AND DISCUSSION: He is still leaking postoperative day #6. I am therefore going to undertake a blood patch. I will place a central line and then infuse blood into the chest and turn him prone for five minutes to distribute the blood anteriorly. As noted above, I will restart his Toradol for pain control. I will do this under moderate sedation, as he is so anxious and has a very low pain tolerance.
--- NOTE | 2021-04-03 16:56 | RO ---
OPERATIVE NOTE DATE OF OPERATION: 04/03/2021 PREPROCEDURE DIAGNOSIS: Continuing alveolopleural fistula. POSTPROCEDURE DIAGNOSIS: Continuing alveolopleural fistula. PROCEDURE: Blood patch pleurodesis. SURGEON: Jordan Lynne M.D. CRIMINOLOGY TEACHER: None. ANESTHESIA: DESCRIPTION OF PROCEDURE: 120 mL of blood was drawn from the previously placed central line. This was then instilled into the anterior chest tube with the posterior chest tube being clamped. Both chest tubes were then clamped and the patient was then turned to the prone position for five minutes in Trendelenburg. The patient was then returned to the supine position flat and the anterior chest tube was left clamped and the posterior chest tube was unclamped to water seal. The anterior chest tube will be unclamped in four hours and the chest tubes will remain to underwater seal. The patient tolerated the procedure well.
[2021-04-04] VITALS (7 sets, daily range): BP systolic 103–159; BP diastolic 58–87
[2021-04-04] MEDS: HYDROmorphone 2 MG TAB PO PRN ×3 (02:55→20:04)
[2021-04-04] MEDS: diphenhydrAMINE 50MG/ML VIAL (J1200) IV PRN ×2 (02:57→23:16)
[2021-04-04] MEDS: KETOROLAC 30 MG/ML 1ML VIAL IV SCH ×4 (04:27→22:04)
[2021-04-04 04:48] LABS: BASO # 0.1 10^3/uL (0.0-0.2); BASO % 0.3 % (0.0-1.0); EOS % 4.1 % (0.0-3.0); HEMATOCRIT 33.7 % (42.0-52.0); LYMPH # 3.4 10^3/uL (1.5-5.0); LYMPH % 14.1 % (24.0-44.0); MEAN CORPUSCULAR HEMOGLOBIN 29.9 pg (27.0-33.0); MEAN CORPUSCULAR HGB CONC 29.7 g/dl (32.0-36.5); MEAN CORPUSCULAR VOLUME 100.6 fl (80.0-96.0); MONO # 1.3 10^3/uL (0.0-0.8); MONO % 5.5 % (2.0-8.0); NEUTROPHILS # 16.1 10^3/uL (1.5-8.5); NEUTROPHILS % 67.1 % (36.0-66.0); PLATELET COUNT, AUTOMATED 324 10^3/uL (150-450); RED BLOOD COUNT 3.35 10^6/uL (4.30-6.10)
[2021-04-04 05:10] LABS: BLOOD UREA NITROGEN 22 MG/DL (7-18); CALCIUM LEVEL 8.3 MG/DL (8.5-10.1); CARBON DIOXIDE LEVEL 39 MEQ/L (21-32); CHLORIDE LEVEL 102 MEQ/L (98-107); CREATININE FOR GFR 0.43 MG/DL (0.70-1.30); GLOMERULAR FILTRATION RATE > 60.0 (>56); GLUCOSE, FASTING 79 MG/DL (70-100); POTASSIUM SERUM 5.1 MEQ/L (3.5-5.1); SODIUM LEVEL 140 MEQ/L (136-145)
[2021-04-04] MEDS: BUPRENORPHINE/NALOXONE 8-2MG SUBLINGUAL TABLET(SUBOXONE) SL SCH ×3 (05:51→22:04)
[2021-04-04] MEDS: ALBUTEROL 90 MCG/ACT 8GM HFA INHALER INH SCH ×4 (08:00→19:24)
[2021-04-04] MEDS: TIOTROPIUM INHALER/CAPSULE (SPIRIVA) INH SCH (08:57)
[2021-04-04] MEDS: ADVAIR HFA 115/21MCG INHALER INH SCH ×2 (08:57→19:24)
[2021-04-04] MEDS: MOM 30ML SUSPENSION UDC PO SCH (09:00)
[2021-04-04] MEDS: MAGNESIUM GLUCONATE 500 MG TAB PO SCH (09:08)
[2021-04-04] MEDS: HEPARIN SOD (PORCINE) 5000UNITS/ML 1ML VIAL/SYRINGE SC SCH ×2 (09:09→20:03)
[2021-04-04] MEDS: PANTOPRAZOLE 40MG TAB (PROTONIX) PO SCH (09:09)
[2021-04-04] MEDS: DOCUSATE SODIUM 100MG CAPSULE PO SCH ×2 (09:09→20:04)
[2021-04-04] MEDS: predniSONE 5 MG TAB PO SCH (09:09)
[2021-04-04] MEDS: BUPIVACAINE/NACL BAG 250 ML EPIDURAL SCH ×2 (09:15→23:17)
--- NOTE | 2021-04-04 09:21 | REP ---
INDICATION: pneumothx. COMPARISON: Comparison chest x-ray April 03, 2021. TECHNIQUE: Two views.. FINDINGS: Two left-sided chest tubes remain in place. There is a small left apical pneumothorax again noted slightly increased in thickness from yesterday's radiograph. There is soft tissue emphysema in the extra thoracic soft tissues about the left upper chest wall on today's radiograph. There is blunting of the pleural angles bilaterally mild in degree. Increased lung markings are noted in the bases unchanged. EKG electrodes and epidural catheter again noted. Left subclavian line terminates in the expected location of superior vena cava as before. IMPRESSION: Left-sided hydropneumothorax as above. Two left chest tubes in place.. <Electronically signed by Sukhdev Savage > 04/04/21 [id number]
[2021-04-04] MEDS ORDERED: SODIUM CHLORIDE NASAL 0.65% SPRAY BTL (OCEAN) PRN (09:35)
[2021-04-04] MEDS: NS 1,000 ML IV SCH (10:20)
[2021-04-04] MEDS ORDERED: FUROSEMIDE 40MG/4ML VIAL (J1940) IV ONE (11:20)
[2021-04-04] MEDS: FERROUS SULFATE 325MG TAB PO SCH ×2 (11:41→20:03)
--- NOTE | 2021-04-04 16:05 | IPNPDOC ---
Text Note Date of Service The patient was seen on 04/04/21. NOTE Subjective: No any acute events overnight. Patient continues to have left-sided chest pain Objective: GENERAL APPEARANCE: Cachectic male HEENT: no scleral icterus, no JVD, EOMI CARDIOVASCULAR: S1S2 LUNGS: Diminished lung sounds bilaterally, coarse lung sounds on the left side, left chest tube in place, mild wheezes bilaterally ABDOMEN: soft & not tender w palpitation MUSCULOSKELETAL: no cyanosis, no swelling INTEGUMENT: no generalized pallor NEUROLOGICAL: cranial nerve function from 2-12 intact intact, follows commands, speech not dysarthric Assessment and plan Pt is a 50 year old long time smoker who presents with worsening dyspnea and found to have a large left pneumothorax. Patient is a long time smoker and has blebs which may have caused his pneumothorax. Dr. Lynne has been consulted and placed a chest tube on 03/20/2021. Thoracoscopic wedge resection of bullae, extensive lysis of adhesions, 5-level rib block, bronchoscopy, talc pleurodesis was done on 03/28/21. Large right pneumothorax Thoracoscopic wedge resection of bullae, extensive lysis of adhesions, 5-level rib block, bronchoscopy, talc pleurodesis was done on 03/28/21. Dr. Lynne follows the patient Continue chest tube on suction I increased the dose of Suboxone for better pain control as Suboxone partial agonist antagonist of mu and kappa receptors. The time of Suboxone was changed in order to improve his sleeping cycle On 04/01/21 x-ray showed Minimal improvement to the left pneumothorax Today patient developed leukocytosis of 23, pro calcitonin negative, blood culture negative. Most likely leukocytosis reactive. I will discontinue Zosyn On 04/03/21 x-ray showed Small residual left apical pneumothorax and bibasilar opacities again noted. No new acute process appreciated. Continue pain management On 04/03 patient received blood patch. Opioid abuse Continue Suboxone Dyspnea Most likely secondary to pneumothorax and advanced COPD Continue inhalers, by mouth prednisone Anxiety/depression Continue bupropion and fluoxetine Patient continues to be anxious. Exposure to COVID 2 tests was negative Cachexia Patient has BMI 18, wasting of muscle mass Ensure Full resident care technician assessment VS,Fishbone, I+O VS, Fishbone, I+O Laboratory Tests 04/04/21 04:32 Vital Signs Date Time Temp Pulse Resp B/P (MAP) Pulse Ox O2 Delivery O2 Flow Rate FiO2 04/04/21 12:11 22 89 Nasal Cannula 2.0 04/04/21 12:00 98.3 73 111/62 (78) 03/29/21 08:27 33 I&O- Last 24 Hours up to 6 AM 04/04/21 06:00 Intake Total 3814 ml Output Total 3100 ml Balance 714 ml MIGUEL KHALIL DO April 04, 2021 16:05
[2021-04-05] VITALS: BP 153/75
[2021-04-05 04:00] VITALS: BP 144/88
[2021-04-05 04:29] LABS: BASO # 0.1 10^3/uL (0.0-0.2); BASO % 0.3 % (0.0-1.0); EOS # 1.3 10^3/uL (0.0-0.5); EOS % 5.7 % (0.0-3.0); HEMATOCRIT 33.6 % (42.0-52.0); HEMOGLOBIN 10.3 g/dl (13.5-17.5); LYMPH # 3.4 10^3/uL (1.5-5.0); LYMPH % 14.9 % (24.0-44.0); MEAN CORPUSCULAR HEMOGLOBIN 30.6 pg (27.0-33.0); MEAN CORPUSCULAR HGB CONC 30.7 g/dl (32.0-36.5); MEAN CORPUSCULAR VOLUME 99.7 fl (80.0-96.0); MONO # 1.3 10^3/uL (0.0-0.8); MONO % 5.9 % (2.0-8.0); NEUTROPHILS # 14.5 10^3/uL (1.5-8.5); NEUTROPHILS % 63.3 % (36.0-66.0); PLATELET COUNT, AUTOMATED 343 10^3/uL (150-450); RED BLOOD COUNT 3.37 10^6/uL (4.30-6.10); WHITE BLOOD COUNT 22.8 10^3/uL (4.0-10.0)
[2021-04-05 04:50] LABS: BLOOD UREA NITROGEN 20 MG/DL (7-18); CALCIUM LEVEL 8.7 MG/DL (8.5-10.1); CARBON DIOXIDE LEVEL 43 MEQ/L (21-32); CHLORIDE LEVEL 99 MEQ/L (98-107); CREATININE FOR GFR 0.52 MG/DL (0.70-1.30); GLOMERULAR FILTRATION RATE > 60.0 (>56); GLUCOSE, FASTING 79 MG/DL (70-100); POTASSIUM SERUM 4.8 MEQ/L (3.5-5.1); SODIUM LEVEL 139 MEQ/L (136-145)
[2021-04-05] MEDS: KETOROLAC 30 MG/ML 1ML VIAL IV SCH ×4 (05:19→23:26)
[2021-04-05] MEDS: BUPRENORPHINE/NALOXONE 8-2MG SUBLINGUAL TABLET(SUBOXONE) SL SCH ×3 (05:19→21:38)
--- NOTE | 2021-04-05 06:33 | IPN ---
PROGRESS NOTE DATE: 04/04/2021 SUBJECTIVE: This is now the 7th postoperative day for Mr. Ni. He underwent a blood patch yesterday and his air leak is much less and only occurs with forceful coughing. He is just on underwater seal and not on any suction. His chest x-ray while showing an airspace at the cupula is not showing any subcutaneous emphysema. The lung is fairly well fully expanded. OBJECTIVE: VITAL SIGNS: Show a T-max of 98.7 with a heart rate that ranges between 67 and 77 in sinus rhythm. Respiratory rate of 16 to 26 without the use of accessory muscles who is 94% to 97% saturated on 2 liters nasal cannula and whose blood pressure is ranging between 159/77 to 103/58. INTAKE AND OUTPUT: Over the past 24 hours has been recorded as 4474 in and 2935 out for a positivity of 1500 mL. He has put out 230 mL from the chest tube and there is a small air leak. RESPIRATORY: I hear scattered rhonchi throughout both inspiration and expiration most of which clears with coughing. Percussion notes are full to the diaphragm. I do not hear wheezing. CARDIAC: Without murmurs, clicks, gallops, or rubs. I cannot feel his PMI. S1 and S2 are normal. ABDOMEN: Soft and nontender. Bowel sounds are positive. There is no hepatomegaly. No CVA tenderness. EXTREMITIES: Show trace pretibial edema on both legs with the right a little bit greater than the left. No differential swelling of the upper extremities. SKIN: Warm, dry, and perfused without cyanosis or mottling, including that of the nail beds and knees. ___ DICTATION ENDS/verified / ht
[2021-04-05] MEDS: ADVAIR HFA 115/21MCG INHALER INH SCH ×2 (07:49→19:48)
[2021-04-05] MEDS: ALBUTEROL 90 MCG/ACT 8GM HFA INHALER INH SCH ×4 (07:50→19:48)
[2021-04-05] MEDS: TIOTROPIUM INHALER/CAPSULE (SPIRIVA) INH SCH (07:50)
[2021-04-05 08:00] VITALS: BP 139/83
--- NOTE | 2021-04-05 08:27 | REP ---
INDICATION: pneumothx. COMPARISON: Comparison radiographs are from the previous day April 04, 2021 and April 03, 2021. TECHNIQUE: Two views.. FINDINGS: Two left-sided chest tubes remain in place at the apex. A small left apical pneumothorax is again noted slightly increased from the 03 Apr 2021 study. There is soft tissue emphysema in the extra thoracic soft tissues in the left upper chest wall. There is mild blunting of the pleural angles bilaterally indicating small amounts of pleural fluid. A left subclavian catheter is seen in place with its tip in the expected location of superior vena cava. An epidural catheter is again seen in the midthoracic spine. Heart is not enlarged. No new infiltrate. IMPRESSION: Small left apical pneumothorax. Bilateral pleural angle blunting.. <Electronically signed by Sukhdev Savage > 04/05/21 [id number]
[2021-04-05] MEDS: DOCUSATE SODIUM 100MG CAPSULE PO SCH ×2 (09:00→20:22)
[2021-04-05] MEDS: MOM 30ML SUSPENSION UDC PO SCH (09:00)
[2021-04-05] MEDS: HEPARIN SOD (PORCINE) 5000UNITS/ML 1ML VIAL/SYRINGE SC SCH ×2 (09:33→20:23)
[2021-04-05] MEDS: acetaZOLAMIDE 250 MG TAB PO SCH ×2 (09:34→20:21)
[2021-04-05] MEDS: MAGNESIUM GLUCONATE 500 MG TAB PO SCH (09:34)
[2021-04-05] MEDS: PANTOPRAZOLE 40MG TAB (PROTONIX) PO SCH (09:34)
[2021-04-05] MEDS: FERROUS SULFATE 325MG TAB PO SCH ×2 (09:34→20:22)
[2021-04-05] MEDS: predniSONE 5 MG TAB PO SCH (09:34)
[2021-04-05 12:00] VITALS: BP 117/67
[2021-04-05] MEDS: BUPIVACAINE/NACL BAG 250 ML EPIDURAL SCH (13:43)
--- NOTE | 2021-04-05 14:14 | IPN ---
PROGRESS NOTE DATE: 04/05/2021 This is now the 8th postoperative day for Mr. Ni. He has no air leak with speaking, although he has a one or two-bubble air leak with forceful coughing. There is no subcutaneous emphysema. He is breathing well. His pain is still not controlled, but he seems better than he has been. Yesterday I increased his Dilaudid to 2 mg every 4 hours as needed for pain in addition to evenly spacing out his Suboxone to every 8 hours. His vital signs show a maximum temperature of 99.1 with a heart rate that ranges between 68-89 in a sinus rhythm, respiratory rate of 18-20 without the use of accessory muscles, who is 91%-96% saturated on 3 liters nasal cannula and whose blood pressure is ranging between 153/75 to 117/67. His intake and output for the past 24 hours has been recorded as 2462 in and 5215 out, for a negativity of 2753 mL. He has put out 115 mL from his chest tube, and the air leak is as described above. Weight today is 61.1 kg compared to 69.5 kg yesterday. PHYSICAL EXAMINATION: He does have some wheezing now in both lungs during inspiration and expiration. He has scattered rhonchi throughout. I did decrease his steroids yesterday to 5 mg a day. Cardiac exam is without murmurs, clicks, gallops, or rubs. I cannot feel his point of maximal impulse (PMI). S1 and S2 are normal. Abdomen is soft and nontender. Bowel sounds are positive. There is no hepatomegaly. No costovertebral angle (CVA) tenderness. Extremities show no pretibial edema, no calf tenderness, no differential swelling of the upper extremities. Skin is warm, dry, and perfused without cyanosis or mottling, including that of the nailbeds and knees. Neck is supple. There is no jugular venous distention. No subcutaneous emphysema. Trachea is midline. Mouth shows the mucous membranes to be pink and moist. Lips and commissures without lesions. No thrush. Eyes show his pupils to be equal and reactive. Extraocular motion intact. Sclerae anicteric. Neurologic shows II-XII intact. Normal gross motor, gross sensation intact. Gait is not tested. Psychiatric shows him to be awake, alert, and oriented times three with appropriate mood and affect and conversational. His white count today is 22.8, down from 24 yesterday, Hemoglobin and hematocrit are 10.3 and 33.6, unchanged from yesterday, with a platelet count of 343 and stable. Differential shows 63% neutrophils, 15% lymphocytes, 5% monocytes. There are no immature forms or toxic granulations. His chest x-ray today still shows the same airspace in the left upper hemithorax. This is unchanged from yesterday. Costophrenic angle on the left side is still blunted. IMPRESSION: 1. 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 2. Severe chronic obstructive pulmonary disease (COPD). 3. Psychiatric history of bipolar disease. 4. 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 5. Narcotic abuse and Suboxone. 6. Cocaine abuse. 7. Exposure to COVID. 8. Inadequate pain control, continuing. 9. Leukocytosis secondary to his talc pleurodesis and inflammatory pleural response. PLAN AND DISCUSSION: I am very gratified that his air leak is much diminished. I will therefore not do a blood patch today. I am loath to place him back on suction to get the lung back to the chest wall for fear of increasing his air leak. I will let it be at this point in time. The lung should eventually re-expand to the chest wall. So long as he does not leak, I am content. I will discontinue his Turcios today, as it has been in longer than usual. There is a risk of him not being able to urinate secondary to the epidural. His pain control is still problematic. He certainly has a decreased threshold for pain, probably related to his prior narcotic abuse and the Suboxone use. The epidural is going at its maximum rate. I did increase the Dilaudid, although the Suboxone does have a narcotic antagonist, which will only increase his need for increased dosing of narcotics. He is, however, functional, and I will not increase it any more.
[2021-04-05 16:00] VITALS: BP 140/84
[2021-04-05] MEDS: HYDROmorphone 2 MG TAB PO PRN ×3 (16:06→23:26)
--- NOTE | 2021-04-05 17:16 | IPNPDOC ---
Text Note Date of Service The patient was seen on 04/05/21. NOTE Subjective: No any acute events overnight. Patient stated that he feels little bit better today, less left-sided chest pain. Objective: GENERAL APPEARANCE: Cachectic male HEENT: no scleral icterus, no JVD, EOMI CARDIOVASCULAR: S1S2 LUNGS: Diminished lung sounds bilaterally, coarse lung sounds on the left side, left chest tube in place ABDOMEN: soft & not tender w palpitation MUSCULOSKELETAL: no cyanosis, no swelling INTEGUMENT: no generalized pallor NEUROLOGICAL: cranial nerve function from 2-12 intact intact, follows commands, speech not dysarthric Assessment and plan Pt is a 50 year old long time smoker who presents with worsening dyspnea and found to have a large left pneumothorax. Patient is a long time smoker and has blebs which may have caused his pneumothorax. Dr. Lynne has been consulted and placed a chest tube on 03/20/2021. Thoracoscopic wedge resection of bullae, extensive lysis of adhesions, 5-level rib block, bronchoscopy, talc pleurodesis was done on 03/28/21. Large right pneumothorax Thoracoscopic wedge resection of bullae, extensive lysis of adhesions, 5-level rib block, bronchoscopy, talc pleurodesis was done on 03/28/21. Dr. Lynne follows the patient Continue chest tube on suction I increased the dose of Suboxone for better pain control as Suboxone partial agonist antagonist of mu and kappa receptors. The time of Suboxone was changed in order to improve his sleeping cycle On 04/01/21 x-ray showed Minimal improvement to the left pneumothorax Today patient developed leukocytosis of 23, pro calcitonin negative, blood culture negative. Most likely leukocytosis reactive. I will discontinue Zosyn On 04/03/21 x-ray showed Small residual left apical pneumothorax and bibasilar opacities again noted. No new acute process appreciated. Continue pain management On 04/03 patient received blood patch. On 04/05/21 chest x-ray showed Small left apical pneumothorax. Bilateral pleural angle blunting. Air leakage improved. Surgical team will not proceed with another blood patch. Opioid abuse Continue Suboxone Dyspnea Most likely secondary to pneumothorax and advanced COPD Continue inhalers, by mouth prednisone Anxiety/depression Continue bupropion and fluoxetine Patient continues to be anxious. Exposure to COVID 2 tests was negative Cachexia Patient has BMI 18, wasting of muscle mass Ensure Full organizational development specialist assessment VS,Randal Carver+O VS, Mehul, I+O Laboratory Tests 04/05/21 04:10 Vital Signs Date Time Temp Pulse Resp B/P (MAP) Pulse Ox O2 Delivery O2 Flow Rate FiO2 04/05/21 16:06 20 Nasal Cannula 3.0 04/05/21 16:00 97.2 106 140/84 (102) 90 I&O- Last 24 Hours up to 6 AM 04/05/21 06:00 Intake Total 2378 ml Output Total 4330 ml Balance -1952 ml MIGUEL KHALIL DO April 05, 2021 17:16
[2021-04-05] MEDS ORDERED: ACETAMINOPHEN *IV* 1,000 MG in IV 1 EA IV ONE (17:40)
[2021-04-05 20:00] VITALS: BP 140/86
[2021-04-05] MEDS: ACETAMINOPHEN TAB 650MG DOSE (2X325MG) PO PRN (20:22)
[2021-04-05] MEDS: diphenhydrAMINE 50MG/ML VIAL (J1200) IV PRN (21:38)
[2021-04-06] VITALS: BP 120/79
[2021-04-06] MEDS: HYDROmorphone 2 MG TAB PO PRN ×6 (02:26→22:37)
[2021-04-06 04:00] VITALS: BP 116/69
[2021-04-06] MEDS: BUPRENORPHINE/NALOXONE 8-2MG SUBLINGUAL TABLET(SUBOXONE) SL SCH ×3 (05:38→22:36)
[2021-04-06] MEDS: KETOROLAC 30 MG/ML 1ML VIAL IV SCH ×4 (05:38→22:36)
[2021-04-06 05:59] LABS: BASO # 0.1 10^3/uL (0.0-0.2); BASO % 0.2 % (0.0-1.0); EOS # 1.2 10^3/uL (0.0-0.5); EOS % 5.3 % (0.0-3.0); HEMATOCRIT 37.7 % (42.0-52.0); HEMOGLOBIN 11.4 g/dl (13.5-17.5); LYMPH # 2.8 10^3/uL (1.5-5.0); LYMPH % 12.9 % (24.0-44.0); MEAN CORPUSCULAR HGB CONC 30.2 g/dl (32.0-36.5); MEAN CORPUSCULAR VOLUME 99.2 fl (80.0-96.0); MONO # 1.3 10^3/uL (0.0-0.8); MONO % 5.9 % (2.0-8.0); NEUTROPHILS # 14.3 10^3/uL (1.5-8.5); NEUTROPHILS % 65.8 % (36.0-66.0); PLATELET COUNT, AUTOMATED 370 10^3/uL (150-450); WHITE BLOOD COUNT 21.8 10^3/uL (4.0-10.0)
[2021-04-06 06:22] LABS: BLOOD UREA NITROGEN 18 MG/DL (7-18); CALCIUM LEVEL 9.5 MG/DL (8.5-10.1); CARBON DIOXIDE LEVEL 32 MEQ/L (21-32); CHLORIDE LEVEL 104 MEQ/L (98-107); CREATININE FOR GFR 0.52 MG/DL (0.70-1.30); GLOMERULAR FILTRATION RATE > 60.0 (>56); GLUCOSE, FASTING 84 MG/DL (70-100); POTASSIUM SERUM 4.8 MEQ/L (3.5-5.1); SODIUM LEVEL 140 MEQ/L (136-145)
[2021-04-06] MEDS: TIOTROPIUM INHALER/CAPSULE (SPIRIVA) INH SCH (07:35)
[2021-04-06] MEDS: ADVAIR HFA 115/21MCG INHALER INH SCH ×2 (07:36→19:23)
[2021-04-06] MEDS: ALBUTEROL 90 MCG/ACT 8GM HFA INHALER INH SCH ×4 (07:37→19:24)
[2021-04-06 08:00] VITALS: BP 133/74
[2021-04-06] MEDS: PANTOPRAZOLE 40MG TAB (PROTONIX) PO SCH (09:11)
[2021-04-06] MEDS: FERROUS SULFATE 325MG TAB PO SCH ×2 (09:11→20:20)
[2021-04-06] MEDS: predniSONE 5 MG TAB PO SCH (09:11)
[2021-04-06] MEDS: MOM 30ML SUSPENSION UDC PO SCH (09:11)
[2021-04-06] MEDS: MAGNESIUM GLUCONATE 500 MG TAB PO SCH (09:11)
[2021-04-06] MEDS: HEPARIN SOD (PORCINE) 5000UNITS/ML 1ML VIAL/SYRINGE SC SCH ×2 (09:11→20:21)
[2021-04-06] MEDS: DOCUSATE SODIUM 100MG CAPSULE PO SCH ×2 (09:12→20:20)
--- NOTE | 2021-04-06 10:15 | REP ---
INDICATION: pneumothx. COMPARISON: Comparison radiograph April 05, 2021. TECHNIQUE: Two views.. FINDINGS: Two left chest tubes are again noted in place. A small left apical pneumothorax is again seen unchanged from the comparison study of the previous day. There is less extra thoracic soft tissue emphysema. Slight blunting of the right lateral pleural angle and both posterior pleural angles persists unchanged. Increased lung markings in the bases are again noted unchanged. Heart is not enlarged. A left subclavian catheter terminates in the expected location of superior vena cava. IMPRESSION: Small left pneumothorax persists unchanged with 2 left chest tubes again noted.. <Electronically signed by Sukhdev Savage > 04/06/21 [id number]
[2021-04-06 11:48] VITALS: BP 106/80
--- NOTE | 2021-04-06 13:39 | IPN ---
PROGRESS NOTE DATE: 04/06/2021 This is now the 9th postoperative day for Mr. Ni. He still has an air leak, although it only occurs with forceful cough. His pain is somewhat better controlled after increasing his Dilaudid to 2 mg every 3 hours. His vital signs show a maximum temperature of 98.8 with a heart rate that ranges between 86-93 in a sinus rhythm, respiratory rate of 18-26 without the use of accessory muscles, who is 89-97% saturated on 2 liters nasal cannula and just recently weaned to room air. His intake and output for the past 24 hours have been recorded as 1416 in and 2350 out, for a negativity of 935 mL. He has put nothing out the chest tube. Weight today is 60 kg compared to 61.1 kg yesterday. He has put out 2350 mL in urine output. PHYSICAL EXAMINATION: His lungs actually sound better with nearly normal vesicular sounds. I do not hearing the wheezing that I heard yesterday. Percussion note is full to the diaphragm. He does have scattered rhonchi, most of which was cleared with coughing. Cardiac exam is without murmurs, clicks, gallops, or rubs. I cannot feel his point of maximal impulse (PMI). S1 and S2 are normal. Abdomen is soft and nontender. Bowel sounds are positive. There is no hepatomegaly. No costovertebral angle (CVA) tenderness. Extremities show no pretibial edema, no calf tenderness, no differential swelling of the upper extremities. Skin is warm, dry, and perfused without cyanosis or mottling, including that of the nailbeds and knees. Neck is supple. There is no jugular venous distention. No subcutaneous emphysema. Trachea is midline. Mouth shows the mucous membranes to be pink and moist. Lips and commissures without lesions. No thrush. Eyes show his pupils to be equal and reactive. Extraocular motion intact. Sclerae anicteric. Neurologic shows II-XII intact. Normal gross motor, gross sensation intact. Gait is not tested. Psychiatric shows him to be awake, alert, and oriented times three with appropriate mood and affect and conversational. His white count today is 21.8. It continues to trend downward. Hemoglobin and hematocrit are 11.4 and 37.7, improved from 10.3 and 33.6, improved from hemoconcentration. Platelet count is 370. Differential shows 65% neutrophils, 12% lymphocytes, 5% monocytes. There are no immature forms or toxic granulations. His electrolytes are normal with a BUN and creatinine of 18 and 0.52 with a glucose of 84. His total CO2 is now down to 32 from 43 yesterday. I have discontinued the Diamox. A chest x-ray shows still an airspace in the upper left hemithorax. There is no subcutaneous emphysema. IMPRESSION: 1. Postoperative day #9 status post wedge resection and talc pleurodesis for a bronchopleural fistula and bullous disease. 2. Severe chronic obstructive pulmonary disease (COPD). 3. Psychiatric history of bipolar disease. 4. 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 5. Narcotic abuse, on Suboxone. 6. Cocaine abuse. 7. Exposure to COVID. 8. Inadequate pain control, somewhat improving. 9. Leukocytosis secondary to talc pleurodesis and inflammatory pleural spots. 10. Metabolic alkalosis secondary to CO2 retention and Lasix therapy. PLAN AND DISCUSSION: Even though he has a small air leak, I am going to clamp his chest tubes and check a chest x-ray in 5 hours at 6 p.m. to see if the lung is staying up. If note, I will return the chest tube to suction. If that remains the case, I will do a blood patch on him tomorrow. I am gratified that his metabolic alkalosis is somewhat resolved. His pain control is improved. Will discontinue his Turcios today, as his epidural was discontinued yesterday.
--- NOTE | 2021-04-06 14:18 | IPNPDOC ---
Text Note Date of Service The patient was seen on 04/06/21. NOTE Subjective: No any acute events overnight. Epidural anesthesia was discontinued yesterday. Patient denied fever, chills, continues to have left-sided chest pain 4 out of 10 Objective: GENERAL APPEARANCE: Cachectic male HEENT: no scleral icterus, no JVD, EOMI CARDIOVASCULAR: S1S2 LUNGS: Diminished lung sounds bilaterally, coarse lung sounds on the left side, left chest tube in place ABDOMEN: soft & not tender w palpitation MUSCULOSKELETAL: no cyanosis, no swelling INTEGUMENT: no generalized pallor NEUROLOGICAL: cranial nerve function from 2-12 intact intact, follows commands, speech not dysarthric Assessment and plan Pt is a 50 year old long time smoker who presents with worsening dyspnea and found to have a large left pneumothorax. Patient is a long time smoker and has blebs which may have caused his pneumothorax. Dr. Lynne has been consulted and placed a chest tube on 03/20/2021. Thoracoscopic wedge resection of bullae, extensive lysis of adhesions, 5-level rib block, bronchoscopy, talc pleurodesis was done on 03/28/21. Large right pneumothorax/Bronchopleural fistula Thoracoscopic wedge resection of bullae, extensive lysis of adhesions, 5-level rib block, bronchoscopy, talc pleurodesis was done on 03/28/21. Dr. Lynne follows the patient Continue chest tube on suction I increased the dose of Suboxone for better pain control as Suboxone partial agonist antagonist of mu and kappa receptors. The time of Suboxone was changed in order to improve his sleeping cycle On 04/01/21 x-ray showed Minimal improvement to the left pneumothorax Today patient developed leukocytosis of 23, pro calcitonin negative, blood culture negative. Most likely leukocytosis reactive. I will discontinue Zosyn On 04/03/21 x-ray showed Small residual left apical pneumothorax and bibasilar opacities again noted. No new acute process appreciated. Continue pain management On 04/03 patient received blood patch. On 04/05/21 chest x-ray showed Small left apical pneumothorax. Bilateral pleural angle blunting. Air leakage improved. Surgical team will not proceed with another blood patch. Surgical team will proceed with chest tube clamped today. Opioid abuse/cocaine abuse Continue Suboxone Dyspnea Most likely secondary to pneumothorax and advanced COPD Continue inhalers, by mouth prednisone Anxiety/depression Continue bupropion and fluoxetine Patient continues to be anxious. Exposure to COVID 2 tests was negative Cachexia Patient has BMI 18, wasting of muscle mass Ensure Leukocytosis Most likely reactive Procalcitonin Blood culture negative Patient afebrile VS,Olenae, I+O VS, Benjibone, I+O Laboratory Tests 04/06/21 05:45 Vital Signs Date Time Temp Pulse Resp B/P (MAP) Pulse Ox O2 Delivery O2 Flow Rate FiO2 04/06/21 12:00 2.0 04/06/21 11:48 97.4 91 18 106/80 (89) 97 Nasal Cannula I&O- Last 24 Hours up to 6 AM 04/06/21 06:00 Intake Total 1200 ml Output Total 2700 ml Balance -1500 ml MIGUEL KHALIL DO April 06, 2021 14:18
[2021-04-06 16:00] VITALS: BP 107/74
--- NOTE | 2021-04-06 18:11 | REP ---
INDICATION: pneumothx. COMPARISON: Comparison chest x-ray is from April 06, 2021. 8:18 a.m. radiograph. TECHNIQUE: AP and lateral views. 5:55 p.m. film... FINDINGS: Two left chest tubes again noted. Small left apical pneumothorax is seen. There is blunting of the left lateral pleural angle which is increased slightly from the radiograph done earlier today. The left apical pneumothorax appears to be unchanged. There is platelike atelectasis in the right base. No new infiltrate. IMPRESSION: Small left apical pneumothorax again seen. Two left chest tubes in place. Small left pleural effusion blunting the pleural angles.. <Electronically signed by Sukhdev Savage > 04/06/21 [id number]
[2021-04-06 20:00] VITALS: BP 117/78
[2021-04-07] VITALS (7 sets, daily range): BP systolic 113–123; BP diastolic 69–77
[2021-04-07] MEDS ORDERED: MORPHINE 10 MG/ML 1ML VIAL (J2270) IV ONE (01:45)
--- NOTE | 2021-04-07 02:35 | REPVR ---
PROCEDURE INFORMATION: Exam: XR Chest Exam date and time: 04/07/21 (1:34am) Age: 50 years old Clinical indication: Increased pain, chest tube TECHNIQUE: Imaging protocol: XR of the chest Views: 1 view COMPARISON: Chest films of 04/06/21 (5:55pm) FINDINGS: Comparison is made with chest films done approx. 7.5 hours ago. Emphysematous lung changes are again noted. 2 left-sided chest tubes remain in place A left apical pneumothorax is again seen (unchanged in overall size). The interpleural distance at the left lung apex = 3.3 cm (similar measurement on earlier CXR). No focal infiltrates. Blunting at the left costophrenic angle is again seen. Left-sided central venous catheter remains (stable position). Small amount of SQ air remains in the left lateral chest wall. IMPRESSION: In general, no significant interval change is noted over the past 7.5 hours. Two left-sided chest tubes remain in place. Left apical pneumothorax persists (unchanged appearance). Electronically signed by: Bhargavi Cruz On 04/07/2021 02:34:43 AM
[2021-04-07] MEDS: KETOROLAC 30 MG/ML 1ML VIAL IV SCH ×4 (04:07→22:51)
[2021-04-07 04:29] LABS: BASO # 0.1 10^3/uL (0.0-0.2); BASO % 0.3 % (0.0-1.0); EOS # 1.2 10^3/uL (0.0-0.5); EOS % 5.7 % (0.0-3.0); HEMATOCRIT 36.7 % (42.0-52.0); HEMOGLOBIN 11.1 g/dl (13.5-17.5); LYMPH # 3.1 10^3/uL (1.5-5.0); LYMPH % 14.1 % (24.0-44.0); MEAN CORPUSCULAR HEMOGLOBIN 29.9 pg (27.0-33.0); MEAN CORPUSCULAR HGB CONC 30.2 g/dl (32.0-36.5); MEAN CORPUSCULAR VOLUME 98.9 fl (80.0-96.0); MONO # 1.3 10^3/uL (0.0-0.8); MONO % 5.9 % (2.0-8.0); NEUTROPHILS # 14.4 10^3/uL (1.5-8.5); NEUTROPHILS % 65.4 % (36.0-66.0); PLATELET COUNT, AUTOMATED 376 10^3/uL (150-450); RED BLOOD COUNT 3.71 10^6/uL (4.30-6.10); WHITE BLOOD COUNT 21.9 10^3/uL (4.0-10.0)
[2021-04-07 04:58] LABS: BLOOD UREA NITROGEN 28 MG/DL (7-18); CALCIUM LEVEL 9.4 MG/DL (8.5-10.1); CARBON DIOXIDE LEVEL 32 MEQ/L (21-32); CHLORIDE LEVEL 103 MEQ/L (98-107); CREATININE FOR GFR 0.64 MG/DL (0.70-1.30); GLOMERULAR FILTRATION RATE > 60.0 (>56); GLUCOSE, FASTING 96 MG/DL (70-100); POTASSIUM SERUM 5.1 MEQ/L (3.5-5.1); SODIUM LEVEL 138 MEQ/L (136-145)
[2021-04-07] MEDS: BUPRENORPHINE/NALOXONE 8-2MG SUBLINGUAL TABLET(SUBOXONE) SL SCH ×3 (05:53→16:56)
[2021-04-07] MEDS: ALBUTEROL 90 MCG/ACT 8GM HFA INHALER INH SCH ×4 (07:46→19:37)
[2021-04-07] MEDS: TIOTROPIUM INHALER/CAPSULE (SPIRIVA) INH SCH (07:46)
[2021-04-07] MEDS: ADVAIR HFA 115/21MCG INHALER INH SCH ×2 (07:47→19:37)
--- NOTE | 2021-04-07 07:55 | REP ---
INDICATION: pneumothx. COMPARISON: Comparison radiograph April 07, 2021 and April 06, 2021. TECHNIQUE: Two views.. FINDINGS: Two left apical chest tubes remain in place. Left subclavian catheter and EKG monitoring electrodes are present. The left apical pleural air cavity is again seen unchanged. There is blunting of the left lateral pleural angle also unchanged. Posterior pleural angle blunting is seen on the left as well. Heart is not enlarged. There is platelike atelectasis in the right base. No new infiltrate. IMPRESSION: Left-sided hydropneumothorax with 2 left chest tubes again noted in place. Platelike atelectasis right base. No new infiltrate.. <Electronically signed by Sukhdev Savage > 04/07/21 [id number]
[2021-04-07] MEDS: DOCUSATE SODIUM 100MG CAPSULE PO SCH ×2 (09:00→20:05)
[2021-04-07] MEDS: HEPARIN SOD (PORCINE) 5000UNITS/ML 1ML VIAL/SYRINGE SC SCH ×2 (09:00→20:06)
[2021-04-07] MEDS: MOM 30ML SUSPENSION UDC PO SCH (09:00)
[2021-04-07] MEDS: predniSONE 5 MG TAB PO SCH (10:03)
[2021-04-07] MEDS: PANTOPRAZOLE 40MG TAB (PROTONIX) PO SCH (10:03)
[2021-04-07] MEDS: MAGNESIUM GLUCONATE 500 MG TAB PO SCH (10:04)
[2021-04-07] MEDS: FERROUS SULFATE 325MG TAB PO SCH ×2 (10:04→20:05)
--- NOTE | 2021-04-07 10:36 | IPN ---
PROGRESS NOTE DATE: 04/07/2021 SUBJECTIVE: This is now the 10th postoperative day for Mr. Ni. His chest tubes have been clamped for 24 hours and his chest drainage today is unchanged. I was called early this morning with increased pain intolerance and after checking a chest x-ray to make sure there was no change in his lungs, I gave him a one time dose of 5 mg of morphine. He seems better this morning. OBJECTIVE: VITAL SIGNS: Show a T-max of 98.9 with a heart rate that ranges between 81 and 94 in sinus rhythm. Respiratory rate of 15 to 31 without the use of accessory muscles who is 96% saturated on 2 L nasal cannula and whose blood pressure is ranging between 123/76 to 113/72. INTAKE AND OUTPUT: Over the past 24 hours has been recorded as 2640 in and 99458 out for a positivity of 1010 mL. His chest tube has been clamped and there is nothing out the chest tubes. Weight today is 59.6 kg compared to 60 kg yesterday. RESPIRATORY: He has remarkably clear breath sounds with some occasional scattered rhonchi. I do not hear any wheezing today. Percussion notes are full to the diaphragm. They are equal on either side. CARDIAC: Without murmurs, clicks, gallops, or rubs. I cannot feel his PMI. S1 and S2 are normal. ABDOMEN: Soft and nontender. Bowel sounds are positive. There is no hepatomegaly. No CVA tenderness. EXTREMITIES: Show no pretibial edema. No calf tenderness. No differential swelling of the upper extremities. SKIN: Warm, dry, and perfused without cyanosis or mottling, including that of the nail beds and knees. NECK: Supple. There is no jugular venous distention. No subcutaneous emphysema. Trachea is midline. MOUTH: Shows the mucous membranes to be pink and moist. Lips and commisures are without lesions and no thrush. EYES: Show his pupils equal and reactive. Extraocular muscles are intact. Sclerae nonicteric. NEUROLOGIC: Shows II through XII intact. Normal gross motor, gross sensation intact. Gait is not tested. PSYCHIATRIC: Shows him to be awake, alert, and oriented x3 with appropriate mood and affect and conversational. LABORATORY DATA: His white count today is 21.9 unchanged from yesterday with a hemoglobin and hematocrit of 11.1 and 36.7 also essentially unchanged from yesterday. Platelet count is 376,000 and stable. Differential shows 64% neutrophils, 14% lymphocytes, 5 monocytes. There are no immature forms and no toxic granulations. His chemistries today show normal electrolytes including a total CO2 of 32. BUN and creatinine are 28 and 0.64 with a glucose of 96 and a calcium of 9.4. IMAGING DATA: His chest x-ray is unchanged from yesterday. He still has an apical airspace, but there is no change and there is no subcutaneous emphysema. There is slight blunting of the left costophrenic angle, which is also unchanged. IMPRESSION: 1. 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 2. Severe chronic obstructive pulmonary disease (COPD). 3. Psychiatric history of bipolar disease. 4. Bronchopleural fistula, resolved. 5. Narcotic abuse on Suboxone. 6. Cocaine abuse. 7. Exposure to COVID. 8. Inadequate pain control status quo. 9. Leukocytosis secondary to talc pleurodesis and inflammatory pleural reaction. 10. Metabolic alkalosis secondary to CO2 retention and Lasix therapy, resolved. PLAN AND DISCUSSION: I am going to remove his chest tubes today. We will check a chest x-ray tomorrow and if all is well, I will discharge him tomorrow. The problem is going to be his outpatient pain control. I am going to rearrange his Suboxone to his scheduled Suboxone dosing preoperative with two in the morning and one in the afternoon. His Suboxone dose is 8/2 mg. He is going to have to obtain his Suboxone at [facility]. We will also wean his oxygen today.
--- NOTE | 2021-04-07 11:11 | IPNPDOC ---
Text Note Date of Service The patient was seen on 04/07/21. NOTE Subjective: Chest tube has been clamped for 24 hours. Patient continues to com plain of left chest pain 5 out of 10. Patient denied any fever Objective: GENERAL APPEARANCE: Cachectic male HEENT: no scleral icterus, no JVD, EOMI CARDIOVASCULAR: S1S2 LUNGS: Diminished lung sounds bilaterally, coarse lung sounds on the left side, left chest tube in place ABDOMEN: soft & not tender w palpitation MUSCULOSKELETAL: no cyanosis, no swelling INTEGUMENT: no generalized pallor NEUROLOGICAL: cranial nerve function from 2-12 intact intact, follows commands, speech not dysarthric Assessment and plan Pt is a 50 year old long time smoker who presents with worsening dyspnea and found to have a large left pneumothorax. Patient is a long time smoker and has blebs which may have caused his pneumothorax. Dr. Lynne has been consulted and placed a chest tube on 03/20/2021. Thoracoscopic wedge resection of bullae, extensive lysis of adhesions, 5-level rib block, bronchoscopy, talc pleurodesis was done on 03/28/21. Large right pneumothorax/Bronchopleural fistula Thoracoscopic wedge resection of bullae, extensive lysis of adhesions, 5-level rib block, bronchoscopy, talc pleurodesis was done on 03/28/21. Dr. Lynne follows the patient Continue chest tube on suction I increased the dose of Suboxone for better pain control as Suboxone partial agonist antagonist of mu and kappa receptors. The time of Suboxone was changed in order to improve his sleeping cycle On 04/01/21 x-ray showed Minimal improvement to the left pneumothorax Today patient developed leukocytosis of 23, pro calcitonin negative, blood culture negative. Most likely leukocytosis reactive. I will discontinue Zosyn On 04/03/21 x-ray showed Small residual left apical pneumothorax and bibasilar opacities again noted. No new acute process appreciated. Continue pain management On 04/03 patient received blood patch. On 04/05/21 chest x-ray showed Small left apical pneumothorax. Bilateral pleural angle blunting. Air leakage improved. Surgical team will not proceed with another blood patch. The surgical team will remove chest tube today Opioid abuse/cocaine abuse Continue Suboxone Dyspnea Most likely secondary to pneumothorax and advanced COPD Continue inhalers, by mouth prednisone Anxiety/depression Continue bupropion and fluoxetine Patient continues to be anxious. Exposure to COVID 2 tests was negative Cachexia Patient has BMI 18, wasting of muscle mass Ensure Leukocytosis Most likely reactive Procalcitonin, Blood culture negative Patient afebrile VS,Mehul, I+O VS, Mehul, I+O Laboratory Tests 04/07/21 04:09 Vital Signs Date Time Temp Pulse Resp B/P (MAP) Pulse Ox O2 Delivery O2 Flow Rate FiO2 04/07/21 08:00 97.7 84 18 119/77 (91) 94 Room Air 04/07/21 04:00 2.0 I&O- Last 24 Hours up to 6 AM 04/07/21 06:00 Intake Total 2640 ml Output Total 780 ml Balance 1860 ml MIGUEL KHALIL DO April 07, 2021 11:11
[2021-04-07] MEDS: ACETAMINOPHEN TAB 650MG DOSE (2X325MG) PO PRN (20:05)
[2021-04-07] MEDS: diphenhydrAMINE 50MG/ML VIAL (J1200) IV PRN (21:28)
[2021-04-08] VITALS: BP 122/73
[2021-04-08 04:00] VITALS: BP 118/67
[2021-04-08] MEDS: KETOROLAC 30 MG/ML 1ML VIAL IV SCH (04:22)
[2021-04-08] MEDS: diphenhydrAMINE 50MG/ML VIAL (J1200) IV PRN (04:23)
[2021-04-08 05:07] LABS: BASO # 0.1 10^3/uL (0.0-0.2); BASO % 0.7 % (0.0-1.0); HEMATOCRIT 35.4 % (42.0-52.0); HEMOGLOBIN 10.8 g/dl (13.5-17.5); LYMPH # 2.8 10^3/uL (1.5-5.0); LYMPH % 13.5 % (24.0-44.0); MEAN CORPUSCULAR HEMOGLOBIN 29.6 pg (27.0-33.0); MEAN CORPUSCULAR HGB CONC 30.5 g/dl (32.0-36.5); MONO # 1.4 10^3/uL (0.0-0.8); MONO % 6.6 % (2.0-8.0); NEUTROPHILS # 13.6 10^3/uL (1.5-8.5); NEUTROPHILS % 66.8 % (36.0-66.0); PLATELET COUNT, AUTOMATED 357 10^3/uL (150-450); RED BLOOD COUNT 3.65 10^6/uL (4.30-6.10); WHITE BLOOD COUNT 20.4 10^3/uL (4.0-10.0)
[2021-04-08 05:26] LABS: BLOOD UREA NITROGEN 29 MG/DL (7-18); CALCIUM LEVEL 8.6 MG/DL (8.5-10.1); CARBON DIOXIDE LEVEL 33 MEQ/L (21-32); CHLORIDE LEVEL 104 MEQ/L (98-107); CREATININE FOR GFR 0.59 MG/DL (0.70-1.30); GLOMERULAR FILTRATION RATE > 60.0 (>56); GLUCOSE, FASTING 76 MG/DL (70-100); POTASSIUM SERUM 4.6 MEQ/L (3.5-5.1); SODIUM LEVEL 140 MEQ/L (136-145)
[2021-04-08 08:00] VITALS: BP 118/67
[2021-04-08] MEDS: ADVAIR HFA 115/21MCG INHALER INH SCH (08:00)
[2021-04-08] MEDS: TIOTROPIUM INHALER/CAPSULE (SPIRIVA) INH SCH (08:00)
[2021-04-08] MEDS: ALBUTEROL 90 MCG/ACT 8GM HFA INHALER INH SCH ×3 (08:00→15:48)
[2021-04-08] MEDS: MOM 30ML SUSPENSION UDC PO SCH (08:53)
[2021-04-08] MEDS: PANTOPRAZOLE 40MG TAB (PROTONIX) PO SCH (08:53)
[2021-04-08] MEDS: predniSONE 5 MG TAB PO SCH (08:54)
[2021-04-08] MEDS: MAGNESIUM GLUCONATE 500 MG TAB PO SCH (08:54)
[2021-04-08] MEDS: DOCUSATE SODIUM 100MG CAPSULE PO SCH (08:54)
[2021-04-08] MEDS: FERROUS SULFATE 325MG TAB PO SCH (08:54)
[2021-04-08] MEDS: HEPARIN SOD (PORCINE) 5000UNITS/ML 1ML VIAL/SYRINGE SC SCH (08:55)
[2021-04-08] MEDS: BUPRENORPHINE/NALOXONE 8-2MG SUBLINGUAL TABLET(SUBOXONE) SL SCH ×2 (08:56→16:03)
--- NOTE | 2021-04-08 10:14 | REP ---
INDICATION: pnemothx. COMPARISON: Yesterday TECHNIQUE: Two views FINDINGS: The cardiomediastinal silhouette is unchanged. Left-sided thoracotomy tube has been removed. The central venous catheter tip remains in the superior vena cava unchanged. There is a left apical air-fluid level the air component of which is unchanged with a small increase in the fluid component. There are no other significant lung field changes. There is no change in the osseous structures. IMPRESSION: As above <Electronically signed by Robert Cuellar > 04/08/21 1010
[2021-04-08] MEDS ORDERED: PRED5TA PO (11:43)
[2021-04-08] MEDS ORDERED: NAPR-885 PO (11:43)
[2021-04-08 12:00] VITALS: BP 122/67
--- NOTE | 2021-04-08 12:17 | DSES ---
DISCHARGE SUMMARY DATE OF ADMISSION: 03/20/2021 DATE OF DISCHARGE: 04/08/2021 DISCHARGE DIAGNOSES: 1. Postoperative day #11 status post wedge resection and talc pleurodesis for bronchopleural fistula and bullous disease 2. Severe chronic obstructive pulmonary disease. 3. Psychiatric history of bipolar disorder. 4. Bronchopleural fistula, resolved. 5. Narcotic abuse, on Suboxone. 6. Cocaine abuse. 7. Exposure to COVID. 8. Leukocytosis secondary to talc pleurodesis and inflammatory pleural reaction. 9. Metabolic alkalosis secondary to CO2 retention and Lasix therapy, resolved. 10. Tension pneumothorax on admission. HOSPITAL COURSE: Patient is a 50-year-old white male who presented to the emergency room in acute respiratory distress. A chest tube was immediately placed with resolution and reversal of the respiratory failure. Chest tube had an air leak and continued to have an air leak for approximately 7 days, at which time he was taken to the operating room, where he underwent a wedge resection of bullous disease in the apex and a talc pleurodesis. Preoperatively his chest CT showed a large amount of bullae at the apex of the left lung with extreme emphysematous disease throughout both lungs. His extreme emphysematous disease was confirmed at operation, where his lungs were found to be incredible fragile, the quality of tissue paper. He therefore had a lengthy postoperative course with a prolonged air leak, which eventually stopped after a blood patch. His lung never fully expanded to the chest wall at the cupula, and he is left with a residual airspace, which will hopefully obliterate over the next few weeks. He is on chronic Suboxone therapy for drug addiction, which made pain control incredibly difficult. Epidural was placed preoperatively, which just contained bupivacaine, as the Suboxone was a narcotic inhibitor. He was maintained on Suboxone, but eventually the epidural had to be weaned and discontinued, and he was then maintained with Dilaudid in addition to the Suboxone. Once the chest tubes were removed, the pain was greatly reduced. He is being discharged today on his home medications, which include Ventolin two puffs every 4 hours as needed for wheezing, Breo Ellipta 200/25 daily, ipratropium albuterol one puff four times a day. as needed for shortness of breath, and Incruse Ellipta one puff daily. He is also being discharged on prednisone 5 mg daily as well as naproxen 500 mg by mouth twice a day, and Suboxone 8/2 sublingually, two in the morning and one in the evening for a total dose of three. He is returned to [facility] for subsequent Suboxone dosing on Saturday. His discharge hemoglobin and hematocrit are 10.8 and 35.4 with a discharge white count of 20.4 secondary to the inflammatory response from the talc pleurodesis. His platelet count is 357, and his differential is nearly normal with 66% neutrophils, 13% lymphocytes, and 6% monocytes. Chemistries show normal electrolytes with a marginally elevated total CO2 of 33, down from a high of 43, reversed with Diamox during his hospitalization. His glucose is 76, and BUN and creatinine are 29 and 0.59. His chest x-ray shows an airspace at the cupula with some slight blunting of the right costophrenic angle. Otherwise there are no infiltrates, and his lungs otherwise are fully expanded to the chest wall. I will see him back in the office in 1 week with a chest x-ray. I have advised him to keep the bandage on for the next two days and then remove it, and then he may take showers. The Suboxone was not able to be transmitted to the pharmacy, and therefore I hand-wrote the Suboxone prescription to be presented to his pharmacy tomorrow.
[2021-04-08 16:00] VITALS: BP 125/72
== END 2021-04-08 17:10 | disposition home or self-care (01) | DRG 163 ==
LOC: M ED 13:18 → M PCU 16:51 → ENRESERV 17:05 → M ICU 03-28 12:34
PROVIDERS: ADMIT Family Medicine; ATTEND Thoracic Surgery (Cardiothoracic Vascular Surgery)
PROC: 0W9B00Z Drainage of Left Pleural Cavity with Drainage Device, Open Approach (ICD-10-PCS; 2021-03-20)
PROC: 0BNG4ZZ Release Left Upper Lung Lobe, Percutaneous Endoscopic Approach (ICD-10-PCS; 2021-03-28)
PROC: 3E0L3GC Introduction of Other Therapeutic Substance into Pleural Cavity, Percutaneous Approach (ICD-10-PCS; 2021-03-28)
PROC: 0BBG4ZZ Excision of Left Upper Lung Lobe, Percutaneous Endoscopic Approach (ICD-10-PCS; principal; 2021-03-28 08:30)
PROC: 02HV33Z Insertion of Infusion Device into Superior Vena Cava, Percutaneous Approach (ICD-10-PCS; 2021-04-03)
PROC: 3E0 Administration, Physiological Systems and Anatomical Regions, Introduction (ICD-10-PCS; 2021-04-03)
DX: J93.0 Spontaneous tension pneumothorax (principal); J96.22 Acute and chronic respiratory failure with hypercapnia; E43 Unspecified severe protein-calorie malnutrition; J98.11 Atelectasis; E87.3 Alkalosis; R64 Cachexia; Z68.1 Body mass index [BMI] 19.9 or less, adult; K21.9 Gastro-esophageal reflux disease without esophagitis; E78.5 Hyperlipidemia, unspecified; F41.9 Anxiety disorder, unspecified; F11.10 Opioid abuse, uncomplicated; J45.909 Unspecified asthma, uncomplicated; J93.82 Other air leak; F31.9 Bipolar disorder, unspecified; J44.9 Chronic obstructive pulmonary disease, unspecified; F17.210 Nicotine dependence, cigarettes, uncomplicated; F14.10 Cocaine abuse, uncomplicated; Z79.899 Other long term (current) drug therapy; Z20.822 Contact with and (suspected) exposure to COVID-19

== ENCOUNTER 2021-05-20 17:43 | Emergency (ER) | payer MEDICARE, MEDICAID ==
[~2021-05-20] VITALS: Ht 182.9 cm; Wt 50.0 kg
[~2021-05-20 17:43] MED LIST changes: +CEFD1CAP8; +NAPR-885 PO
[2021-05-20 19:37] LABS: BASO # 0.1 10^3/uL (0.0-0.2); BASO % 0.7 % (0.0-1.0); EOS # 0.9 10^3/uL (0.0-0.5); EOS % 5.9 % (0.0-3.0); HEMATOCRIT 41.9 % (42.0-52.0); HEMOGLOBIN 12.4 g/dl (13.5-17.5); LYMPH # 1.4 10^3/uL (1.5-5.0); LYMPH % 8.6 % (24.0-44.0); MEAN CORPUSCULAR HEMOGLOBIN 28.8 pg (27.0-33.0); MEAN CORPUSCULAR HGB CONC 29.6 g/dl (32.0-36.5); MEAN CORPUSCULAR VOLUME 97.2 fl (80.0-96.0); MONO % 6.4 % (2.0-8.0); NEUTROPHILS # 12.4 10^3/uL (1.5-8.5); PLATELET COUNT, AUTOMATED 344 10^3/uL (150-450); RED BLOOD COUNT 4.31 10^6/uL (4.30-6.10); WHITE BLOOD COUNT 15.9 10^3/uL (4.0-10.0)
[2021-05-20 19:47] LABS: INR 1.05; PROTHROMBIN TIME 13.9 SECONDS (12.5-14.3)
[2021-05-20 19:48] LABS: PARTIAL THROMBOPLASTIN TIME 31.4 SECONDS (24.2-38.5)
[2021-05-20 20:01] LABS: ALBUMIN 3.4 GM/DL (3.2-5.2); ALT/SGPT 63 U/L (12-78); BILIRUBIN,DIRECT 0.2 MG/DL (0.0-0.2); BILIRUBIN,TOTAL 0.5 MG/DL (0.2-1.0); BLOOD UREA NITROGEN 20 MG/DL (7-18); C REACTIVE PROTEIN QUANTITATIV 2.92 MG/DL (0.00-0.30); CALCIUM LEVEL 8.8 MG/DL (8.5-10.1); CARBON DIOXIDE LEVEL 36 MEQ/L (21-32); CHLORIDE LEVEL 97 MEQ/L (98-107); CREATININE FOR GFR 0.75 MG/DL (0.70-1.30); GLOMERULAR FILTRATION RATE > 60.0 (>56); GLUCOSE, FASTING 97 MG/DL (70-100); POTASSIUM SERUM 4.8 MEQ/L (3.5-5.1); SODIUM LEVEL 135 MEQ/L (136-145); TOTAL PROTEIN 7.8 GM/DL (6.4-8.2)
[2021-05-20] MEDS ORDERED: VANCOMYCIN HCL 1,000 MG in IV FLUID PLACE HOLDER 1 EA IV ONE (20:20)
[2021-05-20 20:23] VITALS: BP 130/75
[2021-05-20] MEDS ORDERED: VANCOMYCIN HCL 1,000 MG, VIAL MATE ADAPTER 1 EACH in NS 250 ML IV ONE (20:25)
--- NOTE | 2021-05-20 21:14 | REPVR ---
PROCEDURE INFORMATION: Exam: US Duplex Right Lower Extremity Veins, Limited Exam date and time: 05/20/2021 7:57 PM Age: 50 years old Clinical indication: Edema, localized; Lower extremity, right; Additional info: R/O dvt TECHNIQUE: Imaging protocol: Real-time Duplex ultrasound of the Right Lower Extremity with 2-D wang scale, color Doppler flow and spectral waveform analysis with image documentation. Limited exam was focused on the right lower extremity veins. COMPARISON: US Duplex, Ext,LOWER veins,unilat 10/15/2015 4:45 PM FINDINGS: Right deep veins: Unremarkable. The common femoral, femoral, proximal profunda femoral and popliteal veins are patent without thrombus. Normal Doppler waveforms. Normal compressibility and/or augmentation response. Right superficial veins: Unremarkable. Saphenofemoral junction is patent without thrombus. Soft tissues: Leg edema. IMPRESSION: No evidence of deep vein thrombosis. Electronically signed by: Taras De Jesus On 05/20/2021 21:13:34 PM
--- NOTE | 2021-05-20 22:10 | REPVR ---
PROCEDURE INFORMATION: Exam: XR Chest Exam date and time: 05/20/2021 8:08 PM Age: 50 years old Clinical indication: Other: SOB TECHNIQUE: Imaging protocol: XR of the chest. Views: 2 views. COMPARISON: CR PORTABLE CHEST X-RAY 04/07/2021 1:32 AM FINDINGS: Lungs: There is severe scarring in both lungs. Pleural spaces: There is a loculated left apical pneumothorax measuring 4 cm in the thickness. This collection of pneumothorax is mildly decreased since 04/08/2021. There may be some pneumothorax at the left lung base and I would recommend correlation with a CT scan of the chest for further evaluation. Heart/Mediastinum: The heart is normal in size. Bones/joints: Unremarkable. Other findings: Multiple previous exams were reviewed. IMPRESSION: 1. 4 cm loculation of pneumothorax at the left left apical portion of the lung. 2. There may be pneumothorax at the left lung base and suggest correlation with a CT scan. Electronically signed by: Taras De Jesus On 05/20/2021 22:10:04 PM
[2021-05-20] MEDS ORDERED: BACT800T5 PO (22:32)
[2021-05-20 23:01] LABS: ERYTHROCYTE SEDIMENTATION RATE 13 mm/hr (0-20)
== END 2021-05-20 22:25 | disposition left against medical advice (07) ==
LOC: M ED 17:43
DX: L03.115 Cellulitis of right lower limb (principal); M79.671 Pain in right foot; J93.9 Pneumothorax, unspecified; J44.9 Chronic obstructive pulmonary disease, unspecified; J45.909 Unspecified asthma, uncomplicated; G47.33 Obstructive sleep apnea (adult) (pediatric); K21.9 Gastro-esophageal reflux disease without esophagitis; F41.9 Anxiety disorder, unspecified; F33.9 Major depressive disorder, recurrent, unspecified; F19.11 Other psychoactive substance abuse, in remission; Z79.899 Other long term (current) drug therapy; Z79.51 Long term (current) use of inhaled steroids; Z98.890 Other specified postprocedural states
CPT/HCPCS: 71046; 80048; 80076; 83605; 85025; 85610; 85652; 85730; 86140; 87040; 93971; 96365; 99283; J3370

== ENCOUNTER 2021-05-29 18:27 | Inpatient (IN) | payer MEDICARE, MEDICAID ==
[~2021-05-29] VITALS: Ht 182.9 cm; Wt 52.6 kg
[~2021-05-29 18:27] MED LIST changes: +BACT800T5 PO
[2021-05-29 19:27] LABS: VENOUS BASE EXCESS 8.1 (-2.0-2.0); VENOUS HCO3 36.9 MEQ/L (23.0-27.0); VENOUS O2 SATURATION 79.7 % (60.0-80.0); VENOUS PARTIAL PRESSURE CO2 72.1 mmHg (38.0-50.0); VENOUS PARTIAL PRESSURE O2 47.3 mmHg (30.0-50.0); VENOUS PH 7.327 UNITS (7.330-7.430); VENOUS STANDARD HCO3 31.4 MEQ/L; VENOUS TOTAL CO2 39.1 MEQ/L (24.0-28.0)
[2021-05-29 19:37] LABS: BASO # 0.2 10^3/uL (0.0-0.2); BASO % 1.2 % (0.0-1.0); EOS % 16.4 % (0.0-3.0); HEMATOCRIT 43.9 % (42.0-52.0); HEMOGLOBIN 13.3 g/dl (13.5-17.5); LYMPH # 1.7 10^3/uL (1.5-5.0); LYMPH % 14.2 % (24.0-44.0); MEAN CORPUSCULAR HEMOGLOBIN 28.9 pg (27.0-33.0); MEAN CORPUSCULAR HGB CONC 30.3 g/dl (32.0-36.5); MEAN CORPUSCULAR VOLUME 95.4 fl (80.0-96.0); MONO # 0.7 10^3/uL (0.0-0.8); MONO % 6.2 % (2.0-8.0); NEUTROPHILS # 7.4 10^3/uL (1.5-8.5); NEUTROPHILS % 61.8 % (36.0-66.0); PLATELET COUNT, AUTOMATED 380 10^3/uL (150-450)
--- NOTE | 2021-05-29 19:38 | REP ---
INDICATION: CHEST PAIN COMPARISON: 05/20/2021 TECHNIQUE: Portable AP view of the chest FINDINGS: The mediastinum and cardiac silhouette are stable and within normal limits for portable technique. The lung pedraza demonstrate chronic COPD/emphysematous changes and interstitial changes. No focal consolidation, effusion, or pneumothorax. Skeletal structures are intact. IMPRESSION: Diffuse chronic changes. No focal consolidation or effusion. <Electronically signed by Sudheer Jaeger > 05/29/211934
[2021-05-29 20:05] LABS: BLOOD UREA NITROGEN 10 MG/DL (7-18); CARBON DIOXIDE LEVEL 35 MEQ/L (21-32); CHLORIDE LEVEL 99 MEQ/L (98-107); CK-MB VALUE MASS 3.1 NG/ML (<3.6); CPK CREATINE PHOSPHOKINASE 66 U/L (39-308); CREATININE FOR GFR 0.62 MG/DL (0.70-1.30); GLOMERULAR FILTRATION RATE > 60.0 (>56); GLUCOSE, FASTING 72 MG/DL (70-100); NT-PRO BNP 1393 PG/ML (<125); POTASSIUM SERUM 4.8 MEQ/L (3.5-5.1); SODIUM LEVEL 137 MEQ/L (136-145); TROPONIN I < 0.02 NG/ML (< 0.10)
[2021-05-29] MEDS ORDERED: ISOVUE-370 76% 100ML VIAL As Ordered ONE (20:13)
[2021-05-29 21:29] LABS: ABG HCO3 31.3 MEQ/L (22.0-26.0); ABG O2 SATURATION 97.1 % (95.0-99.0); ABG PARTIAL PRESSURE CO2 59.7 mmHg (35.0-45.0); ABG PARTIAL PRESSURE O2 97.6 mmHg (75.0-100.0); ABG TOTAL CO2 33.2 MEQ/L (22.0-29.0); ABG pH (ARTERIAL) 7.338 UNITS (7.350-7.450)
[2021-05-29 21:38] LABS: RSV AMPLIFICATION NEGATIVE (NEGATIVE)
--- NOTE | 2021-05-29 22:09 | REPVR ---
PROCEDURE INFORMATION: Exam: CTA Chest With Contrast Exam date and time: 05/29/2021 8:45 PM Age: 50 years old Clinical indication: Shortness of breath, HX of ptx, recent cxr with question of TECHNIQUE: Imaging protocol: Computed tomographic angiography of the chest with contrast. 3D rendering (Not supervised by radiologist): MIP and/or 3D reconstructed images were created by the technologist. Radiation optimization: All CT scans at this facility use at least one of these dose optimization techniques: automated exposure control; mA and/or kV adjustment per patient size (includes targeted exams where dose is matched to clinical indication); or iterative reconstruction. Contrast material: ISOVUE 370; Contrast volume: 75 ml; Contrast route: INTRAVENOUS (IV); COMPARISON: 1. CT Chest without contrast 03/22/2021 11:[address] Chest with contrast 08/16/2014 4:14:59 PM 3. CR PORTABLE CHEST X-RAY 05/29/2021 7:25:24 PM FINDINGS: Pulmonary arteries: No pulmonary embolism. Aorta: The thoracic aorta is intact and patent. There is no thoracic aortic aneurysm, pseudoaneurysm, penetrating atherosclerotic ulcer, intramural hematoma, or dissection. Thyroid: Unremarkable. Trachea: There are secretions in the trachea. Bronchial tree: There is mucous plugging and bronchiectasis in the lower lobes, which can also be seen in the CT chest on 03/22/2021. Lungs: There is a suture line in the left upper lobe. There are centrilobular and paraseptal emphysematous changes, which are fairly similar in appearance compared to the prior CT chest on 03/22/2021. There is scarring of the lung apices. There are peripheral nodular opacities in the upper lobes measuring up to 6 mm that are stable compared to the prior CT chest on 03/22/2021 and 08/16/2014 and for which further follow-up is not necessary. Pleural spaces: There is a small left apical pneumothorax measuring approximately 10%. No pleural effusion. Heart: No cardiomegaly or pericardial effusion. The ratio of the diameter of the right ventricle to the diameter of the left ventricle measures less than 1, which is within normal limits and there is no CT evidence for a right ventricular strain. Mediastinal space: No mediastinal mass, fluid collection, or pneumomediastinum. Lymph nodes: There is aortopulmonary window and bilateral hilar lymphadenopathy that is stable compared the prior CT chest on 03/22/2021. Bones/joints: There are acute or subacute mildly displaced fractures of the right anterior 2nd, 3rd, and 4th ribs, which are new compared to the prior CT chest on 03/22/2021. There is also a subtle acute or subacute nondisplaced fracture involving the right anterior inferior aspect of the sternum (image 126 of the axial series 401), which is new compared to the prior CT chest on 03/22/2021. No other fractures are noted. Soft tissues: Unremarkable. IMPRESSION: 1. No pulmonary embolism. 2. Small left pneumothorax measuring approximately 10%. 3. Acute or subacute mildly displaced fractures of the right anterior 2nd, 3rd, and 4th ribs, which are new compared to the prior CT chest on 03/22/2021. 4. Acute or subacute nondisplaced fracture involving the right anterior inferior aspect of the sternum, which is new compared to the prior CT chest on 03/22/2021. 5. Aortopulmonary window and bilateral hilar lymphadenopathy that is stable compared the prior CT chest on 03/22/2021. 6. Mucous plugging and bronchiectasis in the lower lobes, which can also be seen in the CT chest on 03/22/2021. 7. Centrilobular and paraseptal emphysematous changes, which are fairly similar in appearance compared to the prior CT chest on 03/22/2021. Electronically signed by: Jamel Clemente On 05/29/2021 22:09:13 PM
[2021-05-29] MEDS ORDERED: ONDANSETRON 4MG/2ML VIAL IV ONE (22:45)
[2021-05-29] MEDS ORDERED: MORPHINE 2 MG/ML 1ML VIAL (J2270) IV PRN ×2 (22:45→23:35)
--- NOTE | 2021-05-29 22:54 | ECGEPIP ---
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
[2021-05-29] MEDS ORDERED: ONDANSETRON 4MG/2ML VIAL IV PRN (23:35)
[2021-05-29] MEDS ORDERED: MAALOX 30 ML SUSP *UDC PO PRN (23:35)
[2021-05-29] MEDS ORDERED: ACETAMINOPHEN TAB 650MG DOSE (2X325MG) PO PRN (23:35)
[2021-05-29] MEDS ORDERED: MOM 30ML SUSPENSION UDC PO PRN (23:35)
--- NOTE | 2021-05-29 23:38 | HPEPDOC ---
[facility] Medical History & Physical Date of Admission May 29, 2021 Date of Service: May 29, 2021 Attending Physician: JASMYNE RASHID MD History and Physical CHIEF COMPLAINT: [50 y/o male c/o sob] HISTORY OF PRESENT ILLNESS: [Patient is a poor historian. This is a 50 y/o male with a pmh of copd, emphysema, asthma and gerd who presents to our ed with a cc of continued sob. Patient was recently discharged from our hospital on 04/08 after a prolonged star for chronic respiratory failure and a large pneumothorax requiring chest tube placement and eventual wedge resection and pleurodesis. Patient states that he is here today as he feels as though he is struggling to breath and is having pleuritic chest pain. Patient is still on his chronic 2L of o2 and satting well. Patient denies fevers, chills, abd pain, n/v/d/c, productive cough, peripheral edema. Imaging performed in the ED showing a left sided pneumothorax approximately 10%, as well as fractures of the right 2nd, 3rd, and 4th ribs and right anterior inferior aspect of the sternum. ] PAST MEDICAL HISTORY: 1. [See HPI PAST SURGICAL HISTORY: 1. [See HPI]. SOCIAL HISTORY: Tobacco use:[Smoker] ETOH: [Denies] Illicit drug use: [Denies] FAMILY HISTORY: Reviewed - none pertinent ALLERGIES: Please see below. REVIEW OF SYSTEMS: CONSTITUTIONAL: [See HPI]. HEENT: [Denies uri sx]. CARDIOVASCULAR: [See HPI]. RESPIRATORY: [See HPI]. GASTROINTESTINAL: [See HPI]. GENITOURINARY: [Denies dysuria]. SKIN: [Denies rash]. MUSCULOSKELETAL: [Denies acute joint/back pain]. NEUROLOGICAL: [Denies syncope, paresthesias]. ENDOCRINE: [Denies hx of DM]. HEMATOLOGIC/LYMPHATIC: [Denies easy bruising]. HOME MEDICATIONS: Please see below. PHYSICAL EXAMINATION: VITAL SIGNS: Please see below. GENERAL APPEARANCE: [This is a very underweight appearing 50 y/o male. Patient appears chronically ill. Patient appears to have acute increased work of breathing]. HEENT: [No mass or lesion. EOMI. No scleral icterus. Nares patent. Oral mucosa moist]. CARDIOVASCULAR: [Pectus carinatum. Normal rate, rhythm. No murmurs, rubs, gallops]. LUNGS: [Decreased breath sounds throughout. Scattered inspiratory and expiratory wheezing throughout.]. ABDOMEN: [Soft, nontender]. MUSCULOSKELETAL: [No joint deformity]. EXTREMITIES: [No peripheral edema. No overlying skin changes. Pulses intac.t]. NEUROLOGICAL: [Speech clear. A+Ox3. No focal deficits]. PSYCHIATRIC: [Mood and affect appear appropriate.]. LABORATORY DATA: See below. IMAGING: [CXR: FINDINGS: The mediastinum and cardiac silhouette are stable and within normal limits for portable technique. The lung pedraza demonstrate chronic COPD/emphysematous changes and interstitial changes. No focal consolidation, effusion, or pneumothorax. Skeletal structures are intact. IMPRESSION: Diffuse chronic changes. No focal consolidation or effusion. CTA Chest: FINDINGS: Pulmonary arteries: No pulmonary embolism. Aorta: The thoracic aorta is intact and patent. There is no thoracic aortic aneurysm, pseudoaneurysm, penetrating atherosclerotic ulcer, intramural hematoma, or dissection. Thyroid: Unremarkable. Trachea: There are secretions in the trachea. Bronchial tree: There is mucous plugging and bronchiectasis in the lower lobes, which can also be seen in the CT chest on 03/22/2021. Lungs: There is a suture line in the left upper lobe. There are centrilobular and paraseptal emphysematous changes, which are fairly similar in appearance compared to the prior CT chest on 03/22/2021. There is scarring of the lung apices. There are peripheral nodular opacities in the upper lobes measuring up to 6 mm that are stable compared to the prior CT chest on 03/22/2021 and 08/16/2014 and for which further follow-up is not necessary. Pleural spaces: There is a small left apical pneumothorax measuring approximately 10%. No pleural effusion. Heart: No cardiomegaly or pericardial effusion. The ratio of the diameter of the right ventricle to the diameter of the left ventricle measures less than 1, which is within normal limits and there is no CT evidence for a right ventricular strain. Mediastinal space: No mediastinal mass, fluid collection, or pneumomediastinum. Lymph nodes: There is aortopulmonary window and bilateral hilar lymphadenopathy that is stable compared the prior CT chest on 03/22/2021. Bones/joints: There are acute or subacute mildly displaced fractures of the right anterior 2nd, 3rd, and 4th ribs, which are new compared to the prior CT chest on 03/22/2021. There is also a subtle acute or subacute nondisplaced fracture involving the right anterior inferior aspect of the sternum (image 126 of the axial series 401), which is new compared to the prior CT chest on 03/22/2021. No other fractures are noted. Soft tissues: Unremarkable. IMPRESSION: 1. No pulmonary embolism. 2. Small left pneumothorax measuring approximately 10%. 3. Acute or subacute mildly displaced fractures of the right anterior 2nd, 3rd, and 4th ribs, which are new compared to the prior CT chest on 03/22/2021. 4. Acute or subacute nondisplaced fracture involving the right anterior inferior aspect of the sternum, which is new compared to the prior CT chest on 03/22/2021. 5. Aortopulmonary window and bilateral hilar lymphadenopathy that is stable compared the prior CT chest on 03/22/2021. 6. Mucous plugging and bronchiectasis in the lower lobes, which can also be seen in the CT chest on 03/22/2021. 7. Centrilobular and paraseptal emphysematous changes, which are fairly similar in appearance compared to the prior CT chest on 03/22/2021. ] MICROBIOLOGY: Please see below. ASSESSMENT: [femi is a poor historian. This is a 50 y/o male with a pmh of copd, emphysema, asthma and gerd who presents to our ed with a cc of continued sob. Patient was recently discharged from our hospital on 04/08 after a prolonged star for chronic respiratory failure and a large pneumothorax requiring chest tube placement and eventual wedge resection and pleurodesis.]. . PLAN: 1. [Pneumothorax - Dr. Lynne, thoracic surgery, has been consulted. Assistance and recommendations are greatly appreciated by the hospital team. - Will give pain control with toradol and morphine - ED staff has stated patient was complaining of nausea, i will order zofran prn - Continue supplemental o2 titrated to 88-92% - Admit to pcu with tele 2. COPD - does not appear to be in acute exacerbation - continue at home inhalers DVT prophylaxis - teds and scds]. Vital Signs Vital Signs Date Time Temp Pulse Resp B/P (MAP) Pulse Ox O2 Delivery O2 Flow Rate FiO2 05/29/21 23:30 97 18 123/80 89 Nasal Cannula 05/29/21 23:18 2.0 05/29/21 18:28 99.4 Laboratory Data Labs 24H Laboratory Tests 2 05/29/21 19:14: Immature Granulocyte % (Auto) 0.2, Neutrophils (%) (Auto) 61.8, Lymphocytes (%) (Auto) 14.2L, Monocytes (%) (Auto) 6.2, Eosinophils (%) (Auto) 16.4H, Basophils (%) (Auto) 1.2H, Neutrophils # (Auto) 7.4, Lymphocytes # (Auto) 1.7, Monocytes # (Auto) 0.7, Eosinophils # (Auto) 2.0H, Basophils # (Auto) 0.2, Nucleated Red Blood Cells % (auto) 0.0, Blood Gas Bicarbonate Standard 31.4, Venous Blood pH 7.327L, Venous Blood Partial Pressure CO2 72.1H, Venous Blood Partial Pressure O2 47.3, Venous Blood Total Carbon Dioxide 39.1H, Venous Blood HCO3 36.9H, Venous Blood Oxygen Saturation 79.7, Venous Blood Base Excess 8.1H, Anion Gap 3L, Glomerular Filtration Rate > 60.0, Calcium Level 9.0, Total Creatine Kinase 66, Creatine Kinase MB 3.1, Creatine Kinase MB Relative Index 4.70H, Troponin I < 0.02, C-Reactive Protein, Quantitative 1.80H, WQ-Qxf-B-Type Natriuretic Peptide 1393H 05/29/21 20:50: Coronavirus (COVID-19)(PCR) NEGATIVE, Influenza Type A (RT-PCR) NEGATIVE, Influenza Type B (RT-PCR) NEGATIVE, Respiratory Syncytial Virus (PCR) NEGATIVE 05/29/21 21:18: Blood Gas Bicarbonate Standard 28.0H, Arterial Blood pH 7.338L, Arterial Blood Partial Pressure CO2 59.7H, Arterial Blood Partial Pressure O2 97.6, Arterial Blood Total CO2 33.2H, Arterial Blood HCO3 31.3H, Arterial Blood Base Excess 4.0H, Arterial Blood Oxygen Saturation 97.1 CBC/BMP Laboratory Tests 05/29/21 19:14 Microbiology Microbiology 05/29/21 Blood Culture, Received Pending 05/29/21 Blood Culture, Received Pending Home Medications Scheduled Buprenorphine HCl/Naloxone HCl (Suboxone 8 mg-2 mg Sl Film) 1 Each Film, 2 STRIP SL DAILY Sodium Chloride ([place]) 104 Ml [place], 2 SPRAY NA QID Scheduled PRN Albuterol Sulfate (Ventolin Hfa) 18 Gm Hfa.aer.ad, 2 PUFF INH Q4H PRN for SHORTNESS OF BREATH Ipratropium/Albuterol Sulfate (Iprat-Albut 0.5-3(2.5) mg/3 ml) 3 Ml Ampul.neb, 3 ML INH QID PRN for SHORTNESS OF BREATH Allergies Coded Allergies: No Known Allergies (Verified , 12/07/17) A-FIB/CHADSVASC A-FIB History Current/History of A-Fib/PAF?: No DARIANA CHENG May 29, 2021 23:37
[2021-05-29] MEDS ORDERED: OCEA0.654 (23:47)
[2021-05-29] MEDS ORDERED: IPRA0.00 INH (23:47)
[2021-05-30] VITALS (22 sets, daily range): BP systolic 98–135; BP diastolic 67–98; O2SAT 90–100
[2021-05-30] MEDS ORDERED: IPRATROPIUM 0.5MG/ALBUTEROL 2.5MG INH SOL UD 3ML (DUONEB) INH PRN
[2021-05-30] MEDS ORDERED: ALBUTEROL 90 MCG/ACT 8GM HFA INHALER INH PRN
[2021-05-30 06:08] LABS: HEMATOCRIT 42.6 % (42.0-52.0); HEMOGLOBIN 12.7 g/dl (13.5-17.5); MEAN CORPUSCULAR HEMOGLOBIN 28.7 pg (27.0-33.0); MEAN CORPUSCULAR HGB CONC 29.8 g/dl (32.0-36.5); MEAN CORPUSCULAR VOLUME 96.2 fl (80.0-96.0); PLATELET COUNT, AUTOMATED 360 10^3/uL (150-450); RED BLOOD COUNT 4.43 10^6/uL (4.30-6.10); WHITE BLOOD COUNT 9.3 10^3/uL (4.0-10.0)
[2021-05-30 06:17] LABS: BLOOD UREA NITROGEN 13 MG/DL (7-18); CALCIUM LEVEL 8.7 MG/DL (8.5-10.1); CARBON DIOXIDE LEVEL 38 MEQ/L (21-32); CHLORIDE LEVEL 100 MEQ/L (98-107); CREATININE FOR GFR 0.69 MG/DL (0.70-1.30); GLOMERULAR FILTRATION RATE > 60.0 (>56); GLUCOSE, FASTING 99 MG/DL (70-100); MAGNESIUM LEVEL 2.1 MG/DL (1.8-2.4); POTASSIUM SERUM 4.4 MEQ/L (3.5-5.1); SODIUM LEVEL 135 MEQ/L (136-145)
[2021-05-30] MEDS: SODIUM CHLORIDE NASAL 0.65% SPRAY BTL (OCEAN) SCH ×4 (07:57→20:00)
[2021-05-30] MEDS: KETOROLAC 30 MG/ML 1ML VIAL IV PRN ×2 (07:57→19:59)
[2021-05-30] MEDS ORDERED: ENOXAPARIN 40MG/0.4ML SYRINGE (J1650 PER 10MG) SC SCH (09:00)
[2021-05-30] MEDS: guaiFENesin ER 600 MG TAB PO SCH ×2 (09:53→20:00)
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
[2021-05-30] MEDS: BUPRENORPHINE/NALOXONE 8-2MG SUBLINGUAL TABLET(SUBOXONE) SL SCH (11:15)
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
[2021-05-31] VITALS (20 sets, daily range): BP systolic 112–142; BP diastolic 62–89; O2SAT 88–100
[2021-05-31] MEDS: KETOROLAC 30 MG/ML 1ML VIAL IV PRN ×2 (01:32→08:28)
[2021-05-31 05:27] LABS: BASO # 0.1 10^3/uL (0.0-0.2); BASO % 1.2 % (0.0-1.0); HEMATOCRIT 40.8 % (42.0-52.0); LYMPH # 1.4 10^3/uL (1.5-5.0); LYMPH % 16.6 % (24.0-44.0); MEAN CORPUSCULAR HEMOGLOBIN 29.1 pg (27.0-33.0); MEAN CORPUSCULAR HGB CONC 29.4 g/dl (32.0-36.5); MONO # 0.8 10^3/uL (0.0-0.8); MONO % 9.5 % (2.0-8.0); NEUTROPHILS # 4.1 10^3/uL (1.5-8.5); NEUTROPHILS % 48.7 % (36.0-66.0); PLATELET COUNT, AUTOMATED 326 10^3/uL (150-450); RED BLOOD COUNT 4.12 10^6/uL (4.30-6.10); WHITE BLOOD COUNT 8.4 10^3/uL (4.0-10.0)
[2021-05-31 05:45] LABS: EOS % 23.8 % (0.0-3.0)
[2021-05-31 05:55] LABS: BLOOD UREA NITROGEN 23 MG/DL (7-18); CALCIUM LEVEL 8.3 MG/DL (8.5-10.1); CARBON DIOXIDE LEVEL 39 MEQ/L (21-32); CHLORIDE LEVEL 101 MEQ/L (98-107); CREATININE FOR GFR 0.71 MG/DL (0.70-1.30); GLOMERULAR FILTRATION RATE > 60.0 (>56); GLUCOSE, FASTING 98 MG/DL (70-100); MAGNESIUM LEVEL 1.9 MG/DL (1.8-2.4); POTASSIUM SERUM 4.6 MEQ/L (3.5-5.1); SODIUM LEVEL 138 MEQ/L (136-145)
[2021-05-31] MEDS: guaiFENesin ER 600 MG TAB PO SCH ×2 (08:28→21:45)
[2021-05-31] MEDS: BUPRENORPHINE/NALOXONE 8-2MG SUBLINGUAL TABLET(SUBOXONE) SL SCH (08:28)
[2021-05-31] MEDS: SODIUM CHLORIDE NASAL 0.65% SPRAY BTL (OCEAN) SCH ×4 (08:28→21:00)
[2021-05-31] MEDS ORDERED: MUCI600T31 PO (09:23)
[2021-05-31] MEDS ORDERED: KETO10TAB PO (09:23)
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
[2021-06-01 05:54] LABS: BASO # 0.1 10^3/uL (0.0-0.2); BASO % 0.9 % (0.0-1.0); EOS # 2.1 10^3/uL (0.0-0.5); HEMATOCRIT 42.2 % (42.0-52.0); HEMOGLOBIN 12.5 g/dl (13.5-17.5); LYMPH # 1.2 10^3/uL (1.5-5.0); LYMPH % 12.4 % (24.0-44.0); MEAN CORPUSCULAR HEMOGLOBIN 28.5 pg (27.0-33.0); MEAN CORPUSCULAR HGB CONC 29.6 g/dl (32.0-36.5); MEAN CORPUSCULAR VOLUME 96.3 fl (80.0-96.0); MONO # 0.6 10^3/uL (0.0-0.8); MONO % 6.7 % (2.0-8.0); NEUTROPHILS # 5.4 10^3/uL (1.5-8.5); NEUTROPHILS % 57.5 % (36.0-66.0); PLATELET COUNT, AUTOMATED 306 10^3/uL (150-450); RED BLOOD COUNT 4.38 10^6/uL (4.30-6.10); WHITE BLOOD COUNT 9.4 10^3/uL (4.0-10.0)
[2021-06-01 06:00] VITALS: BP 132/81
[2021-06-01 06:15] LABS: BLOOD UREA NITROGEN 15 MG/DL (7-18); CALCIUM LEVEL 8.7 MG/DL (8.5-10.1); CARBON DIOXIDE LEVEL 40 MEQ/L (21-32); CHLORIDE LEVEL 99 MEQ/L (98-107); CREATININE FOR GFR 0.46 MG/DL (0.70-1.30); GLOMERULAR FILTRATION RATE > 60.0 (>56); GLUCOSE, FASTING 96 MG/DL (70-100); MAGNESIUM LEVEL 1.8 MG/DL (1.8-2.4); POTASSIUM SERUM 4.8 MEQ/L (3.5-5.1); SODIUM LEVEL 136 MEQ/L (136-145)
[2021-06-01 06:27] LABS: EOS % 22.3 % (0.0-3.0)
[2021-06-01] MEDS: SODIUM CHLORIDE NASAL 0.65% SPRAY BTL (OCEAN) SCH ×3 (09:00→12:19)
[2021-06-01] MEDS: BUPRENORPHINE/NALOXONE 8-2MG SUBLINGUAL TABLET(SUBOXONE) SL SCH (09:10)
[2021-06-01] MEDS: guaiFENesin ER 600 MG TAB PO SCH (09:10)
--- NOTE | 2021-06-01 11:45 | REP ---
INDICATION: R sided rib fractures. COMPARISON: The frontal view of the chest obtained today has been compared to multiple priors the latest of which is dated 05/29/2021 a portable exam TECHNIQUE: Four views of the right ribs with frontal view of the chest FINDINGS: There is no evidence of a rib fracture or destructive osseous lesions seen with in the limitations of this exam. The accompanying frontal view the chest shows a chronic left pneumothorax status quo. Chronic increased interstitial markings are noted status quo. No new parenchymal abnormality is identified. No new pneumothorax is identified. The cardiomediastinal silhouette is stable. IMPRESSION: No rib fractures seen within the limitations of the exam. There are chronic lung field changes as described above. <Electronically signed by Robert Cuellar > 06/01/21 [id number]
[2021-06-01] MEDS ORDERED: KETOROLAC TROMETHAMINE 10 MG TAB PO PRN (12:55)
--- NOTE | 2021-06-01 15:46 | DS.PDOC ---
Discharge Summary General Date of Admission May 29, 2021 at 18:28 Date of Discharge 06/01/2021 Discharge Summary Patient remained in the hospital for an additional day because he wanted to have his sister present when he got home, so that she could tend to his care. Patient did have a repeat rib x-ray completed that did not reveal any interval change of his lung space. R Rib XR with PA Chest 06/01: There is no evidence of a rib fracture or destructive osseous lesions seen with in the limitations of this exam. The accompanying frontal view the chest shows a chronic left pneumothorax status quo. Chronic increased interstitial markings are noted status quo. No new parenchymal abnormality is identified. No new pneumothorax is identified. The cardiomediastinal silhouette is stable. Vitals have remained stable. Lab work has remained relatively unchanged. Patient has already been cleared by physical therapy for discharge home, and we will provide home services on discharge. Vitals (See below) General: Lying in bed, appeared to be resting, AAOx3 HEENT: NC, AT CVS: +S1S2 Lungs: Fair air entry b/l, mild wheezing Chest: Tenderness along right chest wall and sternum Abdomen: Soft, ND, NT Extremities: No evidence of edema, - Calf tenderness Please see discharge summary from 05/31/2021. Vital Signs/I&Os Vital Signs Date Time Temp Pulse Resp B/P (MAP) Pulse Ox O2 Delivery O2 Flow Rate FiO2 06/01/21 09:00 2.0 06/01/21 06:00 98.6 78 18 132/81 (98) 95 Nasal Cannula I&O- Last 24 Hours up to 6 AM0 06/01/21 05:59 Intake Total 510 ml Output Total 950 ml Balance -440 ml Laboratory Data Labs 24H Laboratory Tests 2 06/01/21 05:20: Immature Granulocyte % (Auto) 0.2, Neutrophils (%) (Auto) 57.5, Lymphocytes (%) (Auto) 12.4L, Monocytes (%) (Auto) 6.7, Eosinophils (%) (Auto) 22.3H, Basophils (%) (Auto) 0.9, Neutrophils # (Auto) 5.4, Lymphocytes # (Auto) 1.2L, Monocytes # (Auto) 0.6, Eosinophils # (Auto) 2.1H, Basophils # (Auto) 0.1, Nucleated Red Blood Cells % (auto) 0.0, Anion Gap , Glomerular Filtration Rate > 60.0, Calcium Level 8.7, Magnesium Level 1.8 CBC/BMP Laboratory Tests 06/01/21 05:20 Microbiology Microbiology 05/29/21 Blood Culture - Preliminary, Resulted No Growth after 48 hours. All Specime... 05/29/21 Blood Culture - Preliminary, Resulted No Growth after 48 hours. All Specime... Discharge Medications Scheduled Buprenorphine HCl/Naloxone HCl (Suboxone 8 mg-2 mg Sl Film) 1 Each Film, 2 STRIP SL DAILY, (Reported) Guaifenesin (Mucinex) 600 Mg Tab.er.12h, 600 MG PO BID Sodium Chloride (Firestone) 104 Ml [place], 2 SPRAY NA QID, (Reported) Scheduled PRN Albuterol Sulfate (Ventolin Hfa) 18 Gm Hfa.aer.ad, 2 PUFF INH Q4H PRN for SHORTNESS OF BREATH, (Reported) Ipratropium/Albuterol Sulfate (Iprat-Albut 0.5-3(2.5) mg/3 ml) 3 Ml [place].neb, 3 ML INH QID PRN for SHORTNESS OF BREATH, (Reported) Ketorolac Tromethamine (Ketorolac Tromethamine) 10 Mg Tablet, 1 TAB PO TID PRN for MODERATE PAIN (PS 5-7) Allergies Coded Allergies: No Known Allergies (Verified , 12/07/17) LETTY HILLS MD Jun 01, 2021 15:46
== END 2021-06-01 18:00 | disposition home health service (06) | DRG 184 ==
LOC: M ED 18:27 → M ED INP 18:28 → OBSVTOIN 18:28 → ENRESERV 05-30 01:07 → M PCU 05-30 02:04 → M MSPAV 05-31 22:45
PROVIDERS: ADMIT Family Medicine; ATTEND Internal Medicine
DX: S22.41XA Multiple fractures of ribs, right side, initial encounter for closed fracture (principal); S22.22XA Fracture of body of sternum, initial encounter for closed fracture; J93.81 Chronic pneumothorax; J44.9 Chronic obstructive pulmonary disease, unspecified; J45.909 Unspecified asthma, uncomplicated; K21.9 Gastro-esophageal reflux disease without esophagitis; F17.200 Nicotine dependence, unspecified, uncomplicated; Z20.822 Contact with and (suspected) exposure to COVID-19; Z79.899 Other long term (current) drug therapy; W05.2XXA Fall from non-moving motorized mobility scooter, initial encounter; Y93.89 Activity, other specified; Y99.8 Other external cause status; Y92.009 Unspecified place in unspecified non-institutional (private) residence as the place of occurrence of the external cause

== ENCOUNTER → 2021-11-07 | Outpatient (CLI) | payer MEDICARE, MEDICAID ==
[~2021-11-07] MED LIST changes: +KETO10TAB PO; +MUCI600T31 PO; +OCEA0.654; -QUET50TA3 PO; +QUET50TA4 PO
--- NOTE | 2021-11-07 12:00 | REP ---
INDICATION: OPIOID DEPENDENCE, UNCOMPLICATED COMPARISON: 06/01/2021 as well as other prior exams. TECHNIQUE: PA/Lateral FINDINGS: There are diffuse stable fibrotic changes. The previously noted small left apical pneumothorax has been filled in with pleural fluid/thickening. The heart is normal in size. The mediastinal silhouette is unchanged. The visualized osseous structures appear intact. IMPRESSION: No acute pulmonary disease. Essentially stable fibrotic changes. The previously noted small left apical pneumothorax has been filled in with a small amount of pleural fluid or thickening. <Electronically signed by Roman Spear > 11/07/21 [id number]
== END ==
LOC: M RAD 10:24
PROVIDERS: ATTEND Family Medicine Addiction Medicine
DX: R05.1 Acute cough (principal); J84.10 Pulmonary fibrosis, unspecified

== ENCOUNTER → 2021-11-07 | Outpatient (CLI) | payer MEDICARE, MEDICAID ==
[2021-11-07 11:26] LABS: HEMATOCRIT 41.9 % (42.0-52.0); MEAN CORPUSCULAR VOLUME 96.5 fl (80.0-96.0); PLATELET COUNT, AUTOMATED 302 10^3/uL (150-450); RED BLOOD COUNT 4.34 10^6/uL (4.30-6.10); WHITE BLOOD COUNT 19.5 10^3/uL (4.0-10.0)
[2021-11-07 12:03] LABS: ALBUMIN 3.7 GM/DL (3.2-5.2); ALT/SGPT 21 U/L (12-78); BILIRUBIN,TOTAL 0.2 MG/DL (0.2-1.0); BLOOD UREA NITROGEN 15 MG/DL (7-18); CALCIUM LEVEL 9.3 MG/DL (8.5-10.1); CARBON DIOXIDE LEVEL 37 MEQ/L (21-32); CHLORIDE LEVEL 100 MEQ/L (98-107); CREATININE FOR GFR 0.64 MG/DL (0.70-1.30); GLOMERULAR FILTRATION RATE > 60.0 (>56); GLUCOSE, FASTING 92 MG/DL (70-100); POTASSIUM SERUM 4.2 MEQ/L (3.5-5.1); SODIUM LEVEL 139 MEQ/L (136-145); TOTAL PROTEIN 7.2 GM/DL (6.4-8.2)
[2021-11-07 13:00] LABS: GC DNA AMPLIFICATION NEGATIVE (NEGATIVE)
[2021-11-07 13:31] LABS: HEPATITIS B SURFACE ANTIGEN NEGATIVE (NEGATIVE)
[2021-11-07 13:57] LABS: HEPATITIS C VIRUS ABY INDEX 0.1 INDEX (<0.8)
[2021-11-07 13:58] LABS: HIV 1&2 SCREEN CENTAUR NEGATIVE (NEGATIVE)
--- NOTE | 2021-11-07 18:32 | ECGEPIP ---
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
== END ==
LOC: M LAB 10:15
PROVIDERS: ATTEND Family Medicine
DX: F11.20 Opioid dependence, uncomplicated (principal); R05.1 Acute cough; J84.10 Pulmonary fibrosis, unspecified

== ENCOUNTER → 2022-06-18 | Outpatient (CLI) | payer MEDICARE, MEDICAID ==
[~2022-06-18] MED LIST changes: +BUPR-71; -BUPR150T5; -CEFD1CAP8; +CEFD300C41; -MONT10TA10 PO; +MONT10TA97 PO
== END ==
LOC: M RAD 10:17
PROVIDERS: ATTEND Internal Medicine Pulmonary Disease
DX: J43.9 Emphysema, unspecified (principal); J84.10 Pulmonary fibrosis, unspecified

== ENCOUNTER 2023-01-22 09:44 | Emergency (ER) | payer MEDICARE, MEDICAID ==
[~2023-01-22] VITALS: Ht 182.9 cm; Wt 59.0 kg
[2023-01-22] MEDS ORDERED: BREO1INH3 (09:56)
[2023-01-22] MEDS ORDERED: PRED10TA2 (09:56)
[2023-01-22] MEDS ORDERED: COMBAER6 (09:56)
[2023-01-22] MEDS ORDERED: ALBU8.5H (09:56)
[2023-01-22] MEDS ORDERED: INCR1INH (09:56)
[2023-01-22] MEDS ORDERED: PRED20TA PO (12:14)
[2023-01-22 12:30] VITALS: BP 111/66
== END 2023-01-22 12:31 | disposition home or self-care (01) ==
LOC: M ED 09:44
DX: M48.02 Spinal stenosis, cervical region (principal); G56.30 Lesion of radial nerve, unspecified upper limb; J43.8 Other emphysema; G47.33 Obstructive sleep apnea (adult) (pediatric); K21.9 Gastro-esophageal reflux disease without esophagitis; F41.9 Anxiety disorder, unspecified; F32.9 Major depressive disorder, single episode, unspecified; F19.10 Other psychoactive substance abuse, uncomplicated; F17.200 Nicotine dependence, unspecified, uncomplicated; Z79.899 Other long term (current) drug therapy

== ENCOUNTER 2023-12-26 07:28 | Inpatient (IN) | payer OTHER, MEDICAID ==
[~2023-12-26] VITALS: Ht 182.9 cm; Wt 63.5 kg
[2023-12-26] VITALS (13 sets, daily range): BP systolic 93–132; BP diastolic 56–81; TEMP 96.6–97.6; O2SAT 92–100
[~2023-12-26 07:28] MED LIST changes: +ALBU8.5H; +CEFD1CAP9; -CEFD300C41; +COMBAER6 INH; +INCR1INH; +PRED10TA2; +PRED20TA PO
[2023-12-26] MEDS: IPRATROPIUM 0.5MG/ALBUTEROL 2.5MG INH SOL UD 3ML (DUONEB) NEB PRN (08:05)
[2023-12-26 08:19] LABS: ABG BASE EXCESS 2.7 (-2.0-2.0); ABG HCO3 30.8 MMOL/L (22.0-26.0); ABG O2 SATURATION 92.4 % (95.0-99.0); ABG PARTIAL PRESSURE O2 70.2 mmHg (75.0-100.0); ABG STANDARD HCO3 26.7 MMOL/L. (22.0-26.0); ABG TOTAL CO2 32.7 MMOL/L (22.0-29.0); ABG pH (ARTERIAL) 7.299 UNITS (7.350-7.450)
[2023-12-26 08:23] LABS: BASO # 0.1 10^3/uL (0.0-0.2); BASO % 0.8 % (0.0-1.0); EOS # 1.3 10^3/uL (0.0-0.5); HEMATOCRIT 39.2 % (42.0-52.0); HEMOGLOBIN 12.2 g/dl (13.5-17.5); LYMPH # 1.8 10^3/uL (1.5-5.0); LYMPH % 15.3 % (24.0-44.0); MEAN CORPUSCULAR HEMOGLOBIN 29.3 pg (27.0-33.0); MEAN CORPUSCULAR HGB CONC 31.1 g/dl (32.0-36.5); MEAN CORPUSCULAR VOLUME 94.2 fl (80.0-96.0); MONO # 0.6 10^3/uL (0.0-0.8); MONO % 5.4 % (2.0-8.0); NEUTROPHILS % 67.2 % (36.0-66.0); PLATELET COUNT, AUTOMATED 274 10^3/uL (150-450); RED BLOOD COUNT 4.16 10^6/uL (4.30-6.10)
[2023-12-26 08:23] LABS: ABG PARTIAL PRESSURE CO2 64.1 mmHg (35.0-45.0)
[2023-12-26] MEDS ORDERED: HOME MED LIST COMPLETE! XX SCH ×2 (08:45→17:25)
[2023-12-26] MEDS ORDERED: MED REC IN PROGRESS XX SCH (08:50)
[2023-12-26 08:51] LABS: ALBUMIN 3.4 G/DL (3.2-5.2); ALKALINE PHOSPHATASE 106 U/L (46-116); ALT/SGPT 12 U/L (7.0-40); AST/SGOT 18 U/L (<34); BILIRUBIN,DIRECT 0.2 MG/DL (<0.4); BILIRUBIN,TOTAL 0.5 MG/DL (0.3-1.2); BLOOD UREA NITROGEN 16 MG/DL (9-23); CALCIUM LEVEL 7.9 MG/DL (8.5-10.1); CARBON DIOXIDE LEVEL 34 MMOL/L (20-31); CHLORIDE LEVEL 102 MMOL/L (98-107); CREATININE FOR GFR 0.66 MG/DL (0.70-1.30); GLOMERULAR FILTRATION RATE > 60.0 (>56); GLUCOSE, FASTING 175 MG/DL (60-100); POTASSIUM SERUM 4.4 MMOL/L (3.5-5.1); SODIUM LEVEL 139 MMOL/L (136-145); TOTAL PROTEIN 6.7 G/DL (5.7-8.2)
[2023-12-26] MEDS: NICOTINE 21MG/24HR 1 EA TRANSDERMAL TD SCH (09:00)
[2023-12-26] MEDS: guaiFENesin 200 MG TAB PO SCH (09:00)
[2023-12-26] MEDS: flumazeniL 0.5MG/5ML VIAL IV ONE (09:25)
[2023-12-26] MEDS ORDERED: IPRATROPIUM 0.5MG/ALBUTEROL 2.5MG INH SOL UD 3ML (DUONEB) NEB PRN (09:25)
[2023-12-26 10:05] LABS: PROCALCITONIN <0.04 ng/ml
[2023-12-26] MEDS: methylPREDNISolone 40MG 1ML VIAL IV SCH (11:29)
[2023-12-26] MEDS: MIDAZOLAM INJ 2MG/2ML VIAL IV STA (11:55)
[2023-12-26] MEDS: MIDAZOLAM INJ 2MG/2ML VIAL IV ONE (11:58)
[2023-12-26] MEDS: LIDOCAINE 1% MDV 20ML VIAL SC ONE (11:59)
[2023-12-26] MEDS ORDERED: PERCOCET 5MG/325MG TAB PO PRN (12:25)
[2023-12-26] MEDS ORDERED: ONDANSETRON 4MG 2ML VIAL IV PRN (12:25)
[2023-12-26] MEDS ORDERED: LEVALBUTEROL 1.25MG 0.5ML CONCENTRATE NEB NEB PRN (12:25)
[2023-12-26] MEDS ORDERED: BISACODYL 10MG SUPP PR PRN (12:25)
[2023-12-26] MEDS: LEVALBUTEROL 1.25MG 0.5ML CONCENTRATE NEB NEB SCH (13:39)
[2023-12-26] MEDS: KCL 20MEQ IN D5/NS 1000ML 1,000 ML IV SCH (13:57)
[2023-12-26] MEDS: KETOROLAC 30 MG/ML 1ML VIAL IV SCH (13:58)
[2023-12-26] MEDS ORDERED: IPRATROPIUM 0.5MG/ALBUTEROL 2.5MG INH SOL UD 3ML (DUONEB) NEB SCH (14:00)
[2023-12-26 16:05] LABS: ABG BASE EXCESS 1.2 (-2.0-2.0); ABG HCO3 27.5 MMOL/L (22.0-26.0); ABG O2 SATURATION 95.9 % (95.0-99.0); ABG PARTIAL PRESSURE CO2 50.4 mmHg (35.0-45.0); ABG PARTIAL PRESSURE O2 82.9 mmHg (75.0-100.0); ABG STANDARD HCO3 25.5 MMOL/L. (22.0-26.0); ABG pH (ARTERIAL) 7.354 UNITS (7.350-7.450)
[2023-12-26] MEDS ORDERED: GUAI600T12 PO (17:21)
[2023-12-26] MEDS ORDERED: SUBO2MIS SL (17:21)
[2023-12-26] MEDS ORDERED: med rec comment (17:23)
[2023-12-26] MEDS ORDERED: TIOT18INH INH (17:23)
[2023-12-26] MEDS ORDERED: BUPRENORPHINE/NALOXONE 8-2MG SUBLINGUAL TABLET(SUBOXONE) SL ONE (18:40)
[2023-12-26] MEDS: MORPHINE 4 MG/ML 1ML VIAL IV ONE (18:59)
[2023-12-26] MEDS ORDERED: NALOXONE INJ 0.4MG/1ML VIAL IV PRN (19:05)
[2023-12-26] MEDS: DOCUSATE SODIUM 100MG CAPSULE PO SCH (20:43)
[2023-12-27] VITALS (7 sets, daily range): BP systolic 102–133; BP diastolic 60–81; TEMP 96.7–97.8; O2SAT 95–99
[2023-12-27 05:36] LABS: BASO % 0.2 % (0.0-1.0); EOS % 0.1 % (0.0-3.0); HEMATOCRIT 40.9 % (42.0-52.0); HEMOGLOBIN 12.3 g/dl (13.5-17.5); LYMPH % 5.3 % (24.0-44.0); MEAN CORPUSCULAR HEMOGLOBIN 29.3 pg (27.0-33.0); MEAN CORPUSCULAR HGB CONC 30.1 g/dl (32.0-36.5); MEAN CORPUSCULAR VOLUME 97.4 fl (80.0-96.0); MONO # 0.7 10^3/uL (0.0-0.8); MONO % 3.6 % (2.0-8.0); NEUTROPHILS # 16.6 10^3/uL (1.5-8.5); NEUTROPHILS % 90.3 % (36.0-66.0); PLATELET COUNT, AUTOMATED 269 10^3/uL (150-450); WHITE BLOOD COUNT 18.4 10^3/uL (4.0-10.0)
[2023-12-27 05:43] LABS: BLOOD UREA NITROGEN 23 MG/DL (9-23); CALCIUM LEVEL 8.3 MG/DL (8.5-10.1); CARBON DIOXIDE LEVEL 25 MMOL/L (20-31); CHLORIDE LEVEL 105 MMOL/L (98-107); CREATININE FOR GFR 0.61 MG/DL (0.70-1.30); GLOMERULAR FILTRATION RATE > 60.0 (>56); GLUCOSE, FASTING 156 MG/DL (60-100); SODIUM LEVEL 136 MMOL/L (136-145)
[2023-12-27] MEDS: SYMBICORT 160/4.5MCG INHALER 6GM INH SCH (07:37)
[2023-12-27] MEDS: TIOTROPIUM INHALER/CAPSULE (SPIRIVA) INH SCH (07:38)
[2023-12-27] MEDS: PANTOPRAZOLE 40MG TAB (PROTONIX) PO SCH (08:00)
[2023-12-27] MEDS: MOM 30ML SUSPENSION UDC PO SCH (08:01)
[2023-12-27] MEDS: ACETAMINOPHEN *IV* 1,000 MG in IV 1 EA IV STA (08:38)
[2023-12-27] MEDS: BUPRENORPHINE/NALOXONE 8-2MG SUBLINGUAL TABLET(SUBOXONE) SL SCH (11:11)
[2023-12-27] MEDS: BUPRENORPHINE/NALOXONE 2-0.5MG SUBLINGUAL TABLET(SUBOXONE) SL SCH (11:18)
[2023-12-27] MEDS: ACETAMINOPHEN TAB 650MG DOSE (2X325MG) PO PRN (18:08)
[2023-12-27] MEDS: methylPREDNISolone 40MG 1ML VIAL IV SCH (22:08)
[2023-12-27] MEDS: MORPHINE 2 MG/ML 1ML VIAL IV ONE (22:08)
[2023-12-27] MEDS: diphenhydrAMINE 25MG CAP PO PRN (22:58)
[2023-12-28] VITALS (9 sets, daily range): BP systolic 92–159; BP diastolic 44–95; TEMP 97.3–98.4; O2SAT 95–100
[2023-12-28 06:30] LABS: BASO % 0.1 % (0.0-1.0); HEMATOCRIT 36.2 % (42.0-52.0); HEMOGLOBIN 11.4 g/dl (13.5-17.5); LYMPH # 0.8 10^3/uL (1.5-5.0); MEAN CORPUSCULAR HEMOGLOBIN 29.8 pg (27.0-33.0); MEAN CORPUSCULAR HGB CONC 31.5 g/dl (32.0-36.5); MEAN CORPUSCULAR VOLUME 94.8 fl (80.0-96.0); MONO # 0.7 10^3/uL (0.0-0.8); MONO % 3.6 % (2.0-8.0); NEUTROPHILS # 17.2 10^3/uL (1.5-8.5); NEUTROPHILS % 91.6 % (36.0-66.0); PLATELET COUNT, AUTOMATED 256 10^3/uL (150-450); RED BLOOD COUNT 3.82 10^6/uL (4.30-6.10); WHITE BLOOD COUNT 18.8 10^3/uL (4.0-10.0)
[2023-12-28 06:54] LABS: BLOOD UREA NITROGEN 20 MG/DL (9-23); CALCIUM LEVEL 8.4 MG/DL (8.5-10.1); CARBON DIOXIDE LEVEL 32 MMOL/L (20-31); CHLORIDE LEVEL 108 MMOL/L (98-107); GLOMERULAR FILTRATION RATE > 60.0 (>56); GLUCOSE, FASTING 147 MG/DL (60-100); POTASSIUM SERUM 5.2 MMOL/L (3.5-5.1); SODIUM LEVEL 140 MMOL/L (136-145)
[2023-12-28 11:44] LABS: BLOOD UREA NITROGEN 20 MG/DL (9-23); CALCIUM LEVEL 8.4 MG/DL (8.5-10.1); CARBON DIOXIDE LEVEL 31 MMOL/L (20-31); CHLORIDE LEVEL 107 MMOL/L (98-107); CREATININE FOR GFR 0.61 MG/DL (0.70-1.30); GLOMERULAR FILTRATION RATE > 60.0 (>56); GLUCOSE, FASTING 96 MG/DL (60-100); POTASSIUM SERUM 4.9 MMOL/L (3.5-5.1); SODIUM LEVEL 140 MMOL/L (136-145)
[2023-12-28] MEDS: NS 1,000 ML IV SCH (17:55)
[2023-12-28] MEDS: ENOXAPARIN 40MG/0.4ML SYRINGE (J1650 PER 10MG) SC SCH (20:02)
[2023-12-29] VITALS (8 sets, daily range): BP systolic 128–151; BP diastolic 72–89; TEMP 97.3–98.4; O2SAT 94–100
[2023-12-29 06:08] LABS: BASO % 0.3 % (0.0-1.0); EOS # 0.1 10^3/uL (0.0-0.5); EOS % 0.9 % (0.0-3.0); HEMATOCRIT 39.4 % (42.0-52.0); HEMOGLOBIN 12.1 g/dl (13.5-17.5); LYMPH % 15.5 % (24.0-44.0); MEAN CORPUSCULAR HEMOGLOBIN 29.2 pg (27.0-33.0); MEAN CORPUSCULAR HGB CONC 30.7 g/dl (32.0-36.5); MEAN CORPUSCULAR VOLUME 94.9 fl (80.0-96.0); MONO # 0.9 10^3/uL (0.0-0.8); NEUTROPHILS # 9.7 10^3/uL (1.5-8.5); NEUTROPHILS % 75.6 % (36.0-66.0); PLATELET COUNT, AUTOMATED 246 10^3/uL (150-450); RED BLOOD COUNT 4.15 10^6/uL (4.30-6.10); WHITE BLOOD COUNT 12.8 10^3/uL (4.0-10.0)
[2023-12-29 06:29] LABS: BLOOD UREA NITROGEN 20 MG/DL (9-23); CALCIUM LEVEL 8.5 MG/DL (8.5-10.1); CARBON DIOXIDE LEVEL 34 MMOL/L (20-31); CHLORIDE LEVEL 107 MMOL/L (98-107); CREATININE FOR GFR 0.61 MG/DL (0.70-1.30); GLOMERULAR FILTRATION RATE > 60.0 (>56); GLUCOSE, FASTING 81 MG/DL (60-100); POTASSIUM SERUM 4.5 MMOL/L (3.5-5.1); SODIUM LEVEL 142 MMOL/L (136-145)
[2023-12-29] MEDS: predniSONE 20 MG TAB PO SCH (08:09)
[2023-12-30] VITALS (9 sets, daily range): BP systolic 127–148; BP diastolic 79–91; TEMP 97.2–98.1; O2SAT 92–97
[2023-12-30 04:19] LABS: BASO % 0.4 % (0.0-1.0); EOS # 0.3 10^3/uL (0.0-0.5); EOS % 3.1 % (0.0-3.0); HEMATOCRIT 35.5 % (42.0-52.0); LYMPH # 2.1 10^3/uL (1.5-5.0); LYMPH % 21.7 % (24.0-44.0); MEAN CORPUSCULAR HEMOGLOBIN 28.9 pg (27.0-33.0); MEAN CORPUSCULAR VOLUME 93.2 fl (80.0-96.0); MONO # 0.9 10^3/uL (0.0-0.8); MONO % 9.2 % (2.0-8.0); NEUTROPHILS # 6.2 10^3/uL (1.5-8.5); NEUTROPHILS % 64.8 % (36.0-66.0); PLATELET COUNT, AUTOMATED 230 10^3/uL (150-450); RED BLOOD COUNT 3.81 10^6/uL (4.30-6.10); WHITE BLOOD COUNT 9.6 10^3/uL (4.0-10.0)
[2023-12-30 04:51] LABS: BLOOD UREA NITROGEN 20 MG/DL (9-23); CALCIUM LEVEL 8.1 MG/DL (8.5-10.1); CARBON DIOXIDE LEVEL 34 MMOL/L (20-31); CHLORIDE LEVEL 102 MMOL/L (98-107); CREATININE FOR GFR 0.63 MG/DL (0.70-1.30); GLOMERULAR FILTRATION RATE > 60.0 (>56); GLUCOSE, FASTING 131 MG/DL (60-100); POTASSIUM SERUM 3.9 MMOL/L (3.5-5.1); SODIUM LEVEL 138 MMOL/L (136-145)
[2023-12-31] VITALS (17 sets, daily range): BP systolic 112–164; BP diastolic 72–96; TEMP 97.5–98.2; O2SAT 90–100
[2023-12-31 05:48] LABS: BASO # 0.1 10^3/uL (0.0-0.2); BASO % 0.5 % (0.0-1.0); EOS # 0.5 10^3/uL (0.0-0.5); EOS % 4.6 % (0.0-3.0); HEMATOCRIT 36.5 % (42.0-52.0); HEMOGLOBIN 11.7 g/dl (13.5-17.5); MEAN CORPUSCULAR HEMOGLOBIN 29.8 pg (27.0-33.0); MEAN CORPUSCULAR HGB CONC 32.1 g/dl (32.0-36.5); MEAN CORPUSCULAR VOLUME 92.9 fl (80.0-96.0); MONO # 0.9 10^3/uL (0.0-0.8); MONO % 8.4 % (2.0-8.0); NEUTROPHILS # 5.7 10^3/uL (1.5-8.5); NEUTROPHILS % 55.8 % (36.0-66.0); PLATELET COUNT, AUTOMATED 240 10^3/uL (150-450); RED BLOOD COUNT 3.93 10^6/uL (4.30-6.10); WHITE BLOOD COUNT 10.2 10^3/uL (4.0-10.0)
[2023-12-31 06:19] LABS: BLOOD UREA NITROGEN 23 MG/DL (9-23); CALCIUM LEVEL 8.5 MG/DL (8.5-10.1); CARBON DIOXIDE LEVEL 36 MMOL/L (20-31); CHLORIDE LEVEL 104 MMOL/L (98-107); CREATININE FOR GFR 0.63 MG/DL (0.70-1.30); GLOMERULAR FILTRATION RATE > 60.0 (>56); GLUCOSE, FASTING 87 MG/DL (60-100); POTASSIUM SERUM 4.2 MMOL/L (3.5-5.1); SODIUM LEVEL 142 MMOL/L (136-145)
[2023-12-31] MEDS ORDERED: MIDAZOLAM INJ 2MG/2ML VIAL IV STA (13:38)
[2023-12-31] MEDS: MIDAZOLAM INJ 2MG/2ML VIAL IV PRN (13:51)
[2023-12-31] MEDS: LIDOCAINE 1% MDV 20ML VIAL SC STA (13:54)
[2023-12-31] MEDS: flumazeniL 0.5MG/5ML VIAL IV STA (14:45)
[2023-12-31] MEDS: PERCOCET 5MG/325MG TAB PO PRN (17:46)
[2024-01-01] VITALS (30 sets, daily range): BP systolic 101–147; BP diastolic 59–85; TEMP 97–99.2; O2SAT 88–99
[2024-01-01] MEDS: MORPHINE 2 MG/ML 1ML VIAL IV ONE (00:16)
[2024-01-01] MEDS: D5W/0.9% SODIUM CHLORIDE 1,000 ML IV SCH ×2 (00:40→12:45)
[2024-01-01 05:51] LABS: BASO % 0.3 % (0.0-1.0); EOS # 0.3 10^3/uL (0.0-0.5); EOS % 2.4 % (0.0-3.0); HEMATOCRIT 35.5 % (42.0-52.0); HEMOGLOBIN 11.2 g/dl (13.5-17.5); LYMPH # 3.1 10^3/uL (1.5-5.0); LYMPH % 23.2 % (24.0-44.0); MEAN CORPUSCULAR HEMOGLOBIN 29.2 pg (27.0-33.0); MEAN CORPUSCULAR HGB CONC 31.5 g/dl (32.0-36.5); MEAN CORPUSCULAR VOLUME 92.4 fl (80.0-96.0); MONO # 0.9 10^3/uL (0.0-0.8); MONO % 7.2 % (2.0-8.0); NEUTROPHILS # 8.6 10^3/uL (1.5-8.5); NEUTROPHILS % 65.3 % (36.0-66.0); PLATELET COUNT, AUTOMATED 249 10^3/uL (150-450); RED BLOOD COUNT 3.84 10^6/uL (4.30-6.10); WHITE BLOOD COUNT 13.1 10^3/uL (4.0-10.0)
[2024-01-01 06:06] LABS: BLOOD UREA NITROGEN 21 MG/DL (9-23); CALCIUM LEVEL 7.9 MG/DL (8.5-10.1); CARBON DIOXIDE LEVEL 36 MMOL/L (20-31); CHLORIDE LEVEL 103 MMOL/L (98-107); CREATININE FOR GFR 0.59 MG/DL (0.70-1.30); GLOMERULAR FILTRATION RATE > 60.0 (>56); GLUCOSE, FASTING 96 MG/DL (60-100); POTASSIUM SERUM 4.1 MMOL/L (3.5-5.1); SODIUM LEVEL 139 MMOL/L (136-145)
[2024-01-01] MEDS: predniSONE 10MG TAB PO SCH (09:15)
[2024-01-01] MEDS: STERILE TALC POWDER 3GM VIAL IPL ONE (12:19)
[2024-01-01] MEDS: MIDAZOLAM 5MG/ML 1ML VIAL IV ONE ×2 (12:19→12:45)
[2024-01-01] MEDS: KETOROLAC 30 MG/ML 1ML VIAL IV ONE (12:34)
[2024-01-01] MEDS ORDERED: MIDAZOLAM INJ 2MG/2ML VIAL IV ONE (12:40)
[2024-01-01] MEDS ORDERED: SODIUM CHLORIDE NASAL 0.65% SPRAY BTL (OCEAN) PRN (14:10)
[2024-01-01] MEDS: KETOROLAC 30 MG/ML 1ML VIAL IV SCH (17:40)
[2024-01-01] MEDS: HYDROMORPHONE HCL 0.5 MG/ 0.5 ML SYRINGE IV PRN (20:29)
[2024-01-01] MEDS: HYDROMORPHONE HCL 0.5 MG/ 0.5 ML SYRINGE IV ONE (22:44)
[2024-01-02] VITALS: BP 118/69; TEMP 98.8; O2SAT 93
[2024-01-02 04:00] VITALS: BP 130/80; TEMP 97.6; O2SAT 94
[2024-01-02 05:08] LABS: BASO # 0.1 10^3/uL (0.0-0.2); BASO % 0.4 % (0.0-1.0); EOS # 0.5 10^3/uL (0.0-0.5); HEMOGLOBIN 10.6 g/dl (13.5-17.5); LYMPH # 2.8 10^3/uL (1.5-5.0); MEAN CORPUSCULAR HGB CONC 31.2 g/dl (32.0-36.5); MEAN CORPUSCULAR VOLUME 93.2 fl (80.0-96.0); MONO # 1.4 10^3/uL (0.0-0.8); MONO % 7.7 % (2.0-8.0); NEUTROPHILS # 12.4 10^3/uL (1.5-8.5); NEUTROPHILS % 70.6 % (36.0-66.0); PLATELET COUNT, AUTOMATED 244 10^3/uL (150-450); RED BLOOD COUNT 3.65 10^6/uL (4.30-6.10); WHITE BLOOD COUNT 17.5 10^3/uL (4.0-10.0)
[2024-01-02 05:32] LABS: BLOOD UREA NITROGEN 24 MG/DL (9-23); CARBON DIOXIDE LEVEL 35 MMOL/L (20-31); CHLORIDE LEVEL 105 MMOL/L (98-107); CREATININE FOR GFR 0.63 MG/DL (0.70-1.30); GLOMERULAR FILTRATION RATE > 60.0 (>56); GLUCOSE, FASTING 84 MG/DL (60-100); POTASSIUM SERUM 4.1 MMOL/L (3.5-5.1); SODIUM LEVEL 139 MMOL/L (136-145)
[2024-01-02 07:57] VITALS: BP 121/79; TEMP 98; O2SAT 88
[2024-01-02 12:06] VITALS: BP 137/80; TEMP 97.2; O2SAT 88
[2024-01-02] MEDS: KETOROLAC 30 MG/ML 1ML VIAL IV SCH (13:09)
[2024-01-02] MEDS: HYDROMORPHONE HCL 0.5 MG/ 0.5 ML SYRINGE IV PRN (15:48)
[2024-01-02 16:00] VITALS: BP 128/75; TEMP 98.1; O2SAT 95
[2024-01-02 20:00] VITALS: BP 134/69; TEMP 97.6; O2SAT 95
[2024-01-03] VITALS (12 sets, daily range): BP systolic 125–145; BP diastolic 66–80; TEMP 96.8–98.2; O2SAT 88–98
[2024-01-03 05:06] LABS: HEMATOCRIT 33.2 % (42.0-52.0); HEMOGLOBIN 10.5 g/dl (13.5-17.5); MEAN CORPUSCULAR HEMOGLOBIN 29.7 pg (27.0-33.0); MEAN CORPUSCULAR HGB CONC 31.6 g/dl (32.0-36.5); MEAN CORPUSCULAR VOLUME 93.8 fl (80.0-96.0); PLATELET COUNT, AUTOMATED 247 10^3/uL (150-450); RED BLOOD COUNT 3.54 10^6/uL (4.30-6.10); WHITE BLOOD COUNT 16.2 10^3/uL (4.0-10.0)
[2024-01-03 05:28] LABS: BLOOD UREA NITROGEN 22 MG/DL (9-23); CALCIUM LEVEL 8.5 MG/DL (8.5-10.1); CARBON DIOXIDE LEVEL 38 MMOL/L (20-31); CHLORIDE LEVEL 102 MMOL/L (98-107); CREATININE FOR GFR 0.58 MG/DL (0.70-1.30); GLOMERULAR FILTRATION RATE > 60.0 (>56); GLUCOSE, FASTING 88 MG/DL (60-100); MAGNESIUM LEVEL 1.8 MG/DL (1.8-2.4); POTASSIUM SERUM 4.8 MMOL/L (3.5-5.1); SODIUM LEVEL 140 MMOL/L (136-145)
[2024-01-03] MEDS: MOM 30ML SUSPENSION UDC PO SCH (21:00)
[2024-01-03] MEDS: MIRALAX *UNIT DOSE* 17GM PACKET PO SCH (21:00)
[2024-01-03] MEDS: SENOKOT S TAB PO SCH (21:00)
[2024-01-04] VITALS (15 sets, daily range): BP systolic 112–150; BP diastolic 68–75; TEMP 97.4–98.7; O2SAT 90–96
[2024-01-04 06:34] LABS: HEMATOCRIT 31.7 % (42.0-52.0); HEMOGLOBIN 9.8 g/dl (13.5-17.5); MEAN CORPUSCULAR HEMOGLOBIN 29.3 pg (27.0-33.0); MEAN CORPUSCULAR HGB CONC 30.9 g/dl (32.0-36.5); MEAN CORPUSCULAR VOLUME 94.9 fl (80.0-96.0); PLATELET COUNT, AUTOMATED 243 10^3/uL (150-450); RED BLOOD COUNT 3.34 10^6/uL (4.30-6.10); WHITE BLOOD COUNT 14.7 10^3/uL (4.0-10.0)
[2024-01-04 06:57] LABS: BLOOD UREA NITROGEN 16 MG/DL (9-23); CALCIUM LEVEL 8.5 MG/DL (8.5-10.1); CARBON DIOXIDE LEVEL 34 MMOL/L (20-31); CHLORIDE LEVEL 101 MMOL/L (98-107); CREATININE FOR GFR 0.59 MG/DL (0.70-1.30); GLOMERULAR FILTRATION RATE > 60.0 (>56); GLUCOSE, FASTING 102 MG/DL (60-100); MAGNESIUM LEVEL 1.6 MG/DL (1.8-2.4); POTASSIUM SERUM 4.4 MMOL/L (3.5-5.1); SODIUM LEVEL 140 MMOL/L (136-145)
[2024-01-04 07:11] LABS: ATYPICAL LYMPH 8 % (0-5); BASOPHILS 1 % (0-1); EOSINOPHILS 8 % (0-3); LYMPHOCYTES 23 % (16-44); MONOCYTES 14 % (0-5); MYELOCYTES 3 % (0-0); NEUTROPHILS 43 % (28-66); PLATELET ESTIMATE NORMAL (NORMAL)
[2024-01-04 07:12] LABS: ANISOCYTOSIS 1+; POIKILOCYTOSIS 1+
[2024-01-04] MEDS: predniSONE 10MG TAB PO ONE (08:36)
[2024-01-05] VITALS (19 sets, daily range): BP systolic 112–158; BP diastolic 63–75; TEMP 97.6–98.7; O2SAT 90–100
[2024-01-05 06:55] LABS: BASO # 0.1 10^3/uL (0.0-0.2); BASO % 0.5 % (0.0-1.0); EOS # 1.2 10^3/uL (0.0-0.5); EOS % 8.1 % (0.0-3.0); HEMATOCRIT 32.7 % (42.0-52.0); HEMOGLOBIN 10.1 g/dl (13.5-17.5); LYMPH # 2.7 10^3/uL (1.5-5.0); LYMPH % 17.9 % (24.0-44.0); MEAN CORPUSCULAR HEMOGLOBIN 29.3 pg (27.0-33.0); MEAN CORPUSCULAR HGB CONC 30.9 g/dl (32.0-36.5); MEAN CORPUSCULAR VOLUME 94.8 fl (80.0-96.0); MONO # 1.4 10^3/uL (0.0-0.8); MONO % 9.4 % (2.0-8.0); NEUTROPHILS % 59.3 % (36.0-66.0); PLATELET COUNT, AUTOMATED 289 10^3/uL (150-450); RED BLOOD COUNT 3.45 10^6/uL (4.30-6.10); WHITE BLOOD COUNT 15.2 10^3/uL (4.0-10.0)
[2024-01-05 07:13] LABS: BLOOD UREA NITROGEN 19 MG/DL (9-23); CALCIUM LEVEL 8.3 MG/DL (8.5-10.1); CARBON DIOXIDE LEVEL 32 MMOL/L (20-31); CHLORIDE LEVEL 101 MMOL/L (98-107); GLOMERULAR FILTRATION RATE > 60.0 (>56); GLUCOSE, FASTING 102 MG/DL (60-100); MAGNESIUM LEVEL 1.7 MG/DL (1.8-2.4); POTASSIUM SERUM 4.6 MMOL/L (3.5-5.1); SODIUM LEVEL 138 MMOL/L (136-145)
[2024-01-06] VITALS (8 sets, daily range): BP systolic 106–144; BP diastolic 62–83; TEMP 97.4–99.2; O2SAT 92–98
[2024-01-06 05:42] LABS: BASO # 0.1 10^3/uL (0.0-0.2); BASO % 0.5 % (0.0-1.0); EOS # 1.2 10^3/uL (0.0-0.5); EOS % 7.6 % (0.0-3.0); HEMATOCRIT 33.6 % (42.0-52.0); HEMOGLOBIN 10.3 g/dl (13.5-17.5); LYMPH % 18.8 % (24.0-44.0); MEAN CORPUSCULAR HEMOGLOBIN 29.8 pg (27.0-33.0); MEAN CORPUSCULAR HGB CONC 30.7 g/dl (32.0-36.5); MEAN CORPUSCULAR VOLUME 97.1 fl (80.0-96.0); MONO # 1.3 10^3/uL (0.0-0.8); MONO % 7.8 % (2.0-8.0); NEUTROPHILS # 9.4 10^3/uL (1.5-8.5); NEUTROPHILS % 58.5 % (36.0-66.0); PLATELET COUNT, AUTOMATED 316 10^3/uL (150-450); RED BLOOD COUNT 3.46 10^6/uL (4.30-6.10); WHITE BLOOD COUNT 16.1 10^3/uL (4.0-10.0)
[2024-01-06 06:04] LABS: BLOOD UREA NITROGEN 19 MG/DL (9-23); CALCIUM LEVEL 8.7 MG/DL (8.5-10.1); CARBON DIOXIDE LEVEL 30 MMOL/L (20-31); CHLORIDE LEVEL 102 MMOL/L (98-107); CREATININE FOR GFR 0.64 MG/DL (0.70-1.30); GLOMERULAR FILTRATION RATE > 60.0 (>56); GLUCOSE, FASTING 121 MG/DL (60-100); MAGNESIUM LEVEL 1.8 MG/DL (1.8-2.4); POTASSIUM SERUM 4.7 MMOL/L (3.5-5.1); SODIUM LEVEL 139 MMOL/L (136-145)
[2024-01-07] VITALS (7 sets, daily range): BP systolic 115–135; BP diastolic 65–85; TEMP 97.2–100.5; O2SAT 93–96
[2024-01-07 05:56] LABS: HEMATOCRIT 32.7 % (42.0-52.0); HEMOGLOBIN 9.9 g/dl (13.5-17.5); MEAN CORPUSCULAR HEMOGLOBIN 29.2 pg (27.0-33.0); MEAN CORPUSCULAR HGB CONC 30.3 g/dl (32.0-36.5); MEAN CORPUSCULAR VOLUME 96.5 fl (80.0-96.0); PLATELET COUNT, AUTOMATED 301 10^3/uL (150-450); RED BLOOD COUNT 3.39 10^6/uL (4.30-6.10); WHITE BLOOD COUNT 15.1 10^3/uL (4.0-10.0)
[2024-01-07 06:18] LABS: BLOOD UREA NITROGEN 20 MG/DL (9-23); CALCIUM LEVEL 8.5 MG/DL (8.5-10.1); CARBON DIOXIDE LEVEL 33 MMOL/L (20-31); CHLORIDE LEVEL 103 MMOL/L (98-107); CREATININE FOR GFR 0.61 MG/DL (0.70-1.30); GLOMERULAR FILTRATION RATE > 60.0 (>56); GLUCOSE, FASTING 97 MG/DL (60-100); MAGNESIUM LEVEL 1.8 MG/DL (1.8-2.4); POTASSIUM SERUM 4.9 MMOL/L (3.5-5.1); SODIUM LEVEL 139 MMOL/L (136-145)
[2024-01-07 06:37] LABS: ATYPICAL LYMPH 2 % (0-5); LYMPHOCYTES 16 % (16-44); METAMYELOCYTES 1 % (0-0); MONOCYTES 5 % (0-5); NEUTROPHILS 63 % (28-66)
[2024-01-07 06:38] LABS: EOSINOPHILS 4 % (0-3); MYELOCYTES 5 % (0-0); PLATELET ESTIMATE NORMAL (NORMAL)
[2024-01-07 06:39] LABS: HYPOCHROMASIA 1+
[2024-01-07 06:41] LABS: ANISOCYTOSIS 1+
[2024-01-07] MEDS: PERCOCET 5MG/325MG TAB PO PRN ×2 (12:42→20:43)
[2024-01-08 05:24] VITALS: BP 128/87; TEMP 97.8; O2SAT 96
[2024-01-08 06:18] LABS: BASO # 0.1 10^3/uL (0.0-0.2); BASO % 0.7 % (0.0-1.0); EOS # 1.3 10^3/uL (0.0-0.5); EOS % 8.4 % (0.0-3.0); HEMATOCRIT 34.5 % (42.0-52.0); HEMOGLOBIN 10.5 g/dl (13.5-17.5); LYMPH # 2.6 10^3/uL (1.5-5.0); LYMPH % 16.8 % (24.0-44.0); MEAN CORPUSCULAR HEMOGLOBIN 29.2 pg (27.0-33.0); MEAN CORPUSCULAR HGB CONC 30.4 g/dl (32.0-36.5); MEAN CORPUSCULAR VOLUME 95.8 fl (80.0-96.0); MONO # 1.1 10^3/uL (0.0-0.8); MONO % 7.4 % (2.0-8.0); NEUTROPHILS # 9.5 10^3/uL (1.5-8.5); NEUTROPHILS % 62.2 % (36.0-66.0); PLATELET COUNT, AUTOMATED 331 10^3/uL (150-450); WHITE BLOOD COUNT 15.3 10^3/uL (4.0-10.0)
[2024-01-08 06:50] LABS: BLOOD UREA NITROGEN 16 MG/DL (9-23); CALCIUM LEVEL 8.5 MG/DL (8.5-10.1); CARBON DIOXIDE LEVEL 33 MMOL/L (20-31); CHLORIDE LEVEL 101 MMOL/L (98-107); CREATININE FOR GFR 0.68 MG/DL (0.70-1.30); GLOMERULAR FILTRATION RATE > 60.0 (>56); GLUCOSE, FASTING 86 MG/DL (60-100); MAGNESIUM LEVEL 1.6 MG/DL (1.8-2.4); POTASSIUM SERUM 4.5 MMOL/L (3.5-5.1); SODIUM LEVEL 138 MMOL/L (136-145)
[2024-01-08 08:01] VITALS: BP 143/78; TEMP 97.4; O2SAT 96
[2024-01-08] MEDS: MAG SULF 1GM/100ML (MAG RUN) 1 GM in IV 1 EA IV ONE (08:19)
[2024-01-08 12:03] VITALS: BP 129/78; TEMP 98.2; O2SAT 95
[2024-01-08 16:20] VITALS: BP 121/65; TEMP 98; O2SAT 96
[2024-01-08 20:03] VITALS: BP 114/70; TEMP 97.6; O2SAT 95
[2024-01-09] VITALS (7 sets, daily range): BP systolic 112–123; BP diastolic 58–79; TEMP 97.8–98.8; O2SAT 93–97
[2024-01-09 05:56] LABS: BASO # 0.1 10^3/uL (0.0-0.2); BASO % 0.3 % (0.0-1.0); EOS # 1.3 10^3/uL (0.0-0.5); EOS % 6.5 % (0.0-3.0); HEMATOCRIT 35.8 % (42.0-52.0); LYMPH # 1.9 10^3/uL (1.5-5.0); LYMPH % 9.5 % (24.0-44.0); MEAN CORPUSCULAR HEMOGLOBIN 29.6 pg (27.0-33.0); MEAN CORPUSCULAR HGB CONC 30.7 g/dl (32.0-36.5); MEAN CORPUSCULAR VOLUME 96.2 fl (80.0-96.0); MONO # 1.3 10^3/uL (0.0-0.8); MONO % 6.8 % (2.0-8.0); NEUTROPHILS # 14.7 10^3/uL (1.5-8.5); NEUTROPHILS % 74.6 % (36.0-66.0); PLATELET COUNT, AUTOMATED 368 10^3/uL (150-450); RED BLOOD COUNT 3.72 10^6/uL (4.30-6.10); WHITE BLOOD COUNT 19.6 10^3/uL (4.0-10.0)
[2024-01-09 06:24] LABS: BLOOD UREA NITROGEN 12 MG/DL (9-23); CARBON DIOXIDE LEVEL 36 MMOL/L (20-31); CHLORIDE LEVEL 99 MMOL/L (98-107); GLOMERULAR FILTRATION RATE > 60.0 (>56); GLUCOSE, FASTING 107 MG/DL (60-100); MAGNESIUM LEVEL 1.8 MG/DL (1.8-2.4); POTASSIUM SERUM 5.4 MMOL/L (3.5-5.1); SODIUM LEVEL 138 MMOL/L (136-145)
[2024-01-09] MEDS: NS 500 ML IV ONE (08:48)
[2024-01-10] VITALS (8 sets, daily range): BP systolic 106–133; BP diastolic 61–72; TEMP 97.2–98; O2SAT 90–99
[2024-01-10 06:25] LABS: BASO # 0.1 10^3/uL (0.0-0.2); BASO % 0.4 % (0.0-1.0); EOS % 5.5 % (0.0-3.0); HEMATOCRIT 34.7 % (42.0-52.0); HEMOGLOBIN 10.6 g/dl (13.5-17.5); LYMPH # 1.5 10^3/uL (1.5-5.0); LYMPH % 8.6 % (24.0-44.0); MEAN CORPUSCULAR HEMOGLOBIN 29.2 pg (27.0-33.0); MEAN CORPUSCULAR HGB CONC 30.5 g/dl (32.0-36.5); MEAN CORPUSCULAR VOLUME 95.6 fl (80.0-96.0); MONO # 1.3 10^3/uL (0.0-0.8); MONO % 7.6 % (2.0-8.0); NEUTROPHILS # 13.3 10^3/uL (1.5-8.5); NEUTROPHILS % 76.5 % (36.0-66.0); PLATELET COUNT, AUTOMATED 357 10^3/uL (150-450); RED BLOOD COUNT 3.63 10^6/uL (4.30-6.10); WHITE BLOOD COUNT 17.4 10^3/uL (4.0-10.0)
[2024-01-10 06:50] LABS: BLOOD UREA NITROGEN 13 MG/DL (9-23); CALCIUM LEVEL 8.8 MG/DL (8.5-10.1); CARBON DIOXIDE LEVEL 34 MMOL/L (20-31); CHLORIDE LEVEL 100 MMOL/L (98-107); CREATININE FOR GFR 0.71 MG/DL (0.70-1.30); GLOMERULAR FILTRATION RATE > 60.0 (>56); GLUCOSE, FASTING 131 MG/DL (60-100); POTASSIUM SERUM 4.7 MMOL/L (3.5-5.1); SODIUM LEVEL 138 MMOL/L (136-145)
[2024-01-10 09:10] LABS: PHOSPHORUS LEVEL 4.4 MG/DL (2.5-4.9)
[2024-01-11 03:27] VITALS: BP 110/74; TEMP 97.5; O2SAT 99
[2024-01-11 07:42] VITALS: BP 112/68; TEMP 97.6; O2SAT 97
[2024-01-11 08:14] LABS: HEMATOCRIT 31.5 % (42.0-52.0); HEMOGLOBIN 9.8 g/dl (13.5-17.5); MEAN CORPUSCULAR HEMOGLOBIN 29.6 pg (27.0-33.0); MEAN CORPUSCULAR HGB CONC 31.1 g/dl (32.0-36.5); MEAN CORPUSCULAR VOLUME 95.2 fl (80.0-96.0); PLATELET COUNT, AUTOMATED 305 10^3/uL (150-450); RED BLOOD COUNT 3.31 10^6/uL (4.30-6.10); WHITE BLOOD COUNT 13.1 10^3/uL (4.0-10.0)
[2024-01-11 08:50] LABS: BLOOD UREA NITROGEN 11 MG/DL (9-23); CALCIUM LEVEL 8.3 MG/DL (8.5-10.1); CARBON DIOXIDE LEVEL 29 MMOL/L (20-31); CHLORIDE LEVEL 101 MMOL/L (98-107); CREATININE FOR GFR 0.63 MG/DL (0.70-1.30); GLOMERULAR FILTRATION RATE > 60.0 (>56); GLUCOSE, FASTING 146 MG/DL (60-100); POTASSIUM SERUM 4.4 MMOL/L (3.5-5.1); SODIUM LEVEL 134 MMOL/L (136-145)
[2024-01-11] MEDS ORDERED: MIRA1POW3 PO (09:50)
[2024-01-11] MEDS ORDERED: PERCOCET PO ×2 (09:50→10:34)
== END 2024-01-11 11:35 | disposition home or self-care (01) | DRG 199 ==
LOC: EDBD 07:28 → M ED 07:28 → M ED INP 08:58 → M PCU 09:18 → M ICU 01-01 12:04 → M PCU 01-03 15:47
PROVIDERS: ADMIT Internal Medicine; ATTEND Internal Medicine
PROC: 0W9930Z Drainage of Right Pleural Cavity with Drainage Device, Percutaneous Approach (ICD-10-PCS; principal; 2023-12-26)
PROC: 3E0L3GC Introduction of Other Therapeutic Substance into Pleural Cavity, Percutaneous Approach (ICD-10-PCS; 2024-01-01)
DX: J93.83 Other pneumothorax (principal); J96.21 Acute and chronic respiratory failure with hypoxia; J96.22 Acute and chronic respiratory failure with hypercapnia; J44.1 Chronic obstructive pulmonary disease with (acute) exacerbation; J45.901 Unspecified asthma with (acute) exacerbation; J98.11 Atelectasis; E87.5 Hyperkalemia; E78.5 Hyperlipidemia, unspecified; K21.9 Gastro-esophageal reflux disease without esophagitis; R91.8 Other nonspecific abnormal finding of lung field; L13.9 Bullous disorder, unspecified; Q67.7 Pectus carinatum; F17.210 Nicotine dependence, cigarettes, uncomplicated; Z71.6 Tobacco abuse counseling; Z79.52 Long term (current) use of systemic steroids; Z79.899 Other long term (current) drug therapy; Z88.5 Allergy status to narcotic agent; Z99.81 Dependence on supplemental oxygen; Z79.891 Long term (current) use of opiate analgesic

== ENCOUNTER 2024-01-17 09:52 | Inpatient (IN) | payer OTHER, MEDICAID ==
[~2024-01-17] VITALS: Ht 182.9 cm; Wt 59.8 kg
[~2024-01-17 09:52] MED LIST changes: -ALBU8.5H; +ALBU8.5H PO; +GUAI600T12 PO; +MIRA33506 PO; +PERCOCET PO; +SUBO2MIS SL; +TIOT18INH INH; +med rec comment
[2024-01-17] MEDS ORDERED: ACET-683 PO (10:29)
[2024-01-17 12:07] LABS: BASO % 0.1 % (0.0-1.0); EOS # 0.1 10^3/uL (0.0-0.5); EOS % 0.3 % (0.0-3.0); HEMATOCRIT 28.3 % (42.0-52.0); HEMOGLOBIN 9.1 g/dl (13.5-17.5); LYMPH # 0.6 10^3/uL (1.5-5.0); MEAN CORPUSCULAR HEMOGLOBIN 29.6 pg (27.0-33.0); MEAN CORPUSCULAR HGB CONC 32.2 g/dl (32.0-36.5); MEAN CORPUSCULAR VOLUME 92.2 fl (80.0-96.0); MONO # 0.9 10^3/uL (0.0-0.8); MONO % 4.4 % (2.0-8.0); NEUTROPHILS # 18.5 10^3/uL (1.5-8.5); NEUTROPHILS % 91.6 % (36.0-66.0); PLATELET COUNT, AUTOMATED 411 10^3/uL (150-450); RED BLOOD COUNT 3.07 10^6/uL (4.30-6.10); WHITE BLOOD COUNT 20.2 10^3/uL (4.0-10.0)
[2024-01-17 12:21] LABS: INR 1.31; PROTHROMBIN TIME 15.9 SECONDS (12.5-14.5)
[2024-01-17 12:31] LABS: CPK CREATINE PHOSPHOKINASE 49 U/L (46-171); MB/CK RELATIVE INDEX 2.04 (< OR =4)
[2024-01-17 12:32] LABS: ALBUMIN 2.6 G/DL (3.2-5.2); ALKALINE PHOSPHATASE 153 U/L (46-116); ALT/SGPT 30 U/L (7.0-40); AST/SGOT 12 U/L (<34); BILIRUBIN,DIRECT 0.4 MG/DL (<0.4); BILIRUBIN,TOTAL 0.7 MG/DL (0.3-1.2); BLOOD UREA NITROGEN 11 MG/DL (9-23); CALCIUM LEVEL 8.4 MG/DL (8.5-10.1); CARBON DIOXIDE LEVEL 29 MMOL/L (20-31); CHLORIDE LEVEL 102 MMOL/L (98-107); CREATININE FOR GFR 0.57 MG/DL (0.70-1.30); GLOMERULAR FILTRATION RATE > 60.0 (>56); GLUCOSE, FASTING 103 MG/DL (60-100); POTASSIUM SERUM 4.5 MMOL/L (3.5-5.1); SODIUM LEVEL 136 MMOL/L (136-145); TOTAL PROTEIN 6.3 G/DL (5.7-8.2)
[2024-01-17] MEDS: PIPERACILLIN/TAZOBACTAM SOD 4.5 GM in D5W MINI-BAG PLUS 50 ML IV ONE (14:05)
[2024-01-17 14:50] LABS: LIPASE 18 U/L (12-53)
[2024-01-17] MEDS ORDERED: IPRA0.00 INH (15:15)
[2024-01-17] MEDS ORDERED: SPIR12.9 INH (15:15)
[2024-01-17] MEDS: LIDOCAINE 5% (LIDODERM) PATCH TD SCH (15:25)
[2024-01-17] MEDS ORDERED: HOME MED LIST COMPLETE! XX SCH (15:25)
[2024-01-17] MEDS: NS 1,000 ML IV ONE ×2 (15:26→18:22)
[2024-01-17 17:55] VITALS: BP 129/60; TEMP 98.4; O2SAT 99
[2024-01-17] MEDS: VANCOMYCIN HCL 1,000 MG, VIAL MATE ADAPTER 1 EACH in D5W 250 ML IV ONE (18:21)
[2024-01-17] MEDS: PIPERACILLIN/TAZOBACTAM SOD 4.5 GM in D5W MINI-BAG PLUS 50 ML IV SCH (20:36)
[2024-01-17 21:35] VITALS: BP 99/56; TEMP 97.7; O2SAT 96
[2024-01-17] MEDS: VANCOMYCIN HCL 1,000 MG, VIAL MATE ADAPTER 1 EACH in D5W 250 ML IV SCH (22:28)
[2024-01-18] MEDS: ACETAMINOPHEN TAB 650MG DOSE (2X325MG) PO PRN (00:22)
[2024-01-18 05:34] VITALS: BP 124/61; TEMP 97.7; O2SAT 97
[2024-01-18 08:00] LABS: BASO % 0.1 % (0.0-1.0); HEMATOCRIT 26.6 % (42.0-52.0); HEMOGLOBIN 8.5 g/dl (13.5-17.5); LYMPH % 4.1 % (24.0-44.0); MEAN CORPUSCULAR HEMOGLOBIN 29.8 pg (27.0-33.0); MEAN CORPUSCULAR VOLUME 93.3 fl (80.0-96.0); MONO # 1.2 10^3/uL (0.0-0.8); MONO % 5.2 % (2.0-8.0); NEUTROPHILS # 21.1 10^3/uL (1.5-8.5); NEUTROPHILS % 89.7 % (36.0-66.0); PLATELET COUNT, AUTOMATED 431 10^3/uL (150-450); RED BLOOD COUNT 2.85 10^6/uL (4.30-6.10); WHITE BLOOD COUNT 23.5 10^3/uL (4.0-10.0)
[2024-01-18] MEDS: BUDESONIDE 0.5 MG/2 ML INHALATION SUSPENSION NEB SCH (08:00)
[2024-01-18] MEDS: IPRATROPIUM 0.5MG/ALBUTEROL 2.5MG INH SOL UD 3ML (DUONEB) NEB SCH ×2 (08:00→19:41)
[2024-01-18 08:24] LABS: BLOOD UREA NITROGEN 15 MG/DL (9-23); CALCIUM LEVEL 7.9 MG/DL (8.5-10.1); CARBON DIOXIDE LEVEL 27 MMOL/L (20-31); CHLORIDE LEVEL 103 MMOL/L (98-107); CREATININE FOR GFR 0.51 MG/DL (0.70-1.30); GLOMERULAR FILTRATION RATE > 60.0 (>56); GLUCOSE, FASTING 199 MG/DL (60-100); MAGNESIUM LEVEL 1.7 MG/DL (1.8-2.4); POTASSIUM SERUM 3.9 MMOL/L (3.5-5.1); SODIUM LEVEL 135 MMOL/L (136-145)
[2024-01-18] MEDS: ALBUTEROL SULFATE 2.5MG/0.5ML INH NEB SOLN NEB PRN ×2 (09:21→13:18)
[2024-01-18] MEDS: IPRATROPIUM 0.5MG/ALBUTEROL 2.5MG INH SOL UD 3ML (DUONEB) NEB STA (09:25)
[2024-01-18] MEDS: BUPRENORPHINE/NALOXONE 8-2MG SUBLINGUAL TABLET(SUBOXONE) SL SCH (09:41)
[2024-01-18] MEDS: guaiFENesin ER TABLET 600 MG TAB PO SCH (09:41)
[2024-01-18] MEDS: PANTOPRAZOLE 40MG TAB (PROTONIX) PO SCH (09:41)
[2024-01-18] MEDS: ENOXAPARIN 40MG/0.4ML SYRINGE (J1650 PER 10MG) SC SCH (09:41)
[2024-01-18] MEDS: BUPRENORPHINE/NALOXONE 2-0.5MG SUBLINGUAL TABLET(SUBOXONE) SL SCH (10:14)
[2024-01-18] MEDS ORDERED: ALBUTEROL SULFATE 2.5MG/0.5ML INH NEB SOLN NEB PRN (10:40)
[2024-01-18] MEDS: CALCIUM CARBONATE 500 MG CHEW U/D PO SCH (12:49)
[2024-01-18 14:00] VITALS: BP 116/66; TEMP 97.7; O2SAT 94
[2024-01-18] MEDS: NICOTINE 21MG/24HR 1 EA TRANSDERMAL TD SCH (14:38)
[2024-01-18] MEDS: predniSONE 20 MG TAB PO SCH (16:36)
[2024-01-18] MEDS: ADVAIR HFA 115/21MCG INHALER INH SCH (19:41)
[2024-01-18 21:00] VITALS: BP 116/67; TEMP 98.1; O2SAT 96
[2024-01-18] MEDS: diphenhydrAMINE 25MG CAP PO PRN (21:21)
[2024-01-19 06:00] VITALS: BP 126/78; TEMP 98.8; O2SAT 96
[2024-01-19] MEDS ORDERED: ENTER DRUG NAME HERE (PATIENT'S OWN MED) INH SCH (09:00)
[2024-01-19 09:50] LABS: PROCALCITONIN 0.56 ng/ml
[2024-01-19] MEDS: MUPIROCIN 2% OINT 22 GM TUBE TOP SCH (10:06)
[2024-01-19 14:00] VITALS: BP 130/77; TEMP 99; O2SAT 94
[2024-01-19] MEDS: MAGNESIUM OXIDE 400MG TAB (MAG-OX) PO SCH (14:31)
[2024-01-19 20:53] VITALS: BP 132/79; TEMP 99.1; O2SAT 94
[2024-01-20 06:13] VITALS: BP 142/96; TEMP 99.1; O2SAT 95
[2024-01-20 08:18] LABS: BASO % 0.1 % (0.0-1.0); EOS % 0.3 % (0.0-3.0); HEMATOCRIT 29.1 % (42.0-52.0); LYMPH # 2.3 10^3/uL (1.5-5.0); LYMPH % 15.2 % (24.0-44.0); MEAN CORPUSCULAR HEMOGLOBIN 29.1 pg (27.0-33.0); MEAN CORPUSCULAR HGB CONC 30.9 g/dl (32.0-36.5); MEAN CORPUSCULAR VOLUME 94.2 fl (80.0-96.0); MONO # 1.2 10^3/uL (0.0-0.8); MONO % 7.8 % (2.0-8.0); NEUTROPHILS # 11.3 10^3/uL (1.5-8.5); NEUTROPHILS % 75.7 % (36.0-66.0); PLATELET COUNT, AUTOMATED 477 10^3/uL (150-450); RED BLOOD COUNT 3.09 10^6/uL (4.30-6.10); WHITE BLOOD COUNT 14.9 10^3/uL (4.0-10.0)
[2024-01-20 08:41] LABS: BLOOD UREA NITROGEN 15 MG/DL (9-23); CALCIUM LEVEL 8.7 MG/DL (8.5-10.1); CARBON DIOXIDE LEVEL 34 MMOL/L (20-31); CHLORIDE LEVEL 101 MMOL/L (98-107); GLOMERULAR FILTRATION RATE > 60.0 (>56); GLUCOSE, FASTING 89 MG/DL (60-100); MAGNESIUM LEVEL 1.7 MG/DL (1.8-2.4); POTASSIUM SERUM 3.6 MMOL/L (3.5-5.1); SODIUM LEVEL 138 MMOL/L (136-145)
[2024-01-20 14:00] VITALS: BP 127/71; TEMP 99.1; O2SAT 94
[2024-01-20 20:17] VITALS: TEMP 97.8
[2024-01-20] MEDS: SODIUM CHLORIDE NASAL 0.65% SPRAY BTL (OCEAN) PRN (20:38)
[2024-01-20 22:00] VITALS: BP 130/64; O2SAT 96
[2024-01-20 22:01] VITALS: O2SAT 92
[2024-01-21] VITALS (9 sets, daily range): BP systolic 131–144; BP diastolic 70–91; TEMP 96.9–99; O2SAT 90–97
[2024-01-21 06:24] LABS: BASO # 0.1 10^3/uL (0.0-0.2); BASO % 0.4 % (0.0-1.0); EOS # 0.1 10^3/uL (0.0-0.5); EOS % 0.9 % (0.0-3.0); HEMATOCRIT 30.2 % (42.0-52.0); HEMOGLOBIN 9.5 g/dl (13.5-17.5); LYMPH # 2.6 10^3/uL (1.5-5.0); LYMPH % 18.2 % (24.0-44.0); MEAN CORPUSCULAR HEMOGLOBIN 29.2 pg (27.0-33.0); MEAN CORPUSCULAR HGB CONC 31.5 g/dl (32.0-36.5); MEAN CORPUSCULAR VOLUME 92.9 fl (80.0-96.0); MONO # 1.2 10^3/uL (0.0-0.8); MONO % 8.4 % (2.0-8.0); NEUTROPHILS % 69.1 % (36.0-66.0); PLATELET COUNT, AUTOMATED 476 10^3/uL (150-450); RED BLOOD COUNT 3.25 10^6/uL (4.30-6.10); WHITE BLOOD COUNT 14.5 10^3/uL (4.0-10.0)
[2024-01-21 06:53] LABS: BLOOD UREA NITROGEN 11 MG/DL (9-23); CALCIUM LEVEL 8.5 MG/DL (8.5-10.1); CARBON DIOXIDE LEVEL 35 MMOL/L (20-31); CHLORIDE LEVEL 99 MMOL/L (98-107); CREATININE FOR GFR 0.65 MG/DL (0.70-1.30); GLOMERULAR FILTRATION RATE > 60.0 (>56); GLUCOSE, FASTING 127 MG/DL (60-100); MAGNESIUM LEVEL 1.7 MG/DL (1.8-2.4); POTASSIUM SERUM 3.7 MMOL/L (3.5-5.1); SODIUM LEVEL 139 MMOL/L (136-145)
[2024-01-21] MEDS: AUGMENTIN 875 MG TAB PO SCH (08:48)
[2024-01-21] MEDS ORDERED: LINEZOLID 600MG TABLET (ZYVOX) PO SCH (09:00)
[2024-01-21 13:38] LABS: TOTAL IRON BINDING CAPACITY 254 UG/DL (250-425)
[2024-01-21 13:39] LABS: FERRITIN 81.3 NG/ML (10.5-307.3); IRON (FE) 29 UG/DL (65-175); PERCENT SATURATION 11.4 % (19.7-50.0)
[2024-01-21 13:40] LABS: VITAMIN B12 LEVEL 269 PG/ML (211-911)
[2024-01-21 16:08] LABS: BODY FLUID CULTURE Not indicated. (.); ORGANISM ID Not indicated. (.); SPECIMEN SOURCE Urine (.); URINE STREP PNEUMONIAE ANTIGEN Negative (Negative)
[2024-01-21] MEDS: BACTRIM 160MG/800MG DS TAB PO SCH (16:39)
[2024-01-21] MEDS: FOLIC ACID 1 MG in NS 50 ML IV SCH (20:36)
[2024-01-21] MEDS: FERRIC CARBOXYMALTOSE INJ 750 MG, VIAL MATE ADAPTER 1 EACH in NS 250 ML IV ONE (21:53)
[2024-01-22 00:25] VITALS: BP 128/74; TEMP 98.8; O2SAT 94
[2024-01-22 05:31] VITALS: BP 128/73; TEMP 97.3; O2SAT 94
[2024-01-22] MEDS ORDERED: AMOX875T2 PO (09:15)
[2024-01-22] MEDS ORDERED: PRED20TA PO (09:15)
[2024-01-22] MEDS ORDERED: ALBU2.5V10 INH (09:15)
[2024-01-22] MEDS ORDERED: BACTDSTA PO (09:15)
[2024-01-22] MEDS ORDERED: PRED10TA2 PO (09:15)
[2024-01-22] MEDS ORDERED: ALBU8.5H INH (09:15)
[2024-01-22] MEDS ORDERED: NICO21PAT TD (11:37)
[2024-01-22] MEDS ORDERED: LIDO5TD TD (11:37)
[2024-01-22] MEDS ORDERED: FOLI1TAB11 PO (13:16)
[2024-01-22] MEDS ORDERED: IRON325T2 PO (13:16)
== END 2024-01-22 12:36 | disposition home health service (06) | DRG 871 ==
LOC: EDBD 09:52 → M ED 09:52 → M ED INP 09:53 → ENRESERV 14:58 → M MSPAV 17:48 → EEVIPCON 01-18 15:49 → OBSVTOIN 01-18 15:49
PROVIDERS: ADMIT Student in an Organized Health Care Education/Training Program; ATTEND Student in an Organized Health Care Education/Training Program
DX: A41.9 Sepsis, unspecified organism (principal); J15.212 Pneumonia due to Methicillin resistant Staphylococcus aureus; E43 Unspecified severe protein-calorie malnutrition; J44.0 Chronic obstructive pulmonary disease with (acute) lower respiratory infection; J96.11 Chronic respiratory failure with hypoxia; J96.12 Chronic respiratory failure with hypercapnia; J45.901 Unspecified asthma with (acute) exacerbation; Z68.1 Body mass index [BMI] 19.9 or less, adult; J44.1 Chronic obstructive pulmonary disease with (acute) exacerbation; D64.9 Anemia, unspecified; E83.42 Hypomagnesemia; E78.5 Hyperlipidemia, unspecified; K21.9 Gastro-esophageal reflux disease without esophagitis; F17.210 Nicotine dependence, cigarettes, uncomplicated; Z99.81 Dependence on supplemental oxygen; Z79.899 Other long term (current) drug therapy; Z88.5 Allergy status to narcotic agent; Z20.822 Contact with and (suspected) exposure to COVID-19; Z79.891 Long term (current) use of opiate analgesic

== ENCOUNTER → 2024-09-21 | Outpatient (REF) | payer OTHER, MEDICAID ==
[~2024-09-21] MED LIST changes: +ACET-683 PO; +ALBU2.5V10 INH; +ALBU8.5H INH; +BACTDSTA PO; +BUPR-597 PO; -BUPR300T92 PO; +FLUO-365 PO; -FLUO20CA22 PO; +FOLI1TAB11 PO; +GABA-1172 PO; -GABA-282 PO; +IRON325T2 PO; +LIDO5TD TD; +LITH450T11 PO; -LITH45TASA PO; +NICO21PAT TD; +SPIR12.9 INH
== END ==
LOC: M LAB REF 12:41
PROVIDERS: ATTEND Internal Medicine Pulmonary Disease
DX: J43.9 Emphysema, unspecified (principal)

== ENCOUNTER → 2025-07-05 | Outpatient (CLI) | payer OTHER, MEDICAID ==
[~2025-07-05] MED LIST changes: +AZIT500T5 PO; +BREO1INH3 PO; -BUPR-597 PO; +BUPR-766 PO; -ELIM5CRE2 TOP; -LITH450T11 PO; +LITH450T17 PO; +PERM60CR8 TOP
[2025-07-05 10:32] LABS: PLATELET COUNT, AUTOMATED 311 10^3/uL (150-450)
[2025-07-05 11:11] LABS: ALT/SGPT 11 U/L (7.0-40); AST/SGOT 25 U/L (<34); CALCIUM LEVEL 8.8 MG/DL (8.5-10.1); CARBON DIOXIDE LEVEL 33 MMOL/L (20-31); CHLORIDE LEVEL 102 MMOL/L (98-107); CREATININE FOR GFR 0.72 MG/DL (0.70-1.30); GLOMERULAR FILTRATION RATE > 90.0 (>56); POTASSIUM SERUM 4.2 MMOL/L (3.5-5.1); SODIUM LEVEL 142 MMOL/L (136-145)
[2025-07-05 11:38] LABS: HIV 1&2 SCREEN NEGATIVE (NEGATIVE)
[2025-07-05 11:46] LABS: HEPATITIS C VIRUS ABY INDEX < 0.02 INDEX (<0.8)
== END ==
LOC: M LAB 09:47
PROVIDERS: ATTEND Family Medicine
DX: F11.20 Opioid dependence, uncomplicated (principal); Z11.3 Encounter for screening for infections with a predominantly sexual mode of transmission; Z72.89 Other problems related to lifestyle; Z11.59 Encounter for screening for other viral diseases

== ENCOUNTER → 2025-08-19 | Outpatient (REF) | payer OTHER, MEDICAID ==
[~2025-08-19] MED LIST changes: -IBUP-1022 PO; +IBUP600T42 PO; -ZOLP5TAB PO; +ZOLP5TAB9 PO
[2025-08-19 14:52] LABS: BASO # 0.0 10^3/uL (0.0-0.2); BASO % 0.5 % (0.0-1.0); EOS # 0.9 10^3/uL (0.0-0.5); EOS % 11.0 % (0.0-3.0); LYMPH # 1.5 10^3/uL (1.5-5.0); LYMPH % 18.9 % (24.0-44.0); MONO # 0.6 10^3/uL (0.0-0.8); MONO % 8.0 % (2.0-8.0); NEUTROPHILS # 4.8 10^3/uL (1.5-8.5); NEUTROPHILS % 61.2 % (36.0-66.0); PLATELET COUNT, AUTOMATED 276 10^3/uL (150-450)
[2025-08-24 08:57] LABS: BERMUDA GRASS IGE < 0.10 kU/L (<0.10); BIRCH IGE < 0.10 kU/L (<0.10); COMMON RAGWEED SHORT IGE < 0.10 kU/L (<0.10); D001 IGE D PTERONYSSINUS 0.16 kU/L (<0.10); D002-IGE D FARINAE < 0.10 kU/L (<0.10); E001-IGE CAT DANDER 0.90 kU/L (<0.10); E005-IGE DOG DANDER 0.30 kU/L (<0.10); ELM IGE < 0.10 kU/L (<0.10); I006 IGE COCKROACH < 0.10 kU/L (<0.10); IMMUNOGLOBULIN E FOR ALLERGENS 46 kU/L (<OR=114); M006 IGE ALTERNIA ALTERNATA 0.11 kU/L (<0.10); M1-PENICILLIUM NOTATUM < 0.10 kU/L (<0.10); MOUSE URINE IGE < 0.10 kU/L (<0.10); MUGWORT IGE < 0.10 kU/L (<0.10); OAK IGE < 0.10 kU/L (<0.10); ROUGH PIGWEED IGE < 0.10 kU/L (<0.10); SHEEP SORREL IGE < 0.10 kU/L (<0.10); T001-IGE MAPLE BOX ELDER < 0.10 kU/L (<0.10); T006-IGE MOUNTAIN CEDAR < 0.10 kU/L (<0.10); T014 COTTONWOOD IGE < 0.10 kU/L (<0.10); TIMOTHY GRASS IGE 0.20 kU/L (<0.10); WALNUT TREE IGE < 0.10 kU/L (<0.10); WHITE ASH IGE < 0.10 kU/L (<0.10); WHITE MULBERRY IGE < 0.10 kU/L (<0.10)
[2025-08-24 15:07] LABS: E094-IgE Fel d 1 1.11 kU/L (<0.10); E101-IgE Can f 1 0.14 kU/L (<0.10); E102-IgE Can f 2 < 0.10 kU/L (<0.10); E226 IgE Can f 5 < 0.10 kU/L (<0.10); E228-IgE Fel d 4 < 0.10 kU/L (<0.10); E229 IGE CAN F 4 < 0.10 kU/L (<0.10); E230 IGE CAN F 6 < 0.10 kU/L (<0.10); E231 IGE FEL D 7 0.19 kU/L (<0.10)
== END ==
LOC: M LAB REF 13:06
PROVIDERS: ATTEND Internal Medicine Pulmonary Disease
DX: J43.9 Emphysema, unspecified (principal)

== ENCOUNTER → 2025-08-19 | Outpatient (REF) | payer OTHER, MEDICAID | LOC: M LAB REF 14:02 | PROVIDERS: ATTEND Internal Medicine Pulmonary Disease | DX: J43.9 Emphysema, unspecified (principal) ==

== ENCOUNTER 2025-09-16 16:45 | Inpatient (IN) | payer OTHER, MEDICAID ==
[~2025-09-16] VITALS: Ht 182.9 cm; Wt 59.7 kg
[2025-09-16] MEDS: MAG SULF 1GM/100ML (MAG RUN) 1 GM in IV 1 EA IV ONE (00:30)
[2025-09-16] MEDS: IPRATROPIUM 0.5 MG/ALBUTEROL 2.5 MG INH SOL UD 3 ML NEB PRN (17:12)
[2025-09-16 17:30] LABS: INR 1.19
[2025-09-16 17:31] LABS: PLATELET COUNT, AUTOMATED 463 10^3/uL (150-450)
[2025-09-16 17:37] LABS: ABG BASE EXCESS 12.2 (-2.0-2.0); ABG HCO3 40.9 MMOL/L (22.0-26.0); ABG O2 SATURATION 99.3 % (95.0-99.0); ABG PARTIAL PRESSURE CO2 80.0 mmHg (35.0-45.0); ABG PARTIAL PRESSURE O2 187.9 mmHg (75.0-100.0); ABG STANDARD HCO3 36.0 MMOL/L. (22.0-26.0); ABG TOTAL CO2 43.3 MMOL/L (22.0-29.0); ABG pH (ARTERIAL) 7.326 UNITS (7.350-7.450)
[2025-09-16 17:47] LABS: CK-MB VALUE MASS 7.1 NG/ML (<3.6); CPK CREATINE PHOSPHOKINASE 73 U/L (46-171); MB/CK RELATIVE INDEX 9.72 (< OR =4)
[2025-09-16 17:51] LABS: THYROXINE (T4) 8.5 UG/DL (4.5-10.9)
[2025-09-16 17:55] LABS: ALT/SGPT 29 U/L (7.0-40); AST/SGOT 39 U/L (<34); CALCIUM LEVEL 9.3 MG/DL (8.5-10.1); CARBON DIOXIDE LEVEL > 40.0 MMOL/L (20-31); CHLORIDE LEVEL 92 MMOL/L (98-107); CREATININE FOR GFR 0.52 MG/DL (0.70-1.30); GLOMERULAR FILTRATION RATE > 90.0 (>56); POTASSIUM SERUM 4.4 MMOL/L (3.5-5.1); SODIUM LEVEL 141 MMOL/L (136-145)
[2025-09-16 18:15] LABS: EOSINOPHILS 5 % (0-3); LYMPHOCYTES 8 % (16-44); MONOCYTES 10 % (0-5); NEUTROPHILS 70 % (28-66); PLATELET ESTIMATE INCREASED (NORMAL)
[2025-09-16] MEDS ORDERED: MOM 30 ML SUSPENSION UDC PO PRN (19:45)
[2025-09-16] MEDS ORDERED: DEXTROMETHORPHAN 60 MG/10 ML SUSP 90 ML BTL PO PRN (19:45)
[2025-09-16] MEDS ORDERED: ALBU8.5H INH (20:46)
[2025-09-16] MEDS ORDERED: MED REC COMMENT (20:48)
[2025-09-16] MEDS ORDERED: HOME MED LIST COMPLETE! XX SCH (20:50)
[2025-09-16] MEDS: DOCUSATE SODIUM 100 MG CAPSULE PO SCH (21:00)
[2025-09-16 22:15] VITALS: BP 143/84; TEMP 98; O2SAT 96
[2025-09-16] MEDS: PIPERACILLIN/TAZOBACTAM SOD 3.375 GM in DEXTROSE 5% (D5W) ADV/MINI-BAG 50 ML IV ONE (22:58)
[2025-09-16] MEDS: NS (Normal Saline) 0.9% 1,000 ML IV SCH (22:59)
[2025-09-16] MEDS: guaiFENesin ER TABLET 600 MG TAB PO SCH (22:59)
[2025-09-17] VITALS (24 sets, daily range): BP systolic 104–152; BP diastolic 66–79; TEMP 96.6–98.4; O2SAT 80–100
[2025-09-17] MEDS: IPRATROPIUM 0.5 MG/ALBUTEROL 2.5 MG INH SOL UD 3 ML NEB SCH ×2 (03:34→11:51)
[2025-09-17 07:32] LABS: PLATELET COUNT, AUTOMATED 406 10^3/uL (150-450)
[2025-09-17] MEDS ORDERED: IPRATROPIUM 0.5 MG/2.5 ML (0.02%) SOLN NEB INH PRN (07:55)
[2025-09-17] MEDS ORDERED: SYMBICORT 160/4.5MCG INHALER 6GM INH SCH (08:00)
[2025-09-17] MEDS ORDERED: IPRATROPIUM 0.5 MG/2.5 ML (0.02%) SOLN NEB INH SCH (08:00)
[2025-09-17] MEDS ORDERED: LEVALBUTEROL 1.25 MG 0.5ML CONCENTRATE NEB INH SCH (08:00)
[2025-09-17] MEDS: PIPERACILLIN/TAZOBACTAM SOD 3.375 GM in DEXTROSE 5% (D5W) ADV/MINI-BAG 50 ML IV SCH (08:01)
[2025-09-17 08:32] LABS: ALT/SGPT 23 U/L (7.0-40); AST/SGOT 28 U/L (<34); CALCIUM LEVEL 8.8 MG/DL (8.5-10.1); CARBON DIOXIDE LEVEL > 40.0 MMOL/L (20-31); CHLORIDE LEVEL 93 MMOL/L (98-107); CREATININE FOR GFR 0.56 MG/DL (0.70-1.30); GLOMERULAR FILTRATION RATE > 90.0 (>56); MAGNESIUM LEVEL 2.4 MG/DL (1.8-2.4); POTASSIUM SERUM 5.3 MMOL/L (3.5-5.1); SODIUM LEVEL 138 MMOL/L (136-145)
[2025-09-17] MEDS: PANTOPRAZOLE 40MG VIAL IV SCH (08:34)
[2025-09-17] MEDS: HEPARIN SOD 5000 UNITS/ML 1 ML VIAL/SYRINGE SC SCH (08:34)
[2025-09-17] MEDS: BUDESONIDE 0.5 MG/2 ML INHALATION SUSPENSION NEB SCH (08:48)
[2025-09-17] MEDS: LEVALBUTEROL 1.25 MG 0.5ML CONCENTRATE NEB INH PRN (08:49)
[2025-09-17 09:27] LABS: ABG BASE EXCESS 11.1 (-2.0-2.0); ABG HCO3 39.7 MMOL/L (22.0-26.0); ABG O2 SATURATION 94.2 % (95.0-99.0); ABG PARTIAL PRESSURE O2 85.3 mmHg (75.0-100.0); ABG STANDARD HCO3 34.8 MMOL/L. (22.0-26.0); ABG TOTAL CO2 42.0 MMOL/L (22.0-29.0); ABG pH (ARTERIAL) 7.327 UNITS (7.350-7.450)
[2025-09-17 09:30] LABS: ABG PARTIAL PRESSURE CO2 77.5 mmHg (35.0-45.0)
[2025-09-17] MEDS ORDERED: SODIUM CHLORIDE NASAL 0.65% SPRAY BTL (OCEAN) PRN (12:30)
[2025-09-17] MEDS ORDERED: BUPR1SUB4 SL (12:47)
[2025-09-17] MEDS ORDERED: BUPR1SUB5 SL (12:47)
[2025-09-17] MEDS: SODIUM CHLORIDE 0.9% NASAL GEL 15GM (AYR) SCH (13:13)
[2025-09-17] MEDS: NICOTINE 21 MG/24 HR 1 EA TRANSDERMAL TD SCH (13:47)
[2025-09-17] MEDS: BUPRENORPHINE/NALOXONE 2-0.5MG SUBLINGUAL TABLET(SUBOXONE) SL SCH (20:39)
[2025-09-17] MEDS: BUPRENORPHINE/NALOXONE 8-2MG SUBLINGUAL TABLET(SUBOXONE) SL SCH (20:40)
[2025-09-18] VITALS (16 sets, daily range): BP systolic 121–167; BP diastolic 71–106; TEMP 97.2–97.8; O2SAT 92–98
[2025-09-18] MEDS: ACETAMINOPHEN 325 MG TAB PO PRN (02:29)
[2025-09-18 04:49] LABS: BASO # 0.0 10^3/uL (0.0-0.2); BASO % 0.2 % (0.0-1.0); EOS # 0.0 10^3/uL (0.0-0.5); EOS % 0.0 % (0.0-3.0); LYMPH # 0.8 10^3/uL (1.5-5.0); LYMPH % 3.9 % (24.0-44.0); MONO # 0.7 10^3/uL (0.0-0.8); MONO % 3.6 % (2.0-8.0); NEUTROPHILS # 17.9 10^3/uL (1.5-8.5); NEUTROPHILS % 91.6 % (36.0-66.0); PLATELET COUNT, AUTOMATED 434 10^3/uL (150-450)
[2025-09-18 05:07] LABS: CALCIUM LEVEL 8.7 MG/DL (8.5-10.1); CARBON DIOXIDE LEVEL > 40.0 MMOL/L (20-31); CHLORIDE LEVEL 93 MMOL/L (98-107); CREATININE FOR GFR 0.56 MG/DL (0.70-1.30); GLOMERULAR FILTRATION RATE > 90.0 (>56); POTASSIUM SERUM 5.1 MMOL/L (3.5-5.1); SODIUM LEVEL 140 MMOL/L (136-145)
[2025-09-18] MEDS: PNEUMOC 21-VAL CONJ-DIP CRM/PF 0.5 ML SYRINGE IM.IMMUN ONE (10:13)
[2025-09-18] MEDS: FLUZONE VACCINE TRI PF(25-26) 0.5ML SYRINGE IM.IMMUN ONE (10:14)
[2025-09-18 15:03] LABS: ABG BASE EXCESS 8.2 (-2.0-2.0); ABG HCO3 37.9 MMOL/L (22.0-26.0); ABG O2 SATURATION 98.5 % (95.0-99.0); ABG PARTIAL PRESSURE CO2 87.9 mmHg (35.0-45.0); ABG PARTIAL PRESSURE O2 140.4 mmHg (75.0-100.0); ABG STANDARD HCO3 32.0 MMOL/L. (22.0-26.0); ABG TOTAL CO2 40.6 MMOL/L (22.0-29.0); ABG pH (ARTERIAL) 7.252 UNITS (7.350-7.450)
[2025-09-18] MEDS: IPRATROPIUM 0.5 MG/ALBUTEROL 2.5 MG INH SOL UD 3 ML NEB SCH (19:15)
[2025-09-19] VITALS (18 sets, daily range): BP systolic 138–173; BP diastolic 72–99; TEMP 96.8–97.3; O2SAT 66–100
[2025-09-19 05:03] LABS: BASO # 0.0 10^3/uL (0.0-0.2); BASO % 0.2 % (0.0-1.0); EOS # 0.0 10^3/uL (0.0-0.5); EOS % 0.0 % (0.0-3.0); LYMPH # 1.0 10^3/uL (1.5-5.0); LYMPH % 4.9 % (24.0-44.0); MONO # 0.5 10^3/uL (0.0-0.8); MONO % 2.3 % (2.0-8.0); NEUTROPHILS # 18.6 10^3/uL (1.5-8.5); NEUTROPHILS % 91.0 % (36.0-66.0); PLATELET COUNT, AUTOMATED 507 10^3/uL (150-450)
[2025-09-19 05:26] LABS: CALCIUM LEVEL 9.7 MG/DL (8.5-10.1); CARBON DIOXIDE LEVEL > 40.0 MMOL/L (20-31); CHLORIDE LEVEL 89 MMOL/L (98-107); CREATININE FOR GFR 0.53 MG/DL (0.70-1.30); GLOMERULAR FILTRATION RATE > 90.0 (>56); POTASSIUM SERUM 5.4 MMOL/L (3.5-5.1); SODIUM LEVEL 139 MMOL/L (136-145)
[2025-09-19 06:05] LABS: ABG PARTIAL PRESSURE CO2 74.8 mmHg (35.0-45.0); ABG pH (ARTERIAL) 7.391 UNITS (7.350-7.450)
[2025-09-19 06:06] LABS: ABG HCO3 44.4 MMOL/L (22.0-26.0); ABG PARTIAL PRESSURE O2 126.4 mmHg (75.0-100.0); ABG TOTAL CO2 46.7 MMOL/L (22.0-29.0)
[2025-09-19 06:07] LABS: ABG BASE EXCESS 16.5 (-2.0-2.0)
[2025-09-19 06:08] LABS: ABG O2 SATURATION 98.5 % (95.0-99.0)
[2025-09-19 06:09] LABS: ABG STANDARD HCO3 40.4 MMOL/L. (22.0-26.0)
[2025-09-19] MEDS: PANTOPRAZOLE 40MG TAB PO SCH (08:10)
[2025-09-19] MEDS: ENOXAPARIN 40 MG/0.4 ML SYRINGE (J1650 PER 10MG) SC SCH (09:00)
[2025-09-19] MEDS: BUPRENORPHINE/NALOXONE 2-0.5MG SUBLINGUAL TABLET(SUBOXONE) SL SCH ×2 (09:58→20:03)
[2025-09-19] MEDS: PATIROMER SORBITEX CALCIUM 8.4GM POWDER PACKET PO SCH (12:41)
[2025-09-20] VITALS (19 sets, daily range): BP systolic 132–170; BP diastolic 79–103; TEMP 97.4–98.4; O2SAT 88–100
[2025-09-20 05:42] LABS: PLATELET COUNT, AUTOMATED 415 10^3/uL (150-450)
[2025-09-20 06:00] LABS: CALCIUM LEVEL 9.1 MG/DL (8.5-10.1); CARBON DIOXIDE LEVEL 37 MMOL/L (20-31); CHLORIDE LEVEL 91 MMOL/L (98-107); CREATININE FOR GFR 0.51 MG/DL (0.70-1.30); GLOMERULAR FILTRATION RATE > 90.0 (>56); POTASSIUM SERUM 5.2 MMOL/L (3.5-5.1); SODIUM LEVEL 137 MMOL/L (136-145)
[2025-09-20 06:10] LABS: ATYPICAL LYMPH 1 % (0-5); LYMPHOCYTES 10 % (16-44); METAMYELOCYTES 1 % (0-0); MONOCYTES 4 % (0-5); MYELOCYTES 2 % (0-0); NEUTROPHILS 82 % (28-66)
[2025-09-20 06:12] LABS: PLATELET ESTIMATE NORMAL (NORMAL)
[2025-09-20] MEDS: PATIROMER SORBITEX CALCIUM 8.4GM POWDER PACKET PO ONE ×2 (10:00→13:07)
[2025-09-20] MEDS: BUPRENORPHINE/NALOXONE 2-0.5MG SUBLINGUAL TABLET(SUBOXONE) SL ONE (10:30)
[2025-09-20] MEDS: BUPRENORPHINE/NALOXONE 8-2MG SUBLINGUAL TABLET(SUBOXONE) SL SCH (18:39)
[2025-09-20] MEDS: SENNA 8.6 MG TAB PO SCH (20:02)
[2025-09-20] MEDS: MAGIC MOUTHWASH 5 ML ORAL SYRINGE SS PRN (22:32)
[2025-09-21] VITALS (9 sets, daily range): BP systolic 119–155; BP diastolic 83–102; TEMP 97.3–99; O2SAT 87–99
[2025-09-21 05:39] LABS: BASO # 0.1 10^3/uL (0.0-0.2); BASO % 0.3 % (0.0-1.0); EOS # 0.0 10^3/uL (0.0-0.5); EOS % 0.0 % (0.0-3.0); LYMPH # 1.0 10^3/uL (1.5-5.0); LYMPH % 5.3 % (24.0-44.0); MONO # 0.8 10^3/uL (0.0-0.8); MONO % 4.1 % (2.0-8.0); NEUTROPHILS # 15.3 10^3/uL (1.5-8.5); NEUTROPHILS % 83.4 % (36.0-66.0); PLATELET COUNT, AUTOMATED 433 10^3/uL (150-450)
[2025-09-21 05:57] LABS: CALCIUM LEVEL 8.9 MG/DL (8.5-10.1); CARBON DIOXIDE LEVEL 39 MMOL/L (20-31); CHLORIDE LEVEL 92 MMOL/L (98-107); CREATININE FOR GFR 0.47 MG/DL (0.70-1.30); GLOMERULAR FILTRATION RATE > 90.0 (>56); POTASSIUM SERUM 4.2 MMOL/L (3.5-5.1); SODIUM LEVEL 139 MMOL/L (136-145)
[2025-09-21] MEDS: ACETAMINOPHEN *IV* 1,000 MG in IV 1 EA IV ONE (22:08)
[2025-09-21] MEDS: AUGMENTIN 875 MG TAB PO SCH (22:08)
[2025-09-22] VITALS: BP 167/85; TEMP 97.4; O2SAT 94
[2025-09-22 04:54] VITALS: BP 145/90; O2SAT 97
[2025-09-22 07:57] LABS: BASO # 0.1 10^3/uL (0.0-0.2); BASO % 0.3 % (0.0-1.0); EOS # 0.0 10^3/uL (0.0-0.5); EOS % 0.0 % (0.0-3.0); LYMPH # 1.2 10^3/uL (1.5-5.0); LYMPH % 3.8 % (24.0-44.0); MONO # 0.8 10^3/uL (0.0-0.8); MONO % 2.6 % (2.0-8.0); NEUTROPHILS # 26.3 10^3/uL (1.5-8.5); NEUTROPHILS % 86.3 % (36.0-66.0); PLATELET COUNT, AUTOMATED 496 10^3/uL (150-450)
[2025-09-22 08:32] LABS: CALCIUM LEVEL 8.9 MG/DL (8.5-10.1); CARBON DIOXIDE LEVEL 40 MMOL/L (20-31); CHLORIDE LEVEL 93 MMOL/L (98-107); CREATININE FOR GFR 0.49 MG/DL (0.70-1.30); GLOMERULAR FILTRATION RATE > 90.0 (>56); POTASSIUM SERUM 5.0 MMOL/L (3.5-5.1); SODIUM LEVEL 138 MMOL/L (136-145)
[2025-09-22] MEDS ORDERED: ISOVUE-370 76% 100 ML VIAL As Ordered ONE (13:16)
[2025-09-22 18:53] LABS: KETONE, URINE AUTO RFX NEGATIVE (NEGATIVE); LEUKOCYTE ESTERASE UR AUTO RFX NEGATIVE (NEGATIVE); NITRITE, URINE AUTO RFX NEGATIVE (NEGATIVE); RBC, URINE AUTO RFX 0 /HPF (0-3); SQUAM EPITHELIAL CELL UR AURFX 0 /HPF (0-6); WBC, URINE AUTO RFX 0 /HPF (0-3)
[2025-09-22 20:00] VITALS: BP 149/88; TEMP 98.1; O2SAT 96
[2025-09-23] VITALS: BP 150/85; TEMP 97.8; O2SAT 98
[2025-09-23 04:00] VITALS: BP 137/75; TEMP 97.4; O2SAT 94
[2025-09-23 04:47] LABS: PLATELET COUNT, AUTOMATED 503 10^3/uL (150-450)
[2025-09-23 04:56] LABS: CALCIUM LEVEL 8.6 MG/DL (8.5-10.1); CARBON DIOXIDE LEVEL 39 MMOL/L (20-31); CHLORIDE LEVEL 93 MMOL/L (98-107); CREATININE FOR GFR 0.60 MG/DL (0.70-1.30); GLOMERULAR FILTRATION RATE > 90.0 (>56); POTASSIUM SERUM 5.2 MMOL/L (3.5-5.1); SODIUM LEVEL 138 MMOL/L (136-145)
[2025-09-23 05:13] LABS: LYMPHOCYTES 15 % (16-44); MONOCYTES 2 % (0-5); MYELOCYTES 4 % (0-0); NEUTROPHILS 77 % (28-66)
[2025-09-23 05:14] LABS: PLATELET ESTIMATE INCREASED (NORMAL)
[2025-09-23 08:00] VITALS: BP 150/88; TEMP 98.2; O2SAT 94
[2025-09-23 12:00] VITALS: BP 147/87; TEMP 97.6; O2SAT 92
[2025-09-23] MEDS: MAGIC MOUTHWASH 5 ML ORAL SYRINGE SS SCH (12:40)
[2025-09-23 16:00] VITALS: BP 147/89; TEMP 97.6; O2SAT 96
[2025-09-23 20:00] VITALS: BP 148/84; TEMP 97.5; O2SAT 93
[2025-09-24] VITALS (7 sets, daily range): BP systolic 114–154; BP diastolic 70–87; TEMP 97–98.4; O2SAT 92–95
[2025-09-24 04:52] LABS: PLATELET COUNT, AUTOMATED 577 10^3/uL (150-450)
[2025-09-24 05:12] LABS: CALCIUM LEVEL 9.1 MG/DL (8.5-10.1); CARBON DIOXIDE LEVEL 39 MMOL/L (20-31); CHLORIDE LEVEL 90 MMOL/L (98-107); CREATININE FOR GFR 0.51 MG/DL (0.70-1.30); GLOMERULAR FILTRATION RATE > 90.0 (>56); POTASSIUM SERUM 4.7 MMOL/L (3.5-5.1); SODIUM LEVEL 136 MMOL/L (136-145)
[2025-09-24 05:20] LABS: LYMPHOCYTES 14 % (16-44); METAMYELOCYTES 2 % (0-0); MONOCYTES 4 % (0-5); MYELOCYTES 4 % (0-0); NEUTROPHILS 72 % (28-66); PLATELET ESTIMATE INCREASED (NORMAL)
[2025-09-25] VITALS (10 sets, daily range): BP systolic 120–141; BP diastolic 68–85; PULSE 114; TEMP 97–97.4; O2SAT 84–100
[2025-09-25 06:09] LABS: PLATELET COUNT, AUTOMATED 582 10^3/uL (150-450)
[2025-09-25 06:34] LABS: CALCIUM LEVEL 8.8 MG/DL (8.5-10.1); CARBON DIOXIDE LEVEL 38 MMOL/L (20-31); CHLORIDE LEVEL 91 MMOL/L (98-107); CREATININE FOR GFR 0.48 MG/DL (0.70-1.30); GLOMERULAR FILTRATION RATE > 90.0 (>56); POTASSIUM SERUM 4.7 MMOL/L (3.5-5.1); SODIUM LEVEL 137 MMOL/L (136-145)
[2025-09-25] MEDS: predniSONE 20 MG TAB PO SCH (08:57)
[2025-09-25] MEDS ORDERED: IPRATROPIUM 0.5 MG/ALBUTEROL 2.5 MG INH SOL UD 3 ML NEB PRN (10:30)
[2025-09-25] MEDS ORDERED: PIPERACILLIN/TAZOBACTAM SOD 4.5 GM in DEXTROSE 5% (D5W) ADV/MINI-BAG 50 ML IV SCH (11:00)
[2025-09-25] MEDS: GLYCOPYRROLATE INJ 0.2 MG/ML 2 ML VIAL NEB SCH (11:15)
[2025-09-25] MEDS: MEROPENEM 1 GM in IV 1 EA IV SCH (11:37)
[2025-09-25 12:05] LABS: EOSINOPHILS 1 % (0-3); LYMPHOCYTES 16 % (16-44); METAMYELOCYTES 3 % (0-0); MONOCYTES 7 % (0-5); MYELOCYTES 4 % (0-0); NEUTROPHILS 69 % (28-66)
[2025-09-25 12:06] LABS: PLATELET ESTIMATE INCREASED (NORMAL)
[2025-09-25] MEDS: SODIUM CHLORIDE HYPERTONIC 3% 4ML NEB SOL INH SCH (14:00)
[2025-09-26] VITALS (7 sets, daily range): BP systolic 115–145; BP diastolic 65–78; TEMP 96.8–97.8; O2SAT 91–98
[2025-09-26 06:55] LABS: BASO # 0.1 10^3/uL (0.0-0.2); BASO % 0.1 % (0.0-1.0); EOS # 0.2 10^3/uL (0.0-0.5); EOS % 0.5 % (0.0-3.0); LYMPH # 3.7 10^3/uL (1.5-5.0); LYMPH % 9.6 % (24.0-44.0); MONO # 2.2 10^3/uL (0.0-0.8); MONO % 5.7 % (2.0-8.0); NEUTROPHILS # 28.8 10^3/uL (1.5-8.5); NEUTROPHILS % 74.4 % (36.0-66.0); PLATELET COUNT, AUTOMATED 609 10^3/uL (150-450)
[2025-09-26 07:12] LABS: CALCIUM LEVEL 8.9 MG/DL (8.5-10.1); CARBON DIOXIDE LEVEL 40 MMOL/L (20-31); CHLORIDE LEVEL 92 MMOL/L (98-107); CREATININE FOR GFR 0.53 MG/DL (0.70-1.30); GLOMERULAR FILTRATION RATE > 90.0 (>56); POTASSIUM SERUM 4.9 MMOL/L (3.5-5.1); SODIUM LEVEL 139 MMOL/L (136-145)
[2025-09-26] MEDS: BUPRENORPHINE/NALOXONE 8-2MG SUBLINGUAL TABLET(SUBOXONE) SL SCH (15:37)
[2025-09-26] MEDS: BUPRENORPHINE/NALOXONE 2-0.5MG SUBLINGUAL TABLET(SUBOXONE) PO SCH (19:00)
[2025-09-27] VITALS (7 sets, daily range): BP systolic 109–127; BP diastolic 63–75; TEMP 96.5–98.5; O2SAT 93–99
[2025-09-27 05:56] LABS: BASO # 0.1 10^3/uL (0.0-0.2); BASO % 0.4 % (0.0-1.0); EOS # 0.2 10^3/uL (0.0-0.5); EOS % 0.6 % (0.0-3.0); LYMPH # 3.3 10^3/uL (1.5-5.0); LYMPH % 11.0 % (24.0-44.0); MONO # 2.1 10^3/uL (0.0-0.8); MONO % 6.9 % (2.0-8.0); NEUTROPHILS # 21.9 10^3/uL (1.5-8.5); NEUTROPHILS % 72.7 % (36.0-66.0)
[2025-09-27 05:59] LABS: PLATELET COUNT, AUTOMATED 504 10^3/uL (150-450)
[2025-09-27] MEDS: PANTOPRAZOLE 20 MG TAB PO SCH (08:51)
[2025-09-27] MEDS ORDERED: MAGIC MOUTHWASH 5 ML ORAL SYRINGE SS PRN (12:45)
[2025-09-28 03:57] VITALS: BP 119/66; TEMP 98.1; O2SAT 94
[2025-09-28 05:56] LABS: PLATELET COUNT, AUTOMATED 560 10^3/uL (150-450)
[2025-09-28 06:22] LABS: CALCIUM LEVEL 9.9 MG/DL (8.5-10.1); CARBON DIOXIDE LEVEL 37 MMOL/L (20-31); CHLORIDE LEVEL 97 MMOL/L (98-107); CREATININE FOR GFR 0.48 MG/DL (0.70-1.30); GLOMERULAR FILTRATION RATE > 90.0 (>56); POTASSIUM SERUM 4.8 MMOL/L (3.5-5.1); SODIUM LEVEL 141 MMOL/L (136-145)
[2025-09-28 08:48] VITALS: BP 126/72; TEMP 99.2; O2SAT 95
[2025-09-28] MEDS: predniSONE 20 MG TAB PO SCH (09:05)
[2025-09-28 12:00] VITALS: BP 138/76; TEMP 98.9; O2SAT 95
[2025-09-28 16:18] VITALS: BP 135/80; TEMP 97.9; O2SAT 94
[2025-09-28 19:48] VITALS: BP 141/82; TEMP 97.1; O2SAT 98
[2025-09-28 23:37] VITALS: BP 133/84; TEMP 97.1; O2SAT 95
[2025-09-29 03:44] VITALS: BP 116/72; TEMP 97.7; O2SAT 96
[2025-09-29 05:37] LABS: PLATELET COUNT, AUTOMATED 530 10^3/uL (150-450)
[2025-09-29 06:13] LABS: CALCIUM LEVEL 8.9 MG/DL (8.5-10.1); CARBON DIOXIDE LEVEL 38 MMOL/L (20-31); CHLORIDE LEVEL 93 MMOL/L (98-107); CREATININE FOR GFR 0.57 MG/DL (0.70-1.30); GLOMERULAR FILTRATION RATE > 90.0 (>56); POTASSIUM SERUM 4.7 MMOL/L (3.5-5.1); SODIUM LEVEL 137 MMOL/L (136-145)
[2025-09-29 08:07] VITALS: BP 110/64; TEMP 98.1; O2SAT 94
[2025-09-29 11:43] VITALS: BP 120/63; TEMP 98.5; O2SAT 95
[2025-09-29 12:26] VITALS: BP 102/61; TEMP 98; O2SAT 100
[2025-09-29] MEDS ORDERED: BARIUM SULFATE 700 MG TABLET As Ordered ONE (13:28)
[2025-09-29] MEDS ORDERED: E-Z-PAQUE 96% w/w SUSP 176 GM BTL As Ordered ONE (13:28)
[2025-09-29] MEDS ORDERED: VARIBAR NECTAR 40% w/v 240ML SUSP BTL As Ordered ONE (13:29)
[2025-09-29] MEDS ORDERED: VARIBAR PUDDING 40% w/v 230ML TUBE As Ordered ONE (13:29)
[2025-09-29 16:10] VITALS: BP 133/75; TEMP 97.1; O2SAT 96
[2025-09-29 19:46] VITALS: BP 128/65; TEMP 97.7; O2SAT 95
[2025-09-30] VITALS (8 sets, daily range): BP systolic 111–132; BP diastolic 62–73; TEMP 96.6–99.3; O2SAT 91–99
[2025-09-30 06:08] LABS: PLATELET COUNT, AUTOMATED 462 10^3/uL (150-450)
[2025-09-30 06:41] LABS: CALCIUM LEVEL 8.7 MG/DL (8.5-10.1); CARBON DIOXIDE LEVEL 37 MMOL/L (20-31); CHLORIDE LEVEL 96 MMOL/L (98-107); CREATININE FOR GFR 0.50 MG/DL (0.70-1.30); GLOMERULAR FILTRATION RATE > 90.0 (>56); POTASSIUM SERUM 4.7 MMOL/L (3.5-5.1); SODIUM LEVEL 139 MMOL/L (136-145)
[2025-09-30] MEDS: MORPHINE 10 MG/0.5 ML ORAL CONCENTRATE SOLUTION U/D SL PRN (12:17)
[2025-09-30] MEDS: MAALOX 30 ML SUSP *UDC PO PRN (18:50)
[2025-09-30] MEDS: RAMELTEON 8 MG TAB PO SCH (20:22)
[2025-10-01 04:08] VITALS: BP 119/71; TEMP 98.1; O2SAT 94
[2025-10-01 05:32] LABS: PLATELET COUNT, AUTOMATED 405 10^3/uL (150-450)
[2025-10-01 06:02] LABS: CALCIUM LEVEL 8.3 MG/DL (8.5-10.1); CARBON DIOXIDE LEVEL 36 MMOL/L (20-31); CHLORIDE LEVEL 96 MMOL/L (98-107); CREATININE FOR GFR 0.50 MG/DL (0.70-1.30); GLOMERULAR FILTRATION RATE > 90.0 (>56); POTASSIUM SERUM 4.4 MMOL/L (3.5-5.1); SODIUM LEVEL 138 MMOL/L (136-145)
[2025-10-01] MEDS ORDERED: SODI3NEB3 INH (07:41)
[2025-10-01] MEDS ORDERED: SYMB16INH INH (07:41)
[2025-10-01] MEDS ORDERED: PANT20TA51 PO (07:41)
[2025-10-01] MEDS ORDERED: LEVO75TAB PO (07:41)
[2025-10-01] MEDS ORDERED: NICO21PAT TD (07:41)
[2025-10-01 07:47] VITALS: BP 139/63; TEMP 97.8; O2SAT 97
[2025-10-01 14:49] VITALS: BP 163/80; TEMP 98.3; O2SAT 92
== END 2025-10-01 15:04 | disposition home health service (06) | DRG 871 ==
LOC: EDBD 16:45 → M ED 16:45 → M ED INP 19:45 → M ICU 22:09 → M PCU 09-24 21:22
PROVIDERS: ADMIT Student in an Organized Health Care Education/Training Program; ATTEND General Practice
DX: A41.9 Sepsis, unspecified organism (principal); J96.22 Acute and chronic respiratory failure with hypercapnia; J96.21 Acute and chronic respiratory failure with hypoxia; E43 Unspecified severe protein-calorie malnutrition; J18.9 Pneumonia, unspecified organism; J44.1 Chronic obstructive pulmonary disease with (acute) exacerbation; J44.0 Chronic obstructive pulmonary disease with (acute) lower respiratory infection; J98.11 Atelectasis; R64 Cachexia; Z66 Do not resuscitate; E78.5 Hyperlipidemia, unspecified; H11.31 Conjunctival hemorrhage, right eye; K21.9 Gastro-esophageal reflux disease without esophagitis; J45.909 Unspecified asthma, uncomplicated; F17.210 Nicotine dependence, cigarettes, uncomplicated; B34.8 Other viral infections of unspecified site; R74.01 Elevation of levels of liver transaminase levels; J47.9 Bronchiectasis, uncomplicated; D63.8 Anemia in other chronic diseases classified elsewhere; E88.09 Other disorders of plasma-protein metabolism, not elsewhere classified; D72.10 Eosinophilia, unspecified; R00.0 Tachycardia, unspecified; Z79.899 Other long term (current) drug therapy; Z79.52 Long term (current) use of systemic steroids; Z99.81 Dependence on supplemental oxygen

== ENCOUNTER → 2025-10-08 | Outpatient (REF) | payer OTHER, MEDICAID ==
[~2025-10-08] MED LIST changes: +BUPR1SUB4 SL; +BUPR1SUB5 SL; +LEVO75TAB PO; +MED REC COMMENT; +PANT20TA51 PO; +SODI3NEB3 INH; +SYMB16INH INH
[2025-10-08 12:50] LABS: BASO # 0.0 10^3/uL (0.0-0.2); BASO % 0.4 % (0.0-1.0); EOS # 0.5 10^3/uL (0.0-0.5); EOS % 6.6 % (0.0-3.0); LYMPH # 1.3 10^3/uL (1.5-5.0); LYMPH % 16.8 % (24.0-44.0); MONO # 0.9 10^3/uL (0.0-0.8); MONO % 11.1 % (2.0-8.0); NEUTROPHILS # 5.1 10^3/uL (1.5-8.5); NEUTROPHILS % 64.8 % (36.0-66.0); PLATELET COUNT, AUTOMATED 239 10^3/uL (150-450)
[2025-10-08 12:57] LABS: IRON (FE) 28.0 UG/DL (65-175)
[2025-10-08 13:01] LABS: VITAMIN B12 LEVEL 468.0 PG/ML (211-911)
== END ==
LOC: M LAB REF 12:09
PROVIDERS: ATTEND Family Medicine Addiction Medicine
DX: D64.9 Anemia, unspecified (principal)

== ENCOUNTER → 2025-11-08 | Outpatient (CLI) | payer OTHER, MEDICAID ==
[~2025-11-08] VITALS: Ht 182.9 cm; Wt 64.3 kg
[~2025-11-08] MED LIST changes: -BACTDSTA PO; +SULF-8 PO
[2025-11-08 09:22] VITALS: BP 141/84; O2SAT 90
== END ==
LOC: M PAL 09:05
PROVIDERS: ATTEND Physician Assistant
DX: Z51.5 Encounter for palliative care (principal); Z66 Do not resuscitate; J44.9 Chronic obstructive pulmonary disease, unspecified; Z99.81 Dependence on supplemental oxygen; Z79.891 Long term (current) use of opiate analgesic; Z88.5 Allergy status to narcotic agent; Z79.52 Long term (current) use of systemic steroids; Z79.83 Long term (current) use of bisphosphonates